=== PATIENT | male | born 1945 | race Caucasian/White ===

== ENCOUNTER → 2018-01-18 12:08 | Outpatient (CLI) | payer MEDICARE, OTHER, SELFPAY ==
--- NOTE | 2018-01-18 12:15 | DI.MRI.S_ITS ---
PROCEDURE: MR LUMBAR SPINE WO CON INDICATIONS: LUMBAR SPINE PAIN TECHNIQUE: Noncontrast sagittal T1 spin echo and T2 fast echo, sagittal STIR, axial T1 and T2 fast spin echo through the lumbar spine. In cases with scoliosis, additional coronal T2 fast spin echo may be performed. COMPARISON: [facility] Outside Film, CR, XR LUMBAR SPINE 2 OR 3 VIEWS, 12/06/2017, 10:16. FINDINGS: Image quality: Excellent. Alignment and Curvature: There is normal bony alignment. Bones: Loss of height noted in the T12 vertebral body or compression fracture. There is increased T2 signal within the marrow space of the T12 vertebral body indicating pressure pressures acute/subacute. T12 compression fracture results in approximately 50% loss of normal intervertebral body height. No kyphosis or retropulsed fragments are associated with the T12 compression fracture. Spinal Cord: Conus medullaris terminates at the T12-L1 disc level. Visualized cord demonstrates normal signal and size. Paraspinous Soft Tissues: No paravertebral masses. L1-L2: Loss of the signal. Mild diffuse disc bulge. Mild central canal narrowing. No neural foraminal narrowing. No neural impingement. L2-L3: Loss of the signal. Mild diffuse disc bulge. Mild central canal narrowing. No neural foraminal narrowing. No neural impingement. L3-L4: Loss of the signal. Mild diffuse disc bulge and mild bilateral facet hypertrophy. Mild ligamentum flavum hypertrophy. Moderate narrowing of the central canal. Moderate bilateral neural foraminal narrowing. No neural impingement. L4-L5: A loss of disc signal. Mild, diffuse associated moderate facet and mild ligamentum flavum hypertrophy. Moderate to severe narrowing of the central canal. Severe right and moderate left neural foraminal narrowing flattening deformity exiting right L5 nerve root. L5-S1: Loss of the signal. Mild diffuse associated mild bilateral facet hypertrophy. Mild narrowing of the central canal. Severe bilateral neural foraminal narrowing with slight flattening deformity exiting L5 nerve roots. IMPRESSION: 1. Acute/subacute T12 compression fracture. 2. Multilevel degenerative disc disease. 3. Multilevel facet arthropathy. 4. Moderate to severe L4-L5 central canal narrowing. Moderate L3-L4 central canal narrowing. Mild L1-L2, L2-L3 and L5-S1 central canal narrowing. 5. Severe bilateral L5-S1 neural foraminal narrowing. Severe right and moderate left L4-L5 neural foraminal narrowing. Moderate bilateral L3-L4 neural foraminal narrowing. Dictated by: Caitlyn Lloyd MD, PhD on 01/18/2018 at 15:58 Approved by: Caitlyn Lloyd MD, PhD on 01/18/2018 at 16:04
== END ==
PROVIDERS: Visit Provider Orthopaedic Surgery Orthopaedic Surgery of the Spine
DX: M48.54XA Collapsed vertebra, not elsewhere classified, thoracic region, initial encounter for fracture (principal); M54.5 Low back pain; M51.36 Other intervertebral disc degeneration, lumbar region; M47.816 Spondylosis without myelopathy or radiculopathy, lumbar region; M48.061 Spinal stenosis, lumbar region without neurogenic claudication; M48.07 Spinal stenosis, lumbosacral region
CPT/HCPCS: 72148

== ENCOUNTER → 2018-02-07 12:17 | Outpatient (CLI) | payer MEDICARE, OTHER, SELFPAY ==
--- NOTE | 2018-02-07 | DI.ECHO.S_ITS ---
[facility] +---------+ : : [address] [place] : : : : [id number] : : : : Phone: [phone]+ Echocardiogram Report + + :Name: MANE REYES Study Date: 02/07/2018 Height: 70 in : :[facility] Weight: 176 lb : : Gender: Male BSA: 2.0 m2 : :: 1945 Age: 72 yrs BP: 104/70 mmHg: :Reason For Study: Aortic, Ascending Aneurysm : :Ordering Physician: Jewel Quinteros : :Moustapha Performed By: Kay Ledezma : :Referring: Dr. Blake Santana : + + Interpretation Summary 1) Normal left ventricular thickness, size, wall motion, and systolic function (EF 55-60%). 2) Normal right ventricular size and function. 3) No significant valvular abnormalities. 4) Mildly enlarged ascending aorta at 4.1cm. 5) There is mild luminal irregularity and echogenicity in the abdominal aorta, suggestive of aortic atherosclerotic disease. 6) Compared to the Echo done 08/13/2012, no significant change. Procedure: A two-dimensional transthoracic echocardiogram with color flow and Doppler was performed. The study quality was technically adequate. Comparison is made with the echocardiogram of 08-13-12. The heart rate ranged between 77-78 bpm during the study. Left Ventricle: The left ventricle is normal in size. There is normal left ventricular wall thickness. The ejection fraction is estimated to be 55-60%. Left ventricular systolic function is normal without focal wall motion abnormalities. Assessment of diastolic parameters indicates normal left ventricular diastolic function and normal filling pressures. Right Ventricle: The right ventricle grossly appears normal in size with probable normal systolic function. Atria: The left atrial size is normal. Right atrial size is normal. The interatrial septum is intact with no evidence for an atrial septal defect. Mitral Valve: The mitral valve leaflets appear mildly thickened, but open well. The mitral valve leaflets are slightly calcified. There is no mitral regurgitation noted. Aortic Valve: The aortic valve is trileaflet. The aortic valve opens well. There is no aortic valve stenosis. There is mild aortic regurgitation. Tricuspid Valve: The tricuspid valve is normal in structure and function. There is a trace or physiologic amount of tricuspid regurgitation. The right ventricular systolic pressure is estimated at 23 mmHg assuming a right atrial pressure of 3 mm Hg. Pulmonic Valve: The pulmonic valve is not well seen, but is grossly normal. There is no pulmonic valvular regurgitation. Great Vessels: The aortic root is mildly dilated. The ascending aorta is at the upper limits of normal in size. This is unchanged compared to the previous study. There is mild luminal irregularity and echogenicity in the abdominal aorta, suggestive of aortic atherosclerotic disease. The IVC is of normal diameter and collapses greater than 50% with a sniff. This suggests a low right atrial pressure of 3 mm Hg. Pericardium/ Pleura There is no pericardial effusion. There is no pleural effusion. MMode/2D Measurements & Calculations LVIDd: 4.7 cm Ao root diam: 4.0 cm LVIDs: 2.9 cm Aortic Jxn: 3.3 cm FS: 37.8 % asc Aorta Diam: 4.1 cm EPSS: 1.2 cm Ao Arch Diam (Prox Trans): 3.4 cm IVSd: 0.85 cm LVPWd: 0.90 cm LV everett. diameter/BSA (cm/m^2): 2.4 LV sys. diameter/BSA (cm/m^2): 1.5 LA dimension: 2.9 cm RA long axis: 4.4 cm LA A2 area: 16.7 cm2 RA area: 12.0 cm2 LA A4 area: 16.3 cm2 RA vol: 28.0 ml LA length (vol): 4.7 cm RA : 14.1 ml/m2 LA vol: 49.3 ml IVC diam: 1.3 cm LA vol index: 25.0 ml/m2 RVDd major: 6.0 cm RVD1 (basal): 3.5 cm RVD2 (mid): 3.1 cm Doppler Measurements & Calculations Ao V2 max: 120.7 cm/sec MV E max marlon: 43.2 cm/sec Ao V2 mean: 84.4 cm/sec MV A max marlon: 67.9 cm/sec Ao max P.8 mmHg MV E/A: 0.64 Ao mean P.1 mmHg Med Peak E' Marlon: 3.5 cm/sec Ao V2 VTI: 22.9 cm E/E' med: 12.4 Lat Peak E' Marlon: 5.5 cm/sec E/E' lat: 7.9 E/e' average: 10.2 MV dec time: 0.27 sec MV P1/2t: 78.6 msec TR max marlon: 222.1 cm/sec MV P1/2t max marlon: 43.0 cm/sec TR max P.7 mmHg MVA(P1/2t): 2.8 cm2 PA V2 max: 67.1 cm/sec PA V2 mean: 44.7 cm/sec PA mean P.90 mmHg PA Accel Time: 0.20 sec Reading Physician:05:00 PM
== END ==
PROVIDERS: Visit Provider Internal Medicine Cardiovascular Disease
DX: I71.4 Abdominal aortic aneurysm, without rupture (principal)
CPT/HCPCS: 93306

== ENCOUNTER → 2018-12-12 09:22 | Outpatient (CLI) | payer MEDICARE, OTHER, SELFPAY ==
--- NOTE | 2018-12-12 | DI.ECHO.S_ITS ---
[facility]---------+ [facility] +---------+ : : [address] [place] : : : : [id number] : : : : Phone: [phone]+ Echocardiogram Report + + :Name: MANE REYES Study Date: 12/12/2018 Height: 70 in : :[facility] Exam Location: [facility] Weight: 176 lb : : Gender: Male BSA: 2.0 m2 : :: 1945 Age: 73 yrs BP: 102/63 mmHg: :Reason For Study: DISORDER OF ARTERIES : : Performed By: Spike Baltazar : :Referring: TAMY GERARD : + + Interpretation Summary 1) Normal left ventricular thickness, size, wall motion, and systolic function (EF 55-60%). 2) Normal right ventricular size and function. 3) No significant valvular abnormalities. 4) Mildly enlarged ascending aorta at 4.1cm. 5) Compared to the Echo done 02/07/2018, no significant change. Procedure: A two-dimensional transthoracic echocardiogram with color flow and Doppler was performed. The study quality was technically adequate. Comparison is made with the echocardiogram of 02/07/18. The patient was in normal sinus rhythm during the exam. Left Ventricle: The left ventricle is normal in size. There is normal left ventricular wall thickness. The ejection fraction is estimated to be 55-60%. Left ventricular systolic function is normal. There are no focal wall motion abnormalities. Right Ventricle: The right ventricle is normal in size and function. Atria: Both atria are normal in size. The interatrial septum is intact with no evidence for an atrial septal defect. Mitral Valve: The mitral valve is normal in structure and function. The mitral valve leaflets are slightly calcified. There is no mitral regurgitation noted. Aortic Valve: The aortic valve is trileaflet. The aortic valve opens well. There is no aortic valve stenosis. There is trace aortic regurgitation. Tricuspid Valve: The tricuspid valve is normal in structure and function. There is trace tricuspid regurgitation. The right ventricular systolic pressure is estimated to be at least 21 mmHg based on an estimated right atrial pressure of 3 mm Hg. Pulmonic Valve: The pulmonic valve is normal in structure and function. There is trace pulmonic regurgitation. Great Vessels: The aortic root is normal size. The ascending aorta is mildly enlarged. The pulmonary artery is normal size. The IVC is of normal diameter and collapses greater than 50% with a sniff. This suggests a low right atrial pressure of 3 mm Hg. Pericardium/ Pleura There is no pericardial effusion. There is no pleural effusion. MMode/2D Measurements & Calculations LVIDd: 4.5 cm LVOT diam: 2.4 cm LVIDs: 2.4 cm Ao root diam: 3.7 cm FS: 46.5 % Aortic Jxn: 3.1 cm EPSS: 1.0 cm asc Aorta Diam: 4.1 cm IVSd: 0.85 cm Ao Arch Diam (Prox Trans): 2.6 cm LVPWd: 0.83 cm LV everett. diameter/BSA (cm/m^2): 2.3 LV sys. diameter/BSA (cm/m^2): 1.2 LA dimension: 3.1 cm RA long axis: 4.3 cm LA A2 area: 24.3 cm2 RA area: 18.7 cm2 LA A4 area: 18.7 cm2 RA vol: 69.2 ml LA length (vol): 5.6 cm RA : 35.0 ml/m2 LA vol: 69.2 ml IVC diam: 1.4 cm LA vol index: 35.0 ml/m2 RVD1 (basal): 3.7 cm RVD2 (mid): 3.6 cm Doppler Measurements & Calculations Ao V2 max: 123.8 cm/sec LVOT Max Marlon: 89.5 cm/sec Ao V2 mean: 90.7 cm/sec LV V1 max P.2 mmHg Ao max P.1 mmHg LV V1 VTI: 19.3 cm Ao mean P.5 mmHg JONATHAN(I,D): 3.5 cm2 Ao V2 VTI: 24.6 cm JONATHAN(V,D): 3.2 cm2 sev ratio: 0.78 JONATHAN indexed to BSA (cm^2/m^2): 1.8 MV E max marlon: 53.7 cm/sec TR max marlon: 209.2 cm/sec MV A max marlon: 68.4 cm/sec TR max P.5 mmHg MV E/A: 0.78 PA V2 max: 69.9 cm/sec Med Peak E' Marlon: 4.5 cm/sec PA V2 mean: 46.3 cm/sec E/E' med: 11.8 PA mean P.98 mmHg Lat Peak E' Marlon: 5.9 cm/sec PA pr(Accel): 21.6 mmHg E/E' lat: 9.1 PA Accel Time: 0.11 sec E/e' average: 10.5 MV dec time: 0.27 sec SV(LVOT): 86.4 ml Reading Physician:12:13 PM
== END ==
PROVIDERS: PCP Family Medicine; Visit Provider Internal Medicine Cardiovascular Disease
DX: I77.89 Other specified disorders of arteries and arterioles (principal)
CPT/HCPCS: 93306

== ENCOUNTER → 2018-12-18 14:03 | Outpatient (CLI) | payer MEDICARE, OTHER, SELFPAY ==
[2018-12-18 15:03] LABS: Add Manual Diff / Slide Review NO; Basophils Absolute Auto 0 /uL (0-100); Basophils Percent Auto 0.5 % (0-2); Eosinophils Absolute Auto 200 /uL (0-450); Eosinophils Percent Auto 3.2 % (2-4); Hematocrit 39.7 % (41-53); Hemoglobin 13.2 g/dL (13.5-17.5); Lymphocytes Absolute Auto 1800 /uL (1100-4500); Lymphocytes Percent Auto 26.4 % (25-40); Mean Corpuscular HGB Conc 33.2 % (30-36); Mean Corpuscular Volume 87.5 fL (80-100); Monocytes Absolute Auto 400 /uL (0-900); Monocytes Percent Auto 6.3 % (3-14); Neutrophils Absolute Auto 4400 /uL (1500-7000); Neutrophils Percent Auto 63.6 % (50-75); Platelet Count 234 X10^3/uL (150-400); Red Blood Cell Count 4.54 X10^6/uL (4.5-5.9); White Blood Cell Count 6.9 X10^3/uL (4.5-11.0)
[2018-12-18 16:29] LABS: BUN Creatinine Ratio 18.7 (6-22); Blood Urea Nitrogen 28 mg/dL (9-20); Calcium 9.2 mg/dL (8.4-10.2); Carbon Dioxide 30 mmol/L (22-32); Chloride 102 mmol/L (98-107); Cholesterol 142 mg/dL (140-199); Estimated Glomerular Filt Rate 45.9 mL/min (>60); Glucose 102 mg/dL (80-110); HDL Cholesterol 27 mg/dL (40-60); HEMOLYSIS < 15 (0-50); LDL Cholesterol Calculated 69 mg/dL (<100); Potassium 4.8 mmol/L (3.4-5.1); Sodium 141 mmol/L (137-145); Triglycerides 228 mg/dL (35-150)
== END ==
PROVIDERS: PCP Family Medicine; Visit Provider Internal Medicine Cardiovascular Disease
DX: I10 Essential (primary) hypertension (principal)
CPT/HCPCS: 36415; 80048; 80053; 80061; 85025

== ENCOUNTER → 2019-01-18 10:02 | Outpatient (CLI) | payer MEDICARE, OTHER, SELFPAY ==
--- NOTE | 2019-01-18 | DI.NM.S_ITS ---
PROCEDURE: NM YANA PERF SPECT R&S PHARM Rest and pharmacological stress myocardial perfusion SPECT with gated imaging and ejection fraction RADIOPHARMACEUTICAL: 9.4 mCi Tc-99m tetrafosmin IV at rest and 25.7 mCi Tc-99m tetrafosmin IV at peak effect of pharmacological stress. [id number] was performed. INDICATIONS: CHEST PAIN TECHNIQUE: Radiopharmaceutical was injected at peak stress test, and also at rest. SPECT images were obtained. SPECT myocardial perfusion images were displayed in short axis, horizontal long axis, and vertical long axis views. Gated images were reviewed using [employer] software. COMPARISON: None. CARDIAC STRESS: A pharmacologic stress test was performed under the supervision of an attending staff, using an infusion of lexiscan 0.4mg IV X1. Hemodynamic data: There is normal blood pressure and heart rate response to pharmacologic stress. Symptoms: The patient denied anginal chest pain. Aminophylline: none EKG: Resting ECG shows sinus rhythm with RBBB. No diagnostic changes of ischemia with lexiscan; no ectopy. FINDINGS: Raw data: There is good myocardial uptake of radiotracer. No significant motion artifacts. Mnmg-dy-fjxtx ratio is 0.39 (normal is less than 0.38 for tetrafosmin tracer). Left ventricle function: Gated images demonstrate normal left ventricular wall thickening. No segmental wall motion abnormalities. No transient ischemic dilation; TID is 1.14 (normal less than 1.3). Left ventricle resting end diastolic volume is 103 mL. Left ventricle stress ejection fraction is 69%; normal range is above 45%. Myocardial perfusion: There is moderately severe defect in the distal anterior wall extending to apex on stress supine images that improves but not resolve on stress prone images, suggesting probable ischemia in the LAD territory. No infarction as resting images show normal perfusion. IMPRESSION: Abnormal nuclear stress with probable ischemia in the LAD territory 1) There is moderately severe defect in the distal anterior wall extending to apex on stress supine images that improves but not resolve on stress prone images, suggesting probable ischemia in the LAD territory. No infarction, as resting images show normal perfusion. SSS 8, SRS 0. 2) Normal left ventricular size, wall motion, and systolic function (EF post stress 69%). 3) No ECG evidence of ischemia. 4) No angina during the study. 5) No prior nuclear stress test available for comparison. Dictated by: Jewel Gerard MD on 01/18/2019 at 15:47 Approved by: Jewel Gerard MD on 01/18/2019 at 15:51
--- NOTE | 2019-01-18 15:04 | PM.TREADMILL ---
Cardiac Stress Test Report Referral & Results Date Patient Seen: 01/18/19 Time Patient Seen: 14:30 Requesting provider: Jewel Gerard Indication: Chest discomfort Procedure Note: After both written and verbal informed consent the patient had an IV started by the diagnostic imaging RN and then was hooked up to the treadmill monitoring system. The patient was placed on the treadmill at 1 mile an hour with no elevation and was then injected with the Kim scan material. The Cardiolite was then immediately administered. The patient spent an additional 2-3 minutes on the treadmill before being returned to the [facility] in the supine position. The patient had a normal response to all infused materials. Impression: Suboptimal Kim protocol. Target heart rate not met. Please note: Actual ECG tracings can be found in the PACS system.
== END ==
PROVIDERS: PCP Family Medicine; Visit Provider Internal Medicine Cardiovascular Disease
DX: R07.9 Chest pain, unspecified (principal); I51.0 Cardiac septal defect, acquired
CPT/HCPCS: 78452; 93016; 93017; 93018; A9502; J2785

== ENCOUNTER 2019-04-14 11:19 | Inpatient (IN) | payer MEDICARE, OTHER, SELFPAY ==
[2019-04-14] VITALS (7 sets, daily range): BP systolic 107–128; BP diastolic 67–86; PULSE 106–120; RESP 17–20; TEMP 35.9–37.4; O2SAT 93–98; BMI 23.2
--- NOTE | 2019-04-14 11:34 | DI.RAD.S_ITS ---
PROCEDURE: XR ACUTE ABDOMEN SERIES INDICATIONS: abd distention, h/o 3 way bypass 8 weeks ago. TECHNIQUE: One view chest and two views of the abdomen were acquired. COMPARISON: Outside Film, CT, CT ABDOMEN PELVIS WITH CONTRAST, 10/22/2018, 17:32. FINDINGS: Surgical changes and devices: The changes of coronary bypass as well as cervical fusion. Chest: Lungs are clear. Heart size is normal. No pleural effusions. No pneumoperitoneum. Abdomen: Air filled dilated loops of bowel throughout the abdomen, possibly including the colon. No suspicious calcifications. Visualized solid organ contours appear normal. Bones: No suspicious bony lesions. IMPRESSION: Dilated air-filled bowel throughout the abdomen which may represent small bowel obstruction or ileus the appropriate clinical setting Dictated by: Hari Perry M.D. on 04/14/2019 at 11:00 Approved by: Hari Perry M.D. on 04/14/2019 at 11:04
[2019-04-14 12:12] LABS: Add Manual Diff / Slide Review NO; Basophils Absolute Auto 0 /uL (0-100); Basophils Percent Auto 0.1 % (0-2); Eosinophils Absolute Auto 0 /uL (0-450); Eosinophils Percent Auto 0.3 % (2-4); Hematocrit 41.4 % (41-53); Hemoglobin 13.4 g/dL (13.5-17.5); Lymphocytes Absolute Auto 1100 /uL (1100-4500); Lymphocytes Percent Auto 11.9 % (25-40); Mean Corpuscular HGB Conc 32.4 % (30-36); Mean Corpuscular Hemoglobin 27.7 PG (26-34); Mean Corpuscular Volume 85.3 fL (80-100); Monocytes Absolute Auto 800 /uL (0-900); Monocytes Percent Auto 8.7 % (3-14); Neutrophils Absolute Auto 7000 /uL (1500-7000); Platelet Count 290 X10^3/uL (150-400); Red Blood Cell Count 4.85 X10^6/uL (4.5-5.9); Red Cell Distribution Width 15.6 % (11.6-14.8); White Blood Cell Count 8.9 X10^3/uL (4.5-11.0)
[2019-04-14 12:21] LABS: INR 1.1 (0.9-1.3); Prothrombin Time 12.5 SECONDS (10.1-12.7)
[2019-04-14 12:24] LABS: PTT Partial Thromboplastin Tim 31 SECONDS (26.4-36.2)
[2019-04-14 12:25] LABS: Alanine Aminotransferase 16 IU/L (21-72); Albumin 4.4 g/dL (3.5-5.0); Albumin Globulin Ratio 1.4 (1.0-2.8); Alkaline Phosphatase 105 U/L (38-126); Aspartate Aminotransferase 29 IU/L (17-59); BUN Creatinine Ratio 21.7 (6-22); Bilirubin Total 0.8 mg/dL (0.2-1.3); Blood Urea Nitrogen 26 mg/dL (9-20); Calcium 9.1 mg/dL (8.4-10.2); Carbon Dioxide 24 mmol/L (22-32); Chloride 96 mmol/L (98-107); Creatine Kinase 86 U/L (55-170); Estimated Glomerular Filt Rate 59.2 mL/min (>60); Globulin 3.1 g/dL (1.7-4.1); Glucose 281 mg/dL (80-110); HEMOLYSIS < 15 (0-50); Lipase 48 U/L (23-300); Potassium 4.9 mmol/L (3.4-5.1); Sodium 136 mmol/L (137-145); Total Protein 7.5 g/dL (6.3-8.2)
--- NOTE | 2019-04-14 12:28 | DI.CT.S_ITS ---
PROCEDURE: CT ABDOMEN PELVIS W CON INDICATIONS: sbo TECHNIQUE: After the administration of intravenous contrast, 5 mm thick sections acquired from the diaphragm to the symphysis. 5 mm coronal and sagittal reformats were acquired. For radiation dose reduction, the following was used: automated exposure control, adjustment of mA and/or kV according to patient size. COMPARISON: Outside Film, CT, CT ABDOMEN PELVIS WITH CONTRAST, 10/22/2018, 17:32. [facility], CR, XR ACUTE ABDOMEN SERIES, 04/14/2019, 11:39. FINDINGS: Image quality: Excellent. ABDOMEN: Lung bases: Lung bases are clear. Heart size is normal. Postsurgical changes of coronary bypass. Solid organs: Liver is normal in size and enhancement. A large partially distended. Unremarkable appearance of the pancreas and adrenal glands. Scattered calcifications present in the spleen, likely sequela of a remote granulomatous process. Normal enhancement of the kidneys. 16mm nonobstructive kidney stone again seen in the right kidney. 3.6 cm simple fluid density cysts of the right kidney is also unchanged. Prostate gland is within normal size limits. Peritoneum and bowel: There are dilated loops of small bowel beginning in the left upper abdomen measuring up to 4.2 cm in diameter, continuing into the distal ileum before gradually tapering back normal caliber without a focal transition point. The bowel demonstrates moderate hyperenhancement but there is no region concurrent dilation and bowel wall thickening demonstrated. Appendix is unremarkable. There is air and stool within the colon which is of normal caliber. There is a moderate volume of free fluid in the pelvis. Nodes and vessels: No retroperitoneal or mesenteric adenopathy by size criteria. Aorta and inferior vena cava are normal in size. Calcific and noncalcific atherosclerosis of the abdominal aorta and its branches. Miscellaneous: No ventral hernias. PELVIS: Genitourinary: Bladder wall thickness is normal. Miscellaneous: No inguinal hernias or adenopathy. Bones: No suspicious bony lesions. Stable compression deformity of T12 with approximately 50% height loss. No new vertebral body compression fractures. Degenerative changes of the spine and hips. IMPRESSION: Partial or early complete small bowel obstruction without distended up to 4.2 cm. No focal transition point is clearly identified and there is air and stool within the colon. Moderate volume of free fluid in the pelvis. Nonobstructing 6 mm stone in the right kidney. Dictated by: Hari Perry M.D. on 04/14/2019 at 11:51 Approved by: Hari Perry M.D. on 04/14/2019 at 12:07
[2019-04-14 12:36] LABS: B Type Natriuretic Peptide < 100 (<100)
[2019-04-14 12:37] LABS: Troponin I < 0.012 ng/mL (0.01-0.034)
--- NOTE | 2019-04-14 14:32 | P.HP_ITS ---
History of Present Illness History of Present Illness Date Patient Seen: 04/14/19 Time Patient Seen: 14:33 Chief complaint: BAD STOMACH PAIN AND SWELLED UP STOMACH R SIDE Narrative: Colby Reinoso is a 74 year old male with a history of T2DM, HTN, dyslipidemia, two MIs, and a triple bypass 8 weeks ago who presents to the ED with a 2 day history of abdominal pain. Two days ago the abdominal pain began after going to for his triple bypass. The pain worsened through the following day, reaching 10/10 pain. The pain is diffuse but is more severe on his right side. The pain is slightly better today after passing gas and having a small bowel movement this morning. On Monday the only thing he had to eat was chicken soup and he was able to tolerate it well without any nausea. He reports feeling crampy and bloated. He took pepto bismol yesterday without relief. Nothing seems to make it better or worse. He denies fever, vomiting, diarrhea, constipation, blood in stool, SOB, and chest pain. He has been experiencing sweating and nausea which he attributes to the pain. When going for a xray at the ER he says he blacked out while standing up and was caught by the technicians. His xray showed dilated loops of small bowel with no clear transition point. His CT shows no definite transition point. On arrival his white blood cell count was 8.9. He has a 1cm kidney stone in his right kidney that has been there since December. It causes him intermittent low level pain in his right side and back. He is waiting until his circuit court judge approves him for surgery before addressing this issue further. Patient History Medical History (Updated 04/14/19 @ 17:36 by Marlen Boggs MD) Anxiety (Acute) BPH (benign prostatic hyperplasia) (Acute) Diabetes mellitus (Acute) Diabetic peripheral neuropathy (Acute) GERD (gastroesophageal reflux disease) (Acute) Hyperlipidemia (Acute) Hypertension (Acute) Myocardial infarction (Acute) Surgical History (Updated 04/14/19 @ 16:07 by Marlen Boggs MD) H/O cervical spine surgery (Acute) H/O right knee surgery (Acute) History of inguinal hernia repair, bilateral (Acute) S/P triple vessel bypass (Acute) Family History (Updated 04/14/19 @ 16:09 by Marlen Boggs MD) Mother Coronary artery disease Father COPD (chronic obstructive pulmonary disease) Social History household members: spouse Smoking Status: Former smoker alcohol intake: current Family & Social History Family History (Updated 04/14/19 @ 16:09 by Marlen Boggs MD) Mother Coronary artery disease Father COPD (chronic obstructive pulmonary disease) Social History: He denies smoking. He denies drinking alcohol or using re creational drugs. He is retired and lives with his , Anjali. Anjali Reinoso is his backup decision maker. Safety & Behavioral: Feels Safe in Current Yes Environment Been Physically Hurt or No Threatened By a Person Tobacco & Substance use: Smoking Status Former smoker alcohol intake frequency 0-2 drinks per day Substance Use Type does not use Meds Home Medications and Allergies Home Medications Medication Instructions Recorded Confirmed Type atenolol 04/14/19 History atorvastatin 04/14/19 History bupropion HCl PO 04/14/19 History clopidogrel 04/14/19 History escitalopram oxalate mg 04/14/19 History furosemide 04/14/19 History hydromorphone [Dilaudid] 04/14/19 History insulin aspart U-100 [Novolog 04/14/19 History U-100 Insulin aspart] insulin glargine [Lantus U-100 SUBCUT 04/14/19 History Insulin] insulin lispro protamin-lispro SUBCUT 04/14/19 History [Humalog Mix 50-50 Insuln U-100] isosorbide mononitrate mg PO 04/14/19 History lidocaine 04/14/19 History losartan 04/14/19 History metformin mg 04/14/19 History metoprolol tartrate 04/14/19 History nitroglycerin mg 04/14/19 History pantoprazole PO 04/14/19 History potassium chloride [Klor-Con 10] meq PO 04/14/19 History pregabalin [Lyrica] 04/14/19 History propranolol 04/14/19 History tamsulosin mg PO 04/14/19 History zinc sulfate 04/14/19 History Allergies Allergy/AdvReac Type Severity Reaction Status Date / Time aspirin Allergy Unknown Verified 04/14/19 11:29 ibuprofen Allergy Unknown Verified 04/14/19 11:29 Review of Systems Review of Systems Narrative: Denies fever, chills, changes in hearing, changes in vision, chest tightness, cough, wheeze, SOB, chest pain, diarrhea, constipation, vomiting, blood in stool, polyuria, dysuria, difficulty urinating, dark colored urine, gait problems, lymphadenopathy, and headaches. Positive for nausea, sweating, abdominal pain, bloating, and cramping, dizziness, and lightheadedness. Exam Vital Signs (past 8 hours): - 04/14/19 11:25 04/14/19 12:36 04/14/19 12:57 Temperature 96.6 F L Pulse Rate 108 H 107 H 106 H Respiratory Rate 18 20 18 Blood Pressure 120/80 Blood Pressure [Left Arm] 109/67 107/69 Pulse Oximetry 93 96 97 Oxygen Delivery Method Room Air Const General: cooperative, healthy appearing and well developed Orientation: alert and oriented x3 HENMT Head: normocephalic Ears: hearing grossly normal bilaterally Eyes General: appearance normal, both eyes and all related structures Conjunctivae: conjunctivae normal Pupils: PERRL EOM: EOM intact bilaterally Neck Neck: normal visual inspection and trachea midline Thyroid: thyroid normal Chest Chest: normal inspection of the chest Other: Large scar on chest from triple bypass 8 weeks ago. Resp Effort & Inspection: normal respiratory effort and able to speak in complete sentences Auscultation: clear to auscultation bilaterally Cardio Rate: regular rate Rhythm: regular rhythm Heart Sounds: S1 normal and S2 normal GI Inspection: distended and scar Palpation: firm, guarding and tender Auscultation: high-pitched sounds Other: Three laparoscopic scars from triple bypass 8 weeks ago. Skin General: no rashes or lesions noted and scars Neuro General: alert, awake, oriented x3 and moves all extremities Cognition: normal cognition Speech: speech normal Psych Appearance: grossly normal Mental Status: mental status grossly normal Speech and Movement: speech and movement normal Objective Labs Result Diagrams: 04/14/19 12:04 04/14/19 12:04 Labs: Laboratory Results - last 24 hr 04/14/19 04/14/19 04/14/19 12:04 12:04 12:04 WBC 8.9 RBC 4.85 Hgb 13.4 L Hct 41.4 MCV 85.3 MCH 27.7 MCHC 32.4 RDW 15.6 H Plt Count 290 Neut % (Auto) 79.0 H Lymph % (Auto) 11.9 L [place] % (Auto) 8.7 Eos % (Auto) 0.3 L Baso % (Auto) 0.1 Neut # (Auto) 7000 Lymph # (Auto) 1100 [place] # (Auto) 800 Eos # (Auto) 0 Baso # (Auto) 0 PT 12.5 INR 1.1 APTT 31 Sodium 136 L Potassium 4.9 Chloride 96 L Carbon Dioxide 24 BUN 26 H Creatinine 1.20 Estimated GFR 59.2 L BUN/Creatinine Ratio 21.7 Glucose 281 H Calcium 9.1 Total Bilirubin 0.8 AST 29 ALT 16 L Alkaline Phosphatase 105 Total Creatine Kinase 86 CK-MB (CK-2) TNP CK-MB (CK-2) Rel Index TNP Troponin I < 0.012 B-Natriuretic Peptide Total Protein 7.5 Albumin 4.4 Globulin 3.1 Albumin/Globulin Ratio 1.4 Lipase 48 04/14/19 12:04 WBC RBC Hgb Hct MCV MCH MCHC RDW Plt Count Neut % (Auto) Lymph % (Auto) [place] % (Auto) Eos % (Auto) Baso % (Auto) Neut # (Auto) Lymph # (Auto) [place] # (Auto) Eos # (Auto) Baso # (Auto) PT INR APTT Sodium Potassium Chloride Carbon Dioxide BUN Creatinine Estimated GFR BUN/Creatinine Ratio Glucose Calcium Total Bilirubin AST ALT Alkaline Phosphatase Total Creatine Kinase CK-MB (CK-2) CK-MB (CK-2) Rel Index Troponin I B-Natriuretic Peptide < 100 Total Protein Albumin Globulin Albumin/Globulin Ratio Lipase Assessment & Plan Assessment & Plan narrative: 1. Small bowel obstruction -NPO, NGT -IV fluids -Repeat xray tomorrow and plan surgical consult if no improvement -Repeat CBC and CMP tomorrow 2. Diabetes - hold while NPO -Continue metformin - when taking PO -Continue regular insulin 3 units TID with meals - when taking PO -Continue glargine 20 units in the morning 10 units at night - when taking PO -Correction scale insulin with accuchecks Q6HR while NPO 3. CAD - take with ice chips and clamp NG for 30 minutes -Continue losartan 25mg -Continue metoprolol -Continue atorvastatin -Continue clopidogrel -Continue furosemide 20mg -Continue potassium 10mg daily -Continue nitroglycerine 0.4mg prn 4. Hyperlipidemia -Continue atorvastatin 80mg daily 5. GERD -Continue pantoprazole 40mg IV while NPO 6. BPH -Continue tamsulosin 0.4mg daily - when taking PO 7. Anxiety -Continue buproprion 150mg in the morning 75mg at night - when taking PO 8. Diabetic peripheral neuropathy -Continue pregabalin 150mg - when taking PO Time Spent With Patient Time with patient: 25 - 35 minutes
[2019-04-14] MEDS: SODIUM CHLORIDE 0.9% 1,000 ML 125 ML IV (15:35)
--- NOTE | 2019-04-14 15:35 | ED_ITS ---
HPI - Abdominal Pain General Chief Complaint: Abdominal Pain Stated Complaint: BAD STOMACH PAIN AND SWELLED UP STOMACH R SIDE Time Seen by Provider: 04/14/19 11:33 Source: patient Mode of arrival: Ambulatory Limitations: no limitations History of Present Illness HPI narrative: Patient comes emergency department complaining of about 5 days of abdominal cramping and bloating. Patient denies fevers or chills. He has not vomited but he does complain of some nausea. He states he has been having very small bowel movements and has not had a normal bowel movement for the past 3 days. He states he has been passing a mild amount of gas. Patient denies any chest pain, shortness of breath, or cough. No dysuria or back pain. No hematuria or blood in stools. No other complaints at this time. Related Data Home Medications Medication Instructions Recorded Confirmed atorvastatin 80 mg PO BEDTIME 04/14/19 04/14/19 furosemide 20 mg PO DAILY 04/14/19 04/14/19 insulin aspart U-100 [Novolog 3 unit SUBCUT TIDWM 04/14/19 04/14/19 U-100 Insulin aspart] insulin glargine [Lantus Solostar 10 unit SUBCUT BEDTIME 04/14/19 04/14/19 U-100 Insulin] insulin glargine [Lantus U-100 20 unit SUBCUT DAILY 04/14/19 04/14/19 Insulin] losartan 12.5 mg PO DAILY 04/14/19 04/14/19 metformin 850 mg PO TIDWM 04/14/19 04/14/19 metoprolol tartrate 12.5 mg PO Q8H 04/14/19 04/14/19 nitroglycerin 0.4 mg SUBLINGUAL PRN PRN 04/14/19 04/14/19 pantoprazole 40 mg PO DAILY 04/14/19 04/14/19 potassium chloride [Klor-Con 10] 10 meq PO DAILY 04/14/19 04/14/19 propranolol 20 mg PO TID 04/14/19 04/14/19 tamsulosin 0.4 mg PO DAILY 04/14/19 04/14/19 zinc sulfate 220 mg PO DAILY 04/14/19 04/14/19 Allergies Allergy/AdvReac Type Severity Reaction Status Date / Time aspirin Allergy Unknown Verified 04/14/19 11:29 ibuprofen Allergy Unknown Verified 04/14/19 11:29 Review of Systems Constitutional Constitutional: Denies chills, Denies fatigue, Denies fever(s), Denies frequent falls, Denies lethargy and Denies weakness Eyes Eyes: Denies change in vision, Denies eye discharge, Denies irritation and Denies loss of vision ENT Ears, Nose, Mouth, and Throat: Denies change in voice, Denies dizziness, Denies neck pain, Denies sore throat and Denies throat swelling Cardiovascular Cardiovascular: Denies chest pain, Denies irregular heart rhythm, Denies lightheadedness, Denies palpitations, Denies dyspnea, Denies dyspnea on exertion and Denies orthopnea Respiratory Respiratory: Denies cough, Denies dyspnea, Denies dyspnea on exertion and Denies wheezing Gastrointestinal Gastrointestinal: Reports abdominal pain, Denies change in bowel habits, Denies diarrhea, Reports nausea and Denies vomiting Comments: Bloating Genitourinary Genitourinary: Denies hematuria, Denies flank pain, Denies urinary incontinence and Denies urinary urgency Musculoskeletal Musculoskeletal: Denies back pain, Denies muscle weakness, Denies neck pain, Denies numbness and Denies tingling Integumentary/Breasts Skin/Breast: Denies pruritus, Denies erythema, Denies rash and Denies wounds Neurologic Neurologic: Denies behavioral changes, Denies confusion, Denies dizziness, Denies frequent falls, Denies loss of vision, Denies numbness, Denies tingling and Denies weakness Psychiatric Psychiatric: Denies anxiety, Denies behavioral changes, Denies confusion, Denies depression, Denies homicidal ideation and Denies suicidal ideation Endocrine Endocrine: Denies fatigue, Denies flushing and Denies palpitations Hematologic/Lymphatic Hematologic/Lymphatic: Denies easy bruising Allergic/Immunologic Allergic/Immunologic: Denies urticaria, Denies throat swelling and Denies wheezing Patient History Medical History Anxiety (Acute) BPH (benign prostatic hyperplasia) (Acute) Diabetes mellitus (Acute) Diabetic peripheral neuropathy (Acute) GERD (gastroesophageal reflux disease) (Acute) Hyperlipidemia (Acute) Hypertension (Acute) Myocardial infarction (Acute) Surgical History H/O cervical spine surgery (Acute) H/O right knee surgery (Acute) History of inguinal hernia repair, bilateral (Acute) S/P triple vessel bypass (Acute) Family History (Updated 04/14/19 @ 16:09 by Marlen Boggs MD) Mother Coronary artery disease Father COPD (chronic obstructive pulmonary disease) Social History household members: spouse Smoking Status: Former smoker alcohol intake: current Family History (Updated 04/14/19 @ 16:09 by Marlen Boggs MD) Mother Coronary artery disease Father COPD (chronic obstructive pulmonary disease) Social History household members: spouse Smoking Status: Former smoker alcohol intake: current alcohol intake frequency: 0-2 drinks per day Substance Use Type: does not use Exam Initial Vital Signs Initial Vital Signs: Vital Signs Temperature 96.6 F L 04/14/19 11:25 Pulse Rate 108 H 04/14/19 11:25 Respiratory Rate 18 04/14/19 11:25 Blood Pressure 120/80 04/14/19 11:25 Pulse Oximetry 93 04/14/19 11:25 Const General: cooperative and well developed Nutritional Appearance: well nourished Orientation: alert, awake, oriented x3 and not confused [facility] Head: normocephalic and atraumatic Ears: external ears normal and TM's normal bilaterally Nose: external nose normal and No nasal discharge Face and sinus: sinuses nontender, face symmetric, no sinus tenderness and No dry mucous membranes Mouth: oral mucosae normal and moist mucous membranes Teeth and gingiva: dentition normal Throat: tonsils normal and uvula midline Eyes General: appearance normal, both eyes and all related structures Eyelids: eyelids normal Conjunctivae: conjunctivae normal Sclera: sclerae normal Pupils: PERRL EOM: EOM intact bilaterally Neck Neck: normal visual inspection, trachea midline, No lymphadenopathy, No midline deformity and No JVD Lymphatic: No lymphedema Chest Chest: normal inspection of the chest Resp Effort & Inspection: normal respiratory effort, able to speak in complete sen tences, no respiratory distress and no use of accessory muscles Auscultation: clear to auscultation bilaterally, no rales, no rhonchi and no wheezes Cardio Rate: regular rate Rhythm: regular rhythm Heart Sounds: no click, no gallops, no murmurs and no rubs Pulses: normal peripheral pulses GI Inspection: non-distended Palpation: soft, no hepatosplenomegaly, No guarding, No pulsatile mass and tender (Moderate, diffuse) Back/Spine/Pelvis Back: No CVA tenderness Cervical Spine: cervical ROM normal and No pain with cervical ROM Thoracic/Lumbar Spine: thoracic and lumbar spine normal to inspection Skin General: no rashes or lesions noted, No jaundice and No petechiae Neuro General: alert, oriented x3, gait normal and no focal motor deficits Speech: speech normal Extrem General: full ROM, no clubbing, cyanosis or edema, no pedal edema and no calf tenderness Psych Appearance: well kempt Mental Status: mental status grossly normal Attitude: cooperative Thought Content: normal and suicidality Judgment: judgment good Course Course Course Narrative: Patient was worked up with labs and acute abdominal x-ray series to evaluate his discomfort. Labs were unremarkable, but the x-ray series did show multiple dilated loops of small bowel. The patient was then sent for a CT scan of the abdomen and pelvis which confirmed either a partial or early complete small bowel obstruction, but did not identify a distinct transition point. Results were communicated with the patient, and an NG-tube was placed. I spoke with Dr. Boggs, who did agree to admit the patient to his service. Orders Ordered: ED Orders 04/14/19 11:34 XR acute abdomen series Stat EKG-12 Lead Stat 04/14/19 12:04 BNP [B Type Natriuretic Peptide] Stat Complete Blood Count AUTO DIFF Stat Comprehensive Metabolic Panel Stat Lipase Stat Partial Thromboplastin Time Stat Prothrombin Time INR Stat Troponin & CK Cardiac Panel Stat 04/14/19 12:28 CT abdomen pelvis w con Stat Dextrose (D50w) 25 gm IV PRN PRN PRN Reason: Hypoglycemia Enoxaparin Sodium (Lovenox) 40 mg SUBCUT DAILY LYNETTE Hydromorphone HCl (Dilaudid) 0.5 mg IV Q6HR PRN PRN Reason: Pain, Moderate (4-6) Sodium Chloride (Normal Saline 0.9%) 1,000 mls @ 125 mls/hr IV CONT LYNETTE Last Admin: 04/14/19 15:35 Dose: 125 mls/hr Documented by: LVAZQUE Insulin Aspart (Novolog Flexpen) 0 unit SUBCUT ACHS LYNETTE; Protocol Vital Signs Vital signs: Vital Signs - 8 hr 04/14/19 11:25 04/14/19 12:36 04/14/19 12:57 Temperature 96.6 F L Pulse Rate 108 H 107 H 106 H Respiratory Rate 18 20 18 Blood Pressure 120/80 Blood Pressure [Left Arm] 109/67 107/69 Pulse Oximetry 93 96 97 MDM - Abdominal Pain Medical Records Attestation: I reviewed the patient's medical records. Lab Data Attestation: I reviewed the patient's lab results. Result diagrams: 04/14/19 12:04 04/14/19 12:04 Labs: Lab Results 04/14/19 04/14/19 04/14/19 Range/Units 12:04 12:04 12:04 WBC 8.9 (4.5-11.0) X10^3/uL RBC 4.85 (4.5-5.9) X10^6/uL Hgb 13.4 L (13.5-17.5) g/dL Hct 41.4 (41-53) % MCV 85.3 (80-100) fL MCH 27.7 (26-34) PG MCHC 32.4 (30-36) % RDW 15.6 H (11.6-14.8) % Plt Count 290 (150-400) X10^3/uL Neut % (Auto) 79.0 H (50-75) % Lymph % (Auto) 11.9 L (25-40) % [place] % (Auto) 8.7 (3-14) % Eos % (Auto) 0.3 L (2-4) % Baso % (Auto) 0.1 (0-2) % Neut # (Auto) 7000 (0596-1780) /uL Lymph # (Auto) 1100 (0592-2677) /uL [place] # (Auto) 800 (0-900) /uL Eos # (Auto) 0 (0-450) /uL Baso # (Auto) 0 (0-100) /uL PT 12.5 (10.1-12.7) SECONDS INR 1.1 (0.9-1.3) APTT 31 (26.4-36.2) SECONDS Sodium 136 L (137-145) mmol/L Potassium 4.9 (3.4-5.1) mmol/L Chloride 96 L (98-107) mmol/L Carbon Dioxide 24 (22-32) mmol/L BUN 26 H (9-20) mg/dL Creatinine 1.20 (0.66-1.25) mg/dL Estimated GFR 59.2 L (>60) mL/min BUN/Creatinine Ratio 21.7 (6-22) Glucose 281 H (80-110) mg/dL Calcium 9.1 (8.4-10.2) mg/dL Total Bilirubin 0.8 (0.2-1.3) mg/dL AST 29 (17-59) IU/L ALT 16 L (21-72) IU/L Alkaline Phosphatase 105 (38-126) U/L Total Creatine Kinase 86 (55-170) U/L CK-MB (CK-2) TNP CK-MB (CK-2) Rel Index TNP Troponin I < 0.012 (0.01-0.034) ng/mL B-Natriuretic Peptide (<100) Total Protein 7.5 (6.3-8.2) g/dL Albumin 4.4 (3.5-5.0) g/dL Globulin 3.1 (1.7-4.1) g/dL Albumin/Globulin Ratio 1.4 (1.0-2.8) Lipase 48 (23-300) U/L 04/14/ Range/Units 12:04 WBC (4.5-11.0) X10^3/uL RBC (4.5-5.9) X10^6/uL Hgb (13.5-17.5) g/dL Hct (41-53) % MCV (80-100) fL MCH (26-34) PG MCHC (30-36) % RDW (11.6-14.8) % Plt Count (150-400) X10^3/uL Neut % (Auto) (50-75) % Lymph % (Auto) (25-40) % [place] % (Auto) (3-14) % Eos % (Auto) (2-4) % Baso % (Auto) (0-2) % Neut # (Auto) (0133-8909) /uL Lymph # (Auto) (4852-7889) /uL [place] # (Auto) (0-900) /uL Eos # (Auto) (0-450) /uL Baso # (Auto) (0-100) /uL PT (10.1-12.7) SECONDS INR (0.9-1.3) APTT (26.4-36.2) SECONDS Sodium (137-145) mmol/L Potassium (3.4-5.1) mmol/L Chloride (98-107) mmol/L Carbon Dioxide (22-32) mmol/L BUN (9-20) mg/dL Creatinine (0.66-1.25) mg/dL Estimated GFR (>60) mL/min BUN/Creatinine Ratio (6-22) Glucose (80-110) mg/dL Calcium (8.4-10.2) mg/dL Total Bilirubin (0.2-1.3) mg/dL AST (17-59) IU/L ALT (21-72) IU/L Alkaline Phosphatase (38-126) U/L Total Creatine Kinase (55-170) U/L CK-MB (CK-2) CK-MB (CK-2) Rel Index Troponin I (0.01-0.034) ng/mL B-Natriuretic Peptide < 100 (<100) Total Protein (6.3-8.2) g/dL Albumin (3.5-5.0) g/dL Globulin (1.7-4.1) g/dL Albumin/Globulin Ratio (1.0-2.8) Lipase (23-300) U/L Imaging Data Abdominal x-ray: Radiologist's impression: PROCEDURE: XR ACUTE ABDOMEN SERIES INDICATIONS: abd distention, h/o 3 way bypass 8 weeks ago. TECHNIQUE: One view chest and two views of the abdomen were acquired. COMPARISON: Outside Film, CT, CT ABDOMEN PELVIS WITH CONTRAST, 10/22/2018, 17:32. FINDINGS: Surgical changes and devices: The changes of coronary bypass as well as cervical fusion. Chest: Lungs are clear. Heart size is normal. No pleural effusions. No pneumoperitoneum. Abdomen: Air filled dilated loops of bowel throughout the abdomen, possibly including the colon. No suspicious calcifications. Visualized solid organ contours appear normal. Bones: No suspicious bony lesions. IMPRESSION: Dilated air-filled bowel throughout the abdomen which may represent small bowel obstruction or ileus the appropriate clinical setting Dictated by: Hari Perry M.D. on 04/14/2019 at 11:00 Approved by: Hari Perry M.D. on 04/14/2019 at 11:04 CT scan - abdomen: Radiologist's impression: PROCEDURE: CT ABDOMEN PELVIS W CON INDICATIONS: sbo TECHNIQUE: After the administration of intravenous contrast, 5 mm thick sections acquired from the diaphragm to the symphysis. 5 mm coronal and sagittal reformats were acquired. For radiation dose reduction, the following was used: automated exposure control, adjustment of mA and/or kV according to patient size. COMPARISON: Outside Film, CT, CT ABDOMEN PELVIS WITH CONTRAST, 10/22/2018, 17:32. [facility], CR, XR ACUTE ABDOMEN SERIES, 04/14/2019, 11:39. FINDINGS: Image quality: Excellent. ABDOMEN: Lung bases: Lung bases are clear. Heart size is normal. Postsurgical changes of coronary bypass. Solid organs: Liver is normal in size and enhancement. A large partially distended. Unremarkable appearance of the pancreas and adrenal glands. Scattered calcifications present in the spleen, likely sequela of a remote granulomatous process. Normal enhancement of the kidneys. 16mm nonobstructive kidney stone again seen in the right kidney. 3.6 cm simple fluid density cysts of the right kidney is also unchanged. Prostate gland is within normal size limits. Peritoneum and bowel: There are dilated loops of small bowel beginning in the le ft upper abdomen measuring up to 4.2 cm in diameter, continuing into the distal ileum before gradually tapering back normal caliber without a focal transition point. The bowel demonstrates moderate hyperenhancement but there is no region concurrent dilation and bowel wall thickening demonstrated. Appendix is unremarkable. There is air and stool within the colon which is of normal caliber. There is a moderate volume of free fluid in the pelvis. Nodes and vessels: No retroperitoneal or mesenteric adenopathy by size criteria. Aorta and inferior vena cava are normal in size. Calcific and noncalcific atherosclerosis of the abdominal aorta and its branches. Miscellaneous: No ventral hernias. PELVIS: Genitourinary: Bladder wall thickness is normal. Miscellaneous: No inguinal hernias or adenopathy. Bones: No suspicious bony lesions. Stable compression deformity of T12 with approximately 50% height loss. No new vertebral body compression fractures. Degenerative changes of the spine and hips. IMPRESSION: Partial or early complete small bowel obstruction without distended up to 4.2 cm. No focal transition point is clearly identified and there is air and stool within the colon. Moderate volume of free fluid in the pelvis. Nonobstructing 6 mm stone in the right kidney. Dictated by: Hari Perry M.D. on 04/14/2019 at 11:51 Approved by: Hari Perry M.D. on 04/14/2019 at 12:07 Discharge Plan Departure Patient Disposition: Admitted As Inpatient Clinical Impression: Small bowel obstruction Discharge Date/Time: 04/14/19 15:17 Admit Date/Time: 04/14/19 13:54 Admit Provider: Marlen Boggs
--- NOTE | 2019-04-14 16:42 | PC.NURSE ---
Addendum entered by Cheyenne Foster R.N. 04/14/19 21:02: Pt resting at intervals. NG w/no output at this time. IVF continue as per orders via pump w/o incidence. Call light w/in reach, bedalarm on for pt safety. Continue w/plan of care. Original Note: Pt arrived from ED approximately 1530. Alert/orieted. NG to LIS IVF infusing into the LAC as per orders w/o incidence Oriented to room and call system. Call light w/in reach, bed alrm on for pt safety.
--- NOTE | 2019-04-14 16:48 | PM.HP.1 ---
History of Present Illness History of Present Illness Chief complaint: BAD STOMACH PAIN AND SWELLED UP STOMACH R SIDE Narrative: Colby Paulino is a 74 year old male with a history of T2DM, HTN, dyslipidemia, two MIs, and a triple bypass 8 weeks ago who presents to the ED with a 2 day history of abdominal pain. Two days ago the abdominal pain began after going to for his triple bypass. The pain worsened through the following day, reaching 10/10 pain. The pain is diffuse but is more severe on his right side. The pain is slightly better today after passing gas and having a small bowel movement this morning. On Monday the only thing he had to eat was chicken soup and he was able to tolerate it well without any nausea. He reports feeling crampy and bloated. He took pepto bismul yesterday without relief. Nothing seems to make it better or worse. He denies fever, vomiting, diarrhea, constipation, blood in stool, SOB, and chest pain. He has been experiencing sweating and nausea which he attributes to the pain. When going for a xray at the ER he blacked out while standing up and was caught by the technicians. His xray showed dilated loops of small bowel with no clear transition point. On arrival his white blood cell count was 8.9. He has a 1cm kidney stone in his right kidney that has been there since December. It causes him intermittent low level pain in his right side and back. He is waiting until his fuel cell builder approves him for surgery before addressing this issue further. Patient History Medical History (Updated 04/14/19 @ 16:06 by Marlen Boggs MD) Diabetes mellitus (Acute) Hyperlipidemia (Acute) Hypertension (Acute) Myocardial infarction (Acute) Surgical History (Updated 04/14/19 @ 16:07 by Marlen Boggs MD) H/O cervical spine surgery (Acute) H/O right knee surgery (Acute) History of inguinal hernia repair, bilateral (Acute) S/P triple vessel bypass (Acute) Family History (Updated 04/14/19 @ 16:09 by Marlen Boggs MD) Mother Coronary artery disease Father COPD (chronic obstructive pulmonary disease) Social History household members: spouse Smoking Status: Former smoker alcohol intake: current Family & Social History Family History (Updated 04/14/19 @ 16:09 by Marlen Boggs MD) Mother Coronary artery disease Father COPD (chronic obstructive pulmonary disease) Social History: household members spouse Prior Living Arrangements House Safety & Behavioral: Feels Safe in Current Yes Environment Been Physically Hurt or No Threatened By a Person Suicidal Ideation Description None Suicide Plan Description No Plan Tobacco & Substance use: Smoking Status Former smoker alcohol intake current alcohol intake frequency 0-2 drinks per day Substance Use Type does not use Meds Home Medications and Allergies Home Medications Medication Instructions Recorded Confirmed Type No Known Home Medications 04/14/19 04/14/19 History atenolol 04/14/19 History Allergies Allergy/AdvReac Type Severity Reaction Status Date / Time aspirin Allergy Unknown Verified 04/14/19 11:29 ibuprofen Allergy Unknown Verified 04/14/19 11:29 Exam Vital Signs (past 8 hours): - 04/14/19 11:25 04/14/19 12:36 04/14/19 12:57 Temperature 96.6 F L Pulse Rate 108 H 107 H 106 H Respiratory Rate 18 20 18 Blood Pressure 120/80 Blood Pressure [Left Arm] 109/67 107/69 Pulse Oximetry 93 96 97 04/14/19 15:15 04/14/19 16:25 Temperature 98.0 F Pulse Rate 107 H Respiratory Rate 17 Blood Pressure 125/86 Blood Pressure [Left Arm] Pulse Oximetry 98 98 Oxygen Delivery Method Room Air Oxygen Flow Rate 0 Objective Labs Result Diagrams: 04/14/19 12:04 04/14/19 12:04 Labs: Laboratory Results - last 24 hr 04/14/19 04/14/19 04/14/19 12:04 12:04 12:04 WBC 8.9 RBC 4.85 Hgb 13.4 L Hct 41.4 MCV 85.3 MCH 27.7 MCHC 32.4 RDW 15.6 H Plt Count 290 Neut % (Auto) 79.0 H Lymph % (Auto) 11.9 L [place] % (Auto) 8.7 Eos % (Auto) 0.3 L Baso % (Auto) 0.1 Neut # (Auto) 7000 Lymph # (Auto) 1100 [place] # (Auto) 800 Eos # (Auto) 0 Baso # (Auto) 0 PT 12.5 INR 1.1 APTT 31 Sodium 136 L Potassium 4.9 Chloride 96 L Carbon Dioxide 24 BUN 26 H Creatinine 1.20 Estimated GFR 59.2 L BUN/Creatinine Ratio 21.7 Glucose 281 H Calcium 9.1 Total Bilirubin 0.8 AST 29 ALT 16 L Alkaline Phosphatase 105 Total Creatine Kinase 86 CK-MB (CK-2) TNP CK-MB (CK-2) Rel Index TNP Troponin I < 0.012 B-Natriuretic Peptide Total Protein 7.5 Albumin 4.4 Globulin 3.1 Albumin/Globulin Ratio 1.4 Lipase 48 04/14/19 12:04 WBC RBC Hgb Hct MCV MCH MCHC RDW Plt Count Neut % (Auto) Lymph % (Auto) [place] % (Auto) Eos % (Auto) Baso % (Auto) Neut # (Auto) Lymph # (Auto) [place] # (Auto) Eos # (Auto) Baso # (Auto) PT INR APTT Sodium Potassium Chloride Carbon Dioxide BUN Creatinine Estimated GFR BUN/Creatinine Ratio Glucose Calcium Total Bilirubin AST ALT Alkaline Phosphatase Total Creatine Kinase CK-MB (CK-2) CK-MB (CK-2) Rel Index Troponin I B-Natriuretic Peptide < 100 Total Protein Albumin Globulin Albumin/Globulin Ratio Lipase
[2019-04-15] VITALS (8 sets, daily range): BP systolic 102–133; BP diastolic 63–77; PULSE 114–119; RESP 18–20; TEMP 36.3–37.4; O2SAT 93–97
--- NOTE | 2019-04-15 | DI.RAD.S_ITS ---
PROCEDURE: XR ABDOMEN MIN 2V INDICATIONS: Small bowel obstruction TECHNIQUE: 2 views of the abdomen were acquired. COMPARISON: [facility], CR, XR ACUTE ABDOMEN SERIES, 04/14/2019, 11:39. FINDINGS: Surgical changes and devices: Nasogastric tube is in place with the distal tip projecting over the left upper abdomen. Partially imaged median sternotomy wires appear intact. Bowel: No pneumoperitoneum. Persistent but decreased prominence of scattered loops of dilated small bowel with differential air-fluid levels. Decreased degree of distention. No evidence for bowel wall thickening. Soft tissues: No masses; visualized solid organ contours appear normal in size. No suspicious abdominal calcifications. Bones: No suspicious bony abnormalities. IMPRESSION: Interval improvement in degree of small bowel distention with a few persistent air fluid levels noted in the left abdomen. Dictated by: Nathan Lopez M.D. on 04/15/2019 at 8:17 Approved by: Nathan Lopez M.D. on 04/15/2019 at 8:19
--- NOTE | 2019-04-15 01:36 | PC.NURSE ---
Patient's heart rate is sustaining between 120-130 at rest. Sinus Tachycardia on the burling and joining supervisor. Notified Alda ELAM. Orders given, see AUG.
--- NOTE | 2019-04-15 01:38 | PM.EVENT ---
Event Note Event Note: Patient's reported heart rate in the 120s to low 130s. Had not taken metoprolol today. Was adminstered IV lopressor 5 mg X 1.
[2019-04-15] MEDS: METOPROLOL TARTRATE 5 MG/5 ML INJ IV (01:40)
[2019-04-15] MEDS: SODIUM CHLORIDE 0.9% 1,000 ML 125 ML IV (06:39)
[2019-04-15] MEDS: INSULIN ASPART 100 UNIT/ML INSULN PEN SUBCUT ×4 (06:40→21:28)
--- NOTE | 2019-04-15 07:31 | PC.NURSE ---
Day shift: Pt back on AC unit after imaging. Connected back to NG suction.
[2019-04-15 07:33] LABS: Add Manual Diff / Slide Review NO; Basophils Absolute Auto 0 /uL (0-100); Basophils Percent Auto 0.1 % (0-2); Eosinophils Absolute Auto 0 /uL (0-450); Eosinophils Percent Auto 0.7 % (2-4); Hemoglobin 13.4 g/dL (13.5-17.5); Lymphocytes Absolute Auto 700 /uL (1100-4500); Lymphocytes Percent Auto 13.9 % (25-40); Mean Corpuscular HGB Conc 32.7 % (30-36); Mean Corpuscular Hemoglobin 27.5 PG (26-34); Monocytes Absolute Auto 700 /uL (0-900); Monocytes Percent Auto 13.7 % (3-14); Neutrophils Absolute Auto 3800 /uL (1500-7000); Neutrophils Percent Auto 71.6 % (50-75); Platelet Count 251 X10^3/uL (150-400); Red Blood Cell Count 4.89 X10^6/uL (4.5-5.9); Red Cell Distribution Width 15.4 % (11.6-14.8); White Blood Cell Count 5.4 X10^3/uL (4.5-11.0)
[2019-04-15 07:43] LABS: Alanine Aminotransferase 17 IU/L (21-72); Albumin 3.7 g/dL (3.5-5.0); Albumin Globulin Ratio 1.3 (1.0-2.8); Alkaline Phosphatase 89 U/L (38-126); Aspartate Aminotransferase 24 IU/L (17-59); BUN Creatinine Ratio 25.6 (6-22); Bilirubin Total 0.8 mg/dL (0.2-1.3); Blood Urea Nitrogen 23 mg/dL (9-20); Calcium 8.1 mg/dL (8.4-10.2); Carbon Dioxide 26 mmol/L (22-32); Chloride 101 mmol/L (98-107); Estimated Glomerular Filt Rate > 60.0 mL/min (>60); Globulin 2.9 g/dL (1.7-4.1); Glucose 234 mg/dL (80-110); HEMOLYSIS < 15 (0-50); Potassium 4.2 mmol/L (3.4-5.1); Sodium 137 mmol/L (137-145); Total Protein 6.6 g/dL (6.3-8.2)
[2019-04-15] MEDS: ENOXAPARIN 40 MG/0.4 ML SYRINGE SUBCUT (08:59)
--- NOTE | 2019-04-15 09:19 | CM.DANOTE ---
DCP: Case received, EMR reviewed and met with patient. Introduced self and role. Was able to meet with patient, , Leonardo, at bedside, and obtain baseline history and activity level. DCP assessment/template completed with information currently available. Patient is a 74 year old male who admitted yesterday afternoon to the care of the hospitalist team. PCP: Dr. Santana. Payer: confirmed: Medicare/99dresses. Patient came to the hospital due to abdominal pain, and distention. Patient holds diagnosis of small bowel obstruction. He currently has an NG tube. Met with patient in is room, alert and oriented, in room as well. Lives in [place] with his spouse. He is independent at home, uses a cane, and has been driving. Patient mentioned, he is already starting to feel better. P: DCP to continue to follow closely. Home is the goal for patient. Will see how he does here in the hospital. Ariela Lopez RN/Search Manager
[2019-04-15] MEDS: BENZOCAINE/MENTHOL 1 LOZ PKT 1 EACH PO ×2 (10:42→14:44)
--- NOTE | 2019-04-15 14:57 | PM.PN.1 ---
Subjective Subjective Date Patient Seen: 04/15/19 Time Patient Seen: 10:05 Interval history: Colby Reinoso is a 74 year old male with a history of T2DM, HTN, dyslipidemia, two MIs, and a triple bypass 8 weeks ago who presents to the ED with a 2 day history of abdominal pain. He was at admitted with small-bowel obstruction. Overnight he had very little output with 150 cc of clear looking material. NG tube was discontinued this morning and he was advanced to clears for lunch which she has been tolerating. Repeat abdominal x-ray today showed improvement. Patient has been passing gas and had bowel movements today. Exam Vital Signs (past 8 hours): - 04/15/19 07:30 04/15/19 07:59 04/15/19 11:00 Temperature 98.7 F 97.3 F L Pulse Rate 119 H 115 H Respiratory Rate 18 18 Blood Pressure 133/77 107/63 Pulse Oximetry 96 96 97 Oxygen Delivery Method Room Air Oxygen Flow Rate 0 Narrative Exam Narrative: GENERAL APPEARANCE: Well developed, well nourished, in no acute distress. SKIN: Inspection of the skin reveals no rashes, ulcerations or petechiae. HEENT: The sclerae were anicteric and conjunctivae were pink and moist. Extraocular movements were intact and pupils were equal, round with normal accommodation. External inspection of the ears and nose showed no scars, lesions, or masses. Lips, teeth, and gums showed normal mucosa. The oral mucosa, hard and soft palate, tongue and posterior pharynx were unremarkable. NECK: Supple and symmetric. There was no thyroid enlargement, and no tenderness, or masses were felt. CHEST: Normal AP diameter and normal contour without any kyphoscoliosis. LUNGS: Auscultation of the lungs revealed no wheezes, rhonchi, or rales. CARDIOVASCULAR: There was a regular rate and rhythm without any murmurs, gallops, rubs. Peripheral pulses were 2+ and symmetric. ABDOMEN: Soft but with mild distension, and nontender with normal bowel sounds. No ascites was noted. MUSCULOSKELETAL: There was no tenderness or effusions noted. Muscle strength and tone were normal. EXTREMITIES: No cyanosis, clubbing or edema. NEUROLOGIC: Alert and oriented x 3. Normal affect. Gait was normal. Strength is +5/5 in the Upper Extremities and Lower Extremities Bilaterally. Sensation to touch was normal. Objective Labs Result Diagrams: 04/15/19 Unknown 04/15/19 Unknown Labs: Laboratory Results - last 24 hr 04/15/19 04/15/19 Unknown Unknown WBC 5.4 RBC 4.89 Hgb 13.4 L Hct 41.0 MCV 84.0 MCH 27.5 MCHC 32.7 RDW 15.4 H Plt Count 251 Neut % (Auto) 71.6 Lymph % (Auto) 13.9 L [place] % (Auto) 13.7 Eos % (Auto) 0.7 L Baso % (Auto) 0.1 Neut # (Auto) 3800 Lymph # (Auto) 700 L [place] # (Auto) 700 Eos # (Auto) 0 Baso # (Auto) 0 Sodium 137 Potassium 4.2 Chloride 101 Carbon Dioxide 26 BUN 23 H Creatinine 0.90 Estimated GFR > 60.0 BUN/Creatinine Ratio 25.6 H Glucose 234 H Calcium 8.1 L Total Bilirubin 0.8 AST 24 ALT 17 L Alkaline Phosphatase 89 Total Protein 6.6 Albumin 3.7 Globulin 2.9 Albumin/Globulin Ratio 1.3 Assessment & Plan Assessment & Plan narrative: Colby Reinoso is a 74 year old male with a history of T2DM, HTN, dyslipidemia, two MIs, and a triple bypass 8 weeks ago who presents to the ED with a 2 day history of abdominal pain. He was admitted with small-bowel obstruction which is now improving and he is currently tolerating clear liquids. 1. Small bowel obstruction -patient reports prior hernia surgery but no intra-abdominal operations. He has improved clinically with decompression and is now passing flatus and having bowel movements. He was advanced to clear liquid diet this morning, with plan to advanced to more substantial diet in the morning. - ADAT -can stop IVF -continue to monitor clinically. -Repeat CBC and CMP tomorrow 2. Diabetes - hold while NPO -hold metformin while inpatient -Continue regular insulin 3 units TID with meals - when taking PO -Continue glargine 20 units in the morning 10 units at night - when taking PO more regularly -Correction scale insulin with accuchecks ACHS for now. 3. CAD - take with ice chips and clamp NG for 30 minutes -hold losartan 25mg -Continue metoprolol -Continue atorvastatin -Continue clopidogrel -hold furosemide 20mg -hold potassium 10mg daily -will hold nitroglycerine 0.4mg prn 4. Hyperlipidemia -Continue atorvastatin 80mg daily 5. GERD -Continue pantoprazole 40mg IV until tolerating increased PO intake 6. BPH -Continue tamsulosin 0.4mg daily - when taking PO 7. Anxiety -Continue buproprion 150mg in the morning 75mg at night - when taking PO 8. Diabetic peripheral neuropathy -Continue pregabalin 150mg - when taking PO Dispo: pending advancement of diet, possible discharge tomorrow if tolerates diet.
--- NOTE | 2019-04-15 16:43 | PC.NURSE ---
Addendum entered by Cheyenne Foster R.N. 04/15/19 22:01: HS CBG = 226, 3u S/S given as per protocal. Addendum entered by Cheyenne Foster R.N. 04/15/19 21:52: Relatively uneventful evening. Denies discomfort. Pt hopeful to D/C in a.m. Call light w/in reach, bed alrm on for pt safety. Continue w/plan of care. Original Note: Pt sitting in chair Denies discomfort. HL LAC intact/patent. SpO2 96% RA. Tele shows ST/BBB per ICU staff. AC CBG = 219, 3u insulin per S/S given. Call light w/in reach, chair in place for pt safety.
[2019-04-15] MEDS: METOPROLOL IR 25 MG TABLET 12.5 MG PO (18:02)
[2019-04-15] MEDS: ATORVASTATIN 20 MG TABLET 80 MG PO (21:32)
[2019-04-16] VITALS: BP 99/64; PULSE 111; RESP 19; TEMP 36.7; O2SAT 93
[2019-04-16] MEDS: METOPROLOL IR 25 MG TABLET 12.5 MG PO ×2 (00:06→09:11)
[2019-04-16 04:30] VITALS: BP 110/80; PULSE 98; RESP 18; TEMP 36.4; O2SAT 90
[2019-04-16 07:02] LABS: Add Manual Diff / Slide Review NO; Basophils Absolute Auto 0 /uL (0-100); Basophils Percent Auto 0.1 % (0-2); Eosinophils Absolute Auto 200 /uL (0-450); Eosinophils Percent Auto 4.5 % (2-4); Hemoglobin 14.2 g/dL (13.5-17.5); Lymphocytes Absolute Auto 900 /uL (1100-4500); Mean Corpuscular HGB Conc 32.2 % (30-36); Mean Corpuscular Hemoglobin 27.4 PG (26-34); Mean Corpuscular Volume 85.1 fL (80-100); Monocytes Absolute Auto 700 /uL (0-900); Monocytes Percent Auto 13.4 % (3-14); Neutrophils Absolute Auto 3200 /uL (1500-7000); Platelet Count 245 X10^3/uL (150-400); Red Blood Cell Count 5.17 X10^6/uL (4.5-5.9); Red Cell Distribution Width 15.6 % (11.6-14.8)
[2019-04-16 07:15] LABS: Blood Urea Nitrogen 21 mg/dL (9-20); Calcium 8.2 mg/dL (8.4-10.2); Carbon Dioxide 28 mmol/L (22-32); Chloride 99 mmol/L (98-107); Estimated Glomerular Filt Rate > 60.0 mL/min (>60); Glucose 248 mg/dL (80-110); HEMOLYSIS < 15 (0-50); Magnesium 1.6 mg/dL (1.6-2.3); Phosphorous 3.2 mg/dL (2.3-3.7); Potassium 4.7 mmol/L (3.4-5.1); Sodium 136 mmol/L (137-145)
[2019-04-16 08:00] VITALS: BP 111/79; PULSE 94; RESP 16; TEMP 36.6; O2SAT 94
[2019-04-16 08:02] VITALS: O2SAT 93
[2019-04-16] MEDS: CLOPIDOGREL 75 MG TABLET PO (09:11)
[2019-04-16] MEDS: TAMSULOSIN 0.4 MG CAPSULE PO (09:11)
[2019-04-16] MEDS: ENOXAPARIN 40 MG/0.4 ML SYRINGE SUBCUT (09:15)
[2019-04-16] MEDS: INSULIN ASPART 100 UNIT/ML INSULN PEN SUBCUT ×4 (09:16→11:29)
[2019-04-16] MEDS: INSULIN GLARGINE 100 UNIT/ML 3ML PEN 20 UNIT SUBCUT (09:17)
--- NOTE | 2019-04-16 10:17 | PC.NURSE ---
Day shift: 'Pt tolerated breakfast this AM with no nausea. Passing flatus as well as having loose stools with some chunks. Pt does report mild pain at lower stomach. Dr Wall aware of this. Will continue to monitor. Call light in reach.
--- NOTE | 2019-04-16 10:19 | PC.NURSE ---
Day shift: Pt agrees to not get OOB or chair w/o help from staff.
--- NOTE | 2019-04-16 10:49 | PC.NURSE ---
Day shift: Pain scale explained and Pt rates pain 1/10 lower ABD. WIll continue to monitor. Denies any nausea or chest pain. BT's present.
[2019-04-16 11:29] VITALS: BP 106/77; PULSE 92; RESP 16; TEMP 36.9; O2SAT 98
--- NOTE | 2019-04-16 13:16 | P.DS_ITS ---
History of Present Illness History of Present Illness Date Patient Seen: 04/16/19 Time Patient Seen: 12:30 Chief complaint: BAD STOMACH PAIN AND SWELLED UP STOMACH R SIDE Narrative: As per Dr. Boggs: Colby Reinoso is a 74 year old male with a history of T2DM, HTN, dyslipidemia, two MIs, and a triple bypass 8 weeks ago who presents to the ED with a 2 day history of abdominal pain. Two days ago the abdominal pain began after going to for his triple bypass. The pain worsened through the following day, reaching 10/10 pain. The pain is diffuse but is more severe on his right side. The pain is slightly better today after passing gas and having a small bowel movement this morning. On Monday the only thing he had to eat was chicken soup and he was able to tolerate it well without any nausea. He reports feeling crampy and bloated. He took pepto bismol yesterday without relief. Nothing seems to make it better or worse. He denies fever, vomiting, diarrhea, constipation, blood in stool, SOB, and chest pain. He has been experiencing sweating and nausea which he attributes to the pain. When going for a xray at the ER he says he blacked out while standing up and was caught by the technicians. His xray showed dilated loops of small bowel with no clear transition point. His CT shows no definite transition point. On arrival his white blood cell count was 8.9. He has a 1cm kidney stone in his right kidney that has been there since December. It causes him intermittent low level pain in his right side and back. He is waiting until his biology professor approves him for surgery before addressing this issue further. Discharge Providers Provider Date of admission: 04/14/19 13:54 Discharge Date: 04/16/19 Primary care physician: Blake Santana MD Discharge provider: Benji Wall DO Summary Hospital Course Discharge Diagnosis: 1. Small bowel obstruction, acute present on admission - 2. Diabetes, type II, on termite exterminator insulin therapy. 3. CAD, chronic 4. Hyperlipidemia, chronic 5. GERD 6. BPH, chronic 7. Anxiety, chronic 8. Diabetic peripheral neuropathy, chronic Hospital Course: Colby Reinoso is a 74 year old male with a history of T2DM, HTN, dyslipidemia, two MIs, and a triple bypass 8 weeks ago who presents to the ED with a 2 day history of abdominal pain. He was admitted with small-bowel obstruction which is now improving and he is currently tolerating clear liquids. 1. Small bowel obstruction, acute present on admission -patient reports prior hernia surgery but no intra-abdominal operations. He has improved clinically with decompression and is now passing flatus and having bowel movements. Differential includes an ileus as well. The cause is unknown at this time. He was advanced to a low residue diet this morning and tolerated both breakfast and lunch without any nausea vomiting or abdominal pain. He will follow up with his primary care provider in the next week for further evaluation which would include age-appropriate cancer screenings. 2. Diabetes, type II, on penitentiary insulin therapy - insulin was held while NPO. Resumed upon initiation of diet. He can resume home regimen upon discharge so long as he is tolerating his diet. 3. CAD - continue home medications of plavix, losartan, metoprolol 4. Hyperlipidemia -Continue atorvastatin 80mg daily 5. GERD -can continue home pantoprazole 6. BPH -Continue tamsulosin 0.4mg daily 7. Anxiety -Continue buproprion 150mg in the morning 75mg at night 8. Diabetic peripheral neuropathy -Continue pregabalin 150mg Status at Discharge Cognitive/behavioral status at discharge: oriented Functional status at discharge: independent ambulation Overall status at discharge: patient is back to baseline Time Spent with Patient Time spent: Greater than 30 minutes Exam Vital Signs (past 8 hours): - 04/16/19 08:00 04/16/19 08:02 04/16/19 11:29 Temperature 98 F 98.4 F Pulse Rate 94 H 92 H Respiratory Rate 16 16 Blood Pressure 111/79 106/77 Pulse Oximetry 94 93 98 Oxygen Delivery Method Room Air Oxygen Flow Rate 0 Narrative Exam Narrative: GENERAL APPEARANCE: Well developed, well nourished, in no acute distress. SKIN: Inspection of the skin reveals no rashes, ulcerations or petechiae. HEENT: The sclerae were anicteric and conjunctivae were pink and moist. Extraocular movements were intact and pupils were equal, round with normal accommodation. External inspection of the ears and nose showed no scars, lesions, or masses. Lips, teeth, and gums showed normal mucosa. The oral mucosa, hard and soft palate, tongue and posterior pharynx were unremarkable. NECK: Supple and symmetric. There was no thyroid enlargement, and no tenderness, or masses were felt. CHEST: Normal AP diameter and normal contour without any kyphoscoliosis. LUNGS: Auscultation of the lungs revealed no wheezes, rhonchi, or rales. CARDIOVASCULAR: There was a regular rate and rhythm without any murmurs, gallops, rubs. Peripheral pulses were 2+ and symmetric. ABDOMEN: Soft, mild and improved distension and nontender with normal bowel sounds. No ascites was noted. MUSCULOSKELETAL: There was no tenderness or effusions noted. Muscle strength and tone were normal. EXTREMITIES: No cyanosis, clubbing or edema. NEUROLOGIC: Alert and oriented x 3. Normal affect. Gait was normal. Strength is +5/5 in the Upper Extremities and Lower Extremities Bilaterally. Sensation to touch was normal. Objective Labs Result Diagrams: 04/16/19 06:48 04/16/19 06:48 Labs: Laboratory Results - last 24 hr 04/16/19 04/16/19 06:48 06:48 WBC 5.0 RBC 5.17 Hgb 14.2 Hct 44.0 MCV 85.1 MCH 27.4 MCHC 32.2 RDW 15.6 H Plt Count 245 Neut % (Auto) 64.0 Lymph % (Auto) 18.0 L [place] % (Auto) 13.4 Eos % (Auto) 4.5 H Baso % (Auto) 0.1 Neut # (Auto) 3200 Lymph # (Auto) 900 L [place] # (Auto) 700 Eos # (Auto) 200 Baso # (Auto) 0 Sodium 136 L Potassium 4.7 Chloride 99 Carbon Dioxide 28 BUN 21 H Creatinine 1.00 Estimated GFR > 60.0 BUN/Creatinine Ratio 21.0 Glucose 248 H Calcium 8.2 L Phosphorus 3.2 Magnesium 1.6 Discharge Plan Discharge Plan Patient Disposition: Home Discharge comment: You were admitted to the hospital with a small bowel obstruction. This improved with decompression from an NG tube and you tolerated clear liquids very quickly and then tolerated a diet the following day. You can resume your normal medications. You should eat a low residue (low fiber) diet for the next week and follow up with you primary care office next week. If you have return of nausea, vomiting, abdominal pain or no bowel movements for a prolonged period of time please come back to the emergency room. Discharge Med Rec/Prescriptions Prescriptions: Continued atorvastatin 80 mg Tablet 80 mg PO BEDTIME RF: 0 Lantus U-100 Insulin 100 unit/mL Solution 20 unit SUBCUT DAILY RF: 0 metformin 850 mg Tablet 850 mg PO TIDWM RF: 0 potassium chloride [Klor-Con 10] 10 mEq Tablet Extended Release 10 meq PO DAILY RF: 0 tamsulosin 0.4 mg Capsule 0.4 mg PO DAILY RF: 0 Novolog U-100 Insulin aspart 100 unit/mL Solution 3 unit subcut TIDWM RF: 0 pantoprazole 40 mg Tablet,Delayed Release (Dr/Ec) 40 mg PO DAILY RF: 0 losartan 25 mg Tablet 12.5 mg PO DAILY RF: 0 nitroglycerin 0.4 mg Tablet, Sublingual 0.4 mg sublingual PRN PRN (Reason: Chest Pain) RF: 0 furosemide 20 mg Tablet 20 mg PO DAILY RF: 0 propranolol 20 mg Tablet 20 mg PO TID RF: 0 metoprolol tartrate 25 mg Tablet 12.5 mg PO Q8H RF: 0 zinc sulfate 220 (50) mg Capsule 220 mg PO DAILY RF: 0 Lantus Solostar U-100 Insulin 100 unit/mL (3 mL) Insulin Pen 10 unit SUBCUT BEDTIME RF: 0 clopidogrel 75 mg tablet 75 mg PO DAILY RF: 0 Follow up/Referrals: Blake Santana MD [Primary Care Provider] - Provider Discharge Instructions Diet comment: Low Residue/Fiber Diet Activity: As tolerated Discharge Data Primary Care Provider: Blake Santana
--- NOTE | 2019-04-16 13:39 | PC.NURSE ---
Day shift: Pt left unit with his spouse via WC with USHA Lara. Paperwork signed and all questions answered. Encouraged Pt to drink plenty of fluids and stay active as tolerated. Low fiber/low residual diet info given. Pt has all personal belongings. NO new MD scrips.
== END 2019-04-16 13:40 | disposition home or self-care (01) | DRG 390 ==
LOC: ED 13:33 → AC 13:55
PROVIDERS: Internal Medicine; Admitting Provider Family Medicine; Emergency Provider Emergency Medicine; PCP Family Medicine; Visit Provider Family Medicine
DX: K56.609 Unspecified intestinal obstruction, unspecified as to partial versus complete obstruction (principal); E11.42 Type 2 diabetes mellitus with diabetic polyneuropathy; Z79.4 Long term (current) use of insulin; I25.10 Atherosclerotic heart disease of native coronary artery without angina pectoris; Z95.1 Presence of aortocoronary bypass graft; E78.5 Hyperlipidemia, unspecified; Z87.891 Personal history of nicotine dependence; K21.9 Gastro-esophageal reflux disease without esophagitis; N40.0 Benign prostatic hyperplasia without lower urinary tract symptoms; F41.9 Anxiety disorder, unspecified
CPT/HCPCS: 36415; 74019; 74022; 74177; 80048; 80053; 82550; 82962; 83690; 83735; 83880; 84100; 84484; 85025; 85610; 85730; 93005; 99283; 99284; J1650; Q9967

== ENCOUNTER → 2019-07-22 08:45 | Outpatient (CLI) | payer MEDICARE, OTHER, SELFPAY ==
[2019-04-14 15:17] VITALS: BMI 23.2
--- NOTE | 2019-07-22 | DI.RAD.S_ITS ---
PROCEDURE: XR KUB INDICATIONS: Calculus of kidney TECHNIQUE: One view of the abdomen acquired. COMPARISON: [facility], CT, CT ABDOMEN PELVIS W CON, 04/14/2019, 12:35. [facility], CR, XR ACUTE ABDOMEN SERIES, 04/14/2019, 11:39. FINDINGS: Surgical changes and devices: None. Bowel: Bowel gas pattern is normal. Soft tissues: No new suspicious abdominal calcifications. A stable appearing 1.1 x 1.4 cm calcification overlies expected position of the collecting system of the right kidney, reviously present on CT scanning 04/14/19 Visualized solid organ contours appear normal in size. Bones: No suspicious bony lesions. IMPRESSION: 1.4 cm maximal dimension right renal collecting system area calcification, previously also seen on CT scanning 04/14/19. Dictated by: Hair Galvan M.D. on 07/22/2019 at 10:24 Approved by: Hair Galvan M.D. on 07/22/2019 at 10:26
== END ==
PROVIDERS: PCP Family Medicine; Visit Provider Specialist
DX: N20.0 Calculus of kidney (principal)
CPT/HCPCS: 74018

== ENCOUNTER 2019-08-15 13:50 | Day surgery (SDC) | payer MEDICARE, OTHER, SELFPAY ==
[2019-04-14 15:17] VITALS: BMI 23.2
[2019-08-15 17:15] VITALS: BMI 24.0
[2019-08-15 17:19] VITALS: BP 142/86; PULSE 77; RESP 12; TEMP 35.8; O2SAT 100
[2019-08-15] MEDS: LACTATED RINGERS 1,000 ML 42 ML IV (17:30)
--- NOTE | 2019-08-15 18:01 | PM.PREOP ---
Pre-operative Note Interval Note History & Physical reviewed/Exam performed by Physician: Yes Changes to H&P: No H&P completed within 30 days and has changed as indicated here:: There are no changes to the scanned history and physical examination.
[2019-08-15] MEDS: CEFAZOLIN 2 GM/100 ML FROZ.PIGGY IV (18:08)
--- NOTE | 2019-08-15 19:13 | P.OP_ITS ---
Operative Date/Time/Diagnoses Date of procedure: 08/15/19 Time of procedure: 19:13 Pre-op diagnosis: 1. Right renal calculus. 2. Right renal colic. Post-op diagnosis: same Procedure & Clinicians Procedure: 1. Right extracorporeal shockwave lithotripsy (maximal power level 7 x 2000 shocks). 2. Same procedure as scheduled: Yes Indications: 1. Right renal calculus. 2. Cystoscopy and placement right ureteral stent (6 [place] x 24 cm). Surgeon: Kevin Waller Click Yes if Unassisted: Yes Anesthesia Type: General Operative Notes Findings: 1.4 cm right renal pelvic calculus. Closure Type: not applicable Specimen(s): none sent Applied: other (Six [place] x 24 cm double-J ureteral stent.) Estimated Blood Loss (mL): 0 Blood products transfused: none Tourniquet time (min): 0 Procedure in detail: The patient was positioned supine and was administered general anesthesia. He was then repositioned in semi lithotomy in the lower abdomen genitalia and groin were then prepped and draped in sterile fashion. A 22 [place] panendoscope was then passed into the lower urinary tract with a fight with findings of a normal urethra coapted external sphincter and the 4-4.5 cm length prostate with moderate obstructing lateral lobes. Bladder had 2+ trabeculation and normal orifices bilaterally no stone or tumor or diverticula were seen. A 0.35 glidewire was then advanced into the right ureteral orifice under direct and fluoroscopic guidance. Over the Glidewire a 6 [place] x 24 cm double-J ureteral stent was advanced, again with both direct and fluoroscopic guidance. A retrieval line was left attached. The bladder was then drained completely and all instrumentation was removed. The patient was then put repositioned in supine and the above-described stone was localized in the X, Y, and Z planes. Lithotripsy was then commenced at minimal power level for 200 shocks. A 2 minutes pause was then conducted. Lithotripsy was then resumed and gradually increased to a maximal power level of 7. The stone and its fragments were really localize numerous times throughout the case. At 2000 shocks there was excellent evidence of stone comminution. The patient was then awakened transferred to [facility] and transported to recovery in stable condition he tolerated the procedure well. Complications: none Post-operative Condition: stable Disposition: PACU Plan for aftercare: KUB and office visit 6 weeks
[2019-08-15 19:15] VITALS: BP 139/82; PULSE 76; RESP 13; TEMP 36.3; O2SAT 93
[2019-08-15 19:20] VITALS: BP 135/81; PULSE 75; RESP 16; TEMP 36.1; O2SAT 93
[2019-08-15 19:25] VITALS: BP 124/77; PULSE 75; RESP 18; O2SAT 95
[2019-08-15 19:35] VITALS: BP 124/80; PULSE 75; RESP 13; O2SAT 95
[2019-08-15 19:37] VITALS: BP 117/87; PULSE 75; RESP 14; O2SAT 95
== END 2019-08-15 19:50 | disposition home or self-care (01) ==
PROVIDERS: PCP Family Medicine; Referring Provider Specialist; Visit Provider Specialist
PROC: (CPT 50590; principal; 2019-08-15 17:30)
PROC: (CPT 50590; 2019-08-15 17:30)
DX: N20.0 Calculus of kidney (principal); N40.0 Benign prostatic hyperplasia without lower urinary tract symptoms
CPT/HCPCS: 50590; 52332; J0690; J2704; J3010

== ENCOUNTER → 2019-12-06 09:36 | Outpatient (CLI) | payer MEDICARE, OTHER, SELFPAY ==
[2019-04-14 15:17] VITALS: BMI 23.2
[2019-12-06 23:15] LABS: COVID19 Sendout Not Detected (Not Detect)
== END ==
PROVIDERS: PCP Family Medicine; Visit Provider Physician Assistant
DX: Z01.812 Encounter for preprocedural laboratory examination (principal)
CPT/HCPCS: 87635

== ENCOUNTER 2019-12-09 12:51 | Day surgery (SDC) | payer MEDICARE, OTHER, SELFPAY ==
[2019-04-14 15:17] VITALS: BMI 23.2
[2019-12-09] VITALS (7 sets, daily range): BP systolic 108–121; BP diastolic 75–82; PULSE 89–93; RESP 10–89; TEMP 36.2–36.7; O2SAT 92–100; BMI 25.1
--- NOTE | 2019-12-09 13:14 | PM.PREOP ---
Pre-operative Note Interval Note History & Physical reviewed/Exam performed by Physician: Yes Changes to H&P: No H&P completed within 30 days and has changed as indicated here:: There are no changes to the history and physical examination scanned on file.
[2019-12-09] MEDS: LACTATED RINGERS 1,000 ML 42 ML IV (14:10)
--- NOTE | 2019-12-09 14:46 | SUR.OPER ---
Supine on padded OR bed, head on pillow, arms secured on padded arm boards at <90 degrees abduction, legs uncrossed, blanket under patient's sacrum per patient's request, safety belt at thigh.
[2019-12-09] MEDS: CEFAZOLIN 2 GM/100 ML FROZ.PIGGY IV (14:50)
[2019-12-09] MEDS: BUPIVACAINE LIPOSOME 266 MG/20 ML VIAL INJ (14:51)
[2019-12-09] MEDS: NEOMYCIN/POLYMYXIN/BACITRA UD OINT 2 EACH TOP (15:14)
--- NOTE | 2019-12-09 15:27 | PM.OP.1 ---
Operative Date/Time/Diagnoses Date of procedure: 12/09/19 Time of procedure: 15:28 Pre-op diagnosis: 1. Phimosis. 2. Recurrent balanitis. Post-op diagnosis: same Procedure & Clinicians Procedure: 1. Adult circumcision. Same procedure as scheduled: Yes Indications: 1. Phimosis. 2. Recurrent balanitis. Surgeon: Kevin Waller Click Yes if Unassisted: Yes Anesthesia Type: General and Peripheral nerve block (Dorsal penile block) Operative Notes Findings: Acute and chronic inflammation. Thickening of the preputial wall. Closure Type: primary Specimen(s): none sent Estimated Blood Loss (mL): 2 Blood products transfused: none Tourniquet time (min): 0 Procedure in detail: The patient was positioned in supine and administered general anesthesia. The lower abdomen genitalia and groin were then prepped and draped in sterile fashion. A dorsal penile and circumferential cutaneous block was performed with Exparel diluted 50:50 with injectable saline. Circumferential incisions were then made at appropriate locations on the inner and external preputial skin surfaces. Blunt dissection was then performed to divide most of the subcutaneous tissue intervening the 2. The remainder was divided with the cautery pen. Hemostasis was excellent. Four quadrant sutures at 12:00 p.m., 3:00 a.m., 6:00 a.m., and 9:00 a.m., were then placed using 4 0 Monocryl. A running vertical mattress of 4 0 Monocryl was then performed to reapproximate the internal external preputial skin edges. A 4 layer dressing was then performed by 1st applying an inner layer of Xeroform gauze around the incision line, followed by 2 in Kerlix and a compressive but non constricting manner, then a layer of 2 in Coban applied in the same non constricting manner. Finally the entire apparatus was secured in place with a bi fold arrangement of 1 in plastic tape. The patient was then awakened transferred to [facility] and transported to rid the recovery room in stable condition. Complications: none Post-operative Condition: stable Disposition: PACU Plan for aftercare: Discharge home
--- NOTE | 2019-12-09 15:42 | SUR.PHASEI ---
c/o split upper lip that he believes occurred during surgery. Lip examined, no open area. Tissue pinkish, not noticeably swollen or varied from from the remainder of the lip. Dr. olvera spoke with the patient, told him that the numbing medicine should help with pain control for a few days. Rx for pain written as well. Pt A&O, no pain/nausea
--- NOTE | 2019-12-09 15:49 | SUR.PHASEI ---
report to Darrell Damon RN
== END 2019-12-09 16:00 | disposition home or self-care (01) ==
PROVIDERS: PCP Family Medicine; Referring Provider Specialist; Visit Provider Specialist
PROC: (CPT 54161; principal; 2019-12-09 14:00)
DX: N47.1 Phimosis (principal); N48.1 Balanitis; I10 Essential (primary) hypertension; I25.10 Atherosclerotic heart disease of native coronary artery without angina pectoris
CPT/HCPCS: 54161; C9290; J0690; J2405; J2704; J3010

== ENCOUNTER → 2021-11-05 11:47 | Outpatient (CLI) | payer MEDICARE, OTHER, SELFPAY ==
[2019-04-14 15:17] VITALS: BMI 23.2
--- NOTE | 2021-11-05 | DI.MRI.S_ITS ---
PROCEDURE: MR LUMBAR SPINE WO CON INDICATIONS: Radiculopathy, lumbar region TECHNIQUE: Noncontrast sagittal T1 spin echo and T2 fast echo, sagittal STIR, and T2 fast spin echo through the lumbar spine. In cases with scoliosis, additional coronal T2 fast spin echo may be performed. COMPARISON: [facility], MR, MR LUMBAR SPINE WO CON, 01/18/2018, 12:43. FINDINGS: Image quality: Excellent. Alignment and Curvature: There is 4 mm retrolisthesis of L2 on L3 and 2 mm of L5 on S1, slightly progressive at L2-3. Bone Marrow: Marrow is of normal overall signal. No acute vertebral body compression fractures. Old compression deformities are noted at T12, L2 and L3. Spinal Cord: Conus medullaris terminates at the T12-L1 level. Visualized cord demonstrates normal signal and size. Paraspinous Soft Tissues: No paravertebral masses. Discs: Moderate desiccation is present throughout the lumbar spine. L1-L2: Mild disc bulge with moderate spinal stenosis, progressive. No foraminal narrowing. Facet and ligamentum flavum hypertrophy are present. L2-L3: Mild disc bulge with moderate spinal stenosis, progressive. [id number] left and minimal right foraminal narrowing with facet and ligamentum flavum hypertrophy, mildly progressive. L3-L4: Mild disc bulge with moderate spinal stenosis. Moderate bilateral foraminal narrowing with facet and ligamentum flavum hypertrophy, minimally progressive. L4-L5: Mild disc bulge with moderate to severe spinal stenosis. Severe right and moderate left foraminal narrowing with flattening of the exiting right L5 nerve root. Facet and ligamentum flavum hypertrophy are present. No interval change. L5-S1: Mild disc bulge with mild spinal stenosis. Moderate to severe bilateral foraminal narrowing with facet and ligamentum flavum hypertrophy. No interval progression. IMPRESSION: Multilevel degenerative changes with areas of interval progression as above. Multilevel spinal stenosis most severe at L4-5 secondary to disc bulge with contributing affective facet/ligamentum flavum arthropathy. Multilevel foraminal narrowing remaining most severe at L4-5 secondary to facet arthropathy with compression of the exiting L4 nerve root. Dictated by: Maren Watson M.D. on 11/05/2021 at 12:44 Approved by: Maren Watson M.D. on 11/05/2021 at 13:23
== END ==
PROVIDERS: PCP Family Medicine; Referring Provider Family Medicine; Visit Provider Family Medicine
DX: M47.26 Other spondylosis with radiculopathy, lumbar region (principal); M47.27 Other spondylosis with radiculopathy, lumbosacral region; M48.061 Spinal stenosis, lumbar region without neurogenic claudication; M48.07 Spinal stenosis, lumbosacral region; M62.830 Muscle spasm of back
CPT/HCPCS: 72148

== ENCOUNTER 2022-03-07 17:09 | Inpatient (IN) | payer MEDICARE, OTHER, SELFPAY ==
[2019-04-14 15:17] VITALS: BMI 23.2
[2022-03-07] VITALS (40 sets, daily range): BP systolic 100–145; BP diastolic 49–88; PULSE 77–87; RESP 11–36; TEMP 36.7–37.2; O2SAT 74–97; BMI 24.5
--- NOTE | 2022-03-07 17:21 | DI.RAD.S_ITS ---
PROCEDURE: XR CHEST 1V INDICATIONS: MODIFIED TRAUMA TECHNIQUE: One view of the chest was acquired. COMPARISON: None. FINDINGS: Surgical changes and devices: Median sternotomy and CABG changes. There is hardware in the lower cervical region. The lower right screw is fractured. Lungs and pleura: Asymmetric left hemidiaphragm elevation with slight opacity at the left lateral lung base without consolidation. No pleural effusion or pneumothorax. Mediastinum: Mediastinal contours appear normal. Heart size is normal. Heart size accentuated by slight patient rotation. Bones and chest wall: No visible fractures. No subcutaneous emphysema. IMPRESSION: 1. No radiographic evidence of acute chest trauma. 2. Slight elevation of the left hemidiaphragm with adjacent opacity may be atelectasis or projectional abnormality. 3. Surgical changes as described. Dictated by: Mandy Hua M.D. on 03/07/2022 at 17:59 Approved by: Mandy Hua M.D. on 03/07/2022 at 18:01
--- NOTE | 2022-03-07 17:21 | DI.CT.S_ITS ---
PROCEDURE: CT HEAD/BRAIN WO CON INDICATIONS: Trauma TECHNIQUE: Noncontrast 4.5 mm thick angled axial sections acquired from the foramen magnum to the vertex, with coronal and sagittal reformats. For radiation dose reduction, the following was used: automated exposure control, adjustment of mA and/or kV according to patient size. COMPARISON: None. FINDINGS: Image quality: Excellent. CSF spaces: Basal cisterns are patent. No extra-axial fluid collections. Ventricles are normal in size and shape. Brain: No midline shift. No intracranial masses or hemorrhage. Augustin-white matter interface is normal. Moderate cerebral and cerebellar volume loss with multifocal white matter chronic ischemic change noted. Atherosclerotic calcification noted associated with cavernous segments of both internal carotid arteries. Incidental note is made of 1 cm rounded density in the interhemispheric fissure associated with the anterior communicating artery, consistent with aneurysm. Skull and face: Calvarium and visualized facial bones are intact, without suspicious lesions. Sinuses: Chronic maxillary sinus disease, left greater than right associated with osseous wall thickening. Ethmoid mucosal thickening and small osteoma present. Intra-ocular lens replacements noted. IMPRESSION: 1. 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 Recommend follow-up CT angiogram brain 2. Atrophy and chronic ischemic change without intracranial hemorrhage or mass effect. 3. Bilateral maxillary and ethmoid mucosal sinus disease, chronic. Approved by: Mahendra Varela M.D. on 03/07/2022 at 17:25
--- NOTE | 2022-03-07 17:21 | DI.CT.S_ITS ---
PROCEDURE: CT CHEST ABD PEL W CON INDICATIONS: Trauma TECHNIQUE: After the administration of intravenous contrast, 5 mm thick sections acquired from the lung apices to the symphysis. 2.5 mm thick coronal and sagittal reformats were acquired. Additional 7 mm thick coronal maximum intensity projection (MIP) reformats acquired through the lungs. For radiation dose reduction, the following was used: automated exposure control, adjustment of mA and/or kV according to patient size. COMPARISON: [facility], CR, XR PELVIS 1-2V, 03/07/2022, 17:14. FINDINGS: Chest: Cardiovascular: Heart size is normal. No evidence of pulmonary embolism, aortic aneurysm or dissection. Dense coronary artery vascular calcification Lungs and pleural spaces: The lung rider are clear without nodule, infiltrate or interstitial prominence. Pleural spaces show no effusion or pneumothorax. Lymph nodes: No mediastinal, hilar or axillary adenopathy. Mediastinum: Unremarkable. No hiatal hernia. Thyroid within normal limits. Chest Wall and Bones: Unremarkable. No acute fracture. Midline sternal wires present. Abdomen and Pelvis: Liver: Normal in size and attenuation. No contour deformity present. Biliary system: Partially calcified stones noted layering dependently lumen the gallbladder. No pericholecystic inflammatory change. Pancreas: Unremarkable without mass or inflammation evident. Spleen: Normal in size and density. Calcified granulomas in noted Adrenals: Normal morphology and density. Reproductive system: Unremarkable as visualized. Urinary system: Normal renal size and attenuation. Right renal simple cyst measures 5.2 cm. No renal calculi, hydronephrosis, or solid mass present. Urinary bladder unremarkable. Gastrointestinal system: The bowel is unremarkable with no evidence of bowel obstruction or inflammation. The stomach appears unremarkable. Appendix: No findings to suggest acute appendicitis. Lymph nodes: No mesenteric or retroperitoneal adenopathy. Peritoneal spaces: No free air. No free fluid. Vasculature: The IVC, aorta and iliac vasculature are unremarkable. Abdominal wall: Abdominal wall intact without evidence of ventral or inguinal hernias. Prior right inguinal hernia repair noted Musculoskeletal: Intertrochanteric right femoral fracture. Pelvis appears intact. T12, L1, L2 and L3 lumbar spine compression fractures IMPRESSION: 1. Comminuted right intertrochanteric femoral fracture. 2. Multilevel wedge shaped thoracolumbar compression fractures at T12, L1, L2 and L3, uncertain age. 3. Chronic findings as above Approved by: Mahendra Varela M.D. on 03/07/2022 at 17:33
--- NOTE | 2022-03-07 17:21 | DI.CT.S_ITS ---
PROCEDURE: CT CERVICAL SPINE WO CON INDICATIONS: Trauma TECHNIQUE: Noncontrast 3 mm thick sections acquired from the skull base to the T4 level. Sagittal and coronal reformats were then constructed. For radiation dose reduction, the following was used: automated exposure control, adjustment of mA and/or kV according to patient size. COMPARISON: None. FINDINGS: Image quality: Excellent. Bones: Anterior cervical discectomy and fusion C4-5, C5-6 with posterior lateral fusion throughout the cervical spine associated with posterior wilner and screw instrumentation. Decompressive laminectomies at C4 and C6. No evidence of fracture or traumatic malalignment. Craniovertebral relationships are normal. No evidence of hardware failure Soft tissues: Prevertebral soft tissues are normal in thickness. No paravertebral hematomas. No apical pneumothoraces. IMPRESSION: Spinal fusion and decompression without evidence of fracture or traumatic malalignment Approved by: Mahendra Varela M.D. on 03/07/2022 at 17:20
--- NOTE | 2022-03-07 17:22 | ED_ITS ---
HPI - Fall General Chief Complaint: Trauma Stated Complaint: fall off ladder Time Seen by Provider: 03/07/22 17:12 Source: patient and EMS Mode of arrival: EMS Limitations: no limitations History of Present Illness HPI Narrative: This is a 76-year-old male with history of CABG who is on Plavix daily who had a fall off a ladder about 5 rungs up or proximally 4-5 feet off the ground landing on his landing on his hip. Patient states he has pain pretty much at his hip he denies pain elsewhere. Does not think he his head he did not think he was sitting hurt his chest. Denies neck or back pain currently. No shortness of breath, no nausea or vomiting, no bowel or bladder incontinence he states pain goes down his leg, no numbness or tingling. He can feel touch. Patient states he is had prior cervical fusion, bypass but no ablation. States he is allergic to aspirin. He is unsure of all of his medications but does know he takes Plavix for his anticoagulant. Does not think that he takes any other thinners. No tobacco, no alcohol, no illicit. Related Data Home Medications Medication Instructions Recorded Confirmed atorvastatin 80 mg tablet 80 mg PO BEDTIME 04/14/19 01/06/20 insulin glargine 100 unit/mL 20 unit SUBCUT BID 04/14/19 01/06/20 subcutaneous solution (Lantus U-100 Insulin) nitroglycerin 0.4 mg sublingual 0.4 mg sublingual PRN PRN Chest 04/14/19 01/06/20 tablet Pain pantoprazole 40 mg tablet,delayed 40 mg PO DAILY 04/14/19 01/06/20 release tamsulosin 0.4 mg capsule 0.4 mg PO DAILY 04/14/19 01/06/20 zinc sulfate 50 mg zinc (220 mg) 220 mg PO DAILY 04/14/19 01/06/20 capsule bupropion HCl 75 mg tablet 75 mg PO SEEINSTR 08/12/19 01/06/20 escitalopram oxalate 20 mg tablet 10 mg PO DAILY 08/12/19 01/06/20 pregabalin 100 mg capsule (Lyrica) 150 mg PO BID 08/12/19 01/06/20 propranolol 20 mg tablet 20 mg PO TID 08/12/19 01/06/20 insulin aspart U-100 100 unit/mL 10 unit SUBCUT TID 08/14/19 01/06/20 subcutaneous solution (Novolog U-100 Insulin aspart) metformin 500 mg tablet 1,000 mg PO DAILY 08/14/19 01/06/20 clopidogrel 75 mg tablet 75 mg PO DAILY 12/03/19 01/06/20 B-complex with vitamin C 1 cap PO DAILY 01/06/20 01/06/20 cholecalciferol (vitamin D3) 10 10 mcg PO DAILY 01/06/20 01/06/20 mcg (400 unit) capsule Allergies Allergy/AdvReac Type Severity Reaction Status Date / Time aspirin Allergy Severe throat Verified 01/06/20 11:56 swelling, hives peanut Allergy Severe body Verified 01/06/20 11:56 swelling ibuprofen Allergy Unknown throat Verified 01/06/20 11:56 swelling, hives Review of Systems Review of Systems ROS Unobtainable: All systems reviewed & are unremarkable except as noted in HPI and below Patient History Medical History (Updated 03/07/22 @ 20:16 by Alondra Pineda MD) Anxiety Arthritis Ascending aorta enlargement BPH (benign prostatic hyperplasia) CAD (coronary artery disease) Calculus of kidney Chest pain Depression Diabetes mellitus Diabetic peripheral neuropathy Former smoker GERD (gastroesophageal reflux disease) Gout Hyperlipidemia Hypertension Myocardial infarction Phimosis Surgical History (Updated 03/07/22 @ 20:16 by Alondra Pineda MD) H/O cervical spine surgery H/O right knee surgery History of inguinal hernia repair, bilateral Hx of cystoscopy (08/15/19) Hx of heart artery stent (~1995) S/P triple vessel bypass (~01/2019) Family History Mother Coronary artery disease Father COPD (chronic obstructive pulmonary disease) Social History household members: spouse Smoking Status: Former smoker alcohol intake: former Smoking Status: Former smoker alcohol intake frequency: 0-2 drinks per day Substance Use Type: does not use Exam Narrative Exam Narrative: GEN: C-collar in ED. Patient appears in moderate distress. HEAD: No evidence of trauma, no raccoon/[place] sign. NECK: Nontender, painless range of motion, trachea midline Positive for Nexus criteria, no midline line tenderness, positive for distracting injury, altered mental status, neuro deficit, recent EtOH. EYES: PERRLA, EOMI ENT: External inspection normal, trachea is midline, TM's are normal no hemotypanum, Nares are clear, no septal hematoma, no dental or oral injury, airway is normal and with normal occlusion, No bony tenderness RESP: Chest is nontender and has symmetric movement, no ecchymosis, breath sounds are normal no crackles, wheezes or rales CVS: Heart sounds are normal, no murmur noted, No JVD. ABG/GI: Nontender, soft, normal bowel sounds, no distention, no organomegaly, pelvic rock is negative NEURO: Oriented AOx3, neuro is grossly intact, sensation and motor is normal all 4 extremities moving, cranial nerves II through XII are intact, GCS is 15 PSYCH: Normal mood and affect SKIN: Intact, warm and dry, no crepitus and without decubitus BACK: No CVA tenderness, no vertebral tenderness, no step-off's, no crepitus EXT: Patient has tenderness over the right, no ecchymosis, nontender on the left, no pedal edema, normal color and temperature, normal range of motion of extremities with normal tendon exam, 2+ pulses in all four extremities Initial Vital Signs Initial Vital Signs: Vital Signs Temperature 99.0 F 03/07/22 17:10 Pulse Rate 77 03/07/22 17:10 Respiratory Rate 24 03/07/22 17:10 Blood Pressure 100/49 L 03/07/22 17:10 Pulse Oximetry 74 L 03/07/22 17:10 Oxygen Delivery Method 03/07/22 17:10 Scores GCS Luis Alfredo coma scale eye opening: Spontaneous Luisa Lfredo coma scale verbal response: Orientated Luis Alfredo coma scale motor response: Obey commands Luis Alfredo coma scale total score: 15 Nexus Score for C-Spine Focal Neurologic deficit present: No Midline spinal tenderness present: No Altered level of conciousness present: No Intoxication present: No Distracting Injury Present: Yes Nexus Criteria for C-spine: 1 Course Orders Ordered: ED Orders 03/07/22 17:20 COVID19 -Nasal RAPID/Pre-Proc Stat Complete Blood Count AUTO DIFF Stat Comprehensive Metabolic Panel Stat Ethanol (ETOH) Stat Lactate (Lactic Acid) Urgent Lipase Stat Partial Thromboplastin Time Stat Prothrombin Time INR Stat Troponin & CK Cardiac Panel Stat Type and Screen Stat EKG-12 Lead Stat 03/07/22 17:21 CT cervical spine wo con Stat CT chest abd pel w con Stat CT head/brain wo con Stat XR chest 1V Stat 03/07/22 17:22 XR pelvis 1-2V Stat 03/07/22 19:27 Ictotest Urine Stat Urine Microscopic Stat 03/07/22 19:28 ABG [Arterial Blood Gas] Stat Blood Culture Stat Discontinued Medications Diphtheria/Tetanus/Acell Pertussis (Tet,Diph,Pertuss(Acell),Vac/Pf 0.5 Ml Sy ringe) 0.5 ml IM .ONCE ONE Stop: 03/07/22 18:25 Last Admin: 03/07/22 18:38 Dose: 0.5 ml Documented By: OW Fentanyl (Fentanyl 100 Mcg/2 Ml Inj) 50 mcg IV NOW ONE Stop: 03/07/22 17:20 Last Admin: 03/07/22 17:25 Dose: 50 mcg Documented By: OW Ondansetron HCl (Ondansetron 4 Mg/2 Ml Inj) 4 mg IV NOW ONE Stop: 03/07/22 17:20 Last Admin: 03/07/22 17:55 Dose: 4 mg Documented By: OW Consultations Consultation #1: Dr. Pineda, orthopedic surgery saw patient in the emergency department plan for OR tomorrow. Consultation #2: FRANCES Sandoval, hospitalist accepts does ask for blood cultures and ABG which were obtained, DNR status discussed with patient and at bedside is full code. Vital Signs Vital signs: Vital Signs - 8 hr 03/07/22 17:10 03/07/22 17:15 03/07/22 17:15 Temperature 99.0 F Pulse Rate 77 83 Respiratory Rate 24 Blood Pressure 100/49 L 103/53 L Pulse Oximetry 74 L 83 L Oxygen Delivery Method Room Air Nasal Cannula Oxygen Flow Rate 4 03/07/22 17:20 03/07/22 17:20 03/07/22 17:25 Temperature Pulse Rate 83 Respiratory Rate Blood Pressure 106/53 L 118/60 Pulse Oximetry 91 Oxygen Delivery Method Oxygen Flow Rate 03/07/22 17:25 03/07/22 17:43 03/07/22 17:45 Temperature Pulse Rate 78 79 78 Respiratory Rate 36 H 12 16 Blood Pressure 118/69 122/70 Pulse Oximetry 93 92 93 Oxygen Delivery Method Nasal Cannula Nasal Cannula Nasal Cannula Oxygen Flow Rate 4 4 4 03/07/22 18:00 03/07/22 18:15 03/07/22 18:30 Temperature Pulse Rate 77 77 79 Respiratory Rate 12 15 16 Blood Pressure 114/65 119/68 121/59 L Pulse Oximetry 91 92 91 Oxygen Delivery Method Nasal Cannula Nasal Cannula Nasal Cannula Oxygen Flow Rate 4 4 4 03/07/22 18:45 Temperature Pulse Rate 78 Respiratory Rate 11 L Blood Pressure 120/58 L Pulse Oximetry 91 Oxygen Delivery Method Nasal Cannula Oxygen Flow Rate 4 fall Lab Data Result diagrams: 03/07/22 17:20 03/07/22 17:20 Labs: Lab Results 03/07/22 03/07/22 03/07/22 Range/Units 17:20 17:20 17:20 WBC (4.5-11.0) X10^3/uL RBC (4.5-5.9) X10^6/uL Hgb (13.5-17.5) g/dL Hct (41-53) % MCV (80-100) fL MCH (26-34) PG MCHC (30-36) % RDW (11.6-14.8) % Plt Count (150-400) X10^3/uL Neut % (Auto) (50-75) % Lymph % (Auto) (25-40) % [place] % (Auto) (3-14) % Eos % (Auto) (2-4) % Baso % (Auto) (0-2) % Neut # (Auto) (8999-5797) /uL Lymph # (Auto) (9872-8937) /uL [place] # (Auto) (0-900) /uL Eos # (Auto) (0-450) /uL Baso # (Auto) (0-100) /uL PT 12.6 (10.1-12.7) SECONDS INR 1.1 (0.9-1.3) APTT 32 (26-36) SECONDS Sodium (137-145) mmol/L Potassium (3.4-5.1) mmol/L Chloride (98-107) mmol/L Carbon Dioxide (22-32) mmol/L BUN (9-20) mg/dL Creatinine (0.66-1.25) mg/dL Estimated GFR (>60) mL/min BUN/Creatinine Ratio (6-22) Glucose (80-110) mg/dL Lactate 2.0 (0.7-2.1) mmol/L Calcium (8.4-10.2) mg/dL Total Bilirubin (0.2-1.3) mg/dL AST (17-59) IU/L ALT (<50) IU/L Alkaline Phosphatase (38-126) U/L Total Creatine Kinase 98 (55-170) U/L CK-MB (CK-2) TNP CK-MB (CK-2) Rel Index TNP Troponin I < 0.012 (0.01-0.034) ng/mL Total Protein (6.3-8.2) g/dL Albumin (3.5-5.0) g/dL Globulin (1.7-4.1) g/dL Albumin/Globulin Ratio (1.0-2.8) Lipase (23-300) U/L Ethyl Alcohol ( - 10) mg/dL SARS-CoV-2 (PCR) (Negative) Blood Type Antibody Screen 03/07/22 03/07/22 03/07/22 Range/Units 17:20 17:20 17:20 WBC 7.6 (4.5-11.0) X10^3/uL RBC 3.98 L (4.5-5.9) X10^6/uL Hgb 10.8 L (13.5-17.5) g/dL Hct 32.4 L (41-53) % MCV 81.3 (80-100) fL MCH 27.0 (26-34) PG MCHC 33.2 (30-36) % RDW 15.9 H (11.6-14.8) % Plt Count 191 (150-400) X10^3/uL Neut % (Auto) 74.3 (50-75) % Lymph % (Auto) 16.4 L (25-40) % [place] % (Auto) 6.2 (3-14) % Eos % (Auto) 2.8 (2-4) % Baso % (Auto) 0.3 (0-2) % Neut # (Auto) 5600 (0510-0949) /uL Lymph # (Auto) 1200 (0907-6437) /uL [place] # (Auto) 500 (0-900) /uL Eos # (Auto) 200 (0-450) /uL Baso # (Auto) 0 (0-100) /uL PT (10.1-12.7) SECONDS INR (0.9-1.3) APTT (26-36) SECONDS Sodium 137 (137-145) mmol/L Potassium 4.1 (3.4-5.1) mmol/L Chloride 100 (98-107) mmol/L Carbon Dioxide 27 (22-32) mmol/L BUN 29 H (9-20) mg/dL Creatinine 1.22 (0.66-1.25) mg/dL Estimated GFR > 60 (>60) mL/min BUN/Creatinine Ratio 23.8 H (6-22) Glucose 101 (80-110) mg/dL Lactate (0.7-2.1) mmol/L Calcium 8.4 (8.4-10.2) mg/dL Total Bilirubin 0.7 (0.2-1.3) mg/dL AST 32 (17-59) IU/L ALT 20 (<50) IU/L Alkaline Phosphatase 103 (38-126) U/L Total Creatine Kinase (55-170) U/L CK-MB (CK-2) CK-MB (CK-2) Rel Index Troponin I (0.01-0.034) ng/mL Total Protein 6.9 (6.3-8.2) g/dL Albumin 3.9 (3.5-5.0) g/dL Globulin 3.0 (1.7-4.1) g/dL Albumin/Globulin Ratio 1.3 (1.0-2.8) Lipase 160 (23-300) U/L Ethyl Alcohol < 10 ( - 10) mg/dL SARS-CoV-2 (PCR) (Negative) Blood Type O Positive Antibody Screen Negative 03/07/22 Range/Units 17:20 WBC (4.5-11.0) X10^3/uL RBC (4.5-5.9) X10^6/uL Hgb (13.5-17.5) g/dL Hct (41-53) % MCV (80-100) fL MCH (26-34) PG MCHC (30-36) % RDW (11.6-14.8) % Plt Count (150-400) X10^3/uL Neut % (Auto) (50-75) % Lymph % (Auto) (25-40) % [place] % (Auto) (3-14) % Eos % (Auto) (2-4) % Baso % (Auto) (0-2) % Neut # (Auto) (5874-9703) /uL Lymph # (Auto) (2354-9245) /uL [place] # (Auto) (0-900) /uL Eos # (Auto) (0-450) /uL Baso # (Auto) (0-100) /uL PT (10.1-12.7) SECONDS INR (0.9-1.3) APTT (26-36) SECONDS Sodium (137-145) mmol/L Potassium (3.4-5.1) mmol/L Chloride (98-107) mmol/L Carbon Dioxide (22-32) mmol/L BUN (9-20) mg/dL Creatinine (0.66-1.25) mg/dL Estimated GFR (>60) mL/min BUN/Creatinine Ratio (6-22) Glucose (80-110) mg/dL Lactate (0.7-2.1) mmol/L Calcium (8.4-10.2) mg/dL Total Bilirubin (0.2-1.3) mg/dL AST (17-59) IU/L ALT (<50) IU/L Alkaline Phosphatase (38-126) U/L Total Creatine Kinase (55-170) U/L CK-MB (CK-2) CK-MB (CK-2) Rel Index Troponin I (0.01-0.034) ng/mL Total Protein (6.3-8.2) g/dL Albumin (3.5-5.0) g/dL Globulin (1.7-4.1) g/dL Albumin/Globulin Ratio (1.0-2.8) Lipase (23-300) U/L Ethyl Alcohol ( - 10) mg/dL SARS-CoV-2 (PCR) Negative (Negative) Blood Type Antibody Screen Point of Care Testing Glucose POC 120 Urine Dip Bedside Urine Glucose Negative Bedside Urine Bilirubin + 1 Urine Specific [place] 1.02 Bedside Urine Occult Blood +/- Bedside Urine pH 6 Bedside Urine Protein +/- 15 Bedside Urine Urobilinogen - Negative Bedside Urine Nitrite - Negative Bedside Urine Leukocytes +/- [address] scan - head: Radiologist's Impression: Close Pelvis X-Ray (Signed) Mandy Hua - 03/07/[address] (Signed) Avery,Mahendra - 03/07/22 Chest/Abdomen/Pelvis CT (Signed) Varela,Mahendra - 03/07/22 Chest X-Ray (Signed) JavidMandy - 03/07/[address] (Signed) Varela,Mahendra - 03/07/22 Lumbar Spine MRI (Signed) Maren Watson - 11/05/21 KUB X-Ray (Signed) Hair Galvan - 07/22/19 Abdomen X-Ray (Signed) Nathan Lopez - 04/15/19 Telemetry Strips 04/14/19 Abdomen/Pelvis CT (Signed) Hari Perry - 04/14/19 Chest/Abdomen X-ray (Signed) Hari Perry - 04/14/19 Myocardial Perfusion Scan Nuc Med (Signed) Bailee Gerardu - 01/18/19 Echocardiogram Ultrasound (Signed) Car Gerardrigu - 12/12/18 Echocardiogram Ultrasound (Signed) Bailee Gerardu - 02/07/18 Lumbar Spine MRI (Signed) Caitlyn Lloyd - 01/18/18 Launch?[place] [address] CT Scan Report Signed Patient: Colby Reinoso MR#: [id number] : 1945 Acct:[id number] Age/Sex: 76 / M Date of Service: 03/07/22 Loc: ED Accession Number: [id number] ?? Procedure: CT head/brain wo con Ordering Provider: Kierra Nava D.O. PROCEDURE:? CT HEAD/BRAIN WO CON ? INDICATIONS:? Trauma ? TECHNIQUE:? Noncontrast 4.5 mm thick angled axial sections acquired from the foramen magnum to the vertex, with coronal and sagittal reformats.? For radiation dose reduction, the following was used:? automated exposure control, adjustment of mA and/or kV according to patient size.? ? COMPARISON:? None. ? FINDINGS:? Image quality:? Excellent.? ? CSF spaces:? Basal cisterns are patent.? No extra-axial fluid collections.? Ventricles are normal in size and shape.? ? Brain:? No midline shift.? No intracranial masses or hemorrhage.? [place]-white matter interface is normal.? Moderate cerebral and cerebellar volume loss with multifocal white matter chronic ischemic change noted.? Atherosclerotic calcification noted associated with cavernous segments of both internal carotid arteries. ? Incidental note is made of 1 cm rounded density in the interhemispheric fissure associated with the anterior communicating artery, consistent with aneurysm. ? Skull and face:? Calvarium and visualized facial bones are intact, without suspicious lesions.? ? Sinuses:? Chronic maxillary sinus disease, left greater than right associated with osseous wall thickening.? Ethmoid mucosal thickening and small osteoma present.? Intra-ocular lens replacements noted. ? IMPRESSION:? ? 1. 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 Recommend follow-up CT angiogram brain ? 2. Atrophy and chronic ischemic change without intracranial hemorrhage or mass effect. ? 3. Bilateral maxillary and ethmoid mucosal sinus disease, chronic.? Approved by: Mahendra Varela M.D. on 03/07/2022 at 17:25? CT - cervical spine: Radiologist's Impression: [place] [address] CT Scan Report Signed Patient: Colby Reinoso MR#: [id number] : 1945 Acct:[id number] Age/Sex: 76 / M Date of Service: 03/07/22 Loc: ED Accession Number: [id number] ?? Procedure: CT cervical spine wo con Ordering Provider: Kierra Nava D.O. PROCEDURE:? CT CERVICAL SPINE WO CON ? INDICATIONS:? Trauma ? TECHNIQUE:? Noncontrast 3 mm thick sections acquired from the skull base to the T4 level.? Sagittal and coronal reformats were then constructed.? For radiation dose reduction, the following was used:? automated exposure control, adjustment of mA and/or kV according to patient size.? ? COMPARISON:? None. ? FINDINGS:? Image quality:? Excellent.? ? Bones:? Anterior cervical discectomy and fusion C4-5, C5-6 with posterior lateral fusion throughout the cervical spine associated with posterior wilner and screw instrumentation.? Decompressive laminectomies at C4 and C6.? No evidence of fracture or traumatic malalignment.? Craniovertebral relationships are normal.? No evidence of hardware failure ? Soft tissues:? Prevertebral soft tissues are normal in thickness.? No paravertebral hematomas.? No apical pneumothoraces.? ? ? IMPRESSION:? ? Spinal fusion and decompression without evidence of fracture or traumatic malalignment ? Approved by: Mahendra Varela M.D. on 03/07/2022 at 17:20? CT chest/abd/pelvis: Radiologist's Impression: [address] [address] [address] Scan Report Signed Patient: Colby Reinoso MR#: [id number] : 1945 Acct:[id number] Age/Sex: 76 / M Date of Service: 03/07/22 Loc: ED Accession Number: [id number] ?? Procedure: CT cervical spine wo con Ordering Provider: Kierra Nava D.O. PROCEDURE:? CT CERVICAL SPINE WO CON ? INDICATIONS:? Trauma ? TECHNIQUE:? Noncontrast 3 mm thick sections acquired from the skull base to the T4 level.? Sagittal and coronal reformats were then constructed.? For radiation dose reduction, the following was used:? automated exposure control, adjustment of mA and/or kV according to p atient size.? ? COMPARISON:? None. ? FINDINGS:? Image quality:? Excellent.? ? Bones:? Anterior cervical discectomy and fusion C4-5, C5-6 with posterior lateral fusion throughout the cervical spine associated with posterior wilner and screw instrumentation.? Decompressive laminectomies at C4 and C6.? No evidence of fracture or traumatic malalignment.? Craniovertebral relationships are normal.? No evidence of hardware failure ? Soft tissues:? Prevertebral soft tissues are normal in thickness.? No par avertebral hematomas.? No apical pneumothoraces.? ? ? IMPRESSION:? ? Spinal fusion and decompression without evidence of fracture or traumatic malalignment ? Approved by: Mahendra Varela M.D. on 03/07/2022 at 17:20? MDM Narrative Medical decision making narrative: This is a 76-year-old male who fell off a ladder when he lost his balance approximately 4 5 ft in the air landing on his hip, patient has intertrochanteri c fracture, denies hitting his head denies headache or discomfort elsewhere. Because of distracting injury head CT C-spine chest abdomen pelvis were obtained. Patient was noted to be hypoxic upon arrival he did receive fentanyl in route with EMS but has been persistently hypoxic although has received multiple doses of pain medication. Hemoglobin is 10 decreased from 2019 but no interval numbers, he is not been tachycardic or hypotensive. Coags, CMP and cardiac enzymes and LFTs do not show major change. Patient's ETOH is negative, COVID negative. No sign of pulmonary contusion or other changes on imaging patient does not have any sensation of tachypnea or shortness of breath. Patient head CT noted possible aneurysm and patient is aware of this states it has been evaluated before and they were monitoring it at [facility] but it has been several years that he is followed up. He does have a cardiac history and is on Plavix which is why head CT was initiated initially. Case discussed with general surgery plans to take to the OR tomorrow for hip repair, also discussed with hospitalist who accepts they asked for blood cultures and ABG which were obtained. ABG shows a respiratory acidosis with metabolic compensation. Patient has a very remote tobacco use. Also reviewed patient's full status he is full code at this time. Patient's was at bedside for this discussion. He was seen by Orthopedic surgery in the emergency department. Discharge Plan Departure Patient Disposition: Admitted As Inpatient Clinical Impression: Closed intertrochanteric fracture of right femur, Hypoxia, Fall Admit Date/Time: 03/07/22 19:47 Admit Provider: Trang Sandoval
--- NOTE | 2022-03-07 17:22 | DI.RAD.S_ITS ---
PROCEDURE: XR PELVIS 1-2V INDICATIONS: MODIFIED TRAUMA TECHNIQUE: Two view(s) of the pelvis acquired. COMPARISON: None. FINDINGS: Bones: Mild is placed, comminuted intertrochanteric right hip fracture. Femoral head remains located in the acetabular fossa. Left hip appears grossly intact. No visible pelvic fractures. Soft tissues: Surgical changes of prior right inguinal hernia repair. No suspicious soft tissue gas. Bowel gas pattern is normal. IMPRESSION: 1. Intertrochanteric right proximal femur fracture. 2. No dislocation. Dictated by: Mandy Hua M.D. on 03/07/2022 at 17:57 Approved by: Mandy Hua M.D. on 03/07/2022 at 17:59
[2022-03-07] MEDS: fentaNYL 100 MCG/2 ML INJ 50 MCG IV (17:25)
[2022-03-07 17:35] LABS: Add Manual Diff / Slide Review NO; Basophils Absolute Auto 0 /uL (0-100); Basophils Percent Auto 0.3 % (0-2); Eosinophils Absolute Auto 200 /uL (0-450); Eosinophils Percent Auto 2.8 % (2-4); Hematocrit 32.4 % (41-53); Hemoglobin 10.8 g/dL (13.5-17.5); Lymphocytes Absolute Auto 1200 /uL (1100-4500); Lymphocytes Percent Auto 16.4 % (25-40); Mean Corpuscular HGB Conc 33.2 % (30-36); Mean Corpuscular Volume 81.3 fL (80-100); Monocytes Absolute Auto 500 /uL (0-900); Monocytes Percent Auto 6.2 % (3-14); Neutrophils Absolute Auto 5600 /uL (1500-7000); Neutrophils Percent Auto 74.3 % (50-75); Platelet Count 191 X10^3/uL (150-400); Red Blood Cell Count 3.98 X10^6/uL (4.5-5.9); Red Cell Distribution Width 15.9 % (11.6-14.8); White Blood Cell Count 7.6 X10^3/uL (4.5-11.0)
[2022-03-07 17:40] LABS: INR 1.1 (0.9-1.3); Prothrombin Time 12.6 SECONDS (10.1-12.7)
[2022-03-07 17:43] LABS: PTT Partial Thromboplastin Tim 32 SECONDS (26-36)
[2022-03-07 17:48] LABS: Alanine Aminotransferase 20 IU/L (<50); Albumin 3.9 g/dL (3.5-5.0); Albumin Globulin Ratio 1.3 (1.0-2.8); Alkaline Phosphatase 103 U/L (38-126); Aspartate Aminotransferase 32 IU/L (17-59); BUN Creatinine Ratio 23.8 (6-22); Bilirubin Total 0.7 mg/dL (0.2-1.3); Blood Urea Nitrogen 29 mg/dL (9-20); Calcium 8.4 mg/dL (8.4-10.2); Carbon Dioxide 27 mmol/L (22-32); Chloride 100 mmol/L (98-107); Creatine Kinase 98 U/L (55-170); Estimated Glomerular Filt Rate > 60 mL/min (>60); Ethanol (ETOH) < 10 mg/dL; Glucose 101 mg/dL (80-110); HEMOLYSIS < 15 (0-50); Lipase 160 U/L (23-300); Potassium 4.1 mmol/L (3.4-5.1); Sodium 137 mmol/L (137-145); Total Protein 6.9 g/dL (6.3-8.2)
[2022-03-07] MEDS: ONDANSETRON 4 MG/2 ML INJ IV (17:55)
[2022-03-07 17:59] LABS: Troponin I < 0.012 ng/mL (0.01-0.034)
[2022-03-07 18:17] LABS: COVID19 -Nasal RAPID Negative (Negative)
[2022-03-07] MEDS: TET,DIPH,PERTUSS(ACELL),VAC/PF 0.5 ML SYRINGE IM (18:38)
[2022-03-07] MEDS: fentaNYL 100 MCG/2 ML INJ (18:44)
--- NOTE | 2022-03-07 20:09 | PM.HP.1 ---
History of Present Illness History of Present Illness Date Patient Seen: 03/07/22 Time Patient Seen: 20:10 Date of Onset of Symptoms: 03/07/22 Chief complaint: fall off ladder Narrative: This is a 76-year-old gentleman who suffered a fall today he was about 5 steps up on a ladder trimming when he landed on his right hip. He noted the acute onset of right hip pain. He denies a history of loss of consciousness. He notes severe pain into his right hip and he was unable to ambulate. He also sustained a minor injury to his right elbow. He does not note significant head or neck pain. Patient History Medical History (Updated 03/07/22 @ 20:16 by Alondra Pineda MD) Anxiety Arthritis Ascending aorta enlargement BPH (benign prostatic hyperplasia) CAD (coronary artery disease) Calculus of kidney Chest pain Depression Diabetes mellitus Diabetic peripheral neuropathy Former smoker GERD (gastroesophageal reflux disease) Gout Hyperlipidemia Hypertension Myocardial infarction Phimosis Surgical History (Updated 03/07/22 @ 20:16 by Alondra Pineda MD) H/O cervical spine surgery H/O right knee surgery History of inguinal hernia repair, bilateral Hx of cystoscopy (08/15/19) Hx of heart artery stent (~1995) S/P triple vessel bypass (~01/2019) Family & Social History Family History Mother Coronary artery disease Father COPD (chronic obstructive pulmonary disease) Social History: household members spouse Safety & Behavioral: Feels Safe in Current Yes Environment Been Physically Hurt or No Threatened By a Person Tobacco & Substance use: Smoking Status Former smoker alcohol intake former alcohol intake frequency 0-2 drinks per day Substance Use Type does not use Meds Home Medications and Allergies Home Medications Medication Instructions Recorded Confirmed Type atorvastatin 80 mg tablet 80 mg PO BEDTIME 04/14/19 01/06/20 History insulin glargine 100 unit/mL 20 unit SUBCUT BID 04/14/19 01/06/20 History subcutaneous solution (Lantus U-100 Insulin) nitroglycerin 0.4 mg sublingual 0.4 mg sublingual PRN PRN Chest 04/14/19 01/06/20 History tablet Pain pantoprazole 40 mg tablet,delayed 40 mg PO DAILY 04/14/19 01/06/20 History release tamsulosin 0.4 mg capsule 0.4 mg PO DAILY 04/14/19 01/06/20 History zinc sulfate 50 mg zinc (220 mg) 220 mg PO DAILY 04/14/19 01/06/20 History capsule bupropion HCl 75 mg tablet 75 mg PO SEEINSTR 08/12/19 01/06/20 History escitalopram oxalate 20 mg tablet 10 mg PO DAILY 08/12/19 01/06/20 History pregabalin 100 mg capsule (Lyrica) 150 mg PO BID 08/12/19 01/06/20 History propranolol 20 mg tablet 20 mg PO TID 08/12/19 01/06/20 History insulin aspart U-100 100 unit/mL 10 unit SUBCUT TID 08/14/19 01/06/20 History subcutaneous solution (Novolog U-100 Insulin aspart) metformin 500 mg tablet 1,000 mg PO DAILY 08/14/19 01/06/20 History clopidogrel 75 mg tablet 75 mg PO DAILY 12/03/19 01/06/20 History B-complex with vitamin C 1 cap PO DAILY 01/06/20 01/06/20 History cholecalciferol (vitamin D3) 10 10 mcg PO DAILY 01/06/20 01/06/20 History mcg (400 unit) capsule Allergies Allergy/AdvReac Type Severity Reaction Status Date / Time aspirin Allergy Severe throat Verified 01/06/20 11:56 swelling, hives peanut Allergy Severe body Verified 01/06/20 11:56 swelling ibuprofen Allergy Unknown throat Verified 01/06/20 11:56 swelling, hives Review of Systems Review of Systems Narrative: Is a very complicated past medical history. He has a remote history of a cervical spine fracture which was treated with a very extensive anterior and posterior cervical fusion. He has substantial decreased range of motion into his neck. He also has a history of some compression fractures in his back. Has some component of chronic right leg weakness and admits to intermittent right footdrop. He also has a known history of diabetes with bilateral lower extremity numbness and tingling. He says his diabetes has been on but under better control. He says his sugars been running about 130 in comparison to very poor control previously. Has a severe allergy to aspirin with throat swelling, has a history of coronary artery disease with a bypass about 3 years ago. That was his most recent operation. He takes Plavix as a blood thinner. Exam Vital Signs (past 8 hours): - 03/07/22 17:10 03/07/22 17:15 03/07/22 17:15 Temperature 99.0 F Pulse Rate 77 83 Respiratory Rate 24 Blood Pressure 100/49 L 103/53 L Pulse Oximetry 74 L 83 L Oxygen Delivery Method Room Air Nasal Cannula Oxygen Flow Rate 4 03/07/22 17:20 03/07/22 17:20 03/07/22 17:25 Temperature Pulse Rate 83 Respiratory Rate Blood Pressure 106/53 L 118/60 Pulse Oximetry 91 Oxygen Delivery Method Oxygen Flow Rate 03/07/22 17:25 03/07/22 17:43 03/07/22 17:45 Temperature Pulse Rate 78 79 78 Respiratory Rate 36 H 12 16 Blood Pressure 118/69 122/70 Pulse Oximetry 93 92 93 Oxygen Delivery Method Nasal Cannula Nasal Cannula Nasal Cannula Oxygen Flow Rate 4 4 4 03/07/22 18:00 03/07/22 18:15 03/07/22 18:30 Temperature Pulse Rate 77 77 79 Respiratory Rate 12 15 16 Blood Pressure 114/65 119/68 121/59 L Pulse Oximetry 91 92 91 Oxygen Delivery Method Nasal Cannula Nasal Cannula Nasal Cannula Oxygen Flow Rate 4 4 4 03/07/22 18:45 Temperature Pulse Rate 78 Respiratory Rate 11 L Blood Pressure 120/58 L Pulse Oximetry 91 Oxygen Delivery Method Nasal Cannula Oxygen Flow Rate 4 Oxygen Delivery Method Nasal Cannula Oxygen Flow Rate 4 Narrative Exam Narrative: Is resting comfortably in bed, he is alert and oriented, has significant restricted range of motion of his neck which he notes is chronic, cores shows slightly irregular rhythm, no significant murmur, slight decreased heart sounds and breath sounds, lungs are clear, abdomen slightly obese but benign, right lower extremity shows obvious foreshortening of the right lower extremity with external rotation deformity, in fire his toe flexors and extensors with trace motion, he has decreased sensation in bilateral lower extremities, his foot is warm and he has a palpable pulse, his right upper extremity shows a mild abrasion over his right ulna, good range of motion in the elbow Objective Labs Result Diagrams: 03/07/22 17:20 03/07/22 17:20 Labs: Laboratory Results - last 24 hr 03/07/22 03/07/22 03/07/22 17:20 17:20 17:20 WBC RBC Hgb Hct MCV MCH MCHC RDW Plt Count Neut % (Auto) Lymph % (Auto) Kendall % (Auto) Eos % (Auto) Baso % (Auto) Neut # (Auto) Lymph # (Auto) Kendall # (Auto) Eos # (Auto) Baso # (Auto) PT 12.6 INR 1.1 APTT 32 Sodium Potassium Chloride Carbon Dioxide BUN Creatinine Estimated GFR BUN/Creatinine Ratio Glucose Lactate 2.0 Calcium Total Bilirubin AST ALT Alkaline Phosphatase Total Creatine Kinase 98 CK-MB (CK-2) TNP CK-MB (CK-2) Rel Index TNP Troponin I < 0.012 Total Protein Albumin Globulin Albumin/Globulin Ratio Lipase Ethyl Alcohol SARS-CoV-2 (PCR) Blood Type Antibody Screen 03/07/22 03/07/22 03/07/22 17:20 17:20 17:20 WBC 7.6 RBC 3.98 L Hgb 10.8 L Hct 32.4 L MCV 81.3 MCH 27.0 MCHC 33.2 RDW 15.9 H Plt Count 191 Neut % (Auto) 74.3 Lymph % (Auto) 16.4 L Kendall % (Auto) 6.2 Eos % (Auto) 2.8 Baso % (Auto) 0.3 Neut # (Auto) 5600 Lymph # (Auto) 1200 Kendall # (Auto) 500 Eos # (Auto) 200 Baso # (Auto) 0 PT INR APTT Sodium 137 Potassium 4.1 Chloride 100 Carbon Dioxide 27 BUN 29 H Creatinine 1.22 Estimated GFR > 60 BUN/Creatinine Ratio 23.8 H Glucose 101 Lactate Calcium 8.4 Total Bilirubin 0.7 AST 32 ALT 20 Alkaline Phosphatase 103 Total Creatine Kinase CK-MB (CK-2) CK-MB (CK-2) Rel Index Troponin I Total Protein 6.9 Albumin 3.9 Globulin 3.0 Albumin/Globulin Ratio 1.3 Lipase 160 Ethyl Alcohol < 10 SARS-CoV-2 (PCR) Blood Type O Positive Antibody Screen Negative 03/07/22 17:20 WBC RBC Hgb Hct MCV MCH MCHC RDW Plt Count Neut % (Auto) Lymph % (Auto) Kendall % (Auto) Eos % (Auto) Baso % (Auto) Neut # (Auto) Lymph # (Auto) Kendall # (Auto) Eos # (Auto) Baso # (Auto) PT INR APTT Sodium Potassium Chloride Carbon Dioxide BUN Creatinine Estimated GFR BUN/Creatinine Ratio Glucose Lactate Calcium Total Bilirubin AST ALT Alkaline Phosphatase Total Creatine Kinase CK-MB (CK-2) CK-MB (CK-2) Rel Index Troponin I Total Protein Albumin Globulin Albumin/Globulin Ratio Lipase Ethyl Alcohol SARS-CoV-2 (PCR) Negative Blood Type Antibody Screen x-rays show a right sub and trochanteric hip fracture with displacement, it is best visible on his CT scan, CT scan shows extensive instrumentation in his cervical spine with no obvious acute disruption Assessment & Plan Assessment and plan (1) Closed intertrochanteric fracture of right femur: Status: Acute (2) Subtrochanteric fracture of femur: Status: Acute (3) Diabetic peripheral neuropathy associated with type 2 diabetes mellitus: Status: Acute (4) H/O cervical spinal arthrodesis: Status: Acute Plan I have recommended a right hip open reduction internal fixation with femoral nail. The procedure options risks benefits and complications were discussed in detail. He has comminuted subtrochanteric fracture with displacement. Options risks benefits and complications were discussed. This fracture pattern is not well suited to arthroplasty. Limits of the procedure anticipated 6 week time frame to healing and limited weight-bearing initially was discussed with the patient and his . Assessment & Plan narrative: Clinically he seems to be doing reasonably well but he clearly has multiple medical problems including anticoagulation with Plavix, coronary artery disease, and essentially fused cervical spine, diabetic peripheral neuropathy, history of a right drop foot and bilateral lower extremity neuropathy. He previously had poorly controlled diabetes but notes that has improved. His O2 sat was noted to be slightly decreased in the emergency room and he is the plan is to admit him to Medicine Service for further stabilization and proceed with surgery likely tomorrow. Time Spent With Patient Time with patient: 30 to 49 minutes with 50% spent counseling/coordinating care Critical Care time: I spent a total of [] minutes of critical care time on this patient's care today; this time is exclusive of procedural time.
[2022-03-07 20:23] LABS: Fractionated Inspired Oxygen 36; HCO3 ABG 29 mmol/L (22-26); Oxygen Saturation ABG 93 % (95-100); PCO2 ABG 54.2 mmHg (35-45); PO2 ABG 73 mmHg (80-100); TCO2 ABG 31 mmol/L (21-31); pH ABG 7.34 (7.35-7.45)
[2022-03-07 20:48] LABS: Ictotest Urine Negative (Negative)
[2022-03-07] MEDS: HYDROMORPHONE 1 MG INJ IV (21:02)
[2022-03-07] MEDS: HYDROCODONE/ACET 10/325 TABLET 1 TAB PO (22:05)
[2022-03-07] MEDS: LACTATED RINGERS 1,000 ML 60 ML IV (22:08)
[2022-03-07 22:41] LABS: Magnesium 1.7 mg/dL (1.6-2.3)
[2022-03-07] MEDS: SENNOSIDES 8.6 MG TABLET 17.2 MG PO (22:45)
[2022-03-07] MEDS: INSULIN GLARGINE 100 UNIT/ML 3ML PEN 15 UNIT SUBCUT (22:45)
[2022-03-07 23:18] LABS: Hemoglobin A1C% w Est Avg Glu 7.6 % (4.0-6.0); NT-proBNP (BNP-Adult 18+) 173 pg/mL (<450)
[2022-03-07 23:22] LABS: Appearance Urine UA CLEAR; Bilirubin Urine UA NEGATIVE (NEGATIVE); Color Urine UA YELLOW; Glucose Urine UA NEGATIVE (Negative); Ketones Urine UA NEGATIVE (NEGATIVE); Leukocyte Esterase Urine UA NEGATIVE (NEGATIVE); Nitrite Urine UA NEGATIVE (Negative); Occult Blood Urine UA 2+ (Negative); Protein Urine UA NEGATIVE (Negative); Urobilinogen Urine UA 0.2 E.U./dL (0.2)
[2022-03-07 23:38] LABS: Adenovirus Not Detected (Not Detect); B. parapertussis Not Detected (Not Detecte); Bordetella pertussis Not Detected (Not Detecte); Coronavirus 229E Not Detected (Not Detect); Coronavirus HKU1 Not Detected (Not Detect); Coronavirus NL 63 Not Detected (Not Detect); Coronavirus OC43 Not Detected (Not Detect); Human Metapneumovirus Not Detected (Not Detect); Human Rhinovirus/Enterovirus Not Detected (Not Detect); Influenza A Not Detected (Not Detect); Influenza B Not Detected (Not Detect); Parainfluenza Virus 1 Not Detected (Not Detect); Parainfluenza Virus 2 Not Detected (Not Detect); Parainfluenza Virus 3 Not Detected (Not Detect); Parainfluenza Virus 4 Not Detected (Not Detect); Respiratory Syncytial Virus Not Detected (Not Detect); SARS- CoV-2 Not Detected (Not Detecte)
[2022-03-07 23:39] LABS: Chlamydophila pneumoniae Not Detected (Not Detect); Mycoplasma pneumoniae Not Detected (Not Detect)
[2022-03-07 23:49] LABS: Bacteria Urine None Seen; Culture Indicated Urine Cult Not Indicated; RBC Urine 1-5/HPF (0-5/HPF); WBC Urine 0-1/HPF (0-5/HPF)
[2022-03-08] VITALS (62 sets, daily range): BP systolic 77–148; BP diastolic 34–67; PULSE 87–102; RESP 10–36; TEMP 36.1–37.7; O2SAT 82–100; BMI 24.5
--- NOTE | 2022-03-08 | DI.RAD.S_ITS ---
PROCEDURE: XR HIP W PEL IF DONE RT 2V INDICATIONS: IM NAILING RIGHT TECHNIQUE: 4 views of the hip were acquired. COMPARISON: None. FINDINGS: Intraoperative fluoroscopic views of trochanteric femoral fixation. IMPRESSION: Intraoperative view of trochanteric femoral fixation. Dictated by: Guzman Price M.D. on 03/08/2022 at 18:56 Approved by: Guzman Price M.D. on 03/08/2022 at 18:57
[2022-03-08] MEDS: buPROPion 75 MG TABLET PO ×2 (00:19→21:38)
[2022-03-08] MEDS: PREGABALIN 50 MG CAPSULE 150 MG PO ×2 (00:19→21:38)
--- NOTE | 2022-03-08 01:36 | PC.ADMIT ---
[email or web address] Admission Note: The patient,Colby Reinoso,76 y/o, was given written information regarding hospital policies, unit procedures and contact persons. Patient's smoking status: Former smoker. Vital Signs - 8 hr 03/07/22 17:43 03/07/22 17:45 03/07/22 18:00 Temperature Pulse Rate 79 78 77 Respiratory Rate 12 16 12 Blood Pressure 118/69 122/70 114/65 Pulse Oximetry 92 93 91 Oxygen Delivery Method Nasal Cannula Nasal Cannula Nasal Cannula Oxygen Flow Rate 4 4 4 03/07/22 18:15 03/07/22 18:30 03/07/22 18:45 Temperature Pulse Rate 77 79 78 Respiratory Rate 15 16 11 L Blood Pressure 119/68 121/59 L 120/58 L Pulse Oximetry 92 91 91 Oxygen Delivery Method Nasal Cannula Nasal Cannula Nasal Cannula Oxygen Flow Rate 4 4 4 03/07/22 18:55 03/07/22 19:00 03/07/22 19:01 Temperature Pulse Rate 79 78 79 Respiratory Rate 16 17 17 Blood Pressure Pulse Oximetry 92 91 92 Oxygen Delivery Method Oxygen Flow Rate 03/07/22 19:01 03/07/22 19:05 03/07/22 19:10 Temperature Pulse Rate 79 79 Respiratory Rate 18 16 Blood Pressure 103/55 L Pulse Oximetry 95 94 Oxygen Delivery Method Oxygen Flow Rate 03/07/22 19:15 03/07/22 19:15 03/07/22 19:20 Temperature Pulse Rate 79 80 Respiratory Rate 15 21 Blood Pressure 119/68 Pulse Oximetry 93 93 Oxygen Delivery Method Oxygen Flow Rate 03/07/22 19:25 03/07/22 19:30 03/07/22 19:30 Temperature Pulse Rate 79 79 Respiratory Rate 20 17 Blood Pressure 145/63 H Pulse Oximetry 95 94 Oxygen Delivery Method Oxygen Flow Rate 03/07/22 19:35 03/07/22 19:40 03/07/22 19:45 Temperature Pulse Rate 79 79 79 Respiratory Rate 18 17 14 Blood Pressure Pulse Oximetry 93 95 94 Oxygen Delivery Method Oxygen Flow Rate 03/07/22 19:46 03/07/22 19:46 03/07/22 19:50 Temperature Pulse Rate 79 79 Respiratory Rate 17 17 Blood Pressure 112/56 L Pulse Oximetry 93 94 Oxygen Delivery Method Oxygen Flow Rate 03/07/22 19:55 03/07/22 20:00 03/07/22 20:00 Temperature Pulse Rate 80 80 Respiratory Rate 16 15 Blood Pressure 110/58 L Pulse Oximetry 95 93 Oxygen Delivery Method Oxygen Flow Rate 03/07/22 20:05 03/07/22 20:10 03/07/22 20:15 Temperature Pulse Rate 79 79 Respiratory Rate 16 13 Blood Pressure 117/63 Pulse Oximetry 95 95 Oxygen Delivery Method Oxygen Flow Rate 03/07/22 20:15 03/07/22 20:20 03/07/22 20:25 Temperature Pulse Rate 79 79 80 Respiratory Rate 14 15 14 Blood Pressure Pulse Oximetry 94 94 93 Oxygen Delivery Method Oxygen Flow Rate 03/07/22 20:30 03/07/22 20:35 03/07/22 20:40 Temperature Pulse Rate 79 79 79 Respiratory Rate 14 11 L Blood Pressure Pulse Oximetry 97 93 96 Oxygen Delivery Method Room Air Oxygen Flow Rate 03/07/22 21:29 03/08/22 00:00 03/07/22 22:45 Temperature 98.1 F 98.4 F Pulse Rate 87 94 H Respiratory Rate 16 14 Blood Pressure 135/88 104/64 Pulse Oximetry 95 96 Oxygen Delivery Method Nasal Cannula Oxygen Flow Rate 3 5 Patient admitted to room 215 from ER per stretcher and transferred into bed using slider board. Is alert and oriented. Breath sounds CTA but is on oxygen at 3L/min with sat of 93%. Oxygen did need to be increased to 5L/min after receiving Vicodin as when dozing off was starting to desat. Currently on 5L/min per NC with sat of 96% and is on continuous oximetry. HRR w/telemetry reading of SR w/BBB. Denies nausea. BT present and abdomen is soft. Complained of 8/10 right hip/testicular pain despite having received Dilaudid in ER prior to transfer so was medicated with Vicodin and has been mostly sleeping since; ice pack was also applied. Indwelling catheter is patent; urine is clear, light biju. Is on bedrest related to femur fx. Right LE is shortened and externally rotated. Has chronic bilateral LE neuropathy. Calf SCD applied to left leg. Fall risk score is high and bed alarm is activated. Oriented to call light and bed controls. Is now NPO since 0000 for likely surgery later today.
--- NOTE | 2022-03-08 04:15 | PM.HP.1 ---
History of Present Illness History of Present Illness Date Patient Seen: 03/07/22 Time Patient Seen: 21:45 Chief complaint: fall off ladder Narrative: Colby Reinoso is a 76-year-old male with a history of T2DM, HTN, dyslipidemia, two MIs, and a triple bypass?CABG who is on Plavix daily who had a fall off a ladder about 5 rungs up or proximally 4-5 feet off the ground landing on his landing on his hip.? Patient has wes pain in his right hip that radiates down his right leg, denies any other pain.? Denies hitting his head or chest.? Denies neck or back pain.?Patient denies LYNNE, changes in vision, CP, shortness of breath, abdominal pain, nausea, vomiting, bowel or bladder incontinence or issues, numbness, tingling.? Patient states he is had prior cervical fusion, bypass but no ablation.? States he is allergic to aspirin.? He is unsure of all of his medications but does know he takes Plavix for his anticoagulant. No tobacco, no alcohol, no illicit. Upon arrival in the ED patient was febrile with a temp of 99?, BP 100/49, HR 77, R 24 and was found to have an O2 saturation of 74% on room air. Patient has no respiratory history, no home O2, and was not complaining of shortness of breath. Dr. Pineda orthopedics was consulted in the ED and requested patient be admitted to the hospitalist service. Vitals upon admit temp afebrile 99, BP 117/63, HR 79, R 11, O2 saturation 96% on 4 L. ABGs: PH 7.34, pCO2 54.2, PO2 73, bicarb 29, T CO2 31, O2 saturation 93%, BE 4, FiO2 36. Patient presents with mild anemia: H&H 10.8/32.4, 04/16/2019 H&H 14.2/44, patient's chemistry and liver panel are predominantly unremarkable with the exception of a BUN of 29, lactate troponin lipase ETOH are all normal. [facility] Xray: ?Intertrochanteric right proximal femur fracture. Chest/abd/Pelvis CT: Comminuted right intertrochanteric femoral fracture, with Multilevel wedge shaped thoracolumbar compression fractures at T12, L1, L2 and L3. Chest Xray:Slight elevation of the left hemidiaphragm with adjacent opacity may be atelectasis or projectional abnormality. 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 Patient admitted for right pertrochanteric femur fracture secondary fall from ladder, in acute hypoxic, hypercapnic respiratory failure, mild anemia. Patient to go to the OR tomorrow with Dr. Pineda for repair. Patient History Medical History Anxiety Arthritis Ascending aorta enlargement BPH (benign prostatic hyperplasia) Brain aneurysm CAD (coronary artery disease) Calculus of kidney Chest pain Depression Diabetes mellitus Diabetic peripheral neuropathy Former smoker GERD (gastroesophageal reflux disease) Gout Hyperlipidemia Hypertension Myocardial infarction Phimosis Surgical History (Updated 03/07/22 @ 20:16 by Alondra Pineda MD) H/O cervical spine surgery H/O right knee surgery History of inguinal hernia repair, bilateral Hx of cystoscopy (08/15/19) Hx of heart artery stent (~1995) S/P triple vessel bypass (~01/2019) Family & Social History Family History Mother Coronary artery disease Father COPD (chronic obstructive pulmonary disease) Social History: household members spouse Prior Living Arrangements House Safety & Behavioral: Feels Safe in Current Yes Environment Been Physically Hurt or No Threatened By a Person Tobacco & Substance use: Tobacco type cigarettes Smoking Status Former smoker alcohol intake former alcohol intake frequency 0-2 drinks per day Substance Use Type does not use Meds Home Medications and Allergies Home Medications Medication Instructions Recorded Confirmed Type atorvastatin 80 mg tablet 80 mg PO DAILY 04/14/19 03/07/22 History insulin glargine 100 unit/mL 15 unit SUBCUT BID 04/14/19 03/07/22 History subcutaneous solution (Lantus U-100 Insulin) nitroglycerin 0.4 mg sublingual 0.4 mg sublingual PRN PRN Chest 04/14/19 03/07/22 History tablet Pain pantoprazole 40 mg tablet,delayed 40 mg PO DAILY 04/14/19 03/07/22 History release zinc sulfate 50 mg zinc (220 mg) 50 mg PO DAILY 04/14/19 03/07/22 History capsule bupropion HCl 75 mg tablet 150 mg PO DAILY 08/12/19 03/07/22 History escitalopram oxalate 20 mg tablet 20 mg PO DAILY 08/12/19 03/07/22 History pregabalin 100 mg capsule (Lyrica) 150 mg PO BID 08/12/19 03/07/22 History propranolol 20 mg tablet 20 mg PO TID PRN Anxiety 08/12/19 03/07/22 History insulin aspart U-100 100 unit/mL 7 unit SUBCUT BID 08/14/19 03/07/22 History subcutaneous solution (Novolog U-100 Insulin aspart) metformin 500 mg tablet 1,000 mg PO BID 08/14/19 03/07/22 History clopidogrel 75 mg tablet 75 mg PO DAILY 12/03/19 03/07/22 History B-complex with vitamin C 1 cap PO DAILY 01/06/20 03/07/22 History cholecalciferol (vitamin D3) 10 10 mcg PO DAILY 01/06/20 03/07/22 History mcg (400 unit) capsule bupropion HCl 75 mg tablet 75 mg PO BEDTIME 03/07/22 03/07/22 History insulin aspart U-100 100 unit/mL 8 unit SUBCUT DAILY 03/07/22 03/07/22 History (3 mL) subcutaneous pen losartan 25 mg tablet 25 mg PO DAILY 03/07/22 03/07/22 History metoprolol tartrate 25 mg tablet 25 mg PO BID 03/07/22 03/07/22 History Allergies Allergy/AdvReac Type Severity Reaction Status Date / Time aspirin Allergy Severe throat Verified 01/06/20 11:56 swelling, hives peanut Allergy Severe body Verified 01/06/20 11:56 swelling ibuprofen Allergy Unknown throat Verified 01/06/20 11:56 swelling, hives Review of Systems Review of Systems Narrative: All 12 point systems reviewed with the patient and are negative except otherwise documented. Exam Vital Signs (past 8 hours): - 03/07/22 20:20 03/07/22 20:25 03/07/22 20:30 Temperature Pulse Rate 79 80 79 Respiratory Rate 15 14 Blood Pressure Pulse Oximetry 94 93 97 Oxygen Delivery Method Oxygen Flow Rate 03/07/22 20:35 03/07/22 20:40 03/07/22 21:29 Temperature 98.1 F Pulse Rate 79 79 87 Respiratory Rate 14 11 L 16 Blood Pressure 135/88 Pulse Oximetry 93 96 95 Oxygen Delivery Method Room Air Oxygen Flow Rate 3 03/08/22 00:00 03/07/22 22:45 Temperature 98.4 F Pulse Rate 94 H Respiratory Rate 14 Blood Pressure 104/64 Pulse Oximetry 96 Oxygen Delivery Method Nasal Cannula Oxygen Flow Rate 5 Oxygen Delivery Method Nasal Cannula Oxygen Flow Rate 5 Narrative Exam Narrative: HEAD: No evidence of trauma, no raccoon/[place] sign. NECK: Nontender, painless range of motion, trachea midline Positive for Nexus criteria, no midline line tenderness, positive for distracting injury, altered mental status, neuro deficit, recent EtOH. EYES: PERRLA, EOMI ENT: External inspection normal, trachea is midline, TM's are normal no hemotypanum, Nares are clear, no septal hematoma, no dental or oral injury, airway is normal and with normal occlusion, No bony tenderness RESP: Chest is nontender and has symmetric movement, no ecchymosis, breath sounds are normal no crackles, wheezes or rales CVS: Heart sounds are normal, no murmur noted, No JVD. ABG/GI: Nontender, soft, normal bowel sounds, no distention, no organomegaly, pelvic rock is negative NEURO: Oriented AOx3, neuro is grossly intact, sensation and motor is normal all 4 extremities moving, cranial nerves II through XII are intact, GCS is 15 PSYCH: Normal mood and affect SKIN: Intact, warm and dry, no crepitus and without decubitus BACK: No CVA tenderness, no vertebral tenderness, no step-off's, no crepitus EXT:? Patient has tenderness over the right, no ecchymosis, nontender on the left, no pedal edema, normal color and temperature, normal range of motion of extremities with normal tendon exam, 2+ pulses in all four extremities Objective Labs Result Diagrams: 03/07/22 17:20 03/07/22 17:20 Labs: Laboratory Results - last 24 hr 03/07/22 03/07/22 03/07/22 17:20 17:20 17:20 WBC RBC Hgb Hct MCV MCH MCHC RDW Plt Count Neut % (Auto) Lymph % (Auto) [place] % (Auto) Eos % (Auto) Baso % (Auto) Neut # (Auto) Lymph # (Auto) [place] # (Auto) Eos # (Auto) Baso # (Auto) PT 12.6 INR 1.1 APTT 32 ABG pH ABG pCO2 ABG pO2 ABG HCO3 ABG Total CO2 ABG O2 Saturation ABG Base Excess FiO2 Sodium Potassium Chloride Carbon Dioxide BUN Creatinine Estimated GFR BUN/Creatinine Ratio Glucose Hemoglobin A1c Lactate 2.0 Calcium Magnesium Total Bilirubin AST ALT Alkaline Phosphatase Total Creatine Kinase 98 CK-MB (CK-2) TNP CK-MB (CK-2) Rel Index TNP Troponin I < 0.012 NT-Pro-B Natriuret Pep Total Protein Albumin Globulin Albumin/Globulin Ratio Lipase Urine Color Urine Appearance Urine pH Ur Specific [place] Urine Protein Urine Glucose (UA) Urine Ketones Urine Occult Blood Urine Nitrate Urine Bilirubin Ur Bilirubin Confirm Urine Urobilinogen Ur Leukocyte Esterase Urine RBC Urine WBC Urine Bacteria Ur Culture Indicated? Ethyl Alcohol Chlamy pneumoniae PCR Adenovirus (PCR) B. pertussis DNA (PCR) B.parapertussis DNA PCR Coronavirus OC43 (PCR) Coronavirus HKU1 (PCR) Coronavirus 229E (PCR) SARS-CoV-2 (PCR) Coronavirus NL63 (PCR) Human Metapneumovir PCR Influenza Type A (PCR) Influenza Type B (PCR) M. pneumoniae (PCR) Parainfluenza 1 (PCR) Parainfluenza 2 (PCR) Parainfluenza 3 (PCR) Parainfluenza 4 (PCR) RSV (PCR) Entero/Rhino (PCR) Blood Type Antibody Screen 03/07/22 03/07/22 03/07/22 17:20 17:20 17:20 WBC 7.6 RBC 3.98 L Hgb 10.8 L Hct 32.4 L MCV 81.3 MCH 27.0 MCHC 33.2 RDW 15.9 H Plt Count 191 Neut % (Auto) 74.3 Lymph % (Auto) 16.4 L [place] % (Auto) 6.2 Eos % (Auto) 2.8 Baso % (Auto) 0.3 Neut # (Auto) 5600 Lymph # (Auto) 1200 [place] # (Auto) 500 Eos # (Auto) 200 Baso # (Auto) 0 PT INR APTT ABG pH ABG pCO2 ABG pO2 ABG HCO3 ABG Total CO2 ABG O2 Saturation ABG Base Excess FiO2 Sodium 137 Potassium 4.1 Chloride 100 Carbon Dioxide 27 BUN 29 H Creatinine 1.22 Estimated GFR > 60 BUN/Creatinine Ratio 23.8 H Glucose 101 Hemoglobin A1c Lactate Calcium 8.4 Magnesium Total Bilirubin 0.7 AST 32 ALT 20 Alkaline Phosphatase 103 Total Creatine Kinase CK-MB (CK-2) CK-MB (CK-2) Rel Index Troponin I NT-Pro-B Natriuret Pep Total Protein 6.9 Albumin 3.9 Globulin 3.0 Albumin/Globulin Ratio 1.3 Lipase 160 Urine Color Urine Appearance Urine pH Ur Specific [place] Urine Protein Urine Glucose (UA) Urine Ketones Urine Occult Blood Urine Nitrate Urine Bilirubin Ur Bilirubin Confirm Urine Urobilinogen Ur Leukocyte Esterase Urine RBC Urine WBC Urine Bacteria Ur Culture Indicated? Ethyl Alcohol < 10 Chlamy pneumoniae PCR Adenovirus (PCR) B. pertussis DNA (PCR) B.parapertussis DNA PCR Coronavirus OC43 (PCR) Coronavirus HKU1 (PCR) Coronavirus 229E (PCR) SARS-CoV-2 (PCR) Coronavirus NL63 (PCR) Human Metapneumovir PCR Influenza Type A (PCR) Influenza Type B (PCR) M. pneumoniae (PCR) Parainfluenza 1 (PCR) Parainfluenza 2 (PCR) Parainfluenza 3 (PCR) Parainfluenza 4 (PCR) RSV (PCR) Entero/Rhino (PCR) Blood Type O Positive Antibody Screen Negative 03/07/22 03/07/22 03/07/22 17:20 19:57 20:48 WBC RBC Hgb Hct MCV MCH MCHC RDW Plt Count Neut % (Auto) Lymph % (Auto) [place] % (Auto) Eos % (Auto) Baso % (Auto) Neut # (Auto) Lymph # (Auto) [place] # (Auto) Eos # (Auto) Baso # (Auto) PT INR APTT ABG pH 7.34 L ABG pCO2 54.2 H ABG pO2 73 L ABG HCO3 29 H ABG Total CO2 31 ABG O2 Saturation 93 L ABG Base Excess 4.0 H FiO2 36 Sodium Potassium Chloride Carbon Dioxide BUN Creatinine Estimated GFR BUN/Creatinine Ratio Glucose Hemoglobin A1c Lactate Calcium Magnesium Total Bilirubin AST ALT Alkaline Phosphatase Total Creatine Kinase CK-MB (CK-2) CK-MB (CK-2) Rel Index Troponin I NT-Pro-B Natriuret Pep Total Protein Albumin Globulin Albumin/Globulin Ratio Lipase Urine Color Urine Appearance Urine pH Ur Specific [place] Urine Protein Urine Glucose (UA) Urine Ketones Urine Occult Blood Urine Nitrate Urine Bilirubin Ur Bilirubin Confirm Negative Urine Urobilinogen Ur Leukocyte Esterase Urine RBC Urine WBC Urine Bacteria Ur Culture Indicated? Ethyl Alcohol Chlamy pneumoniae PCR Adenovirus (PCR) B. pertussis DNA (PCR) B.parapertussis DNA PCR Coronavirus OC43 (PCR) Coronavirus HKU1 (PCR) Coronavirus 229E (PCR) SARS-CoV-2 (PCR) Negative Coronavirus NL63 (PCR) Human Metapneumovir PCR Influenza Type A (PCR) Influenza Type B (PCR) M. pneumoniae (PCR) Parainfluenza 1 (PCR) Parainfluenza 2 (PCR) Parainfluenza 3 (PCR) Parainfluenza 4 (PCR) RSV (PCR) Entero/Rhino (PCR) Blood Type Antibody Screen 03/07/22 03/07/22 03/07/22 22:00 22:16 22:16 WBC RBC Hgb Hct MCV MCH MCHC RDW Plt Count Neut % (Auto) Lymph % (Auto) [place] % (Auto) Eos % (Auto) Baso % (Auto) Neut # (Auto) Lymph # (Auto) [place] # (Auto) Eos # (Auto) Baso # (Auto) PT INR APTT ABG pH ABG pCO2 ABG pO2 ABG HCO3 ABG Total CO2 ABG O2 Saturation ABG Base Excess FiO2 Sodium Potassium Chloride Carbon Dioxide BUN Creatinine Estimated GFR BUN/Creatinine Ratio Glucose Hemoglobin A1c Lactate Calcium Magnesium 1.7 Total Bilirubin AST ALT Alkaline Phosphatase Total Creatine Kinase CK-MB (CK-2) CK-MB (CK-2) Rel Index Troponin I NT-Pro-B Natriuret Pep 173 Total Protein Albumin Globulin Albumin/Globulin Ratio Lipase Urine Color Yellow Urine Appearance Clear Urine pH 5.0 Ur Specific [place] 1.020 Urine Protein Negative Urine Glucose (UA) Negative Urine Ketones Negative Urine Occult Blood 2+ H Urine Nitrate Negative Urine Bilirubin Negative Ur Bilirubin Confirm Urine Urobilinogen 0.2 Ur Leukocyte Esterase Negative Urine RBC 1-5/hpf Urine WBC 0-1/hpf Urine Bacteria None seen Ur Culture Indicated? Cult not indicated Ethyl Alcohol Chlamy pneumoniae PCR Adenovirus (PCR) B. pertussis DNA (PCR) B.parapertussis DNA PCR Coronavirus OC43 (PCR) Coronavirus HKU1 (PCR) Coronavirus 229E (PCR) SARS-CoV-2 (PCR) Coronavirus NL63 (PCR) Human Metapneumovir PCR Influenza Type A (PCR) Influenza Type B (PCR) M. pneumoniae (PCR) Parainfluenza 1 (PCR) Parainfluenza 2 (PCR) Parainfluenza 3 (PCR) Parainfluenza 4 (PCR) RSV (PCR) Entero/Rhino (PCR) Blood Type Antibody Screen 03/07/22 03/07/22 22:16 22:25 WBC RBC Hgb Hct MCV MCH MCHC RDW Plt Count Neut % (Auto) Lymph % (Auto) [place] % (Auto) Eos % (Auto) Baso % (Auto) Neut # (Auto) Lymph # (Auto) [place] # (Auto) Eos # (Auto) Baso # (Auto) PT INR APTT ABG pH ABG pCO2 ABG pO2 ABG HCO3 ABG Total CO2 ABG O2 Saturation ABG Base Excess FiO2 Sodium Potassium Chloride Carbon Dioxide BUN Creatinine Estimated GFR BUN/Creatinine Ratio Glucose Hemoglobin A1c 7.6 H Lactate Calcium Magnesium Total Bilirubin AST ALT Alkaline Phosphatase Total Creatine Kinase CK-MB (CK-2) CK-MB (CK-2) Rel Index Troponin I NT-Pro-B Natriuret Pep Total Protein Albumin Globulin Albumin/Globulin Ratio Lipase Urine Color Urine Appearance Urine pH Ur Specific [place] Urine Protein Urine Glucose (UA) Urine Ketones Urine Occult Blood Urine Nitrate Urine Bilirubin Ur Bilirubin Confirm Urine Urobilinogen Ur Leukocyte Esterase Urine RBC Urine WBC Urine Bacteria Ur Culture Indicated? Ethyl Alcohol Chlamy pneumoniae PCR Not detected Adenovirus (PCR) Not detected B. pertussis DNA (PCR) Not detected B.parapertussis DNA PCR Not detected Coronavirus OC43 (PCR) Not detected Coronavirus HKU1 (PCR) Not detected Coronavirus 229E (PCR) Not detected SARS-CoV-2 (PCR) Not detected Coronavirus NL63 (PCR) Not detected Human Metapneumovir PCR Not detected Influenza Type A (PCR) Not detected Influenza Type B (PCR) Not detected M. pneumoniae (PCR) Not detected Parainfluenza 1 (PCR) Not detected Parainfluenza 2 (PCR) Not detected Parainfluenza 3 (PCR) Not detected Parainfluenza 4 (PCR) Not detected RSV (PCR) Not detected Entero/Rhino (PCR) Not detected Blood Type Antibody Screen Assessment & Plan Assessment & Plan narrative: Colby Reinoso is a 76-year-old male with a history of T2DM, HTN, dyslipidemia, two MIs, and a triple bypass?CABG who is on Plavix daily who had a fall off a ladder 4-5 feet off the ground landing on his landing on his hip, resulting in a closed right interatrochanteric femur fracture. Patient was also found to be in acute respiratory failure with a room air O2 saturation 74% on arrival in the ED. 1. Closed right intratrochanteric femur fracture, acute, secondary to fall from ladder (4-5 feet), present on admission -Managed by Dr. Pineda -OR Tomorrow -NPO at midnight with the exception of p.o. meds -LR@60cc/Hr -Gardner in place -Bedrest -Pain management -hold Plavix and VTE prophylaxis -[facility] Xray: ?Intertrochanteric right proximal femur fracture. -Chest/abd/Pelvis CT: Comminuted right intertrochanteric femoral fracture, with Multilevel wedge shaped thoracolumbar compression fractures at T12, L1, L2 and L3. 2. Acute respiratory failure with hypoxia and hypercapnia, acute, present on admission -febrile 99, BP 117/63, HR 79, R 11, O2 saturation 96% on 4 L. upon admit to the ED patient's respiratory rate was 24 with an O2 saturation of 74% on room air. -ABGs: PH 7.34, pCO2 54.2, PO2 73, bicarb 29, T CO2 31, O2 saturation 93%, BE 4, FiO2 36. -suspect this is likely secondary to over sedation from pain medication, but will rule out secondary infectious process, and support respiratory function. -respiratory consult, Marsha, incentive spirometry, prednisone 40mg daily. -Chest Xray:Slight elevation of the left hemidiaphragm with adjacent opacity may be atelectasis or projectional abnormality. 3. Anemia, mild, acute, present on admission -likely secondary to fall and injury -H&H 10.8/32.4, 04/16/2019 H&H 14.2/44 -monitor patient for bleeding, trend hematology labs -hold Plavix 4. Brain aneurysm, chronic, present on admission -HeadCT :Probable anterior communicating artery aneurysm measures 1 cm- this is known to the patient. -Stable, managed [place] neurologist ?5. Insulin-dependent type 2 diabetic, chronic, with peripheral neuropathy, hyperlipidemia, chronic, present on admission -admitted under diabetic protocol -A1c ordered -hold all oral medications while NPO -low-dose sliding scale postoperatively -Hold metformin -Continue regular insulin 3 units TID with meals - when taking PO -Continue glargine 20 units in the morning 10 units at night - when taking PO -Correction scale insulin with accuchecks Q6HR while NPO -continue Lipitor daily once taking p.o. --Continue pregabalin when taking PO 6. CAD, chronic, present on admission -Continue losartan 25mg with sip in Am -Continue metoprolol-hold until postop -Continue atorvastatin- hold until PO -Continue clopidogrel- Hold -Continue furosemide 20mg- Hold -Continue potassium 10mg daily- Hold -Continue nitroglycerine 0.4mg prn- Hold 7. GERD, chronic, present on admission -Continue pantoprazole - Hold while NPO 8. BPH, chronic, present on admission -Continue tamsulosin 0.4mg daily - when taking PO 9. Anxiety, chronic, present on admission -Continue buproprion 150mg in the morning 75mg at night - take with sips in am preop Code status:Full Surrogate decision maker: Leonardo Reinoso Spouse COVID PCR:Negative DVT/VTE prophylaxis: Holding medication, SCDs on left only Disposition: Patient admitted for surgical intervention repair of right hip by Dr. Pineda orthopedics expected length of stay greater than 2 midnights. I have utilized all available immediate resources to obtain, update, or review the patient's current medications. I confirmed that the patient's advanced care plan is present, Code status is documented and/or surrogate decision maker is listed in the patient's medical record. Time Spent With Patient Critical Care time: I spent a total of [] minutes of critical care time on this patient's care today; this time is exclusive of procedural time.
[2022-03-08] MEDS: HYDROMORPHONE 1 MG INJ IV ×3 (05:18→19:36)
[2022-03-08 06:04] LABS: Add Manual Diff / Slide Review NO; Basophils Absolute Auto 0 /uL (0-100); Basophils Percent Auto 0.2 % (0-2); Eosinophils Absolute Auto 200 /uL (0-450); Eosinophils Percent Auto 1.6 % (2-4); Hematocrit 29.2 % (41-53); Hemoglobin 9.7 g/dL (13.5-17.5); Lymphocytes Absolute Auto 800 /uL (1100-4500); Lymphocytes Percent Auto 6.7 % (25-40); Mean Corpuscular Volume 81.6 fL (80-100); Monocytes Absolute Auto 700 /uL (0-900); Neutrophils Absolute Auto 9700 /uL (1500-7000); Neutrophils Percent Auto 85.5 % (50-75); Platelet Count 158 X10^3/uL (150-400); Red Blood Cell Count 3.58 X10^6/uL (4.5-5.9); Red Cell Distribution Width 15.9 % (11.6-14.8); White Blood Cell Count 11.4 X10^3/uL (4.5-11.0)
[2022-03-08 06:08] LABS: Blood Urea Nitrogen 29 mg/dL (9-20); Carbon Dioxide 30 mmol/L (22-32); Chloride 97 mmol/L (98-107); Potassium 4.4 mmol/L (3.4-5.1); Sodium 137 mmol/L (137-145)
[2022-03-08 06:09] LABS: BUN Creatinine Ratio 27.1 (6-22); Calcium 8.2 mg/dL (8.4-10.2); Estimated Glomerular Filt Rate > 60 mL/min (>60); Glucose 195 mg/dL (80-110); HEMOLYSIS < 15 (0-50); Magnesium 1.5 mg/dL (1.6-2.3)
[2022-03-08] MEDS: INSULIN LISPRO 100 UNIT/ML 3ML VIAL SUBCUT ×2 (06:39→12:40)
[2022-03-08 06:59] LABS: INR 1.2 (0.9-1.3)
[2022-03-08 07:02] LABS: PTT Partial Thromboplastin Tim 31 SECONDS (26-36)
[2022-03-08] MEDS: METOPROLOL IR 25 MG TABLET PO (08:51)
[2022-03-08] MEDS: MAGNESIUM CHLORIDE 64 MG TABLET 128 MG PO (10:15)
--- NOTE | 2022-03-08 10:19 | PC.NURSE ---
Addendum entered by Yisel Argueta R.N. 03/08/22 15:25: Patient down to surgery around 1500. Original Note: Assess- Patient given dilaudid for discomfort to hip, this has been helpful to patient. He is snoozing now, he is npo but he will be getting a one time dose of Magnesium. All other medications will be held and insulin not given yet, as patient is not eating. Blood sugar was in the 190s. Surgery for his hip will be around 1545.
--- NOTE | 2022-03-08 11:50 | P.PN_ITS ---
Subjective Subjective Date Patient Seen: 03/08/22 Interval history: 76-year-old male with insulin-dependent diabetes with peripheral neuropathy resulting in a right inter trochanteric femur fracture. He is going to the OR today. Incidentally he was noted to be hypoxic with O2 sat of 74% on room air when he presented to the ED. This was verified with ABG. He has not had any shortness of breath or chest pains or cough and his chest CT was unremarkable. Patient states he tends to run low on his O2 sats. He did quit smoking way back in the 1950s and has no history of COPD/asthma. He is currently on 4 L O2 cannula. Exam Vital Signs (past 8 hours): - 03/08/22 04:00 03/08/22 07:37 03/08/22 08:00 Temperature 98.8 F 97.7 F Pulse Rate 94 H 98 H Respiratory Rate 16 16 Blood Pressure 109/58 L 101/57 L Pulse Oximetry 96 95 92 Oxygen Delivery Method Nasal Cannula Oxygen Flow Rate 4 4 4 Oxygen Delivery Method Nasal Cannula Oxygen Flow Rate 4 Narrative Exam Narrative: General: Alert male lying in bed awaiting surgery Lungs: Clear anteriorly Heart: Regular rhythm Extremities: Right leg externally rotated, no edema, diminished distal sensation Objective Labs Result Diagrams: 03/08/22 05:14 03/08/22 05:14 Labs: Laboratory Results - last 24 hr 03/07/22 03/07/22 03/07/22 17:20 17:20 17:20 WBC RBC Hgb Hct MCV MCH MCHC RDW Plt Count Neut % (Auto) Lymph % (Auto) [place] % (Auto) Eos % (Auto) Baso % (Auto) Neut # (Auto) Lymph # (Auto) [place] # (Auto) Eos # (Auto) Baso # (Auto) PT 12.6 INR 1.1 APTT 32 ABG pH ABG pCO2 ABG pO2 ABG HCO3 ABG Total CO2 ABG O2 Saturation ABG Base Excess FiO2 Sodium Potassium Chloride Carbon Dioxide BUN Creatinine Estimated GFR BUN/Creatinine Ratio Glucose Hemoglobin A1c Lactate 2.0 Calcium Magnesium Total Bilirubin AST ALT Alkaline Phosphatase Total Creatine Kinase 98 CK-MB (CK-2) TNP CK-MB (CK-2) Rel Index TNP Troponin I < 0.012 NT-Pro-B Natriuret Pep Total Protein Albumin Globulin Albumin/Globulin Ratio Lipase Urine Color Urine Appearance Urine pH Ur Specific [place] Urine Protein Urine Glucose (UA) Urine Ketones Urine Occult Blood Urine Nitrate Urine Bilirubin Ur Bilirubin Confirm Urine Urobilinogen Ur Leukocyte Esterase Urine RBC Urine WBC Urine Bacteria Ur Culture Indicated? Ethyl Alcohol Chlamy pneumoniae PCR Adenovirus (PCR) B. pertussis DNA (PCR) B.parapertussis DNA PCR Coronavirus OC43 (PCR) Coronavirus HKU1 (PCR) Coronavirus 229E (PCR) SARS-CoV-2 (PCR) Coronavirus NL63 (PCR) Human Metapneumovir PCR Influenza Type A (PCR) Influenza Type B (PCR) M. pneumoniae (PCR) Parainfluenza 1 (PCR) Parainfluenza 2 (PCR) Parainfluenza 3 (PCR) Parainfluenza 4 (PCR) RSV (PCR) Entero/Rhino (PCR) Blood Type Antibody Screen 03/07/22 03/07/22 03/07/22 17:20 17:20 17:20 WBC 7.6 RBC 3.98 L Hgb 10.8 L Hct 32.4 L MCV 81.3 MCH 27.0 MCHC 33.2 RDW 15.9 H Plt Count 191 Neut % (Auto) 74.3 Lymph % (Auto) 16.4 L [place] % (Auto) 6.2 Eos % (Auto) 2.8 Baso % (Auto) 0.3 Neut # (Auto) 5600 Lymph # (Auto) 1200 [place] # (Auto) 500 Eos # (Auto) 200 Baso # (Auto) 0 PT INR APTT ABG pH ABG pCO2 ABG pO2 ABG HCO3 ABG Total CO2 ABG O2 Saturation ABG Base Excess FiO2 Sodium 137 Potassium 4.1 Chloride 100 Carbon Dioxide 27 BUN 29 H Creatinine 1.22 Estimated GFR > 60 BUN/Creatinine Ratio 23.8 H Glucose 101 Hemoglobin A1c Lactate Calcium 8.4 Magnesium Total Bilirubin 0.7 AST 32 ALT 20 Alkaline Phosphatase 103 Total Creatine Kinase CK-MB (CK-2) CK-MB (CK-2) Rel Index Troponin I NT-Pro-B Natriuret Pep Total Protein 6.9 Albumin 3.9 Globulin 3.0 Albumin/Globulin Ratio 1.3 Lipase 160 Urine Color Urine Appearance Urine pH Ur Specific [place] Urine Protein Urine Glucose (UA) Urine Ketones Urine Occult Blood Urine Nitrate Urine Bilirubin Ur Bilirubin Confirm Urine Urobilinogen Ur Leukocyte Esterase Urine RBC Urine WBC Urine Bacteria Ur Culture Indicated? Ethyl Alcohol < 10 Chlamy pneumoniae PCR Adenovirus (PCR) B. pertussis DNA (PCR) B.parapertussis DNA PCR Coronavirus OC43 (PCR) Coronavirus HKU1 (PCR) Coronavirus 229E (PCR) SARS-CoV-2 (PCR) Coronavirus NL63 (PCR) Human Metapneumovir PCR Influenza Type A (PCR) Influenza Type B (PCR) M. pneumoniae (PCR) Parainfluenza 1 (PCR) Parainfluenza 2 (PCR) Parainfluenza 3 (PCR) Parainfluenza 4 (PCR) RSV (PCR) Entero/Rhino (PCR) Blood Type O Positive Antibody Screen Negative 03/07/22 03/07/22 03/07/22 17:20 19:57 20:48 WBC RBC Hgb Hct MCV MCH MCHC RDW Plt Count Neut % (Auto) Lymph % (Auto) [place] % (Auto) Eos % (Auto) Baso % (Auto) Neut # (Auto) Lymph # (Auto) [place] # (Auto) Eos # (Auto) Baso # (Auto) PT INR APTT ABG pH 7.34 L ABG pCO2 54.2 H ABG pO2 73 L ABG HCO3 29 H ABG Total CO2 31 ABG O2 Saturation 93 L ABG Base Excess 4.0 H FiO2 36 Sodium Potassium Chloride Carbon Dioxide BUN Creatinine Estimated GFR BUN/Creatinine Ratio Glucose Hemoglobin A1c Lactate Calcium Magnesium Total Bilirubin AST ALT Alkaline Phosphatase Total Creatine Kinase CK-MB (CK-2) CK-MB (CK-2) Rel Index Troponin I NT-Pro-B Natriuret Pep Total Protein Albumin Globulin Albumin/Globulin Ratio Lipase Urine Color Urine Appearance Urine pH Ur Specific [place] Urine Protein Urine Glucose (UA) Urine Ketones Urine Occult Blood Urine Nitrate Urine Bilirubin Ur Bilirubin Confirm Negative Urine Urobilinogen Ur Leukocyte Esterase Urine RBC Urine WBC Urine Bacteria Ur Culture Indicated? Ethyl Alcohol Chlamy pneumoniae PCR Adenovirus (PCR) B. pertussis DNA (PCR) B.parapertussis DNA PCR Coronavirus OC43 (PCR) Coronavirus HKU1 (PCR) Coronavirus 229E (PCR) SARS-CoV-2 (PCR) Negative Coronavirus NL63 (PCR) Human Metapneumovir PCR Influenza Type A (PCR) Influenza Type B (PCR) M. pneumoniae (PCR) Parainfluenza 1 (PCR) Parainfluenza 2 (PCR) Parainfluenza 3 (PCR) Parainfluenza 4 (PCR) RSV (PCR) Entero/Rhino (PCR) Blood Type Antibody Screen 03/07/22 03/07/22 03/07/22 22:00 22:16 22:16 WBC RBC Hgb Hct MCV MCH MCHC RDW Plt Count Neut % (Auto) Lymph % (Auto) [place] % (Auto) Eos % (Auto) Baso % (Auto) Neut # (Auto) Lymph # (Auto) [place] # (Auto) Eos # (Auto) Baso # (Auto) PT INR APTT ABG pH ABG pCO2 ABG pO2 ABG HCO3 ABG Total CO2 ABG O2 Saturation ABG Base Excess FiO2 Sodium Potassium Chloride Carbon Dioxide BUN Creatinine Estimated GFR BUN/Creatinine Ratio Glucose Hemoglobin A1c Lactate Calcium Magnesium 1.7 Total Bilirubin AST ALT Alkaline Phosphatase Total Creatine Kinase CK-MB (CK-2) CK-MB (CK-2) Rel Index Troponin I NT-Pro-B Natriuret Pep 173 Total Protein Albumin Globulin Albumin/Globulin Ratio Lipase Urine Color Yellow Urine Appearance Clear Urine pH 5.0 Ur Specific [place] 1.020 Urine Protein Negative Urine Glucose (UA) Negative Urine Ketones Negative Urine Occult Blood 2+ H Urine Nitrate Negative Urine Bilirubin Negative Ur Bilirubin Confirm Urine Urobilinogen 0.2 Ur Leukocyte Esterase Negative Urine RBC 1-5/hpf Urine WBC 0-1/hpf Urine Bacteria None seen Ur Culture Indicated? Cult not indicated Ethyl Alcohol Chlamy pneumoniae PCR Adenovirus (PCR) B. pertussis DNA (PCR) B.parapertussis DNA PCR Coronavirus OC43 (PCR) Coronavirus HKU1 (PCR) Coronavirus 229E (PCR) SARS-CoV-2 (PCR) Coronavirus NL63 (PCR) Human Metapneumovir PCR Influenza Type A (PCR) Influenza Type B (PCR) M. pneumoniae (PCR) Parainfluenza 1 (PCR) Parainfluenza 2 (PCR) Parainfluenza 3 (PCR) Parainfluenza 4 (PCR) RSV (PCR) Entero/Rhino (PCR) Blood Type Antibody Screen 03/07/22 03/07/22 03/08/22 22:16 22:25 05:14 WBC 11.4 H RBC 3.58 L Hgb 9.7 L Hct 29.2 L MCV 81.6 MCH 27.0 MCHC 33.0 RDW 15.9 H Plt Count 158 Neut % (Auto) 85.5 H Lymph % (Auto) 6.7 L [place] % (Auto) 6.0 Eos % (Auto) 1.6 L Baso % (Auto) 0.2 Neut # (Auto) 9700 H Lymph # (Auto) 800 L [place] # (Auto) 700 Eos # (Auto) 200 Baso # (Auto) 0 PT INR APTT ABG pH ABG pCO2 ABG pO2 ABG HCO3 ABG Total CO2 ABG O2 Saturation ABG Base Excess FiO2 Sodium Potassium Chloride Carbon Dioxide BUN Creatinine Estimated GFR BUN/Creatinine Ratio Glucose Hemoglobin A1c 7.6 H Lactate Calcium Magnesium Total Bilirubin AST ALT Alkaline Phosphatase Total Creatine Kinase CK-MB (CK-2) CK-MB (CK-2) Rel Index Troponin I NT-Pro-B Natriuret Pep Total Protein Albumin Globulin Albumin/Globulin Ratio Lipase Urine Color Urine Appearance Urine pH Ur Specific [place] Urine Protein Urine Glucose (UA) Urine Ketones Urine Occult Blood Urine Nitrate Urine Bilirubin Ur Bilirubin Confirm Urine Urobilinogen Ur Leukocyte Esterase Urine RBC Urine WBC Urine Bacteria Ur Culture Indicated? Ethyl Alcohol Chlamy pneumoniae PCR Not detected Adenovirus (PCR) Not detected B. pertussis DNA (PCR) Not detected B.parapertussis DNA PCR Not detected Coronavirus OC43 (PCR) Not detected Coronavirus HKU1 (PCR) Not detected Coronavirus 229E (PCR) Not detected SARS-CoV-2 (PCR) Not detected Coronavirus NL63 (PCR) Not detected Human Metapneumovir PCR Not detected Influenza Type A (PCR) Not detected Influenza Type B (PCR) Not detected M. pneumoniae (PCR) Not detected Parainfluenza 1 (PCR) Not detected Parainfluenza 2 (PCR) Not detected Parainfluenza 3 (PCR) Not detected Parainfluenza 4 (PCR) Not detected RSV (PCR) Not detected Entero/Rhino (PCR) Not detected Blood Type Antibody Screen 03/08/22 03/08/22 05:14 05:14 WBC RBC Hgb Hct MCV MCH MCHC RDW Plt Count Neut % (Auto) Lymph % (Auto) [place] % (Auto) Eos % (Auto) Baso % (Auto) Neut # (Auto) Lymph # (Auto) [place] # (Auto) Eos # (Auto) Baso # (Auto) PT 14.0 H INR 1.2 APTT 31 ABG pH ABG pCO2 ABG pO2 ABG HCO3 ABG Total CO2 ABG O2 Saturation ABG Base Excess FiO2 Sodium 137 Potassium 4.4 Chloride 97 L Carbon Dioxide 30 BUN 29 H Creatinine 1.07 Estimated GFR > 60 BUN/Creatinine Ratio 27.1 H Glucose 195 H Hemoglobin A1c Lactate Calcium 8.2 L Magnesium 1.5 L Total Bilirubin AST ALT Alkaline Phosphatase Total Creatine Kinase CK-MB (CK-2) CK-MB (CK-2) Rel Index Troponin I NT-Pro-B Natriuret Pep Total Protein Albumin Globulin Albumin/Globulin Ratio Lipase Urine Color Urine Appearance Urine pH Ur Specific [place] Urine Protein Urine Glucose (UA) Urine Ketones Urine Occult Blood Urine Nitrate Urine Bilirubin Ur Bilirubin Confirm Urine Urobilinogen Ur Leukocyte Esterase Urine RBC Urine WBC Urine Bacteria Ur Culture Indicated? Ethyl Alcohol Chlamy pneumoniae PCR Adenovirus (PCR) B. pertussis DNA (PCR) B.parapertussis DNA PCR Coronavirus OC43 (PCR) Coronavirus HKU1 (PCR) Coronavirus 229E (PCR) SARS-CoV-2 (PCR) Coronavirus NL63 (PCR) Human Metapneumovir PCR Influenza Type A (PCR) Influenza Type B (PCR) M. pneumoniae (PCR) Parainfluenza 1 (PCR) Parainfluenza 2 (PCR) Parainfluenza 3 (PCR) Parainfluenza 4 (PCR) RSV (PCR) Entero/Rhino (PCR) Blood Type Antibody Screen [facility] Medical History Anxiety Arthritis Ascending aorta enlargement BPH (benign prostatic hyperplasia) Brain aneurysm CAD (coronary artery disease) Calculus of kidney Chest pain Depression Diabetes mellitus Diabetic peripheral neuropathy Former smoker GERD (gastroesophageal reflux disease) Gout Hyperlipidemia Hypertension Myocardial infarction Phimosis Surgical History (Updated 03/07/22 @ 20:16 by Alondra Pineda MD) H/O cervical spine surgery H/O right knee surgery History of inguinal hernia repair, bilateral Hx of cystoscopy (08/15/19) Hx of heart artery stent (~1995) S/P triple vessel bypass (~01/2019) Family History Mother Coronary artery disease Father COPD (chronic obstructive pulmonary disease) Social History household members: spouse Smoking Status: Former smoker alcohol intake: former Assessment & Plan Assessment & Plan narrative: 1. Closed right intratrochanteric femur fracture, acute, secondary to fall from ladder (4-5 feet), present on admission -awaiting definitive treatment with surgical reduction and fixation -postop pain medication, DVT axis, PT and OT -Chest/abd/Pelvis CT: Comminuted right intertrochanteric femoral fracture, with?multilevel wedge shaped thoracolumbar compression fractures at T12, L1, L2 and L3. 2. Acute versus chronic respiratory failure with hypoxia and hypercapnia, acute, present on admission -febrile 99, BP 117/63, HR 79, R 11, O2 saturation 96% on 4 L. upon admit to the ED patient's respiratory rate was 24 with an O2 saturation of 74% on room air. -ABGs:? PH 7.34, pCO2 54.2, PO2 73, bicarb 29, T CO2 31, O2 saturation 93%, BE 4, FiO2 36. -unknown etiology of hypoxia, patient is completely asymptomatic, chest CT unrevealing -respiratory consult, Marsha, incentive spirometry 3. Anemia, mild, acute, present on admission -likely secondary to fall and injury -H&H 10.8/32.4, 04/16/2019 H&H 14.2/44 -monitor patient for bleeding, trend hematology labs -hold Plavix preop 4. Brain aneurysm, chronic, present on admission -HeadCT :Probable anterior communicating artery aneurysm measures 1 cm- this is known to the patient. -Stable, managed [place] neurologist ? ?5. Insulin-dependent type 2 diabetic, chronic, with peripheral neuropathy, hyperlipidemia, chronic,? present on admission -admitted under diabetic protocol -A1c 7.6% -hold all oral medications while NPO -low-dose sliding scale postoperatively -Hold metformin -Continue regular insulin 3 units TID with meals - when taking PO -Continue glargine 20 units a.m. and 10 units at night -Correction scale insulin with accuchecks Q6HR while NPO -continue atorvastatin -Continue pregabalin 6. CAD, chronic, present on admission -Continue losartan 25mg -Continue metoprolol 25 mg b.i.d. -Continue atorvastatin -Continue clopidogrel- Hold -Continue nitroglycerine 0.4mg prn 7. GERD, chronic, present on admission -Continue pantoprazole 8. BPH, chronic, present on admission -Continue tamsulosin 0.4mg daily 9. Anxiety, chronic, present on admission -Continue buproprion 150mg in the morning 75mg at night Code status:Full Surrogate decision maker: Leonardo Reinoso Spouse COVID PCR:Negative Time Spent With Patient Critical Care time: I spent a total of [] minutes of critical care time on this patient's care today; this time is exclusive of procedural time.
--- NOTE | 2022-03-08 12:18 | DIET.CONS2 ---
Dietary Inpatient Consultation Note Admission Date: 03/07/2022 19:47 Pt referred to nutrition for low Mika score. Pt currently NPO awaiting surgical repair of femur fracture. Pts BGs 231 while NPO, recc tight glycemic management to support post-op healing. Will evaluate pt after surgery for nutrition reccs. Diet: 03/08/22 00:01 NPO Diet Diet Modifications: NPO Type: NPO after Midnight Electronically Signed by: Leticia Oliva 03/08/22 12:18 Clinical Dietitian [address] [id number]
--- NOTE | 2022-03-08 13:08 | CM.DANOTE ---
DCP Assessment: Payor: Medicare & [facility] for life PCP: MD Max Pt is a 76 y.o. M who presented to the ED following a fall off of a ladder. Pt has history of CABG and is on Plavix. Pt admitted to the floor for further management and work up of symptoms. Pt to have surgery today on R femur. DCP attempted to meet with pt, however, pt sleeping and dosing in and out of sleep. Pt at the bedside. Pt able to answer questions for pt. She states that they live in a 2 story house in [place]. She states that they have able 14 or so stairs to get up into their bedroom. They have 1 or 2 steps to get into the house. She states that they both drive and she would be able to take pt home in POV once discharged if pt can tolerate. She states they have a daughter who lives locally. DCP spoke about home health and SNF services. Preparing her for potential discharge plan. She verbalized understanding. DCP to check in with pt tomorrow following surgery. DCP to follow up with PT team in the AM for further discharge planning needs. Pt thankful for discussion. P: Pt to go for surgical procedure today to fix fracture. Pt will then need PT orders to assess for discharge needs. DCP to continue to follow. Unclear needs at this time. Kathy Hutchins RN/VARUN Discharge Planning/Care Management CM Discharge Assessment Start: 03/08/22 09:17 Freq: Status: Active Protocol: Document 03/08/22 13:07 WESLY (Rec: 03/08/22 13:08 WESLY [id number]) Discharge Planning Assessment Assigned Petrologist Kathy Hutchins RN/VARUN Advance Directives? No History Provided By Family Member Prior Living Arrangements House Household Members spouse Type of transporation used prior to Drives own vehicle admit Independent with ADL's Yes Is patient alert and oriented? Yes Discharge Plan Home Transportation Arrangement Spouse Referrals Initiated None needed Additional Comment At this time. R/O SNF vs HH Whiteboard Updated in Patient Room with Yes name and ext. # of Petrologist Comment Instructed to call Review Status In Process Please Provide Date Initial DC 03/08/22 Assessment Was Performed Next Review Type Continued Stay Review
[2022-03-08] MEDS: LACTATED RINGERS 1,000 ML 60 ML IV ×3 (13:37→16:57)
--- NOTE | 2022-03-08 15:21 | PM.PREOP ---
Pre-operative Note COVID-19 COVID-19 status: Negative Interval Note History & Physical reviewed/Exam performed by Physician: Yes Changes to H&P: No
[2022-03-08] MEDS: CEFAZOLIN 2 GM/100 ML PREMIX 100 ML IV (16:00)
--- NOTE | 2022-03-08 16:50 | SUR.OPER ---
Supine on padded [place] table with operative leg secured in padded positioning boot and suspended in positioning spar, non-operative leg in well-leg mixon with gel pad & secured with coban. Head on one pillow. Arm on non-operative side secured on padded armboard <90 degrees abduction. Arm on operative side padded and resting across chest then secured with tape over sheet. Padded perineal post in place per surgeon.
--- NOTE | 2022-03-08 17:55 | PC.NURSE ---
Late Note- Patient is on 3 to 4L of oxygen and sats at 95% this am.
--- NOTE | 2022-03-08 18:24 | DI.RAD.S_ITS ---
PROCEDURE: XR HIP W PEL IF DONE RT 2V INDICATIONS: post op TECHNIQUE: AP pelvis with lateral view(s) of the right hip(s). COMPARISON: [facility], CT, CT CHEST ABD PEL W CON, 03/07/2022, 17:28. [facility], CR, XR HIP W PEL IF DONE RT 2V, 03/08/2022, 16:30. FINDINGS: Bones: Postoperative changes of right trochanteric femoral fixation. Soft tissues: Postoperative soft tissue changes. IMPRESSION: Postoperative changes of right trochanteric femoral fixation. Dictated by: Guzman Price M.D. on 03/08/2022 at 19:32 Approved by: Guzman Price M.D. on 03/08/2022 at 19:34
--- NOTE | 2022-03-08 18:27 | DI.RAD.S_ITS ---
PROCEDURE: XR CHEST 1V INDICATIONS: post op chest xray TECHNIQUE: One view of the chest was acquired. COMPARISON: [facility], , XR CHEST 1V, 03/07/2022, 17:14. FINDINGS: Surgical changes and devices: The patient is status post median sternotomy. Fixation hardware in the lower cervical spine is partially visualized with the lower screw on the right being fractured, unchanged. Lungs and pleura: There is focal consolidation in the right upper lobe and bibasilar atelectasis. No pneumothorax or pleural effusion. Mediastinum: Mediastinal contours appear normal. Heart size is normal. Bones and chest wall: No suspicious bony lesions. Overlying soft tissues appear unremarkable. IMPRESSION: 1. Right upper lobe consolidation consistent with atelectasis and/or pneumonia. 2. Bibasilar atelectasis. Dictated by: Guzman Price M.D. on 03/08/2022 at 19:19 Approved by: Guzman Price M.D. on 03/08/2022 at 19:20
[2022-03-08] MEDS: LACTATED RINGERS 1,000 ML 120 ML IV (18:51)
--- NOTE | 2022-03-08 19:27 | PM.OP.1 ---
Operative Date/Time/Diagnoses Date of procedure: 03/08/22 Time of procedure: 16:00 Pre-op diagnosis: Comminuted right proximal femur fracture inter troch with subtroch extension Post-op diagnosis: same Procedure & Clinicians Procedure: Intramedullary nailing right proximal femur fracture Same procedure as scheduled: Yes Indications: Is a 76-year-old who fell over and sustained a right proximal femur fracture. He was up on a ladder pruning bushes and fell about 5 steps and landed on his right hip. He had multiple preoperative medical problems. Is brought to the operating room for repair of his proximal femur fracture. He was on Plavix preoperatively and so was not a candidate for spinal anesthesia. Surgeon: Alondra Pineda Click Yes if Unassisted: Yes Anesthesia Type: General Operative Notes Findings: Comminuted right proximal femur fracture, subtroch intertroch variant Closure Type: primary Specimen(s): none sent Prosthetic devices, grafts, tissues, transplants, or devices: Pineda and NephIptune Tri Gen in her tamp 10 x 38 mm right 125 degree nail, 100 mm lag screw the 95 mm compression screw Estimated Blood Loss (mL): 250 Blood products transfused: none Procedure in detail: Patient is brought the operating room. He underwent induction of a general anesthesia. Severity complicated problem is he has an extensively fuse neck and was noted to be on Plavix preoperatively due to history of coronary artery disease. He was given IV antibiotics. Time-out was performed. He was carefully positioned on the fracture table. Good alignment of his right proximal femur was achieved. He was prepped and draped standard sterile fashion. Lateral skin incision was made dissection was carried out through skin subcutaneous tissues. Cup to retractor was placed. Fascia was incised with the line in line with the skin incision. A pin was placed in the proximal femur. It was confirmed on AP and lateral image. It was carefully reamed with a proximal entry Reamer. There was subtrochanteric extension of the fracture and it was felt that it was best managed with a long wilner because of the subtrochanteric extension. Guidewire was placed across the fracture. Size 8 Reamer passed easily distally. It was then reamed with a 11.5 mm Reamer in preparation for a 10 mm wilner. 38 x 10 mm wilner was selected. Anesthesia did note some issues related to his oxygen saturation during the surgery. The wilner was placed without difficulty. It was adjusted in order to allow proximal interlocking. Guide pin was placed centrally in the head and it was drilled with a plan for 2 screw proximal fixation. The patient continued to have some ongoing pulmonary issues. The screws were placed without difficulty proximally. Anesthesia felt that it was best if we proceed with surgery as expeditiously as possible. The wound was irrigated and the fascia was closed with interrupted Vicryl and skin freeman. Both the proximal and proximal interlocking wounds were closed. X-ray was used to meticulously checked the overall alignment of the fracture and fixation with fluoroscopy during surgery. There was some reasonable bite on the femur in the diaphysis and it was not felt that a distal interlock was mandated. It was felt that it was more important to get the patient to the recovery room work on extubation and stabilization of his lungs. Marcaine was injected. He tolerated the procedure but was requiring oxygen and support on transfer to the recovery room. We contacted the supporting ICU physician as the plan was to admit him to the ICU after further stabilization in the recovery room. Complications: other (Some pulmonary distress intraoperatively. Noted to have pulmonary abnormalities preoperatively. Concern for possible fat embolism or other pulmonary complication.) Post-operative Condition: critical Disposition: ICU Plan for aftercare: He had hypoxia intraoperatively and was felt to be having some increased pulmonary compromise. He had multiple medical problems preoperatively. He can have an upright chest immediately. He can be transferred out of bed to a chair. He can be partial weight-bearing on the right lower extremity. We will mobilize with therapy as tolerated. He did not have a distal interlocking screw placed.
[2022-03-08] MEDS: LACTATED RINGERS 1,000 ML 125 ML IV ×2 (19:40→23:43)
--- NOTE | 2022-03-08 19:42 | SUR.PHASEI ---
Late entry: 1839: Received pt from previous RN with non-rebreather on at 15L, previous RN placed NEB tx order and was started at handoff. Pt drowsy but mentating well. BP 80/45 MAP 60, 79/38 MAP 51, 88/45 MAP 60. Pt placed on simple mask after NEB at 8L SATs stable. Requested Dr. Amaro for guidance on plans for pt ICU or med/surg and if treating pressures in PACU. Dr. Verma arrived in PACU and agreed that pt needs to be transferred to ICU STAT to manage care. MD to MD handoff completed by Dr. Verma. [id number]: Pt transported by this RN and Dr. Verma to ICU room 226 with monitor on. Pt remained stable during transport. Bedside handoff to receiving RN. Dressing check done, with drainage noted withing outline done in PACU. Pt much more alert at handoff, and transferred care at this time.
--- NOTE | 2022-03-08 19:45 | DI.CT.S_ITS ---
PROCEDURE: CT ANGIO CHEST PE PROTOCOL INDICATIONS: Acute Resp failure TECHNIQUE: After the administration of intravenous contrast, 2 mm thick sections acquired from the pulmonary apices to the posterior costophrenic angles. 3-dimensional maximum intensity projection (MIP) coronal and sagittal reformats were then acquired through the thorax. For radiation dose reduction, the following was used: automated exposure control, adjustment of mA and/or kV according to patient size. COMPARISON: [facility], CT, CT CHEST ABD PEL W CON, 03/07/2022, 17:28. [facility], CR, XR CHEST FOR PICC 1V, 03/08/2022, 23:37. FINDINGS: Image quality: Excellent. Pulmonary arteries: Pulmonary arteries are normal in size, and demonstrate no intraluminal filling defects to suggest central pulmonary embolism. Lungs and pleura: Patchy ground-glass opacities are seen in the upper lobes bilaterally with interlobular septal thickening , which are new when compared to the CT from 03/07/2022. There is posterior dependent atelectasis. No definite pleural effusion. No pneumothorax. Central and peripheral airways are patent. Mediastinum: Heart size is normal, without pericardial effusion. Mediastinal clips are seen related to prior CABG. Calcifications of the augustine coronary arteries are present. Multiple small calcified mediastinal and hilar lymph nodes are seen. No bulky lymphadenopathy. Thoracic aorta is normal in caliber and enhancement. Esophageal wall appears mildly prominent. The piriform sinuses are opacified. Bones and chest wall: Sternotomy wires are present. Probable remote prior partial resection of the anterior left 2nd rib. No suspicious bony lesions. Degenerative changes are seen in the spine. Mild anterior which deformity of T12 appears unchanged. Thyroid contains a small calcified nodule. Kyphotic positioning accentuates retro thyroid soft tissues. No axillary or supraclavicular adenopathy. Abdomen: Multiple coarse calcifications in the spleen most likely the sequela of prior granulomatous disease. Visualized upper abdominal solid organs appear normal in the early arterial phase of enhancement. IMPRESSION: 1. No acute pulmonary embolism. 2. Patchy upper lobe ground-glass opacities and interlobular septal thickening are new when compared to the CT from 03/07/2022. Findings are most likely related to mild pulmonary edema, but a nonspecific infectious or inflammatory process could appear similarly. 3. Possible mild wall thickening throughout the esophagus could indicate esophagitis. There is incomplete aeration of the piriform sinuses, which is new when compared to the prior exam and may be partially related to positioning and thickening of the cervical esophagus versus opacification with mucus or debris. There is no significant discrepancy when compared to the overnight preliminary report. Dictated by: Yeyo Pool M.D. on 03/09/2022 at 7:59 Approved by: Yeyo Pool M.D. on 03/09/2022 at 8:23
[2022-03-08 19:53] LABS: Hematocrit 25.5 % (41-53); Hemoglobin 8.2 g/dL (13.5-17.5)
[2022-03-08] MEDS: NOREPINEPHRINE BITARTRATE/D5W 4 MG/250 ML PLAST..BAG 15 MG IV (20:24)
--- NOTE | 2022-03-08 20:40 | PM.CN.EICU ---
History of Present Illness Consult details IF CAMERA ACTIVATED, patient seen via real-time interactive audiovisual communication: Camera activated Date Patient Seen: 03/08/22 Chief complaint: fall off ladder Reason for consult: Shock Requesting provider: Trang Sandoval Consent obtained for tele-welfare aide care: Yes Patient Location: ICU Provider location (State): [place] Other participants/roles: RN and Trang Sandoval Narrative: Yi is a 76 year old male with history of DM, HTN, and CAD s/p CABG who presents to the ER after falling off a ladder which is 5 feet off the ground. Patient landed on his right hip. CT chest/abdomen/pelvis showed right intertrochanteric proximal femur fracture and thoracolumbar compression fracture. He was found to be hypoxemia requiring 4 liters NC. Today patient underwent OR for intramedullary nailing right proximal femur fracture. Intraoperative patient developed hypotension and worsening hypoxemia. EBL ~250 mL. Transferred to ICU for further management. In ICU, he was started on levophed 8 mcg and placed on 6 liters HFNC. Patient is awake and following commands. Pain is well controlled with dilaudid. [facility] Medical History Anxiety Arthritis Ascending aorta enlargement BPH (benign prostatic hyperplasia) Brain aneurysm CAD (coronary artery disease) Calculus of kidney Chest pain Depression Diabetes mellitus Diabetic peripheral neuropathy Former smoker GERD (gastroesophageal reflux disease) Gout Hyperlipidemia Hypertension Myocardial infarction Phimosis Surgical History H/O cervical spine surgery H/O right knee surgery History of inguinal hernia repair, bilateral Hx of cystoscopy (08/15/19) Hx of heart artery stent (~1995) S/P triple vessel bypass (~01/2019) Family History Mother Coronary artery disease Father COPD (chronic obstructive pulmonary disease) Social History household members: spouse Smoking Status: Former smoker alcohol intake: former Current Medications Current Medications Medications: Home Medications atorvastatin 80 mg tablet 80 mg PO DAILY 04/14/19 [History Confirmed 03/07/22] insulin glargine 100 unit/mL subcutaneous solution (Lantus U-100 Insulin) See Rx Instructions .Route .COMPLEX 04/14/19 [History Confirmed 03/08/22] nitroglycerin 0.4 mg sublingual tablet 0.4 mg sublingual PRN PRN Chest Pain 04/14/19 [History Confirmed 03/07/22] pantoprazole 40 mg tablet,delayed release 40 mg PO DAILY 04/14/19 [History Confirmed 03/07/22] zinc sulfate 50 mg zinc (220 mg) capsule 50 mg PO DAILY 04/14/19 [History Confirmed 03/07/22] bupropion HCl 75 mg tablet 150 mg PO DAILY 08/12/19 [History Confirmed 03/07/22] escitalopram oxalate 20 mg tablet 20 mg PO DAILY 08/12/19 [History Confirmed 03/07/22] pregabalin 100 mg capsule (Lyrica) 150 mg PO BID 08/12/19 [History Confirmed 03/07/22] propranolol 20 mg tablet 20 mg PO TID PRN Anxiety 08/12/19 [History Confirmed 03/07/22] insulin aspart U-100 100 unit/mL subcutaneous solution (Novolog U-100 Insulin aspart) 7 unit SUBCUT BID 08/14/19 [History Confirmed 03/07/22] metformin 500 mg tablet 1,000 mg PO BID 08/14/19 [History Confirmed 03/07/22] clopidogrel 75 mg tablet 75 mg PO DAILY 12/03/19 [History Confirmed 03/07/22] B-complex with vitamin C 1 cap PO DAILY 01/06/20 [History Confirmed 03/07/22] cholecalciferol (vitamin D3) 10 mcg (400 unit) capsule 10 mcg PO DAILY 01/06/20 [History Confirmed 03/07/22] bupropion HCl 75 mg tablet 75 mg PO BEDTIME 03/07/22 [History Confirmed 03/07/22] insulin aspart U-100 100 unit/mL (3 mL) subcutaneous pen 8 unit SUBCUT DAILY 03/07/22 [History Confirmed 03/07/22] losartan 25 mg tablet 25 mg PO DAILY 03/07/22 [History Confirmed 03/07/22] metoprolol tartrate 25 mg tablet 25 mg PO BID 03/07/22 [History Confirmed 03/07/22] Visit Medications (administered) Generic Name Dose Route Start Last Admin Trade Name Freq PRN Reason Stop Dose Admin Bupropion HCl 150 mg 03/08/22 09:00 03/08/22 13:17 Bupropion 75 Mg Tablet PO Not Given DAILY LYNETTE Bupropion HCl 75 mg 03/07/22 23:38 03/08/22 00:19 Bupropion 75 Mg Tablet PO 75 mg BEDTIME LYNETTE Administration Escitalopram Oxalate 20 mg 03/08/22 09:00 03/08/22 13:17 Escitalopram 10 Mg Tablet PO Not Given DAILY LYNETTE Hydromorphone HCl 1 mg 03/08/22 00:35 03/08/22 19:36 Hydromorphone 1 Mg Inj IV 1 mg Q3H PRN Administration Pain, Moderate (4-10 Lactated Ringer's 1,000 mls @ 60 mls/hr 03/08/22 00:45 03/08/22 16:57 Lactated Ringers IV 60 mls/hr CONT LYNETTE Administration Lactated Ringer's 1,000 mls @ 120 mls/hr 03/08/22 16:45 03/08/22 18:51 Lactated Ringers IV 120 mls/hr CONT LYNETTE Administration NOREPINEPHRINE BITARTRATE/D5W 4 mg in 250 mls @ 30 mls/hr 03/08/22 19:15 03/08/22 20:31 Levophed IV 8 mcg/min TITRATE LYNETTE 30 mls/hr Titration Protocol 8 MCG/MIN Lactated Ringer's 1,000 mls @ 125 mls/hr 03/08/22 19:20 03/08/22 19:40 Lactated Ringers IV 125 mls/hr CONT LYNETTE Administration Insulin Glargine 15 unit 03/07/22 23:45 03/08/22 12:55 Insulin Glargine 100 Unit/Ml 3ml Pen SUBCUT Not Given BID [facility] Insulin Human Lispro 7 unit 03/08/22 08:00 03/08/22 12:54 Insulin Lispro 100 Unit/Ml 3ml Vial SUBCUT Not Given 0800,1200 [facility] Insulin Human Lispro 0 unit 03/08/22 06:00 03/08/22 12:40 Insulin Lispro 100 Unit/Ml 3ml Vial SUBCUT 2 unit Q6H LYNETTE Administration Protocol Metoprolol Tartrate 25 mg 03/08/22 09:00 03/08/22 08:51 Metoprolol Ir 25 Mg Tablet PO 25 mg BID LYNETTE Administration Pantoprazole Sodium 40 mg 03/08/22 09:00 03/08/22 13:[address] 40 Mg Tablet PO Not Given DAILY LYNETTE Pregabalin 150 mg 03/07/22 23:38 03/08/22 13:18 Pregabalin 50 Mg Capsule PO Not Given BID LYNETTE Exam Vital Signs (past 8 hours): - 03/08/22 15:22 03/08/22 18:03 03/08/22 18:08 Temperature 99.8 F H 98.2 F Pulse Rate 102 H 92 H 95 H Respiratory Rate 18 14 13 Blood Pressure 99/62 110/60 94/54 L Pulse Oximetry 94 97 97 Oxygen Delivery Method Nasal Cannula Non -Rebreather Non -Rebreather Oxygen Flow Rate 4 15 15 03/08/22 18:50 03/08/22 18:59 03/08/22 18:45 Temperature Pulse Rate 87 88 91 H Respiratory Rate 16 16 15 Blood Pressure 88/45 L 93/34 L 79/38 L Pulse Oximetry 93 94 91 Oxygen Delivery Method Simple Mask Simple Mask Simple Mask Oxygen Flow Rate 8 8 8 03/08/22 19:04 03/08/22 18:55 03/08/22 19:09 Temperature 97.0 F L Pulse Rate 90 89 92 H Respiratory Rate 16 16 14 Blood Pressure 91/52 L 93/34 L 96/53 L Pulse Oximetry 97 93 100 Oxygen Delivery Method Simple Mask Simple Mask Simple Mask Oxygen Flow Rate 15 8 15 Oxygen Delivery Method Simple Mask Oxygen Flow Rate 15 Objective Labs Result Diagrams: 03/08/22 19:45 03/08/22 05:14 Labs: Laboratory Results - last 24 hr 03/07/22 03/07/22 03/07/22 17:20 20:48 22:00 WBC RBC Hgb Hct MCV MCH MCHC RDW Plt Count Neut % (Auto) Lymph % (Auto) [place] % (Auto) Eos % (Auto) Baso % (Auto) Neut # (Auto) Lymph # (Auto) [place] # (Auto) Eos # (Auto) Baso # (Auto) PT INR APTT Sodium Potassium Chloride Carbon Dioxide BUN Creatinine Estimated GFR BUN/Creatinine Ratio Glucose Hemoglobin A1c Calcium Magnesium NT-Pro-B Natriuret Pep Urine Color Yellow Urine Appearance Clear Urine pH 5.0 Ur Specific [place] 1.020 Urine Protein Negative Urine Glucose (UA) Negative Urine Ketones Negative Urine Occult Blood 2+ H Urine Nitrate Negative Urine Bilirubin Negative Ur Bilirubin Confirm Negative Urine Urobilinogen 0.2 Ur Leukocyte Esterase Negative Urine RBC 1-5/hpf Urine WBC 0-1/hpf Urine Bacteria None seen Ur Culture Indicated? Cult not indicated Chlamy pneumoniae PCR Adenovirus (PCR) B. pertussis DNA (PCR) B.parapertussis DNA PCR Coronavirus OC43 (PCR) Coronavirus HKU1 (PCR) Coronavirus 229E (PCR) SARS-CoV-2 (PCR) Coronavirus NL63 (PCR) Human Metapneumovir PCR Influenza Type A (PCR) Influenza Type B (PCR) M. pneumoniae (PCR) Parainfluenza 1 (PCR) Parainfluenza 2 (PCR) Parainfluenza 3 (PCR) Parainfluenza 4 (PCR) RSV (PCR) Entero/Rhino (PCR) Blood Type O Positive Antibody Screen Negative Crossmatch See Detail 03/07/22 03/07/22 03/07/22 22:16 22:16 22:16 WBC RBC Hgb Hct MCV MCH MCHC RDW Plt Count Neut % (Auto) Lymph % (Auto) [place] % (Auto) Eos % (Auto) Baso % (Auto) Neut # (Auto) Lymph # (Auto) [place] # (Auto) Eos # (Auto) Baso # (Auto) PT INR APTT Sodium Potassium Chloride Carbon Dioxide BUN Creatinine Estimated GFR BUN/Creatinine Ratio Glucose Hemoglobin A1c 7.6 H Calcium Magnesium 1.7 NT-Pro-B Natriuret Pep 173 Urine Color Urine Appearance Urine pH Ur Specific [place] Urine Protein Urine Glucose (UA) Urine Ketones Urine Occult Blood Urine Nitrate Urine Bilirubin Ur Bilirubin Confirm Urine Urobilinogen Ur Leukocyte Esterase Urine RBC Urine WBC Urine Bacteria Ur Culture Indicated? Chlamy pneumoniae PCR Adenovirus (PCR) B. pertussis DNA (PCR) B.parapertussis DNA PCR Coronavirus OC43 (PCR) Coronavirus HKU1 (PCR) Coronavirus 229E (PCR) SARS-CoV-2 (PCR) Coronavirus NL63 (PCR) Human Metapneumovir PCR Influenza Type A (PCR) Influenza Type B (PCR) M. pneumoniae (PCR) Parainfluenza 1 (PCR) Parainfluenza 2 (PCR) Parainfluenza 3 (PCR) Parainfluenza 4 (PCR) RSV (PCR) Entero/Rhino (PCR) Blood Type Antibody Screen Crossmatch 03/07/22 03/08/22 03/08/22 22:25 05:14 05:14 WBC 11.4 H RBC 3.58 L Hgb 9.7 L Hct 29.2 L MCV 81.6 MCH 27.0 MCHC 33.0 RDW 15.9 H Plt Count 158 Neut % (Auto) 85.5 H Lymph % (Auto) 6.7 L [place] % (Auto) 6.0 Eos % (Auto) 1.6 L Baso % (Auto) 0.2 Neut # (Auto) 9700 H Lymph # (Auto) 800 L [place] # (Auto) 700 Eos # (Auto) 200 Baso # (Auto) 0 PT 14.0 H INR 1.2 APTT 31 Sodium Potassium Chloride Carbon Dioxide BUN Creatinine Estimated GFR BUN/Creatinine Ratio Glucose Hemoglobin A1c Calcium Magnesium NT-Pro-B Natriuret Pep Urine Color Urine Appearance Urine pH Ur Specific [place] Urine Protein Urine Glucose (UA) Urine Ketones Urine Occult Blood Urine Nitrate Urine Bilirubin Ur Bilirubin Confirm Urine Urobilinogen Ur Leukocyte Esterase Urine RBC Urine WBC Urine Bacteria Ur Culture Indicated? Chlamy pneumoniae PCR Not detected Adenovirus (PCR) Not detected B. pertussis DNA (PCR) Not detected B.parapertussis DNA PCR Not detected Coronavirus OC43 (PCR) Not detected Coronavirus HKU1 (PCR) Not detected Coronavirus 229E (PCR) Not detected SARS-CoV-2 (PCR) Not detected Coronavirus NL63 (PCR) Not detected Human Metapneumovir PCR Not detected Influenza Type A (PCR) Not detected Influenza Type B (PCR) Not detected M. pneumoniae (PCR) Not detected Parainfluenza 1 (PCR) Not detected Parainfluenza 2 (PCR) Not detected Parainfluenza 3 (PCR) Not detected Parainfluenza 4 (PCR) Not detected RSV (PCR) Not detected Entero/Rhino (PCR) Not detected Blood Type Antibody Screen Crossmatch 03/08/22 03/08/22 05:14 19:45 WBC RBC Hgb 8.2 L Hct 25.5 L MCV MCH MCHC RDW Plt Count Neut % (Auto) Lymph % (Auto) [place] % (Auto) Eos % (Auto) Baso % (Auto) Neut # (Auto) Lymph # (Auto) [place] # (Auto) Eos # (Auto) Baso # (Auto) PT INR APTT Sodium 137 Potassium 4.4 Chloride 97 L Carbon Dioxide 30 BUN 29 H Creatinine 1.07 Estimated GFR > 60 BUN/Creatinine Ratio 27.1 H Glucose 195 H Hemoglobin A1c Calcium 8.2 L Magnesium 1.5 L NT-Pro-B Natriuret Pep Urine Color Urine Appearance Urine pH Ur Specific [place] Urine Protein Urine Glucose (UA) Urine Ketones Urine Occult Blood Urine Nitrate Urine Bilirubin Ur Bilirubin Confirm Urine Urobilinogen Ur Leukocyte Esterase Urine RBC Urine WBC Urine Bacteria Ur Culture Indicated? Chlamy pneumoniae PCR Adenovirus (PCR) B. pertussis DNA (PCR) B.parapertussis DNA PCR Coronavirus OC43 (PCR) Coronavirus HKU1 (PCR) Coronavirus 229E (PCR) SARS-CoV-2 (PCR) Coronavirus NL63 (PCR) Human Metapneumovir PCR Influenza Type A (PCR) Influenza Type B (PCR) M. pneumoniae (PCR) Parainfluenza 1 (PCR) Parainfluenza 2 (PCR) Parainfluenza 3 (PCR) Parainfluenza 4 (PCR) RSV (PCR) Entero/Rhino (PCR) Blood Type Antibody Screen Crossmatch Assessment & Plan Assessment and plan (1) Shock: Status: Acute (2) Acute respiratory failure with hypoxemia: Status: Acute Assessment & Plan narrative: NEURO: -- Seek PT/OT when cleared by ortho -- Pain control w/ dilaudid as needed RESP: # Acute hypoxemia respiratory failure -- Secondary to atelectasis vs PNA vs aspiration vs PE -- CTA PE study pending -- Encourage IS and OOB as tolerated -- HOB elevation -- Aspiration precaution -- Goal SpO2 > 88% CVS: # Shock -- Secondary to hemorrhagic vs sepsis -- On levophed 8 mcg -- Start sepsis workup -- MAP goal > 65 -- Pending PICC line placement ID: # Concern for PNA -- Recommend starting linezolid/cefepime -- Check resp cx and blood cx -- Follow up cx data HEME: # Acute blood loss anemia -- Transfused 1 U PRBC -- Trend H/H -- Goal Hb > 7 ENDO: -- Goal BS < 180 D/w RN and patietn Time Spent With Patient Critical Care time: I spent a total of 34 minutes of critical care time on this patient's care today; this time is exclusive of procedural time.
[2022-03-08] MEDS: SENNOSIDES 8.6 MG TABLET 17.2 MG PO (21:38)
[2022-03-08] MEDS: INSULIN GLARGINE 100 UNIT/ML 3ML PEN 15 UNIT SUBCUT (21:39)
--- NOTE | 2022-03-08 23:35 | DI.RAD.S_ITS ---
PROCEDURE: XR CHEST FOR PICC 1V INDICATIONS: Picc placement TECHNIQUE: One view of the chest was acquired. COMPARISON: [facility], CR, XR CHEST 1V, 03/08/2022, 18:10. FINDINGS: Surgical changes and devices: There is a new right upper extremity PICC line with the tip extending into the superior right atrium. Postsurgical changes are redemonstrated within the mediastinum. Lungs and pleura: The medial lung apices are partially obscured by the patient's neck soft tissues. No pleural effusions or definite pneumothorax. There is pulmonary vascular prominence compatible with pulmonary edema. Bilateral linear areas of atelectasis are redemonstrated. Mediastinum: Mediastinal contours appear unchanged. Heart size is normal. Bones and chest wall: No suspicious bony lesions. Overlying soft tissues appear unremarkable. IMPRESSION: 1. PICC line extends into the superior right atrium. Dictated by: Son Gunter M.D. on 03/09/2022 at 0:51 Approved by: Son Gunter M.D. on 03/09/2022 at 0:52
[2022-03-09] VITALS (92 sets, daily range): BP systolic 81–142; BP diastolic 49–73; PULSE 92–108; RESP 12–29; TEMP 37.4–38.3; O2SAT 84–100
[2022-03-09] MEDS: CEFEPIME 2 GM in SODIUM CHLORIDE 0.9% 100 ML IV ×2 (00:31→08:12)
[2022-03-09] MEDS: LINEZOLID 600 MG/300 ML IV.SOLN IV (01:12)
[2022-03-09] MEDS: INSULIN LISPRO 100 UNIT/ML 3ML VIAL SUBCUT ×5 (01:18→21:52)
[2022-03-09] MEDS: VANCOMYCIN 2,000 MG/400 ML PIGGYBACK 200 MG IV (01:28)
[2022-03-09] MEDS: diphenhydrAMINE 50 MG/ML VIAL IV (03:33)
[2022-03-09 05:52] LABS: Add Manual Diff / Slide Review NO; Basophils Absolute Auto 0 /uL (0-100); Basophils Percent Auto 0.1 % (0-2); Eosinophils Absolute Auto 0 /uL (0-450); Eosinophils Percent Auto 0.5 % (2-4); Hematocrit 24.1 % (41-53); Hemoglobin 8.1 g/dL (13.5-17.5); Lymphocytes Absolute Auto 700 /uL (1100-4500); Lymphocytes Percent Auto 6.5 % (25-40); Mean Corpuscular HGB Conc 33.5 % (30-36); Mean Corpuscular Hemoglobin 27.7 PG (26-34); Mean Corpuscular Volume 82.8 fL (80-100); Monocytes Absolute Auto 800 /uL (0-900); Monocytes Percent Auto 7.5 % (3-14); Neutrophils Absolute Auto 8700 /uL (1500-7000); Neutrophils Percent Auto 85.4 % (50-75); Platelet Count 118 X10^3/uL (150-400); Red Blood Cell Count 2.91 X10^6/uL (4.5-5.9); Red Cell Distribution Width 15.8 % (11.6-14.8); White Blood Cell Count 10.2 X10^3/uL (4.5-11.0)
[2022-03-09 06:02] LABS: BUN Creatinine Ratio 26.9 (6-22); Blood Urea Nitrogen 29 mg/dL (9-20); Calcium 7.2 mg/dL (8.4-10.2); Carbon Dioxide 30 mmol/L (22-32); Chloride 97 mmol/L (98-107); Estimated Glomerular Filt Rate > 60 mL/min (>60); Glucose 293 mg/dL (80-110); HEMOLYSIS < 15 (0-50); Magnesium 1.5 mg/dL (1.6-2.3); Potassium 4.4 mmol/L (3.4-5.1); Sodium 133 mmol/L (137-145)
--- NOTE | 2022-03-09 07:49 | PC.NURSE ---
Instrument Assembly Supervisor Note-Patient brought to ICU room 226 1915, oriented x3, drowsy, follows directions. Initially simple mask on, then placed on 5L HFNC, SpO2 90-94%, RR 16, denies dyspnea. Levophed gtt started at 8mcg/min for pressure support, titrated off by 2300, see vital trends. 1 unit PRBC given, Cefepime, linezolid, and Vancomycin started. Tolerated going for CTA. IV Dilaudid for pain, IV Benadryl for puritis.
[2022-03-09] MEDS: INSULIN LISPRO 100 UNIT/ML 3ML VIAL 7 UNIT SUBCUT ×2 (08:49→12:00)
[2022-03-09] MEDS: PREGABALIN 50 MG CAPSULE 150 MG PO ×2 (09:57→21:42)
[2022-03-09] MEDS: MAGNESIUM SULFATE 4 GM/100 ML PIGGYBACK IV (09:57)
[2022-03-09] MEDS: LOSARTAN 25 MG TABLET PO (09:57)
[2022-03-09] MEDS: METOPROLOL IR 25 MG TABLET PO ×2 (09:57→21:43)
[2022-03-09] MEDS: CLOPIDOGREL 75 MG TABLET PO (09:57)
[2022-03-09] MEDS: ATORVASTATIN 20 MG TABLET 80 MG PO (09:57)
[2022-03-09] MEDS: PANTOPRAZOLE DR 40 MG TABLET PO (09:57)
[2022-03-09] MEDS: ZINC SULFATE 220 MG CAPSULE PO (09:57)
[2022-03-09] MEDS: CHOLECALCIFEROL (VITAMIN D3) 400 UNIT TABLET PO (09:57)
[2022-03-09] MEDS: polyethylene glycoL 3350 17 GM POWD.PACK PO (09:57)
[2022-03-09] MEDS: INSULIN GLARGINE 100 UNIT/ML 3ML PEN 15 UNIT SUBCUT ×2 (09:58→21:50)
[2022-03-09] MEDS: PIPERACILLIN/TAZO 4.5 GM in SODIUM CHLORIDE 0.9% 100 ML IV (10:36)
--- NOTE | 2022-03-09 10:50 | PT.IIE ---
Current Diagnoses Type 2 diabetes mellitus with diabetic polyneuropathy (03/07/22) Other acute postprocedural pain (03/07/22) Acute respiratory failure with hypoxia (03/07/22) Shock, unspecified (03/07/22) Displaced intertrochanteric fracture of right femur, initial encounter for closed fracture (03/07/22) Displaced subtrochanteric fracture of unspecified femur, initial encounter for closed fracture (03/07/22) Presence of coronary angioplasty implant and graft (03/07/22) Arthrodesis status (03/07/22) Surgery Performed Operation Date: 03/08/22 15:45 Actual Procedures p Intramedullary Nailing Femur(Right) - Alondra Pineda MD Surgical History (Last Reviewed 03/09/22 @ 11:12 by Jacoby Beck PA-C) H/O cervical spine surgery H/O right knee surgery History of inguinal hernia repair, bilateral Hx of cystoscopy (08/15/19) Hx of heart artery stent (~1995) S/P triple vessel bypass (~01/2019) Medical History (Last Reviewed 03/09/22 @ 11:12 by Jacoby Beck PA-C) Anxiety Arthritis Ascending aorta enlargement BPH (benign prostatic hyperplasia) Brain aneurysm CAD (coronary artery disease) Calculus of kidney Chest pain Depression Diabetes mellitus Diabetic peripheral neuropathy Former smoker GERD (gastroesophageal reflux disease) Gout Hyperlipidemia Hypertension Myocardial infarction Phimosis Physical Therapy Inpatient Evaluation/Re-Eval M1 PT/OT-IP Prior Functional Status Start: 03/09/22 12:26 Freq: NEEDED Status: Active Protocol: Document 03/09/22 10:50 AB (Rec: 03/09/22 12:39 AB [id number]) Medical Review Prior Functional Status Medical History Reviewed Yes Communication able to make needs known Mobility and Gait pt stated that he is modified independent with all mobilities and ambulation using a quad cane but occasionally uses a SPC Social History Household Members spouse Living Arrangements House Number of Floors (Floors) Two Floors Number of Stairs To Enter/Railing? 2 platform steps to enter the house 13 steps L rail to get to bedroom level Home Environment High Toilet,Tub/Shower Home Equipment Quad Cane,Straight Cane,Shower Seat with Backrest,Hand Held Shower M2 PT-IP Current Condition Start: 03/09/22 12:26 Freq: NEEDED Status: Active Protocol: Document 03/09/22 10:50 AB (Rec: 03/09/22 12:39 AB [id number]) Physical Therapy Current Condition Current Condition Evaluation Date 03/09/22 Treatment Diagnosis s/p fall; R subtroch hip fx s/ p ORIF; difficulty in walking Onset Date 03/07/22 M3 PT-IP Subjective Start: 03/09/22 12:26 Freq: NEEDED Status: Active Protocol: Document 03/09/22 10:50 AB (Rec: 03/09/22 12:39 AB [id number]) Subjective Physical Therapy Visit Type Type Initial Evaluation Visit Start Time 10:50 Visit Stop Time 11:50 Total Visit Minutes 60 Number of MANUFACTURING PLANNER Visits 0 Physical Therapy Visit Comments Patient Comments c/o hip pain Therapy Pain Assessment Pain When Pain Assessed At Rest Pain Present Pain Present Pain Reported Location right hip Intensity 7 Scale Used Numeric (0 - 10) Pain Behaviors Guarding,[place] Pain Management Techniques Distraction,Modification of Treatment,Re-positioning, Timing of Activity with Medications M4 PT-IP Mobility and Gait Start: 03/09/22 12:26 Freq: NEEDED Status: Active Protocol: Document 03/09/22 10:50 AB (Rec: 03/09/22 12:39 AB [email or web address]) PT-Bed Mobility Assessment Supine to Sit Supine to Sit Maximum Assistance,2 Person Assistance,Head of Bed Elevated,Bedrails Sit to Supine Sit to Supine Maximum Assistance,Total Assistance,2 Person Assistance ,Head of Bed Elevated,Bedrails Scooting Scooting to Edge of Bed Dependent PT-Transfer Assessment Sit to and From Stand Sit to and from Stand Maximum Assistance,2 Person Assistance,Use of Upper Extremities Equipment Transfer Assistive Device Gait Belt,Front Wheeled Walker Orthotic/Prosthetic Devices or Brace: No Comments Mobility Comments BP supine: 132/60. completed supine to sit max A x 2 and max cues with HOB elevated and use of bed rail. max A for sitting balance on EOB with increase posterior trunk lean and lateral leaning to the L. positioned and cued pt for midline posture but continue to require mod to max A for sitting balance. educated pt on weight bearing restriction on RLE. pt completed sit to stand max A x 2 and max cues. max A x 2 for standing balance using FWW and pt unable to maintain PWB on RLE despite max A provided. pt c/o dizziness. pt sat back on EOB . BP checked: 81/49. BP checked again to confirm: 92/ 54. completed sit to supine max A x 2 to total A x 2 and max cues. total A for positioning on the bed. Nurse in room during PT session and is aware of pt's BP and mobility. call light and table placed within reach. Gait Assessment Comments Gait Comments unable at this time PT-Balance Assessment Sitting Balance and Reactions Static Sitting Balance Ability Poor Dynamic Sitting Balance Ability Poor Standing Balance and Reactions Static Standing Balance Ability Poor Dynamic Standing Balance Ability Poor Device Used FWW M5 PT-IP Objective Assessments Start: 03/09/22 12:26 Freq: NEEDED Status: Active Protocol: Document 03/09/22 10:50 AB (Rec: 03/09/22 12:39 AB [id number]) Orientation Orientation/Cognition Level of Alertness Alert Orientation Name,Place,Situation Safety Awareness Decreased Safety Awareness Memory Description Short Term Impaired Gross Range of Motion Lower Extremity ROM Assessment Right Impaired Impairments RLE increase guarding affecting PROM test Strength Lower Extremity Strength Assessment Bilaterally Impaired Comments Strength Comments LLE: 4-/5 RLE: 2+/5 Muscle Tone Muscle Tone WNL Yes M6 PT-IP Treatment Start: 03/09/22 12:26 Freq: NEEDED Status: Active Protocol: Document 03/09/22 10:50 AB (Rec: 03/09/22 12:39 AB [id number]) Physical Therapy Treatment Education Education Provided Precautions,Weight Bearing Status,Post-Op Packet,Safety M7 PT-IP Assessment and Plan Start: 03/09/22 12:26 Freq: NEEDED Status: Active Protocol: Document 03/09/22 10:50 AB (Rec: 03/09/22 12:39 AB [email or web address]) PT Summary Assessment and Plan Potential Rehabilitation Potential Fair Status of Condition at Evaluation Evolving Summary Impairments Pain,ROM,Strength,Balance, Coordination,Sensation,Tone, Cognition,Bed Mobility, Transfers,Gait,Activity Tolerance Assessment Summary pt requiring max A x 2 to total A x 2 with mobility and with decrease BP with upright activity. pt unable to tolerate much activity and unable to maintain PWB on RLE despite max A x 1-2 provided. pt will require SNF rehab to improve strength and functional mobility. Goals Bed Mobility Goal Minimal Assistance Transfer Goal Minimal Assistance,Front Wheeled Walker Gait Goal Minimal Assistance,Front Wheel Walker Gait Distance 25 Other Goals improve bed mobility, transfers and ambulation using FWW 50 ft SBA Days to Meet Goals 10 Frequency of Treatment Frequency Of Treatment Twice a Day Treatment Plan Physical Therapy Treatment Plan Bed Mobility Training,Transfer Training,Gait Training, Therapeutic Exercise,Balance Retraining,Post Op Education, Discharge Planning,Hot or Cold Pack,Neuromuscular Re-ed, Coordination Retraining,Manual Therapy Weight Bearing Status Weight Bearing Status Partial Weight Bearing Allowed Weight Bearing Amount (enter % Clarified with ROBERTO Beck: or #) (%) 50% PWB on RLE Recommendations To Nursing Amount of Assist Needed Mechanical Lift Discharge Recommendations PT Discharge Recommendations SNF Rehab Transportation Needs at Discharge Wheelchair/Cabulance,Stretcher /Ambulance
--- NOTE | 2022-03-09 11:10 | P.PN_ITS ---
Subjective Subjective Date Patient Seen: 03/09/22 Time Patient Seen: 11:10 Interval history: Patient states his pain is mild at rest but is having severe pain with any movement of the right lower extremity. No shortness of breath or chest pain. No nausea or vomiting. Exam Vital Signs (past 8 hours): - 03/09/22 03:15 03/09/22 03:20 03/09/22 03:25 Temperature Pulse Rate 99 H 100 H 99 H Respiratory Rate 16 17 17 Blood Pressure Pulse Oximetry 90 L 92 90 L Oxygen Delivery Method Oxygen Flow Rate 03/09/22 03:30 03/09/22 03:35 03/09/22 03:40 Temperature Pulse Rate 99 H 100 H 103 H Respiratory Rate 14 16 24 Blood Pressure Pulse Oximetry 92 93 88 L Oxygen Delivery Method Oxygen Flow Rate 03/09/22 03:45 03/09/22 03:47 03/09/22 03:47 Temperature Pulse Rate 103 H 102 H Respiratory Rate 23 22 Blood Pressure 119/55 L Pulse Oximetry 89 L 95 Oxygen Delivery Method Oxygen Flow Rate 03/09/22 03:50 03/09/22 03:55 03/09/22 04:00 Temperature Pulse Rate 101 H 101 H 100 H Respiratory Rate 20 21 19 Blood Pressure Pulse Oximetry 97 99 100 Oxygen Delivery Method Oxygen Flow Rate 03/09/22 04:05 03/09/22 04:06 03/09/22 04:06 Temperature Pulse Rate 101 H 100 H Respiratory Rate 20 19 Blood Pressure 121/57 L Pulse Oximetry 100 100 Oxygen Delivery Method Oxygen Flow Rate 03/09/22 04:10 03/09/22 04:15 03/09/22 04:20 Temperature 99.4 F Pulse Rate 100 H 100 H 100 H Respiratory Rate 19 16 18 Blood Pressure Pulse Oximetry 100 100 100 Oxygen Delivery Method Oxygen Flow Rate 03/09/22 04:25 03/09/22 04:30 03/09/22 04:35 Temperature Pulse Rate 101 H 101 H 100 H Respiratory Rate 18 19 18 Blood Pressure Pulse Oximetry 98 93 92 Oxygen Delivery Method Oxygen Flow Rate 03/09/22 04:40 03/09/22 04:45 03/09/22 04:50 Temperature Pulse Rate 100 H 98 H 98 H Respiratory Rate 18 18 17 Blood Pressure Pulse Oximetry 97 100 100 Oxygen Delivery Method Oxygen Flow Rate 03/09/22 04:55 03/09/22 05:00 03/09/22 05:01 Temperature Pulse Rate 98 H 99 H Respiratory Rate 21 19 Blood Pressure 135/61 Pulse Oximetry 100 99 Oxygen Delivery Method Oxygen Flow Rate 03/09/22 05:01 03/09/22 05:05 03/09/22 05:10 Temperature Pulse Rate 99 H 100 H 99 H Respiratory Rate 19 19 18 Blood Pressure Pulse Oximetry 99 100 99 Oxygen Delivery Method Oxygen Flow Rate 03/09/22 05:15 03/09/22 05:20 03/09/22 05:25 Temperature Pulse Rate 99 H 99 H 99 H Respiratory Rate 19 17 19 Blood Pressure Pulse Oximetry 99 100 99 Oxygen Delivery Method Oxygen Flow Rate 03/09/22 04:30 03/09/22 06:00 03/09/22 06:00 Temperature Pulse Rate 96 H Respiratory Rate 19 Blood Pressure 128/60 Pulse Oximetry 97 Oxygen Delivery Method High Flow Nasal Cannula Simple Mask Oxygen Flow Rate 03/09/22 07:00 03/09/22 07:00 03/09/22 08:00 Temperature Pulse Rate 97 H Respiratory Rate 16 Blood Pressure 131/68 126/73 Pulse Oximetry 91 Oxygen Delivery Method Oxygen Flow Rate 03/09/22 08:00 03/09/22 09:00 03/09/22 09:00 Temperature Pulse Rate 98 H 99 H Respiratory Rate 21 24 Blood Pressure 142/66 H Pulse Oximetry 94 89 L Oxygen Delivery Method Oxygen Flow Rate 03/09/22 09:00 Temperature Pulse Rate Respiratory Rate Blood Pressure Pulse Oximetry Oxygen Delivery Method High Flow Nasal Cannula Oxygen Flow Rate Oxygen Delivery Method High Flow Nasal Cannula Oxygen Flow Rate 13 Narrative Exam Narrative: 76-year-old male resting comfortably in bed in no apparent distress. Mild drainage noted on the dressing. Motor functions intact distal right lower extremity. Sensation grossly intact to light touch right lower extremity. Const General: cooperative and comfortable Orientation: alert Objective Labs Result Diagrams: 03/09/22 05:25 03/09/22 05:25 Labs: Laboratory Results - last 24 hr 03/07/22 03/08/22 03/08/22 17:20 19:45 20:10 WBC RBC Hgb 8.2 L Hct 25.5 L MCV MCH MCHC RDW Plt Count Neut % (Auto) Lymph % (Auto) [place] % (Auto) Eos % (Auto) Baso % (Auto) Neut # (Auto) Lymph # (Auto) [place] # (Auto) Eos # (Auto) Baso # (Auto) Sodium Potassium Chloride Carbon Dioxide BUN Creatinine Estimated GFR BUN/Creatinine Ratio Glucose Calcium Magnesium Nasal Screen MRSA (PCR) Negative for mrsa Blood Type O Positive Antibody Screen Negative Crossmatch See Detail 03/09/22 03/09/22 05:25 05:25 WBC 10.2 RBC 2.91 L Hgb 8.1 L Hct 24.1 L MCV 82.8 MCH 27.7 MCHC 33.5 RDW 15.8 H Plt Count 118 L Neut % (Auto) 85.4 H Lymph % (Auto) 6.5 L [place] % (Auto) 7.5 Eos % (Auto) 0.5 L Baso % (Auto) 0.1 Neut # (Auto) 8700 H Lymph # (Auto) 700 L [place] # (Auto) 800 Eos # (Auto) 0 Baso # (Auto) 0 Sodium 133 L Potassium 4.4 Chloride 97 L Carbon Dioxide 30 BUN 29 H Creatinine 1.08 Estimated GFR > 60 BUN/Creatinine Ratio 26.9 H Glucose 293 H Calcium 7.2 L Magnesium 1.5 L Nasal Screen MRSA (PCR) Blood Type Antibody Screen [facility]match [facility] Medical History Anxiety Arthritis Ascending aorta enlargement BPH (benign prostatic hyperplasia) Brain aneurysm CAD (coronary artery disease) Calculus of kidney Chest pain Depression Diabetes mellitus Diabetic peripheral neuropathy Former smoker GERD (gastroesophageal reflux disease) Gout Hyperlipidemia Hypertension Myocardial infarction Phimosis Surgical History H/O cervical spine surgery H/O right knee surgery History of inguinal hernia repair, bilateral Hx of cystoscopy (08/15/19) Hx of heart artery stent (~1995) S/P triple vessel bypass (~01/2019) Family History Mother Coronary artery disease Father COPD (chronic obstructive pulmonary disease) Social History household members: spouse Smoking Status: Former smoker alcohol intake: former Assessment & Plan Post-op Postoperative Procedures: Procedures Operation Date: 03/08/22 15:45 Actual Procedure Side Surgeon p Intramedullary Nailing Femur Right Alondra A Pineda, MD Postoperative day: 1 Postoperative status narrative: Status post intramedullary nailing right proximal femur fracture Acute respiratory failure with hypoxemia, Shock PNA, Acute blood loss anemai managed by internal medicine Postoperative plan narrative: Work with PT/OT, mobilize with therapy as tolerated, partial weight-bearing right lower extremity Multimodal pain management Disposition, to be determined
[2022-03-09] MEDS: HYDROMORPHONE 1 MG INJ IV (11:20)
[2022-03-09 11:38] LABS: Albumin 2.8 g/dL (3.5-5.0)
--- NOTE | 2022-03-09 11:50 | P.TELICUPN_ITS ---
Subjective Subjective IF CAMERA ACTIVATED, patient seen via real-time interactive audiovisual communication: Camera activated Consent obtained for tele-speaker mounter care: Yes Patient Location: ICU Provider location (State): [place] Other participants/roles: rn Interval history: Pt off pressors, still with pain but tolerating diet, still gets hypoxemic on RA Current Medications Current Medications Medications: Home Medications atorvastatin 80 mg tablet 80 mg PO DAILY 04/14/19 [History Confirmed 03/07/22] insulin glargine 100 unit/mL subcutaneous solution (Lantus U-100 Insulin) See Rx Instructions .Route .COMPLEX 04/14/19 [History Confirmed 03/08/22] nitroglycerin 0.4 mg sublingual tablet 0.4 mg sublingual PRN PRN Chest Pain 04/14/19 [History Confirmed 03/07/22] pantoprazole 40 mg tablet,delayed release 40 mg PO DAILY 04/14/19 [History Confirmed 03/07/22] zinc sulfate 50 mg zinc (220 mg) capsule 50 mg PO DAILY 04/14/19 [History Confirmed 03/07/22] bupropion HCl 75 mg tablet 150 mg PO DAILY 08/12/19 [History Confirmed 03/07/22] escitalopram oxalate 20 mg tablet 20 mg PO DAILY 08/12/19 [History Confirmed 03/07/22] pregabalin 100 mg capsule (Lyrica) 150 mg PO BID 08/12/19 [History Confirmed 03/07/22] propranolol 20 mg tablet 20 mg PO TID PRN Anxiety 08/12/19 [History Confirmed 03/07/22] insulin aspart U-100 100 unit/mL subcutaneous solution (Novolog U-100 Insulin a spart) 7 unit SUBCUT BID 08/14/19 [History Confirmed 03/07/22] metformin 500 mg tablet 1,000 mg PO BID 08/14/19 [History Confirmed 03/07/22] clopidogrel 75 mg tablet 75 mg PO DAILY 12/03/19 [History Confirmed 03/07/22] B-complex with vitamin C 1 cap PO DAILY 01/06/20 [History Confirmed 03/07/22] cholecalciferol (vitamin D3) 10 mcg (400 unit) capsule 10 mcg PO DAILY 01/06/20 [History Confirmed 03/07/22] bupropion HCl 75 mg tablet 75 mg PO BEDTIME 03/07/22 [History Confirmed 03/07/22] insulin aspart U-100 100 unit/mL (3 mL) subcutaneous pen 8 unit SUBCUT DAILY 03/07/22 [History Confirmed 03/07/22] losartan 25 mg tablet 25 mg PO DAILY 03/07/22 [History Confirmed 03/07/22] metoprolol tartrate 25 mg tablet 25 mg PO BID 03/07/22 [History Confirmed 03/07/22] Visit Medications (administered) Generic Name Dose Route Start Last Admin Trade Name Cari PRN Reason Stop Dose Admin Atorvastatin Calcium 80 mg 03/09/22 09:00 03/09/22 09:57 Atorvastatin 20 Mg Tablet PO 80 mg DAILY LYNETTE Administration Clopidogrel Bisulfate 75 mg 03/09/22 09:00 03/09/22 09:57 Clopidogrel 75 Mg Tablet PO 75 mg DAILY LYNETTE Administration Hydromorphone HCl 1 mg 03/08/22 00:35 03/09/22 11:20 Hydromorphone 1 Mg Inj IV 1 mg Q3H PRN Administration Pain, Moderate (4-10 NOREPINEPHRINE BITARTRATE/D5W 4 mg in 250 mls @ 30 mls/hr 03/08/22 19:15 03/09/22 00:19 Levophed IV 0 mcg/min TITRATE LYNETTE 0 mls/hr Titration Protocol 8 MCG/MIN Magnesium Sulfate 4 gm in 100 mls @ 25 mls/hr 03/09/22 09:01 03/09/22 09:57 Magnesium Sulfate IV 03/09/22 13:00 25 mls/hr NOW ONE Administration Insulin Glargine 15 unit 03/07/22 23:45 03/09/22 09:58 Insulin Glargine 100 Unit/Ml 3ml Pen SUBCUT 15 unit BID LYNETTE Administration Insulin Human Lispro 7 unit 03/08/22 08:00 03/09/22 08:49 Insulin Lispro 100 Unit/Ml 3ml Vial SUBCUT 7 unit 0800,1200 LYNETTE Administration Insulin Human Lispro 8 unit 03/08/22 17:00 03/08/22 21:23 Insulin Lispro 100 Unit/Ml 3ml Vial SUBCUT Not Given 1700 [facility] Losartan Potassium 25 mg 03/09/22 09:00 03/09/22 09:57 Losartan 25 Mg Tablet PO 25 mg DAILY LYNETTE Administration Metoprolol Tartrate 25 mg 03/08/22 09:00 03/09/22 09:57 Metoprolol Ir 25 Mg Tablet PO 25 mg BID LYNETTE Administration Pantoprazole Sodium 40 mg 03/08/22 09:00 03/09/22 09:[address] 40 Mg Tablet PO 40 mg DAILY LYNETTE Administration Polyethylene Glycol 17 gm 03/09/22 09:00 03/09/22 09:57 Polyethylene Glycol 3350 17 Gm Powd.Pack PO 17 gm DAILY LYNETTE Administration Pregabalin 150 mg 03/07/22 23:38 03/09/22 09:57 Pregabalin 50 Mg Capsule PO 150 mg BID LYNETTE Administration Sennosides 17.2 mg 03/08/22 21:00 03/08/22 21:38 Sennosides 8.6 Mg Tablet PO 17.2 mg BEDTIME LYNETTE Administration Vitamin D 400 unit 03/09/22 09:00 03/09/22 09:57 Cholecalciferol (Vitamin D3) 400 Unit Tablet PO 400 unit DAILY LYNETTE Administration Zinc Sulfate 220 mg 03/09/22 09:00 03/09/22 09:57 Zinc Sulfate 220 Mg Capsule PO 220 mg DAILY LYNETTE Administration Objective Labs Result Diagrams: 03/09/22 05:25 03/09/22 05:25 Labs: Laboratory Results - last 24 hr 03/07/22 03/08/22 03/08/22 17:20 19:45 20:10 WBC RBC Hgb 8.2 L Hct 25.5 L MCV MCH MCHC RDW Plt Count Neut % (Auto) Lymph % (Auto) [place] % (Auto) Eos % (Auto) Baso % (Auto) Neut # (Auto) Lymph # (Auto) [place] # (Auto) Eos # (Auto) Baso # (Auto) Sodium Potassium Chloride Carbon Dioxide BUN Creatinine Estimated GFR BUN/Creatinine Ratio Glucose Calcium Magnesium Albumin Nasal Screen MRSA (PCR) Negative for mrsa Blood Type O Positive Antibody Screen Negative Crossmatch See Detail 03/09/22 03/09/22 03/09/22 05:25 05:25 05:25 WBC 10.2 RBC 2.91 L Hgb 8.1 L Hct 24.1 L MCV 82.8 MCH 27.7 MCHC 33.5 RDW 15.8 H Plt Count 118 L Neut % (Auto) 85.4 H Lymph % (Auto) 6.5 L [place] % (Auto) 7.5 Eos % (Auto) 0.5 L Baso % (Auto) 0.1 Neut # (Auto) 8700 H Lymph # (Auto) 700 L [place] # (Auto) 800 Eos # (Auto) 0 Baso # (Auto) 0 Sodium 133 L Potassium 4.4 Chloride 97 L Carbon Dioxide 30 BUN 29 H Creatinine 1.08 Estimated GFR > 60 BUN/Creatinine Ratio 26.9 H Glucose 293 H Calcium 7.2 L Magnesium 1.5 L Albumin 2.8 L Nasal Screen MRSA (PCR) Blood Type Antibody Screen Crossmatch Exam Vital Signs (past 8 hours): - 03/09/22 03:55 03/09/22 04:00 03/09/22 04:05 Temperature Pulse Rate 101 H 100 H 101 H Respiratory Rate 21 19 20 Blood Pressure Pulse Oximetry 99 100 100 Oxygen Delivery Method Oxygen Flow Rate 03/09/22 04:06 03/09/22 04:06 03/09/22 04:10 Temperature 99.4 F Pulse Rate 100 H 100 H Respiratory Rate 19 19 Blood Pressure 121/57 L Pulse Oximetry 100 100 Oxygen Delivery Method Oxygen Flow Rate 03/09/22 04:15 03/09/22 04:20 03/09/22 04:25 Temperature Pulse Rate 100 H 100 H 101 H Respiratory Rate 16 18 18 Blood Pressure Pulse Oximetry 100 100 98 Oxygen Delivery Method Oxygen Flow Rate 03/09/22 04:30 03/09/22 04:35 03/09/22 04:40 Temperature Pulse Rate 101 H 100 H 100 H Respiratory Rate 19 18 18 Blood Pressure Pulse Oximetry 93 92 97 Oxygen Delivery Method Oxygen Flow Rate 03/09/22 04:45 03/09/22 04:50 03/09/22 04:55 Temperature Pulse Rate 98 H 98 H 98 H Respiratory Rate 18 17 21 Blood Pressure Pulse Oximetry 100 100 100 Oxygen Delivery Method Oxygen Flow Rate 03/09/22 05:00 03/09/22 05:01 03/09/22 05:01 Temperature Pulse Rate 99 H 99 H Respiratory Rate 19 19 Blood Pressure 135/61 Pulse Oximetry 99 99 Oxygen Delivery Method Oxygen Flow Rate 03/09/22 05:05 03/09/22 05:10 03/09/22 05:15 Temperature Pulse Rate 100 H 99 H 99 H Respiratory Rate 19 18 19 Blood Pressure Pulse Oximetry 100 99 99 Oxygen Delivery Method Oxygen Flow Rate 03/09/22 05:20 03/09/22 05:25 03/09/22 04:30 Temperature Pulse Rate 99 H 99 H Respiratory Rate 17 19 Blood Pressure Pulse Oximetry 100 99 Oxygen Delivery Method High Flow Nasal Cannula Simple Mask Oxygen Flow Rate 03/09/22 06:00 03/09/22 06:00 03/09/22 07:00 Temperature Pulse Rate 96 H Respiratory Rate 19 Blood Pressure 128/60 131/68 Pulse Oximetry 97 Oxygen Delivery Method Oxygen Flow Rate 03/09/22 07:00 03/09/22 08:00 03/09/22 08:00 Temperature Pulse Rate 97 H 98 H Respiratory Rate 16 21 Blood Pressure 126/73 Pulse Oximetry 91 94 Oxygen Delivery Method Oxygen Flow Rate 03/09/22 09:00 03/09/22 09:00 03/09/22 09:00 Temperature Pulse Rate 99 H Respiratory Rate 24 Blood Pressure 142/66 H Pulse Oximetry 89 L Oxygen Delivery Method High Flow Nasal Cannula Oxygen Flow Rate Oxygen Delivery Method High Flow Nasal Cannula Oxygen Flow Rate 13 Narrative Exam Narrative: surrogate for physicna exam is primary team Assessment & Plan Assessment and plan (1) Acute respiratory failure with hypoxemia: Status: Acute (2) Shock: Status: Acute Assessment & Plan narrative: NEURO: -- Seek PT/OT when cleared by ortho -- Pain control w/ po mirphine RESP: # Acute hypoxemia respiratory failure -- Secondary to atelectasis vs PNA vs aspiration vs PE -- CTA reviewed, likely pulm edema given new intralobular septal thickening -- Encourage IS and OOB as tolerated -- HOB elevation -- Aspiration precaution -- Goal SpO2 > 88% CVS: # Shock -- Secondary to hemorrhagic vs sepsis off levophed -- MAP goal > 65 -- start midodrine if bp is borderline ID: # Concern for PNA -- Recommend starting linezolid/cefepime -- Check resp cx and blood cx -- Follow up cx data HEME: # Acute blood loss anemia -- Transfused 1 U PRBC -- Trend H/H -- Goal Hb > 7 ENDO: -- Goal BS < 180 if patietn remains HD stable can be tx to steopdown D/w RN and patietn CCT 35 min Time Spent With Patient Critical Care time: I spent a total of [] minutes of critical care time on this patient's care today; this time is exclusive of procedural time.
[2022-03-09] MEDS: FUROSEMIDE 20 MG/2 ML VIAL IV (13:02)
--- NOTE | 2022-03-09 13:02 | PM.PN.1 ---
Subjective Subjective Interval history: Patient reports continued right leg pain, especially when he coughs, and he's asking for a cough suppressant this morning for this reason. He otherwise denies acute complaints. Exam Vital Signs (past 8 hours): - 03/09/22 05:05 03/09/22 05:10 03/09/22 05:15 Pulse Rate 100 H 99 H 99 H Respiratory Rate 19 18 19 Blood Pressure Pulse Oximetry 100 99 99 Oxygen Delivery Method Oxygen Flow Rate 03/09/22 05:20 03/09/22 05:25 03/09/22 06:00 Pulse Rate 99 H 99 H Respiratory Rate 17 19 Blood Pressure 128/60 Pulse Oximetry 100 99 Oxygen Delivery Method Oxygen Flow Rate 03/09/22 06:00 03/09/22 07:00 03/09/22 07:00 Pulse Rate 96 H 97 H Respiratory Rate 19 16 Blood Pressure 131/68 Pulse Oximetry 97 91 Oxygen Delivery Method Oxygen Flow Rate 03/09/22 08:00 03/09/22 08:00 03/09/22 09:00 Pulse Rate 98 H Respiratory Rate 21 Blood Pressure 126/73 142/66 H Pulse Oximetry 94 Oxygen Delivery Method Oxygen Flow Rate 03/09/22 09:00 03/09/22 09:00 03/09/22 10:00 Pulse Rate 99 H Respiratory Rate 24 Blood Pressure 141/65 H Pulse Oximetry 89 L Oxygen Delivery Method High Flow Nasal Cannula Oxygen Flow Rate 03/09/22 10:00 03/09/22 11:00 03/09/22 11:00 Pulse Rate 97 H 96 H Respiratory Rate 19 17 Blood Pressure 132/60 Pulse Oximetry 95 95 Oxygen Delivery Method Oxygen Flow Rate 03/09/22 11:34 03/09/22 11:34 03/09/22 11:36 Pulse Rate 99 H 101 H Respiratory Rate Blood Pressure 81/49 L Pulse Oximetry 90 L 92 Oxygen Delivery Method Oxygen Flow Rate 03/09/22 11:36 03/09/22 12:00 03/09/22 12:00 Pulse Rate 95 H Respiratory Rate 18 Blood Pressure 92/54 L 95/56 L Pulse Oximetry 93 Oxygen Delivery Method Oxygen Flow Rate 03/09/22 12:44 Pulse Rate 93 H Respiratory Rate 17 Blood Pressure 109/55 L Pulse Oximetry 92 Oxygen Delivery Method Oxygen Flow Rate 9 Oxygen Delivery Method High Flow Nasal Cannula Oxygen Flow Rate 9 Const Other: Patient sitting up in bed comfortably upon my entering the room, watching TV, in no apparent acute distress Eyes Other: No scleral icterus appreciated Resp Other: Faint rhonchi appreciated bilaterally Cardio Other: RRR, with normal S1 and S2 heart sounds, and no extra heart sounds or murmurs appreciated GI Other: Soft, non-tender, non-distended, bowel sounds present Skin Other: No grossly abnormal skin lesions noted Extrem Other: Palpable dorsalis pedis pulses bilaterally Objective Labs Result Diagrams: 03/09/22 05:25 03/09/22 05:25 Labs: Laboratory Results - last 24 hr 03/07/22 03/08/22 03/08/22 17:20 19:45 20:10 WBC RBC Hgb 8.2 L Hct 25.5 L MCV MCH MCHC RDW Plt Count Neut % (Auto) Lymph % (Auto) D[place]y % (Auto) Eos % (Auto) Baso % (Auto) Neut # (Auto) Lymph # (Auto) D[place]y # (Auto) Eos # (Auto) Baso # (Auto) Sodium Potassium Chloride Carbon Dioxide BUN Creatinine Estimated GFR BUN/Creatinine Ratio Glucose Calcium Magnesium Albumin Nasal Screen MRSA (PCR) Negative for mrsa Blood Type O Positive Antibody Screen Negative Crossmatch See Detail 03/09/22 03/09/22 03/09/22 05:25 05:25 05:25 WBC 10.2 RBC 2.91 L Hgb 8.1 L Hct 24.1 L MCV 82.8 MCH 27.7 MCHC 33.5 RDW 15.8 H Plt Count 118 L Neut % (Auto) 85.4 H Lymph % (Auto) 6.5 L Dooly % (Auto) 7.5 Eos % (Auto) 0.5 L Baso % (Auto) 0.1 Neut # (Auto) 8700 H Lymph # (Auto) 700 L D[place]y # (Auto) 800 Eos # (Auto) 0 Baso # (Auto) 0 Sodium 133 L Potassium 4.4 Chloride 97 L Carbon Dioxide 30 BUN 29 H Creatinine 1.08 Estimated GFR > 60 BUN/Creatinine Ratio 26.9 H Glucose 293 H Calcium 7.2 L Magnesium 1.5 L Albumin 2.8 L Nasal Screen MRSA (PCR) Blood Type Antibody Screen Crossmatch [facility] Medical History Anxiety Arthritis Ascending aorta enlargement BPH (benign prostatic hyperplasia) Brain aneurysm CAD (coronary artery disease) Calculus of kidney Chest pain Depression Diabetes mellitus Diabetic peripheral neuropathy Former smoker GERD (gastroesophageal reflux disease) Gout Hyperlipidemia Hypertension Myocardial infarction Phimosis Surgical History H/O cervical spine surgery H/O right knee surgery History of inguinal hernia repair, bilateral Hx of cystoscopy (08/15/19) Hx of heart artery stent (~1995) S/P triple vessel bypass (~01/2019) Family History Mother Coronary artery disease Father COPD (chronic obstructive pulmonary disease) Social History household members: spouse Smoking Status: Former smoker alcohol intake: former Assessment & Plan Assessment & Plan narrative: 1. Closed right intratrochanteric femur fracture, acute, secondary to fall from ladder (4-5 feet), present on admission -awaiting definitive treatment with surgical reduction and fixation -postop pain medication, DVT axis, PT and OT -Chest/abd/Pelvis CT: Comminuted right intertrochanteric femoral fracture, with?multilevel wedge shaped thoracolumbar compression fractures at T12, L1, L2 and L3. 2. Acute versus chronic respiratory failure with hypoxia and hypercapnia, acute, present on admission, possible due to aspiration pneumonia or chemical pneumonitis status post fall -febrile 99, BP 117/63, HR 79, R 11, O2 saturation 96% on 4 L. upon admit to the ED patient's respiratory rate was 24 with an O2 saturation of 74% on room air. -ABGs:? PH 7.34, pCO2 54.2, PO2 73, bicarb 29, T CO2 31, O2 saturation 93%, BE 4, FiO2 36. 3. Anemia, mild, acute, present on admission -likely secondary to fall and injury -H&H 10.8/32.4, 04/16/2019 H&H 14.2/44 -monitor patient for bleeding, trend hematology labs -hold Plavix preop 4. Brain aneurysm, chronic, present on admission -HeadCT :Probable anterior communicating artery aneurysm measures 1 cm- this is known to the patient. -Stable, managed [place] neurologist ? ?5. Insulin-dependent type 2 diabetic, chronic, with peripheral neuropathy, hyperlipidemia, chronic,? present on admission -admitted under diabetic protocol -A1c 7.6% -hold all oral medications while NPO -low-dose sliding scale postoperatively -Hold metformin -Continue regular insulin 3 units TID with meals - when taking PO -Continue glargine 20 units a.m. and 10 units at night -Correction scale insulin with accuchecks Q6HR while NPO -continue atorvastatin -Continue pregabalin 6. CAD, chronic, present on admission -Continue losartan 25mg -Continue metoprolol 25 mg b.i.d. -Continue atorvastatin -Continue clopidogrel- Hold -Continue nitroglycerine 0.4mg prn 7. GERD, chronic, present on admission -Continue pantoprazole 8. BPH, chronic, present on admission -Continue tamsulosin 0.4mg daily 9. Anxiety, chronic, present on admission -Continue buproprion 150mg in the morning 75mg at night Code status:Full Surrogate decision maker: Ousmanedaphne Kemar Spouse COVID PCR:Negative I confirm that the patient's advance care plan is present, code status is documented and listed in the patient's medical record. I have utilized all available immediate resources to obtain, update, or review the patient's current medications. Time Spent With Patient Critical Care time: I spent a total of [] minutes of critical care time on this patient's care today; this time is exclusive of procedural time. Quality MIPS - Admit I confirm the patient?s Advance Care Plan is present, Code status is documented, Surrogate decision maker is in patient?s record [If Yes, STOP here]: Yes
[2022-03-09] MEDS: MORPHINE 10 MG/0.5 ML ORAL SYRINGE PO (13:38)
--- NOTE | 2022-03-09 13:47 | CM.DPC ---
Addendum entered by Kathy Hutchins R.N. 03/09/22 14:35: Per Patricia @ [facility], pt can be accepted at their facility on Monday if pt medically stable. ADJ Original Note: DCP Cont: Spoke with PT and they are recommending SNF. DCP spoke with pt and pt spouse. Medicare choice list given. Ipad shown. Pt spouse wants referrals sent to [facility] and [facility]. Patricia @ [facility] aware and looking into case. Message was left for Jane @ [facility] to call back. OT eval ordered as well. DCP to continue following pt case. Kathy Hutchins RN/MOIP
--- NOTE | 2022-03-09 14:08 | PT.IPTN ---
Current Diagnoses Type 2 diabetes mellitus with diabetic polyneuropathy (03/07/22) Other acute postprocedural pain (03/07/22) Acute respiratory failure with hypoxia (03/07/22) Shock, unspecified (03/07/22) Displaced intertrochanteric fracture of right femur, initial encounter for closed fracture (03/07/22) Displaced subtrochanteric fracture of unspecified femur, initial encounter for closed fracture (03/07/22) Presence of coronary angioplasty implant and graft (03/07/22) Arthrodesis status (03/07/22) Surgery Performed Operation Date: 03/08/22 15:45 Actual Procedures p Intramedullary Nailing Femur(Right) - Alondra Pineda MD Physical Therapy Treatment Note M2 PT-IP Current Condition Start: 03/09/22 12:26 Freq: NEEDED Status: Active Protocol: Document 03/09/22 10:50 AB (Rec: 03/09/22 12:39 AB [id number]) Physical Therapy Current Condition Current Condition Evaluation Date 03/09/22 Treatment Diagnosis s/p fall; R subtroch hip fx s/ p ORIF; difficulty in walking Onset Date 03/07/22 M3 PT-IP Subjective Start: 03/09/22 12:26 Freq: NEEDED Status: Active Protocol: Document 03/09/22 13:45 KS (Rec: 03/09/22 14:35 KS [id number]) Subjective Physical Therapy Visit Type Type Treatment Note Visit Start Time 13:45 Visit Stop Time 14:08 Total Visit Minutes 23 Notes co-treat w/ OT, PHARMACEUTICAL SALES present for additional assistance Number of MILITARY SCIENCE INSTRUCTOR Visits 1 Physical Therapy Visit Comments Patient Comments c/o hip pain Therapy Pain Assessment Pain When Pain Assessed During Mobility Pain Present Pain Present Pain Reported Location right hip Scale Used not quantified Description With Movement Pain Behaviors Calling Out,Guarding,Holding Area,Wincing Pain Management Techniques Distraction,Elevation, Modification of Treatment,Re- positioning M4 PT-IP Mobility and Gait Start: 03/09/22 12:26 Freq: NEEDED Status: Active Protocol: Document 03/09/22 13:45 KS (Rec: 03/09/22 14:35 KS [id number]) PT-Bed Mobility Assessment Supine to Sit Supine to Sit Maximum Assistance,Total Assistance,2 Person Assistance ,Head of Bed Elevated Sit to Supine Sit to Supine Maximum Assistance,Total Assistance,2 Person Assistance ,Bedrails Scooting Scooting to Edge of Bed Dependent Scooting Up and Down in Bed Dependent PT-Transfer Assessment Comments Mobility Comments Pt in bed upon arrival and BP 97/53 supine w/ HOB slightly elevated. Pt able to move LLE w/ difficulty bu unable to move RLE. Required Max/Total A x2-3 for sup<>sit and scooting EOB. Once EOB, pt required SBA to Mod A for seated balance w/ frequent cues to keep eyes forward and lean forward. O2 dropped to mid 80s on 7L while pt EOB and pt became less alert w/ difficulty keeping eyes open. Pts B104/59 sitting EOB. He became tired requirign more assist for seated balance and requested to lay back down which required Max A x2. Pt dependent for scooting in bed. Left in bed w/ OT in room. Gait Assessment Comments Gait Comments unable at this time PT-Balance Assessment Sitting Balance and Reactions Static Sitting Balance Ability Poor Dynamic Sitting Balance Ability Poor M5 PT-IP Objective Assessments Start: 03/09/22 12:26 Freq: NEEDED Status: Active Protocol: Document 03/09/22 10:50 AB (Rec: 03/09/22 12:39 AB [id number]) Orientation Orientation/Cognition Level of Alertness Alert Orientation Name,Place,Situation Safety Awareness Decreased Safety Awareness Memory Description Short Term Impaired Gross Range of Motion Lower Extremity ROM Assessment Right Impaired Impairments RLE increase guarding affecting PROM test Strength Lower Extremity Strength Assessment Bilaterally Impaired Comments Strength Comments LLE: 4-/5 RLE: 2+/5 Muscle Tone Muscle Tone WNL Yes M6 PT-IP Treatment Start: 03/09/22 12:26 Freq: NEEDED Status: Active Protocol: Document 03/09/22 13:45 KS (Rec: 03/09/22 14:35 KS [id number]) Physical Therapy Treatment Education Education Provided Weight Bearing Status,Safety M7 PT-IP Assessment and Plan Start: 03/09/22 12:26 Freq: NEEDED Status: Active Protocol: Document 03/09/22 13:45 KS (Rec: 03/09/22 14:35 KS [id number]) PT Summary Assessment and Plan Potential Rehabilitation Potential Fair Summary Impairments Pain,ROM,Strength,Balance, Coordination,Sensation,Tone, Cognition,Bed Mobility, Transfers,Gait,Activity Tolerance Progress Towards Goals Slow Progress due to Pain,Slow Progress due to Medical Issues,Slow Progress due to Activity Tolerance Assessment Summary Pt unable to progress much w/ PT this afternoon and still required Max-Total Ax2-3 for bed mobility. He did sit EOB and for brief periods of time needed only SBA for seated balance, but mostly Mod A. Pt w/ decreased alertness, quick approach to fatigue, O2 desat to mid 80s on 7L during treatment. Not able to tolerate standing this treatment. Will continue to assess progress, but pt will require SNF to improve strength and functional mobility. Goals Bed Mobility Goal Minimal Assistance Transfer Goal Minimal Assistance,Front Wheeled Walker Gait Goal Minimal Assistance,Front Wheel Walker Gait Distance 25 Other Goals improve bed mobility, transfers and ambulation using FWW 50 ft SBA Days to Meet Goals 10 Frequency of Treatment Frequency Of Treatment Twice a Day Treatment Plan Physical Therapy Treatment Plan Bed Mobility Training,Transfer Training,Gait Training, Therapeutic Exercise,Balance Retraining,Post Op Education, Discharge Planning,Hot or Cold Pack,Neuromuscular Re-ed, Coordination Retraining,Manual Therapy Other Recommendations and Next Treatment Seated balance, sit<>Stand if Focus able. Weight Bearing Status Weight Bearing Status Partial Weight Bearing Allowed Weight Bearing Amount (enter % Clarified with ROBERTO Beck: or #) (%) 50% PWB on RLE Recommendations To Nursing Amount of Assist Needed Mechanical Lift Discharge Recommendations PT Discharge Recommendations SNF Rehab Transportation Needs at Discharge Wheelchair/Cabulance,Stretcher /Ambulance
--- NOTE | 2022-03-09 14:16 | OT.IP.EVAL ---
Current Diagnoses Type 2 diabetes mellitus with diabetic polyneuropathy (03/07/22) Other acute postprocedural pain (03/07/22) Acute respiratory failure with hypoxia (03/07/22) Shock, unspecified (03/07/22) Displaced intertrochanteric fracture of right femur, initial encounter for closed fracture (03/07/22) Displaced subtrochanteric fracture of unspecified femur, initial encounter for closed fracture (03/07/22) Presence of coronary angioplasty implant and graft (03/07/22) Arthrodesis status (03/07/22) Surgery Performed Operation Date: 03/08/22 15:45 Actual Procedures p Intramedullary Nailing Femur(Right) - Alondra Pineda MD Past Medical History (Last Reviewed 03/09/22 @ 11:12 by Jacoby Beck PA-C) Anxiety Arthritis Ascending aorta enlargement BPH (benign prostatic hyperplasia) Brain aneurysm CAD (coronary artery disease) Calculus of kidney Chest pain Depression Diabetes mellitus Diabetic peripheral neuropathy Former smoker GERD (gastroesophageal reflux disease) Gout Hyperlipidemia Hypertension Myocardial infarction Phimosis Surgical History (Last Reviewed 03/09/22 @ 11:12 by Jacoby Beck PA-C) H/O cervical spine surgery H/O right knee surgery History of inguinal hernia repair, bilateral Hx of cystoscopy (08/15/19) Hx of heart artery stent (~1995) S/P triple vessel bypass (~01/2019) Occupational Therapy Inpatient Evaluation/Re-Eval M1 PT/OT-IP Prior Functional Status Start: 03/09/22 12:26 Freq: NEEDED Status: Active Protocol: Document 03/09/22 14:18 [facility] (Rec: 03/09/22 14:37 [facility] [id number]) Medical Review Prior Functional Status Medical History Reviewed Yes Communication able to make needs known Mobility and Gait pt stated that he is modified independent with all mobilities and ambulation using a quad cane but occasionally uses a SPC Activities of Daily Living and IADL's Prior pt able to do all ADl, IADl and able to care for his chickens. Social History Household Members spouse Living Arrangements House Number of Floors (Floors) Two Floors Number of Stairs To Enter/Railing? 2 platform steps to enter the house 13 steps L rail to get to bedroom level Home Environment High Toilet,Tub/Shower Home Equipment Quad Cane,Straight Cane,Shower Seat with Backrest,Hand Held Shower M2 OT-IP Current Condition Start: 03/09/22 14:18 Freq: Status: Active Protocol: Document 03/09/22 14:18 [facility] (Rec: 03/09/22 14:37 [facility] [id number]) Occupational Therapy Current Condition Current Condition Evaluation Date 03/09/22 Treatment Diagnosis S/p fall R hips fx, S/P ORIF Diagnosis Onset Date 03/07/22 Weight Bearing Status Weight Bearing Status Partial Weight Bearing Allowed Weight Bearing Amount (enter % RLE partial WB 50% or #) (%) M3 OT- IP Subjective and Pain Start: 03/09/22 14:18 Freq: Status: Active Protocol: Document 03/09/22 14:18 [facility] (Rec: 03/09/22 14:37 [facility] [id number]) OT- Subjective Occupational Therapy Visit Type Type Initial Evaluation Visit Start Time 13:50 Visit Stop Time 14:16 Total Visit Minutes 26 Occupational Therapy Visit Comments Patient Comments Pt agreed to get up but very sleepy and having trouble to keep his eyes open. Pt's in the room. Patient/Caregiver Goals To get better. OT Pain Assessment Pain When Pain Assessed During Mobility Pain Present Pain Present Pain Reported Location right hip Pain Behaviors Facial Grimacing,Holding Area, Moaning M4 OT- IP ADL's Start: 03/09/22 14:18 Freq: Status: Active Protocol: Document 03/09/22 14:18 [facility] (Rec: 03/09/22 14:37 [facility] [id number]) OT [id number] Comments OT Self-Feeding Comments Not at meal time. OT ADL-Grooming Comments OT Grooming Comments NOt performed. OT ADL-Oral Care Comments Oral Care Comments Not performed. OT ADL-Dressing General Eval Lower Body Dressing Ability Total Assistance OT ADL-Toileting General Evaluation Toileting Ability Total Assistance Comments OT Toileting Comments Gardner in place. OT ADL-Bathing Comments OT Bathing Comments Sponge bath more appropriate at this time. M5 OT- IP IADL's Start: 03/09/22 14:18 Freq: Status: Active Protocol: Document 03/09/22 14:18 [facility] (Rec: 03/09/22 14:37 [facility] [id number]) OT-Instrumental Activities of Daily Living Home Safety Awareness Home Safety Comments Pt very drowsy at this time and having trouble to stay awake and answer questions. Medication Management Medication Management Comments Pt at home takes his own medications. Money Management Money Management Comments Prior pt's assist with all finances. Meal Preparation Meal Preparation Caregiver Provides Assist Ultrasound Coordinator Ultrasound Coordinator Caregiver Provides Assist M6 OT- IP Functional Cognition Start: 03/09/22 14:18 Freq: Status: Active Protocol: Document 03/09/22 14:18 [facility] (Rec: 03/09/22 14:37 [facility] [id number]) Cognitive Factors Limiting Selfcare Function Cognitive Ability Level of Alertness Drowsy Patient Orientation Name Attention Span Ability Unable to Focus,Unable to Sustain Attention Ability to Follow Commands Able to Follow One Step Commands with Increased Time, Able to Follow One Step Commands with Repetition Cognitive Comments Cognitive Assessment Comments Pt having trouble to stay awake and follow commands during OT eval session . OT- Vision and Hearing OT- Hearing Assessment OT- Hearing Assessment WFL OT- Vision Assessment Visual Acuity Glasses For Reading Visual Attentiveness WFL Occular Pursuits WFL Vision Assessment Comments Pt does not have his glasses here in the hospital. M7 OT- IP Mobility and Balance Start: 03/09/22 14:18 Freq: Status: Active Protocol: Document 03/09/22 14:18 [facility] (Rec: 03/09/22 14:37 [facility] [id number]) OT- Bed Mobility Assessment Supine to Sit Supine to Sit Assist Maximum Assistance,Total Assistance,2 Person Assistance ,Head of Bed Elevated Sit to Supine Sit to Supine Assist Maximum Assistance,Total Assistance,2 Person Assistance OT-Transfer Assessment Comments Mobility Comments Pt needing assist to move his right leg to the edge of the bed and able to move his left leg. Pt needing assist to move his trunk and legs together and sit upright to the edge of the bed. Pt needing MODA for sitting balance most of the time and at times able to sit with close SBA/CGA. Pt BP in bed 97/53 and sitting on the edge of the bed 104/59. Pt getting tired and wanting to lie back down Total A x3 from sit to supine. Pt on 7L on O2 and numbers dropped to 82% and needing cues for deep breathing. OT- Gait Assessment Comments Gait Ability Comments Bed mobility only able to be completed at this time. OT- Balance Assessment Sitting Balance and Reactions Static Sitting Balance Ability Poor Dynamic Sitting Balance Ability Poor M8 OT- IP Objective Assessments Start: 03/09/22 14:18 Freq: Status: Active Protocol: Document 03/09/22 14:18 [facility] (Rec: 03/09/22 14:37 [facility] [id number]) OT Gross Range of Motion Upper Extremity Range of Motion Assessment Bilaterally Impaired OT Strength Upper Extremity Strength Assessment Within Functional Limits OT- Coordination Assessment Comments Coordination Comments Pt too drowsy and not able to follow commands at this time. M9 OT- IP Assessment and Plan Start: 03/09/22 14:18 Freq: Status: Active Protocol: Document 03/09/22 14:18 [facility] (Rec: 03/09/22 14:37 [facility] [id number]) OT Summary Assessment and Plan Potential Rehabilitation Potential Good Analytic Complexity at Evaluation Moderate Summary OT Impairments Pain,Strength,Balance, Functional Cognition, Functional Mobility,Self- Feeding,Grooming,Dressing, Toileting,Bathing,Toilet Transfers,Shower Transfers, Activity Tolerance Progress Towards Goals Slow Progress due to Medical Issues,Slow Progress due to Activity Tolerance,Slow Progress due to Cognition Assessment Summary Pt main barriers are drowsy from pain medications and having difficulty to stay awake and follow commands, and now needing 2-3 person assist for mobility needs. Pt will benefit from skilled rehab prior to going home. Goals Self-Feeding Goal Independent Grooming Goal Independent Dressing Goal Independent Toileting Goal Independent Bathing Goal Independent Toilet Transfer Goal Independent Shower Transfer Goal Independent Days to Meet Goals 50 Frequency of Treatment Frequency Of Treatment Once a Day Treatment Plan OT Treatment Plan ADL Training,Functional Cognition Training,Functional Mobility,Patient/Family Education,Discharge Planning Other Treatment Recommendations and Next Pt to sit at edge of the bed Treatment Focus with CGA and able to do oral care/grooming needs. Discharge Recommendations OT Discharge Recommendations SNF Rehab Transportation Needs at Discharge Wheelchair/Cabulance
[2022-03-09] MEDS: PIPERACILLIN/TAZO 3.375 GM in SODIUM CHLORIDE 0.9% 100 ML IV ×2 (14:21→21:37)
--- NOTE | 2022-03-09 15:45 | PC.NURSE ---
Shift Note Patient alert and oriented with pleasant affect this shift. Complains of pain to right hip with any movement. Patient stated he gets hives from hydrocodone and oxycodone (added these to allergy list). Received order for codeine, but patient then stated he also gets hives from codeine (updated allergy list). Received order for morphine which patient states he can take. Aquacel dressings in place to right hip. Some drainage noted to dressing, but within absorbant border of aquacel and not getting larger throughout this shift. ROBERTO Beck up to see patient this AM and states patient is 50% or less weight bearing as tolerated to right leg. Patient worked with PT and OT this shift.
[2022-03-09] MEDS: INSULIN LISPRO 100 UNIT/ML 3ML VIAL 8 UNIT SUBCUT (17:29)
--- NOTE | 2022-03-09 20:14 | PM.ICURNDS ---
- Date Patient Seen: 03/09/22 Time Patient Seen: 20:14 :: This patient was seen via real time interactive two-way audiovisual telecommunication. Note: Patient is on 8 liters HFNC. Diuresed and put out ~800 mL. Off pressor. Current temp 100.7. Will continue gentle diuresis to seek net negative fluid balance. Continue vanc/zosyn and follow up cx data. D/w RN and patient.
[2022-03-09] MEDS: VANCOMYCIN 1,500 MG/300 ML PIGGYBACK 200 MG IV (21:37)
[2022-03-09] MEDS: buPROPion 75 MG TABLET PO (21:42)
[2022-03-09] MEDS: SENNOSIDES 8.6 MG TABLET 17.2 MG PO (21:42)
[2022-03-09] MEDS: ACETAMINOPHEN 325 MG TABLET 650 MG PO (23:37)
[2022-03-10] VITALS (16 sets, daily range): BP systolic 84–119; BP diastolic 51–62; PULSE 84–100; RESP 16–25; TEMP 36.6–37.9; O2SAT 93–98
[2022-03-10] MEDS: PIPERACILLIN/TAZO 3.375 GM in SODIUM CHLORIDE 0.9% 100 ML IV ×3 (05:14→21:08)
[2022-03-10 05:53] LABS: BUN Creatinine Ratio 18.5 (6-22); Blood Urea Nitrogen 27 mg/dL (9-20); Calcium 7.4 mg/dL (8.4-10.2); Carbon Dioxide 28 mmol/L (22-32); Chloride 99 mmol/L (98-107); Estimated Glomerular Filt Rate 50 mL/min (>60); Glucose 212 mg/dL (80-110); HEMOLYSIS < 15 (0-50); Magnesium 2.3 mg/dL (1.6-2.3); Sodium 134 mmol/L (137-145)
[2022-03-10 06:37] LABS: Add Manual Diff / Slide Review NO; Basophils Absolute Auto 0 /uL (0-100); Basophils Percent Auto 0.3 % (0-2); Eosinophils Absolute Auto 500 /uL (0-450); Eosinophils Percent Auto 5.9 % (2-4); Lymphocytes Absolute Auto 1000 /uL (1100-4500); Lymphocytes Percent Auto 11.6 % (25-40); Mean Corpuscular HGB Conc 33.5 % (30-36); Mean Corpuscular Hemoglobin 27.6 PG (26-34); Mean Corpuscular Volume 82.3 fL (80-100); Monocytes Absolute Auto 800 /uL (0-900); Monocytes Percent Auto 9.9 % (3-14); Neutrophils Absolute Auto 6200 /uL (1500-7000); Neutrophils Percent Auto 72.3 % (50-75); Platelet Count 104 X10^3/uL (150-400); Red Blood Cell Count 2.48 X10^6/uL (4.5-5.9); Red Cell Distribution Width 15.4 % (11.6-14.8); White Blood Cell Count 8.6 X10^3/uL (4.5-11.0)
[2022-03-10 06:47] LABS: Hematocrit 20.8 % (41-53); Hemoglobin 6.9 g/dL (13.5-17.5)
--- NOTE | 2022-03-10 07:03 | PC.NURSE ---
Received call from lab about critical values for H&H: 6.9 and 20.8. Notified provider. 2 units of RBCs ordered.
[2022-03-10] MEDS: INSULIN GLARGINE 100 UNIT/ML 3ML PEN 15 UNIT SUBCUT ×2 (08:56→21:27)
[2022-03-10] MEDS: INSULIN LISPRO 100 UNIT/ML 3ML VIAL 7 UNIT SUBCUT ×2 (08:56→12:33)
[2022-03-10] MEDS: INSULIN LISPRO 100 UNIT/ML 3ML VIAL SUBCUT ×4 (08:57→21:26)
[2022-03-10] MEDS: ESCITALOPRAM 10 MG TABLET 20 MG PO (09:43)
[2022-03-10] MEDS: CLOPIDOGREL 75 MG TABLET PO (09:43)
[2022-03-10] MEDS: LOSARTAN 25 MG TABLET PO (09:43)
[2022-03-10] MEDS: PANTOPRAZOLE DR 40 MG TABLET PO (09:43)
[2022-03-10] MEDS: METOPROLOL IR 25 MG TABLET PO (09:43)
[2022-03-10] MEDS: ZINC SULFATE 220 MG CAPSULE PO (09:43)
[2022-03-10] MEDS: ATORVASTATIN 20 MG TABLET 80 MG PO (09:43)
[2022-03-10] MEDS: CHOLECALCIFEROL (VITAMIN D3) 400 UNIT TABLET PO (09:43)
[2022-03-10] MEDS: PREGABALIN 50 MG CAPSULE 150 MG PO ×2 (09:43→21:07)
[2022-03-10] MEDS: buPROPion 75 MG TABLET 150 MG PO (09:43)
[2022-03-10] MEDS: polyethylene glycoL 3350 17 GM POWD.PACK PO (09:44)
--- NOTE | 2022-03-10 10:19 | OT.IPNOTE ---
Pt low H and H numbers and to be getting blood today, hold for therapy.
[2022-03-10] MEDS: FUROSEMIDE 20 MG/2 ML VIAL IV (12:21)
--- NOTE | 2022-03-10 13:28 | CM.DPC ---
DCP Cont: Discussed patient during team rounds. He is currently on 8 liters of oxygen. Confirmed with Patricia at [facility] that they can accept patients under 10 liters. Patient was eligible for [facility] today, since it was his third Medicare midnight, but he is currently medically unstable at this time. Confirmed with Patricia at [facility] that they can accept patient tomorrow if he is medically stable. P: DCP to continue to follow. Plan is [facility] when deemed medically stable. Ariela Lopez RN/Box Loader
--- NOTE | 2022-03-10 13:36 | PT-IP ANOTE ---
Per rounds, hold therapy due to pt low H&H, needs transfusion and new labs.
[2022-03-10 14:05] LABS: Hematocrit 27.9 % (41-53); Hemoglobin 9.7 g/dL (13.5-17.5)
--- NOTE | 2022-03-10 14:20 | PM.PN.1 ---
Subjective Subjective Interval history: Patient endorses markedly improved right leg pain, along with improvement of his cough, after initiation of tylenol with codeine syrup yesterday. Hemoglobin slightly low today, and quality systems technician ordered 2 units RBC transfusion. Exam Vital Signs (past 8 hours): - 03/10/22 07:52 03/10/22 08:04 03/10/22 08:00 Temperature 98.2 F 98.9 F 98.6 F Pulse Rate 88 84 84 Respiratory Rate 21 24 22 Blood Pressure 84/54 L 90/54 L 97/51 L Pulse Oximetry 96 Oxygen Delivery Method Oxygen Flow Rate 7 03/10/22 08:49 03/10/22 09:34 03/10/22 09:48 Temperature 98.0 F 98.9 F Pulse Rate 90 89 Respiratory Rate 22 20 Blood Pressure 108/57 L 114/61 Pulse Oximetry Oxygen Delivery Method High Flow Nasal Cannula Oxygen Flow Rate 03/10/22 10:07 03/10/22 11:32 03/10/22 11:30 Temperature 98.8 F 98.5 F 98.5 F Pulse Rate 92 H 92 H 92 H Respiratory Rate 21 23 23 Blood Pressure 112/59 L 109/59 L 109/59 L Pulse Oximetry 95 Oxygen Delivery Method Oxygen Flow Rate 6 Oxygen Delivery Method High Flow Nasal Cannula Oxygen Flow Rate 6 Const Other: Patient laying in bed comfortably upon my entering the room, watching TV, in no apparent acute distress Eyes Other: No scleral icterus appreciated Resp Other: Faint rhonchi appreciated bilaterally Cardio Other: RRR, with normal S1 and S2 heart sounds, and no extra heart sounds or murmurs appreciated GI Other: Soft, non-tender, non-distended, bowel sounds present Skin Other: No grossly abnormal skin lesions noted Extrem Other: Palpable dorsalis pedis pulses bilaterally Objective Labs Result Diagrams: 03/10/22 14:00 03/10/22 05:34 Labs: Laboratory Results - last 24 hr 03/07/22 03/10/22 03/10/22 17:20 05:34 05:34 WBC 8.6 RBC 2.48 L Hgb 6.9 L* Hct 20.8 L* MCV 82.3 MCH 27.6 MCHC 33.5 RDW 15.4 H Plt Count 104 L Neut % (Auto) 72.3 Lymph % (Auto) 11.6 L Amador % (Auto) 9.9 Eos % (Auto) 5.9 H Baso % (Auto) 0.3 Neut # (Auto) 6200 Lymph # (Auto) 1000 L Amador # (Auto) 800 Eos # (Auto) 500 H Baso # (Auto) 0 Sodium 134 L Potassium 4.0 Chloride 99 Carbon Dioxide 28 BUN 27 H Creatinine 1.46 H Estimated GFR 50 L BUN/Creatinine Ratio 18.5 Glucose 212 H Calcium 7.4 L Magnesium 2.3 Blood Type O Positive Antibody Screen Negative Crossmatch See Detail 03/10/22 14:00 WBC RBC Hgb 9.7 L Hct 27.9 L MCV MCH MCHC RDW Plt Count Neut % (Auto) Lymph % (Auto) Amador % (Auto) Eos % (Auto) Baso % (Auto) Neut # (Auto) Lymph # (Auto) Am[place] # (Auto) Eos # (Auto) Baso # (Auto) Sodium Potassium Chloride Carbon Dioxide BUN Creatinine Estimated GFR BUN/Creatinine Ratio Glucose Calcium Magnesium Blood Type Antibody Screen Crossmatch [facility] Medical History Anxiety Arthritis Ascending aorta enlargement BPH (benign prostatic hyperplasia) Brain aneurysm CAD (coronary artery disease) Calculus of kidney Chest pain Depression Diabetes mellitus Diabetic peripheral neuropathy Former smoker GERD (gastroesophageal reflux disease) Gout Hyperlipidemia Hypertension Myocardial infarction Phimosis Surgical History H/O cervical spine surgery H/O right knee surgery History of inguinal hernia repair, bilateral Hx of cystoscopy (08/15/19) Hx of heart artery stent (~1995) S/P triple vessel bypass (~01/2019) Family History Mother Coronary artery disease Father COPD (chronic obstructive pulmonary disease) Social History household members: spouse Smoking Status: Former smoker alcohol intake: former Assessment & Plan Assessment & Plan narrative: 1. Closed right intratrochanteric femur fracture, acute, secondary to fall from ladder (4-5 feet), present on admission -awaiting definitive treatment with surgical reduction and fixation -postop pain medication, DVT axis, PT and OT -Chest/abd/Pelvis CT: Comminuted right intertrochanteric femoral fracture, with?multilevel wedge shaped thoracolumbar compression fractures at T12, L1, L2 and L3. 2. Acute versus chronic respiratory failure with hypoxia and hypercapnia, acute, present on admission, possible due to aspiration pneumonia or chemical pneumonitis status post fall -febrile 99, BP 117/63, HR 79, R 11, O2 saturation 96% on 4 L. upon admit to the ED patient's respiratory rate was 24 with an O2 saturation of 74% on room air. -ABGs:? PH 7.34, pCO2 54.2, PO2 73, bicarb 29, T CO2 31, O2 saturation 93%, BE 4, FiO2 36. 3. Anemia, mild, likely due to acute post-op blood loss anemia -likely secondary to fall and injury, and acute post-op blood loss -pt has required 4 units RBC so far -monitor patient for bleeding, trend hematology labs -hold Plavix preop 4. 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 -Stable, managed by neurologist ? ?5. Insulin-dependent type 2 diabetic, chronic, with peripheral neuropathy, hyperlipidemia, chronic,? present on admission -admitted under diabetic protocol -A1c 7.6% -low-dose sliding scale postoperatively -Hold metformin -Continue regular insulin 3 units TID with meals - when taking PO -Continue glargine 20 units a.m. and 10 units at night -Correction scale insulin with accuchecks Q6HR while NPO -continue atorvastatin -Continue pregabalin 6. CAD, chronic, present on admission -Continue losartan 25mg -Continue metoprolol 25 mg b.i.d. -Continue atorvastatin -Continue clopidogrel- Hold -Continue nitroglycerine 0.4mg prn 7. GERD, chronic, present on admission -Continue pantoprazole 8. BPH, chronic, present on admission -Continue tamsulosin 0.4mg daily 9. Anxiety, chronic, present on admission -Continue buproprion 150mg in the morning 75mg at night Code status: Full Surrogate decision maker: Ousmanedaphne Kemar Spouse COVID PCR: Negative Time Spent With Patient Critical Care time: I spent a total of [] minutes of critical care time on this patient's care today; this time is exclusive of procedural time.
--- NOTE | 2022-03-10 14:37 | P.PN_ITS ---
Subjective Subjective Date Patient Seen: 03/10/22 Time Patient Seen: 14:37 Interval history: Patient is complaining of moderate right leg pain. He is improving as compared to yesterday. Working with physical therapy. He is evaluated today by both myself and Dr. Pineda. Exam Vital Signs (past 8 hours): - 03/10/22 07:52 03/10/22 08:04 03/10/22 08:00 Temperature 98.2 F 98.9 F 98.6 F Pulse Rate 88 84 84 Respiratory Rate 21 24 22 Blood Pressure 84/54 L 90/54 L 97/51 L Pulse Oximetry 96 Oxygen Delivery Method Oxygen Flow Rate 7 03/10/22 08:49 03/10/22 09:34 03/10/22 09:48 Temperature 98.0 F 98.9 F Pulse Rate 90 89 Respiratory Rate 22 20 Blood Pressure 108/57 L 114/61 Pulse Oximetry Oxygen Delivery Method High Flow Nasal Cannula Oxygen Flow Rate 03/10/22 10:07 03/10/22 11:32 03/10/22 11:30 Temperature 98.8 F 98.5 F 98.5 F Pulse Rate 92 H 92 H 92 H Respiratory Rate 21 23 23 Blood Pressure 112/59 L 109/59 L 109/59 L Pulse Oximetry 95 Oxygen Delivery Method Oxygen Flow Rate 6 Oxygen Delivery Method High Flow Nasal Cannula Oxygen Flow Rate 6 Narrative Exam Narrative: Pleasant 76-year-old male, resting comfortably in bed, no acute distress. Dressing demonstrates bloody discharge in approximately 1/3 to 1/2 of each Aquacel. No surrounding erythema or induration. Bilateral lower extremity: Motor functions are grossly intact, his sensation is decreased bilaterally (history of peripheral neuropathy), bilateral calves are soft and nontender to palpation. Objective Labs Result Diagrams: 03/11/22 04:47 03/11/22 04:47 Labs: Laboratory Results - last 24 hr 03/07/22 03/10/22 03/10/22 17:20 05:34 05:34 WBC 8.6 RBC 2.48 L Hgb 6.9 L* Hct 20.8 L* MCV 82.3 MCH 27.6 MCHC 33.5 RDW 15.4 H Plt Count 104 L Neut % (Auto) 72.3 Lymph % (Auto) 11.6 L [place] % (Auto) 9.9 Eos % (Auto) 5.9 H Baso % (Auto) 0.3 Neut # (Auto) 6200 Lymph # (Auto) 1000 L [place] # (Auto) 800 Eos # (Auto) 500 H Baso # (Auto) 0 Sodium 134 L Potassium 4.0 Chloride 99 Carbon Dioxide 28 BUN 27 H Creatinine 1.46 H Estimated GFR 50 L BUN/Creatinine Ratio 18.5 Glucose 212 H Calcium 7.4 L Magnesium 2.3 Blood Type O Positive Antibody Screen Negative Crossmatch See Detail 03/10/22 14:00 WBC RBC Hgb 9.7 L Hct 27.9 L MCV MCH MCHC RDW Plt Count Neut % (Auto) Lymph % (Auto) Glades % (Auto) Eos % (Auto) Baso % (Auto) Neut # (Auto) Lymph # (Auto) Gl[place] # (Auto) Eos # (Auto) Baso # (Auto) Sodium Potassium Chloride Carbon Dioxide BUN Creatinine Estimated GFR BUN/Creatinine Ratio Glucose Calcium Magnesium Blood Type Antibody Screen Crossmatch [facility] Medical History Anxiety Arthritis Ascending aorta enlargement BPH (benign prostatic hyperplasia) Brain aneurysm CAD (coronary artery disease) Calculus of kidney Chest pain Depression Diabetes mellitus Diabetic peripheral neuropathy Former smoker GERD (gastroesophageal reflux disease) Gout Hyperlipidemia Hypertension Myocardial infarction Phimosis Surgical History H/O cervical spine surgery H/O right knee surgery History of inguinal hernia repair, bilateral Hx of cystoscopy (08/15/19) Hx of heart artery stent (~1995) S/P triple vessel bypass (~01/2019) Family History Mother Coronary artery disease Father COPD (chronic obstructive pulmonary disease) Social History household members: spouse Smoking Status: Former smoker alcohol intake: former Assessment & Plan Post-op Postoperative Procedures: Procedures Operation Date: 03/08/22 15:45 Actual Procedure Side Surgeon p Intramedullary Nailing Femur Right Alondra Pineda MD Postoperative status narrative: Status post intramedullary nailing right proximal femur fracture Acute respiratory failure with hypoxemia, Shock PNA, Acute blood loss anemia managed by internal medicine Postoperative plan narrative: Work with PT/OT, mobilize with therapy as tolerated, partial weight-bearing right lower extremity Multimodal pain management -he is normally on Plavix for chronic anticoagulation, this should be sufficient for DVT prophylaxis. Disposition, to be determined
--- NOTE | 2022-03-10 15:05 | OT.IP.TRT ---
Current Diagnoses Type 2 diabetes mellitus with diabetic polyneuropathy (03/07/22) Other acute postprocedural pain (03/07/22) Acute respiratory failure with hypoxia (03/07/22) Shock, unspecified (03/07/22) Displaced intertrochanteric fracture of right femur, initial encounter for closed fracture (03/07/22) Displaced subtrochanteric fracture of unspecified femur, initial encounter for closed fracture (03/07/22) Presence of coronary angioplasty implant and graft (03/07/22) Arthrodesis status (03/07/22) Surgery Performed Operation Date: 03/08/22 15:45 Actual Procedures p Intramedullary Nailing Femur(Right) - Alondra Pineda MD Occupational Therapy Treatment Note M2 OT-IP Current Condition Start: 03/09/22 14:18 Freq: Status: Active Protocol: Document 03/09/22 14:18 [facility] (Rec: 03/09/22 14:37 [facility] [id number]) Occupational Therapy Current Condition Current Condition Evaluation Date 03/09/22 Treatment Diagnosis S/p fall R hips fx, S/P ORIF Diagnosis Onset Date 03/07/22 Weight Bearing Status Weight Bearing Status Partial Weight Bearing Allowed Weight Bearing Amount (enter % RLE partial WB 50% or #) (%) M3 OT- IP Subjective and Pain Start: 03/09/22 14:18 Freq: Status: Active Protocol: Document 03/10/22 15:09 [facility] (Rec: 03/10/22 15:19 [facility] [id number]) OT- Subjective Occupational Therapy Visit Type Type Treatment Note Visit Start Time 14:40 Visit Stop Time 15:05 Total Visit Minutes 25 Occupational Therapy Visit Comments Patient Comments Pt's HH improved 9.7 and 27.9 and agreed to try to get up. Patient/Caregiver Goals To get better. OT Pain Assessment Pain When Pain Assessed During Mobility Pain Present Pain Present Pain Reported M4 OT- IP ADL's Start: 03/09/22 14:18 Freq: Status: Active Protocol: Document 03/09/22 14:18 [facility] (Rec: 03/09/22 14:37 [facility] [id number]) OT [id number] Comments OT Self-Feeding Comments Not at meal time. OT ADL-Grooming Comments OT Grooming Comments NOt performed. OT ADL-Oral Care Comments Oral Care Comments Not performed. OT ADL-Dressing General Eval Lower Body Dressing Ability Total Assistance OT ADL-Toileting General Evaluation Toileting Ability Total Assistance Comments OT Toileting Comments Gardner in place. OT ADL-Bathing Comments OT Bathing Comments Sponge bath more appropriate at this time. M7 OT- IP Mobility and Balance Start: 03/09/22 14:18 Freq: Status: Active Protocol: Document 03/10/22 15:09 [facility] (Rec: 03/10/22 15:19 [facility] [id number]) OT- Bed Mobility Assessment Supine to Sit Supine to Sit Assist Maximum Assistance,2 Person Assistance,Head of Bed Elevated Sit to Supine Sit to Supine Assist Maximum Assistance,Total Assistance,2 Person Assistance OT-Transfer Assessment Comments Mobility Comments Pt able to move his LLE better to the edge of the bed and still needing assist to help move his RLE. Heavy assist with green pad to help get his trunk upright-. BP HOB up 113 /59, sitting 97/57 and 123/64, standing 102/59, and sitting 114/59. MAX XA3 to help get to standing and able to stand with MODA x 2 with FWW for one minute before having to sit back down. OT- Balance Assessment Sitting Balance and Reactions Static Sitting Balance Ability Fair Dynamic Sitting Balance Ability Poor Standing Balance and Reactions Static Standing Balance Ability Poor Comments Other Balance Tests/Deviations/Treatment Pt initially needing MODA to : for sitting balance and at the end was able to sit with SBA. M9 OT- IP Assessment and Plan Start: 03/09/22 14:18 Freq: Status: Active Protocol: Document 03/10/22 15:09 [facility] (Rec: 03/10/22 15:19 [facility] [id number]) OT Summary Assessment and Plan Potential Rehabilitation Potential Good Analytic Complexity at Evaluation Moderate Summary OT Impairments Pain,Strength,Balance, Functional Cognition, Functional Mobility,Self- Feeding,Grooming,Dressing, Toileting,Bathing,Toilet Transfers,Shower Transfers, Activity Tolerance Progress Towards Goals Slow Progress due to Pain,Slow Progress due to Activity Tolerance,Slow Progress due to Cognition Assessment Summary Pt HH improved after receiving blood and able to tolerate standing for one minute with initial 2-3 person assist for bed mobility and help to stand to FWW and maintain the PWB. Pt will greatly benefit from skilled rehab when medically appropriate. Goals Self-Feeding Goal Independent Grooming Goal Independent Dressing Goal Independent Toileting Goal Independent Bathing Goal Independent Toilet Transfer Goal Independent Shower Transfer Goal Independent Days to Meet Goals 49 Frequency of Treatment Frequency Of Treatment Once a Day Treatment Plan OT Treatment Plan ADL Training,Functional Cognition Training,Functional Mobility,Patient/Family Education,Discharge Planning Other Treatment Recommendations and Next Pt to sit at edge of the bed Treatment Focus with CGA and able to do oral care/grooming needs. Discharge Recommendations OT Discharge Recommendations SNF Rehab Transportation Needs at Discharge Wheelchair/Cabulance
--- NOTE | 2022-03-10 15:05 | PT.IPTN ---
Current Diagnoses Type 2 diabetes mellitus with diabetic polyneuropathy (03/07/22) Other acute postprocedural pain (03/07/22) Acute respiratory failure with hypoxia (03/07/22) Shock, unspecified (03/07/22) Displaced intertrochanteric fracture of right femur, initial encounter for closed fracture (03/07/22) Displaced subtrochanteric fracture of unspecified femur, initial encounter for closed fracture (03/07/22) Presence of coronary angioplasty implant and graft (03/07/22) Arthrodesis status (03/07/22) Surgery Performed Operation Date: 03/08/22 15:45 Actual Procedures p Intramedullary Nailing Femur(Right) - Alondra Pineda MD Physical Therapy Treatment Note M2 PT-IP Current Condition Start: 03/09/22 12:26 Freq: NEEDED Status: Active Protocol: Document 03/09/22 10:50 [facility] (Rec: 03/09/22 12:39 [facility] [id number]) Physical Therapy Current Condition Current Condition Evaluation Date 03/09/22 Treatment Diagnosis s/p fall; R subtroch hip fx s/ p ORIF; difficulty in walking Onset Date 03/07/22 M3 PT-IP Subjective Start: 03/09/22 12:26 Freq: NEEDED Status: Active Protocol: Document 03/10/22 14:40 [facility] (Rec: 03/10/22 15:26 [facility] [id number]) Subjective Physical Therapy Visit Type Type Treatment Note Visit Start Time 14:40 Visit Stop Time 15:05 Total Visit Minutes 25 Notes co-treat w/ OT, DIRECTOR OF CONTENT MARKETING present for additional assistance Number of FLIGHT ATTENDANT/INFLIGHT SUPERVISOR Visits 2 Physical Therapy Visit Comments Patient Comments c/o hip pain, agreeable to mobilize Therapy Pain Assessment Pain When Pain Assessed During Mobility Pain Present Pain Present Pain Reported Location right hip Intensity 7 Scale Used Numeric (0 - 10) Pain Behaviors Facial Grimacing,Guarding, Moaning,Wincing Pain Management Techniques Distraction,Modification of Treatment,Re-positioning, Timing of Activity with Medications M4 PT-IP Mobility and Gait Start: 03/09/22 12:26 Freq: NEEDED Status: Active Protocol: Document 03/10/22 14:40 [facility] (Rec: 03/10/22 15:26 [facility] [id number]) PT-Bed Mobility Assessment Supine to Sit Supine to Sit Maximum Assistance,Total Assistance,2 Person Assistance ,Head of Bed Elevated Sit to Supine Sit to Supine Maximum Assistance,Total Assistance,2 Person Assistance ,Bedrails Scooting Scooting to Edge of Bed Maximum Assistance Scooting Up and Down in Bed Dependent PT-Transfer Assessment Sit to and From Stand Sit to and from Stand Maximum Assistance,2 Person Assistance,Use of Upper Extremities Equipment Transfer Assistive Device Gait Belt,Front Wheeled Walker Orthotic/Prosthetic Devices or Brace: No Transfers Transfer Destination Bed Transfer Technique sit<>stand Comments Mobility Comments Pt in bed upon arrival, required Max Ax2 for sup<>sit and scooting EOB. BP 97/55 sitting and pt slightly dizzy but dizziness subsided and BP stable. Pt at first requiring Mod A for seated balance but then able to sit upright CGA w / cues for leaning forward and bed rail. Pt attempted to stand and first attempt unsuccessful due to pain but second attempt successful w/ Max A x3. Pt able to maintain RLE PWB w/ knee flexed and this therapists toes under pt to prevent full weight bearing . He required Mod a X2 w/ FWW and cues for weight shifting and upright posture to maintain standing balance ~1 min. Pt Mod A x2 for slow descent and Max x2-3 for sit<> sup and scooting up in bed. Gait Assessment Comments Gait Comments unable at this time PT-Balance Assessment Sitting Balance and Reactions Static Sitting Balance Ability Fair Dynamic Sitting Balance Ability Poor Standing Balance and Reactions Static Standing Balance Ability Poor Dynamic Standing Balance Ability Poor Device Used FWW M5 PT-IP Objective Assessments Start: 03/09/22 12:26 Freq: NEEDED Status: Active Protocol: Document 03/09/22 10:50 [facility] (Rec: 03/09/22 12:39 [facility] [id number]) Orientation Orientation/Cognition Level of Alertness Alert Orientation Name,Place,Situation Safety Awareness Decreased Safety Awareness Memory Description Short Term Impaired Gross Range of Motion Lower Extremity ROM Assessment Right Impaired Impairments RLE increase guarding affecting PROM test Strength Lower Extremity Strength Assessment Bilaterally Impaired Comments Strength Comments LLE: 4-/5 RLE: 2+/5 Muscle Tone Muscle Tone WNL Yes M6 PT-IP Treatment Start: 03/09/22 12:26 Freq: NEEDED Status: Active Protocol: Document 03/10/22 14:40 [facility] (Rec: 03/10/22 15:26 [facility] [id number]) Physical Therapy Treatment Education Education Provided Weight Bearing Status,Safety M7 PT-IP Assessment and Plan Start: 03/09/22 12:26 Freq: NEEDED Status: Active Protocol: Document 03/10/22 14:40 [facility] (Rec: 03/10/22 15:26 [facility] [id number]) PT Summary Assessment and Plan Potential Rehabilitation Potential Fair Summary Impairments Pain,ROM,Strength,Balance, Coordination,Sensation,Tone, Cognition,Bed Mobility, Transfers,Gait,Activity Tolerance Progress Towards Goals Slow Progress due to Pain,Slow Progress due to Medical Issues,Slow Progress due to Activity Tolerance Assessment Summary Pt w/ slow progress, still requring Max A x2-3 for bed mobility but able to perform sit<>stand on second attempt w / FWW Max Ax2-3 and maintained standing balance PWB w/ Mod A x2 and cues. Will continue to assess progress, but pt will require SNF to improve strength and functional mobility. Goals Bed Mobility Goal Minimal Assistance Transfer Goal Minimal Assistance,Front Wheeled Walker Gait Goal Minimal Assistance,Front Wheel Walker Gait Distance 25 Other Goals improve bed mobility, transfers and ambulation using FWW 50 ft SBA Days to Meet Goals 10 Frequency of Treatment Frequency Of Treatment Twice a Day Treatment Plan Physical Therapy Treatment Plan Bed Mobility Training,Transfer Training,Gait Training, Therapeutic Exercise,Balance Retraining,Post Op Education, Discharge Planning,Hot or Cold Pack,Neuromuscular Re-ed, Coordination Retraining,Manual Therapy Other Recommendations and Next Treatment Seated balance, sit<>Stand, Focus transfer when appropriate. Weight Bearing Status Weight Bearing Status Partial Weight Bearing Allowed Weight Bearing Amount (enter % Clarified with ROBERTO Beck: or #) (%) 50% PWB on RLE Recommendations To Nursing Amount of Assist Needed Mechanical Lift Discharge Recommendations PT Discharge Recommendations SNF Rehab Transportation Needs at Discharge Wheelchair/Cabulance,Stretcher /Ambulance
[2022-03-10] MEDS: ACETAMINOPHEN 325 MG TABLET 650 MG PO (15:08)
[2022-03-10] MEDS: INSULIN LISPRO 100 UNIT/ML 3ML VIAL 8 UNIT SUBCUT (17:24)
[2022-03-10] MEDS: buPROPion 75 MG TABLET PO (21:08)
[2022-03-10] MEDS: SENNOSIDES 8.6 MG TABLET 17.2 MG PO (21:08)
[2022-03-10] MEDS: VANCOMYCIN 1,000 MG/200 ML PIGGYBACK 200 MG IV (21:09)
[2022-03-10] MEDS: SODIUM CHLORIDE 0.9% FLUSH 10 ML IV (21:19)
[2022-03-11] VITALS (11 sets, daily range): BP systolic 102–148; BP diastolic 58–76; PULSE 81–99; RESP 18–24; TEMP 36.5–37.3; O2SAT 88–97
[2022-03-11] MEDS: METOPROLOL IR 25 MG TABLET PO ×3 (00:11→20:44)
[2022-03-11] MEDS: ACETAMINOPHEN 325 MG TABLET 650 MG PO (00:11)
[2022-03-11 04:57] LABS: Add Manual Diff / Slide Review NO; Basophils Absolute Auto 0 /uL (0-100); Basophils Percent Auto 0.3 % (0-2); Eosinophils Absolute Auto 700 /uL (0-450); Eosinophils Percent Auto 7.3 % (2-4); Hematocrit 26.1 % (41-53); Lymphocytes Absolute Auto 900 /uL (1100-4500); Lymphocytes Percent Auto 9.6 % (25-40); Mean Corpuscular HGB Conc 34.5 % (30-36); Mean Corpuscular Hemoglobin 28.7 PG (26-34); Mean Corpuscular Volume 83.4 fL (80-100); Monocytes Absolute Auto 800 /uL (0-900); Monocytes Percent Auto 8.3 % (3-14); Neutrophils Absolute Auto 6900 /uL (1500-7000); Neutrophils Percent Auto 74.5 % (50-75); Platelet Count 123 X10^3/uL (150-400); Red Blood Cell Count 3.13 X10^6/uL (4.5-5.9); Red Cell Distribution Width 15.8 % (11.6-14.8); White Blood Cell Count 9.3 X10^3/uL (4.5-11.0)
[2022-03-11 05:06] LABS: BUN Creatinine Ratio 21.7 (6-22); Blood Urea Nitrogen 25 mg/dL (9-20); Calcium 7.6 mg/dL (8.4-10.2); Carbon Dioxide 29 mmol/L (22-32); Chloride 99 mmol/L (98-107); Estimated Glomerular Filt Rate > 60 mL/min (>60); Glucose 235 mg/dL (80-110); HEMOLYSIS < 15 (0-50); Magnesium 1.9 mg/dL (1.6-2.3); Sodium 136 mmol/L (137-145)
[2022-03-11] MEDS: PIPERACILLIN/TAZO 3.375 GM in SODIUM CHLORIDE 0.9% 100 ML IV ×3 (05:44→22:01)
[2022-03-11] MEDS: INSULIN LISPRO 100 UNIT/ML 3ML VIAL 7 UNIT SUBCUT ×2 (07:57→12:15)
[2022-03-11] MEDS: INSULIN LISPRO 100 UNIT/ML 3ML VIAL SUBCUT ×3 (07:58→16:56)
[2022-03-11] MEDS: INSULIN GLARGINE 100 UNIT/ML 3ML PEN 15 UNIT SUBCUT (09:22)
[2022-03-11] MEDS: polyethylene glycoL 3350 17 GM POWD.PACK PO (09:23)
[2022-03-11] MEDS: LOSARTAN 25 MG TABLET PO (09:23)
[2022-03-11] MEDS: ZINC SULFATE 220 MG CAPSULE PO (09:23)
[2022-03-11] MEDS: CLOPIDOGREL 75 MG TABLET PO (09:23)
[2022-03-11] MEDS: ATORVASTATIN 20 MG TABLET 80 MG PO (09:24)
[2022-03-11] MEDS: ESCITALOPRAM 10 MG TABLET 20 MG PO (09:24)
[2022-03-11] MEDS: PREGABALIN 50 MG CAPSULE 150 MG PO ×2 (09:24→20:44)
[2022-03-11] MEDS: buPROPion 75 MG TABLET 150 MG PO (09:25)
[2022-03-11] MEDS: PANTOPRAZOLE DR 40 MG TABLET PO (09:25)
[2022-03-11] MEDS: CHOLECALCIFEROL (VITAMIN D3) 400 UNIT TABLET PO (09:25)
[2022-03-11] MEDS: SODIUM CHLORIDE 0.9% FLUSH 10 ML IV ×2 (09:36→20:41)
[2022-03-11] MEDS: HYDROMORPHONE 1 MG INJ IV ×2 (09:42→20:44)
--- NOTE | 2022-03-11 10:41 | PT-IP ANOTE ---
Per RN, hold PT this morning, pt not currently A&O enough and sleeping. Also unsure if pt is heading back to OR.
--- NOTE | 2022-03-11 10:42 | OT.IPNOTE ---
Per nursing pt not orientated, confused and just given pain medication. Nursing wanting pt to sleep. Per nurse pt is possibly to have another surgery for his hip in the near future.
--- NOTE | 2022-03-11 12:51 | P.PN_ITS ---
Subjective Subjective Date Patient Seen: 03/11/22 Time Patient Seen: 12:51 Interval history: Patient is very sleepy and confused. He has difficulty staying awake to answer my questions. His is at bedside, and she notes he has had mental decline for the last 2 days. Exam Vital Signs (past 8 hours): - 03/11/22 07:39 03/11/22 09:23 03/11/22 09:44 Temperature 98 F Pulse Rate 93 H 99 H Respiratory Rate 18 Blood Pressure 141/69 H 141/69 H Pulse Oximetry 93 91 Oxygen Delivery Method High Flow Nasal Cannula Oxygen Flow Rate 5 4 03/11/22 08:00 Temperature Pulse Rate Respiratory Rate Blood Pressure Pulse Oximetry Oxygen Delivery Method Nasal Cannula Oxygen Flow Rate Oxygen Delivery Method High Flow Nasal Cannula Oxygen Flow Rate 4 Narrative Exam Narrative: 76-year-old male, resting comfortably in bed, difficulty arousing and caring a c onversation. His is at bedside. Dressings are saturated and need to be changed. Calves are soft and nontender to palpation. Objective Labs Result Diagrams: 03/11/22 04:47 03/11/22 04:47 Labs: Laboratory Results - last 24 hr 03/10/22 03/11/22 03/11/22 14:00 04:47 04:47 WBC 9.3 RBC 3.13 L Hgb 9.7 L 9.0 L Hct 27.9 L 26.1 L MCV 83.4 MCH 28.7 MCHC 34.5 RDW 15.8 H Plt Count 123 L Neut % (Auto) 74.5 Lymph % (Auto) 9.6 L [place] % (Auto) 8.3 Eos % (Auto) 7.3 H Baso % (Auto) 0.3 Neut # (Auto) 6900 Lymph # (Auto) 900 L [place] # (Auto) 800 Eos # (Auto) 700 H Baso # (Auto) 0 Sodium 136 L Potassium 4.0 Chloride 99 Carbon Dioxide 29 BUN 25 H Creatinine 1.15 Estimated GFR > 60 BUN/Creatinine Ratio 21.7 Glucose 235 H Calcium 7.6 L Magnesium 1.9 PFSH Medical History Anxiety Arthritis Ascending aorta enlargement BPH (benign prostatic hyperplasia) Brain aneurysm CAD (coronary artery disease) Calculus of kidney Chest pain Depression Diabetes mellitus Diabetic peripheral neuropathy Former smoker GERD (gastroesophageal reflux disease) Gout Hyperlipidemia Hypertension Myocardial infarction Phimosis Surgical History H/O cervical spine surgery H/O right knee surgery History of inguinal hernia repair, bilateral Hx of cystoscopy (08/15/19) Hx of heart artery stent (~1995) S/P triple vessel bypass (~01/2019) Family History Mother Coronary artery disease Father COPD (chronic obstructive pulmonary disease) Social History household members: spouse Smoking Status: Former smoker alcohol intake: former Assessment & Plan Post-op Postoperative Procedures: Procedures Operation Date: 03/08/22 15:45 Actual Procedure Side Surgeon p Intramedullary Nailing Femur Right Alondra Pineda MD Postoperative day: 3 Postoperative status: doing well Postoperative status narrative: Status post intramedullary nailing right proximal femur fracture Acute respiratory failure with hypoxemia, Shock PNA, Acute blood loss anemia managed by internal medicine Postoperative plan narrative: Work with PT/OT, mobilize with therapy as tolerated, partial weight-bearing right lower extremity Multimodal pain management -he is normally on Plavix for chronic anticoagulation, this should be sufficient for DVT prophylaxis. -there are no plans to take him back to the operating room -Aquacel dressing changes x2 today, please call us if there active signs of bleeding Disposition, to be determined
--- NOTE | 2022-03-11 13:51 | PT.IPTN ---
Current Diagnoses Type 2 diabetes mellitus with diabetic polyneuropathy (03/07/22) Other acute postprocedural pain (03/07/22) Acute respiratory failure with hypoxia (03/07/22) Shock, unspecified (03/07/22) Displaced intertrochanteric fracture of right femur, initial encounter for closed fracture (03/07/22) Displaced subtrochanteric fracture of unspecified femur, initial encounter for closed fracture (03/07/22) Presence of coronary angioplasty implant and graft (03/07/22) Arthrodesis status (03/07/22) Surgery Performed Operation Date: 03/08/22 15:45 Actual Procedures p Intramedullary Nailing Femur(Right) - Alondra Pineda MD Physical Therapy Treatment Note M2 PT-IP Current Condition Start: 03/09/22 12:26 Freq: NEEDED Status: Active Protocol: Document 03/09/22 10:50 AB (Rec: 03/09/22 12:39 AB [email or web address]) Physical Therapy Current Condition Current Condition Evaluation Date 03/09/22 Treatment Diagnosis s/p fall; R subtroch hip fx s/ p ORIF; difficulty in walking Onset Date 03/07/22 M3 PT-IP Subjective Start: 03/09/22 12:26 Freq: NEEDED Status: Active Protocol: Document 03/11/22 13:51 AB (Rec: 03/11/22 14:45 AB [email or web address]) Subjective Physical Therapy Visit Type Type Treatment Note Visit Start Time 13:51 Visit Stop Time 14:25 Total Visit Minutes 34 Number of AIR DEFENCE OFFICER Visits 0 Physical Therapy Visit Comments Patient Comments agreeable to do PT Therapy Pain Assessment Pain When Pain Assessed During Mobility Location right hip Scale Used pain scale not stated Pain Behaviors Guarding,Holding Area,Moaning, Wincing Pain Management Techniques Distraction,Modification of Treatment,Re-positioning, Timing of Activity with Medications M4 PT-IP Mobility and Gait Start: 03/09/22 12:26 Freq: NEEDED Status: Active Protocol: Document 03/11/22 13:51 AB (Rec: 03/11/22 14:45 AB [email or web address]) PT-Bed Mobility Assessment Supine to Sit Supine to Sit Maximum Assistance,Total Assistance,2 Person Assistance ,Head of Bed Elevated Sit to Supine Sit to Supine Total Assistance,2 Person Assistance PT-Transfer Assessment Comments Mobility Comments pt lethargic and inconsistent with answering and following directions. completed PROM on RLE. completed supine to sit max A x 2 to total Ax 2 and max cues. required max A x 1- 2 for sitting balance on EOB. positioned pt and conducted trunk stabilization techniques and pt able to sit on EOB CGA to min A with max cues. pt tolerated sitting on EOB ~10 min. pt continues to be inconsistent with following directions and not safe to attempt standing with PWB on RLE. assisted pt back to bed. completed sit to supine total A x 2 and max cues and total A x 2 for positioning in bed. call light and table placed within reach. M5 PT-IP Objective Assessments Start: 03/09/22 12:26 Freq: NEEDED Status: Active Protocol: Document 03/09/22 10:50 AB (Rec: 03/09/22 12:39 AB [id number]) Orientation Orientation/Cognition Level of Alertness Alert Orientation Name,Place,Situation Safety Awareness Decreased Safety Awareness Memory Description Short Term Impaired Gross Range of Motion Lower Extremity ROM Assessment Right Impaired Impairments RLE increase guarding affecting PROM test Strength Lower Extremity Strength Assessment Bilaterally Impaired Comments Strength Comments LLE: 4-/5 RLE: 2+/5 Muscle Tone Muscle Tone WNL Yes M6 PT-IP Treatment Start: 03/09/22 12:26 Freq: NEEDED Status: Active Protocol: Document 03/11/22 13:51 AB (Rec: 03/11/22 14:45 AB [email or web address]) Physical Therapy Treatment Exercises Exercises Heel Slides Education Education Provided Safety M7 PT-IP Assessment and Plan Start: 03/09/22 12:26 Freq: NEEDED Status: Active Protocol: Document 03/11/22 13:51 AB (Rec: 03/11/22 14:45 AB [email or web address]) PT Summary Assessment and Plan Potential Rehabilitation Potential Fair Summary Impairments Pain,ROM,Strength,Balance, Coordination,Sensation,Tone, Cognition,Bed Mobility, Transfers,Gait,Activity Tolerance Progress Towards Goals Slow Progress due to Pain,Slow Progress due to Medical Issues,Slow Progress due to Activity Tolerance,Slow Progress - Other Assessment Summary pt continues to require max A x 2 to total A x 2 and max cues with all tasks and unable to ambulate at this time. pt will require SNF rehab to improve strength and mobility. Goals Bed Mobility Goal Minimal Assistance Transfer Goal Minimal Assistance,Front Wheeled Walker Gait Goal Minimal Assistance,Front Wheel Walker Gait Distance 25 Other Goals improve bed mobility, transfers and ambulation using FWW 50 ft SBA Days to Meet Goals 10 Frequency of Treatment Frequency Of Treatment Twice a Day Treatment Plan Physical Therapy Treatment Plan Bed Mobility Training,Transfer Training,Gait Training, Therapeutic Exercise,Balance Retraining,Post Op Education, Discharge Planning,Hot or Cold Pack,Neuromuscular Re-ed, Coordination Retraining,Manual Therapy Weight Bearing Status Weight Bearing Status Partial Weight Bearing Allowed Weight Bearing Amount (enter % Clarified with ROBERTO Beck: or #) (%) 50% PWB on RLE Recommendations To Nursing Amount of Assist Needed Mechanical Lift Discharge Recommendations PT Discharge Recommendations SNF Rehab Transportation Needs at Discharge Wheelchair/Cabulance,Stretcher /Ambulance
--- NOTE | 2022-03-11 13:53 | P.PN_ITS ---
Subjective Subjective Date Patient Seen: 03/11/22 Time Patient Seen: 08:00 Interval history: Today he has no complaints. However he is quite confused and removing oxygen and drops his sats to the 80s. Exam Vital Signs (past 8 hours): - 03/11/22 07:39 03/11/22 09:23 03/11/22 09:44 Temperature 98 F Pulse Rate 93 H 99 H Respiratory Rate 18 Blood Pressure 141/69 H 141/69 H Pulse Oximetry 93 91 Oxygen Delivery Method High Flow Nasal Cannula Oxygen Flow Rate 5 4 03/11/22 08:00 03/11/22 13:10 Temperature 97.7 F Pulse Rate 85 Respiratory Rate 20 Blood Pressure 148/72 H Pulse Oximetry 93 Oxygen Delivery Method Nasal Cannula Oxygen Flow Rate 4 Oxygen Delivery Method High Flow Nasal Cannula Oxygen Flow Rate 4 Const Other: no acute distress Resp Other: clear bilaterally Cardio Other: regular rate and rhythm, no murmurs GI Other: Soft, non-tender Objective Labs Result Diagrams: 03/11/22 04:47 03/11/22 04:47 Labs: Laboratory Results - last 24 hr 03/10/22 03/11/22 03/11/22 14:00 04:47 04:47 WBC 9.3 RBC 3.13 L Hgb 9.7 L 9.0 L Hct 27.9 L 26.1 L MCV 83.4 MCH 28.7 MCHC 34.5 RDW 15.8 H Plt Count 123 L Neut % (Auto) 74.5 Lymph % (Auto) 9.6 L [place] % (Auto) 8.3 Eos % (Auto) 7.3 H Baso % (Auto) 0.3 Neut # (Auto) 6900 Lymph # (Auto) 900 L [place] # (Auto) 800 Eos # (Auto) 700 H Baso # (Auto) 0 Sodium 136 L Potassium 4.0 Chloride 99 Carbon Dioxide 29 BUN 25 H Creatinine 1.15 Estimated GFR > 60 BUN/Creatinine Ratio 21.7 Glucose 235 H Calcium 7.6 L Magnesium 1.9 PFSH Medical History Anxiety Arthritis Ascending aorta enlargement BPH (benign prostatic hyperplasia) Brain aneurysm CAD (coronary artery disease) Calculus of kidney Chest pain Depression Diabetes mellitus Diabetic peripheral neuropathy Former smoker GERD (gastroesophageal reflux disease) Gout Hyperlipidemia Hypertension Myocardial infarction Phimosis Surgical History H/O cervical spine surgery H/O right knee surgery History of inguinal hernia repair, bilateral Hx of cystoscopy (08/15/19) Hx of heart artery stent (~1995) S/P triple vessel bypass (~01/2019) Family History Mother Coronary artery disease Father COPD (chronic obstructive pulmonary disease) Social History household members: spouse Smoking Status: Former smoker alcohol intake: former Assessment & Plan Assessment & Plan narrative: 1. Closed right intratrochanteric femur fracture, secondary to fall -s/p surgery -postop pain medication, DVT ppx, PT and OT 2. Acute respiratory failure with hypoxia and hypercapnia, secondary to aspiration pneumonia -initially o2 sats in the 70s -still requiring oxygen, wean as able -continue IV antibiotics, Day 1 03/09 -blood cultures negative 3. Delirium -secondary to acute illness and possibly sundowning -reorientation as able, 3. Anemia, mild, likely due to acute post-op blood loss anemia -likely secondary to fall and injury, and acute post-op blood loss -pt has required 4 units RBC so far, last transfusion 03/10 -monitor patient for bleeding, trend hematology labs -plavix continued 4. 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 -Stable, managed by neurologist ? ?5. Insulin-dependent type 2 diabetic, chronic, with peripheral neuropathy, hyperlipidemia, chronic,? present on admission -admitted under diabetic protocol -A1c 7.6% -low-dose sliding scale postoperatively -Hold metformin -Continue regular insulin 3 units TID with meals - when taking PO -Continue glargine 20 units a.m. and 10 units at night -Correction scale insulin with accuchecks Q6HR while NPO -continue atorvastatin -Continue pregabalin 6. CAD, chronic, present on admission -Continue losartan 25mg -Continue metoprolol 25 mg b.i.d. -Continue atorvastatin -Continue clopidogrel- Hold -Continue nitroglycerine 0.4mg prn 7. GERD, chronic, present on admission -Continue pantoprazole 8. BPH, chronic, present on admission -Continue tamsulosin 0.4mg daily 9. Anxiety, chronic, present on admission -Continue buproprion 150mg in the morning 75mg at night Code status: Full Surrogate decision maker: Leonardo Reinoso Spouse COVID PCR: Negative Time Spent With Patient Critical Care time: I spent a total of [] minutes of critical care time on this patient's care today; this time is exclusive of procedural time.
--- NOTE | 2022-03-11 14:23 | DIET.CONS ---
Dietary Consultation Note Admission Date: 03/07/2022 19:47 Assessment: 76 y/o M cx for mna score of 10. No wt hx on file since 2019. In comparison to weight then, wt seems stable but unclear. Poor PO per nursing today. Seems to be just taking bites of food and sips of ensure. Pt confused per staff report. PT is working with him currently. Will try again to complete assessment. BG have been running in the 200s since 03/08. Discussed with hospitalist in rounds. will send ONS BID for poor PO. Ht: 177.8 cm Wt: 77.5 kg BMI: 24.5 Last BM: 03/11/22 (03/11/22 08:45) MNA: 10 Mika Score: 21 Diet: 03/08/22 Dinner Carbohydrate Consistent Diet Diet Modifications: Ensure 2x per day Carbohydrate level: Large (4 CHO) Nutrition Percent Meal Consumed 100% 03/10/22 18:18 Percent Meal Consumed 75% 03/10/22 13:50 Percent Meal Consumed 15 03/10/22 10:05 Percent Meal Consumed . 03/09/22 19:00 Percent Meal Consumed 75% 03/09/22 18:48 Electronically Signed by: Emily Melchor 03/11/22 14:23 Clinical Dietitian [address] [id number]
--- NOTE | 2022-03-11 14:40 | CM.DPC ---
DCP Cont: It is noted by ortho that patient will not be having another surgery. Spoke to Patricia at [facility] this am, letting her know that patient is not yet ready for discharge. It is unclear if he will be ready by tomorrow, patient was noting some increased confusion today and decreased oxygen sats. P: DCP to continue to follow closely. At this time, patient should be going to [facility] once deemed medically stable. Ariela Lopez RN/Anesthesiology Physician Assistant
[2022-03-11] MEDS: INSULIN LISPRO 100 UNIT/ML 3ML VIAL 8 UNIT SUBCUT (16:56)
--- NOTE | 2022-03-11 18:55 | DI.RAD.S_ITS ---
PROCEDURE: XR FEMUR RT 1V INDICATIONS: follow up TECHNIQUE: 2 views of the femur were acquired. COMPARISON: None. FINDINGS: Bones: ORIF of the right hip and femur No fractures or dislocations. No suspicious bony lesions. Soft tissues: No suspicious soft tissue calcifications or masses. IMPRESSION: Postsurgical sequelae. Dictated by: Lise Mclaughlin M.D. on 03/11/2022 at 19:32 Approved by: Lise Mclaughlin M.D. on 03/11/2022 at 19:32
[2022-03-11] MEDS: INSULIN GLARGINE 100 UNIT/ML 3ML PEN 20 UNIT SUBCUT (20:39)
[2022-03-11] MEDS: VANCOMYCIN TROUGH 1 REQUEST MISC (20:41)
[2022-03-11] MEDS: buPROPion 75 MG TABLET PO (20:43)
[2022-03-11] MEDS: SENNOSIDES 8.6 MG TABLET 17.2 MG PO (20:44)
[2022-03-11] MEDS: VANCOMYCIN 1,000 MG/200 ML PIGGYBACK 200 MG IV (20:49)
--- NOTE | 2022-03-11 21:00 | PC.NURSE ---
Patient visibly mouth breathing and desaturating to mid 80's on 4L humidifed NC. RN increased patient to 5L and was still desaturating, so placed patient on humidified high flow nasal cannula at 6L and patient's saturations increased to 94%.
[2022-03-11 21:15] LABS: Vancomycin Trough 7.4 ug/mL (10-20)
[2022-03-11] MEDS: VANCOMYCIN PEAK 1 REQUEST MISC (23:20)
[2022-03-11 23:48] LABS: Vancomycin Peak 21.5 ug/mL (20-40)
[2022-03-12] VITALS (8 sets, daily range): BP systolic 110–131; BP diastolic 61–74; PULSE 78–85; RESP 18–31; TEMP 36–36.9; O2SAT 91–98
[2022-03-12 05:21] LABS: Add Manual Diff / Slide Review NO; Basophils Absolute Auto 0 /uL (0-100); Basophils Percent Auto 0.5 % (0-2); Eosinophils Absolute Auto 700 /uL (0-450); Eosinophils Percent Auto 9.3 % (2-4); Hematocrit 25.2 % (41-53); Hemoglobin 8.5 g/dL (13.5-17.5); Lymphocytes Absolute Auto 900 /uL (1100-4500); Lymphocytes Percent Auto 11.4 % (25-40); Mean Corpuscular HGB Conc 33.7 % (30-36); Mean Corpuscular Hemoglobin 28.5 PG (26-34); Mean Corpuscular Volume 84.5 fL (80-100); Monocytes Absolute Auto 600 /uL (0-900); Monocytes Percent Auto 8.4 % (3-14); Neutrophils Absolute Auto 5400 /uL (1500-7000); Neutrophils Percent Auto 70.4 % (50-75); Platelet Count 113 X10^3/uL (150-400); Red Blood Cell Count 2.98 X10^6/uL (4.5-5.9); Red Cell Distribution Width 16.2 % (11.6-14.8); White Blood Cell Count 7.6 X10^3/uL (4.5-11.0)
[2022-03-12 05:33] LABS: BUN Creatinine Ratio 21.5 (6-22); Blood Urea Nitrogen 23 mg/dL (9-20); Calcium 7.5 mg/dL (8.4-10.2); Carbon Dioxide 30 mmol/L (22-32); Chloride 102 mmol/L (98-107); Estimated Glomerular Filt Rate > 60 mL/min (>60); Glucose 188 mg/dL (80-110); HEMOLYSIS < 15 (0-50); Potassium 3.8 mmol/L (3.4-5.1); Sodium 137 mmol/L (137-145)
[2022-03-12] MEDS: PIPERACILLIN/TAZO 3.375 GM in SODIUM CHLORIDE 0.9% 100 ML IV ×3 (05:44→21:06)
--- NOTE | 2022-03-12 07:36 | P.PN_ITS ---
Subjective Subjective Date Patient Seen: 03/12/22 Time Patient Seen: 07:36 Interval history: Patient is complaining of mild right thigh aching. He is much more alert and oriented this morning. Answering my questions appropriately. He has baseline peripheral neuropathy and therefore decreased sensation bilaterally. He appears to be much better today than yesterday. Exam Vital Signs (past 8 hours): - 03/12/22 03:00 03/12/22 05:47 Temperature 98.5 F Pulse Rate 80 Respiratory Rate 18 Blood Pressure 112/63 Pulse Oximetry 95 95 Oxygen Flow Rate 4 4 Oxygen Delivery Method High Flow Nasal Cannula,Humidification Oxygen Flow Rate 4 Narrative Exam Narrative: Pleasant 76-year-old male, resting comfortably in bed, no acute distress. He is alert and oriented times 3-4. New dressing is clean, dry, intact. There is no surrounding erythema or induration, however the right thigh is definitely larger than the left when compared side by side. Bilateral lower extremity: Motor functions are grossly intact, sensation is decreased but baseline bilaterally, calves are soft and nontender to palpation. Objective Labs Result Diagrams: 03/12/22 05:10 03/12/22 05:10 Labs: Laboratory Results - last 24 hr 03/11/22 03/11/22 03/12/22 20:30 23:15 05:10 WBC 7.6 RBC 2.98 L Hgb 8.5 L Hct 25.2 L MCV 84.5 MCH 28.5 MCHC 33.7 RDW 16.2 H Plt Count 113 L Neut % (Auto) 70.4 Lymph % (Auto) 11.4 L [place] % (Auto) 8.4 Eos % (Auto) 9.3 H Baso % (Auto) 0.5 Neut # (Auto) 5400 Lymph # (Auto) 900 L [place] # (Auto) 600 Eos # (Auto) 700 H Baso # (Auto) 0 Sodium Potassium Chloride Carbon Dioxide BUN Creatinine Estimated GFR BUN/Creatinine Ratio Glucose Calcium Magnesium Vancomycin Peak 21.5 Vancomycin Trough 7.4 L 03/12/22 05:10 WBC RBC Hgb Hct MCV MCH MCHC RDW Plt Count Neut % (Auto) Lymph % (Auto) [place] % (Auto) Eos % (Auto) Baso % (Auto) Neut # (Auto) Lymph # (Auto) [place] # (Auto) Eos # (Auto) Baso # (Auto) Sodium 137 Potassium 3.8 Chloride 102 Carbon Dioxide 30 BUN 23 H Creatinine 1.07 Estimated GFR > 60 BUN/Creatinine Ratio 21.5 Glucose 188 H Calcium 7.5 L Magnesium 2.0 Vancomycin Peak Vancomycin Trough PFSH Medical History Anxiety Arthritis Ascending aorta enlargement BPH (benign prostatic hyperplasia) Brain aneurysm CAD (coronary artery disease) Calculus of kidney Chest pain Depression Diabetes mellitus Diabetic peripheral neuropathy Former smoker GERD (gastroesophageal reflux disease) Gout Hyperlipidemia Hypertension Myocardial infarction Phimosis Surgical History H/O cervical spine surgery H/O right knee surgery History of inguinal hernia repair, bilateral Hx of cystoscopy (08/15/19) Hx of heart artery stent (~1995) S/P triple vessel bypass (~01/2019) Family History Mother Coronary artery disease Father COPD (chronic obstructive pulmonary disease) Social History household members: spouse Smoking Status: Former smoker alcohol intake: former Assessment & Plan Post-op Postoperative Procedures: Procedures Operation Date: 03/08/22 15:45 Actual Procedure Side Surgeon p Intramedullary Nailing Femur Right Alondra Pineda MD Postoperative day: 4 Postoperative status narrative: Status post intramedullary nailing right proximal femur fracture -postop right thigh hematoma, chronic anticoagulation Acute respiratory failure with hypoxemia, Shock PNA, Acute blood loss anemia managed by internal medicine, DM2 Postoperative plan narrative: - Work with PT/OT, mobilize with therapy as tolerated, 50% weight-bearing right lower extremity -continue Multimodal pain management -he is normally on Plavix for chronic anticoagulation, this should be sufficient for DVT prophylaxis. -he likely has a postoperative right thigh hematoma, there are no plans to take him back to the operating room. Continue to monitor. -depending on disposition, patient will need wound check and staple removal at 10-14 days postoperatively. If he goes to a care home facility and has difficulty with transportation, okay for wound check at SNF in 10-14 days in stable removal with Steri-Strips application. He must come into Dr. Pineda's office at his 6 week postop visit for x-rays and wound check at that time. Orthopedics to sign off at this point, please not hesitate to re-consult with any questions or concerns. Thank you
--- NOTE | 2022-03-12 07:47 | PM.PN.1 ---
Subjective Subjective Date Patient Seen: 03/12/22 Interval history: He is seen today to follow-up his femur fracture and blood loss anemia. The hemoglobin has continued to drop from 9.7 down to 9.0 and then to 8.5 today. He discusses his fall/accident on a ladder when he was his head. He is quite pleasant and oriented today. He is also under treatment for aspiration pneumonia. The vancomycin will be stopped today. His glucose is 188 and the white blood count is 7.6. The BMP is otherwise normal. Exam Vital Signs (past 8 hours): - 03/12/22 03:00 03/12/22 05:47 Temperature 98.5 F Pulse Rate 80 Respiratory Rate 18 Blood Pressure 112/63 Pulse Oximetry 95 95 Oxygen Flow Rate 4 4 Oxygen Delivery Method High Flow Nasal Cannula,Humidification Oxygen Flow Rate 4 Narrative Exam Narrative: Oriented x3 No apparent distress Heart is regular rate and rhythm without murmurs lungs are clear to auscultation bilaterally There is no ankle edema Dressing in place on left femur. Objective Labs Result Diagrams: 03/12/22 05:10 03/12/22 05:10 Labs: Laboratory Results - last 24 hr 03/11/22 03/11/22 03/12/22 20:30 23:15 05:10 WBC 7.6 RBC 2.98 L Hgb 8.5 L Hct 25.2 L MCV 84.5 MCH 28.5 MCHC 33.7 RDW 16.2 H Plt Count 113 L Neut % (Auto) 70.4 Lymph % (Auto) 11.4 L [place] % (Auto) 8.4 Eos % (Auto) 9.3 H Baso % (Auto) 0.5 Neut # (Auto) 5400 Lymph # (Auto) 900 L [place] # (Auto) 600 Eos # (Auto) 700 H Baso # (Auto) 0 Sodium Potassium Chloride Carbon Dioxide BUN Creatinine Estimated GFR BUN/Creatinine Ratio Glucose Calcium Magnesium Vancomycin Peak 21.5 Vancomycin Trough 7.4 L 03/12/22 05:10 WBC RBC Hgb Hct MCV MCH MCHC RDW Plt Count Neut % (Auto) Lymph % (Auto) [place] % (Auto) Eos % (Auto) Baso % (Auto) Neut # (Auto) Lymph # (Auto) [place] # (Auto) Eos # (Auto) Baso # (Auto) Sodium 137 Potassium 3.8 Chloride 102 Carbon Dioxide 30 BUN 23 H Creatinine 1.07 Estimated GFR > 60 BUN/Creatinine Ratio 21.5 Glucose 188 H Calcium 7.5 L Magnesium 2.0 Vancomycin Peak Vancomycin Trough PFSH Medical History Anxiety Arthritis Ascending aorta enlargement BPH (benign prostatic hyperplasia) Brain aneurysm CAD (coronary artery disease) Calculus of kidney Chest pain Depression Diabetes mellitus Diabetic peripheral neuropathy Former smoker GERD (gastroesophageal reflux disease) Gout Hyperlipidemia Hypertension Myocardial infarction Phimosis Surgical History H/O cervical spine surgery H/O right knee surgery History of inguinal hernia repair, bilateral Hx of cystoscopy (08/15/19) Hx of heart artery stent (~1995) S/P triple vessel bypass (~01/2019) Family History Mother Coronary artery disease Father COPD (chronic obstructive pulmonary disease) Social History household members: spouse Smoking Status: Former smoker alcohol intake: former Assessment & Plan Assessment & Plan narrative: 1. Closed right intratrochanteric femur fracture, secondary to fall -s/p surgery -postop pain medication, DVT ppx, PT and OT 2. Acute respiratory failure with hypoxia and hypercapnia, secondary to aspiration pneumonia -initially o2 sats in the 70s -now weaned off oxygen -continue IV Zosyn for possible aspiration pneumonia -blood cultures negative 3. Delirium -secondary to acute illness and possibly sundowning -reorientation as able, resolving 3. Anemia, mild, likely due to acute post-op blood loss anemia -likely secondary to fall and injury, and acute post-op blood loss -pt has required 4 units RBC so far, last transfusion 03/10 -monitor patient for bleeding, trend hematology labs -plavix continued Hemorrhagic Shock, present on admission -resolved 4. 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 -Stable, managed by neurologist ? ?5. Insulin-dependent type 2 diabetic, chronic, with peripheral neuropathy, hyperlipidemia, chronic,? present on admission -admitted under diabetic protocol -A1c 7.6% -low-dose sliding scale postoperatively -Hold metformin -Continue regular insulin 3 units TID with meals - when taking PO -Continue glargine 20 units a.m. and 10 units at night -Correction scale insulin with accuchecks Q6HR while NPO -continue atorvastatin -Continue pregabalin 6. CAD, chronic, present on admission -Continue losartan 25mg -Continue metoprolol 25 mg b.i.d. -Continue atorvastatin -Continue clopidogrel- Hold -Continue nitroglycerine 0.4mg prn 7. GERD, chronic, present on admission -Continue pantoprazole 8. BPH, chronic, present on admission -Continue tamsulosin 0.4mg daily 9. Anxiety, chronic, present on admission -Continue buproprion 150mg in the morning 75mg at night Code status: Full Surrogate decision maker: Leonardo Reinoso Spouse Time Spent With Patient Critical Care time: I spent a total of [] minutes of critical care time on this patient's care today; this time is exclusive of procedural time.
[2022-03-12] MEDS: CLOPIDOGREL 75 MG TABLET PO (09:22)
[2022-03-12] MEDS: ZINC SULFATE 220 MG CAPSULE PO (09:22)
[2022-03-12] MEDS: buPROPion 75 MG TABLET 150 MG PO (09:22)
[2022-03-12] MEDS: ATORVASTATIN 20 MG TABLET 80 MG PO (09:22)
[2022-03-12] MEDS: LOSARTAN 25 MG TABLET PO (09:23)
[2022-03-12] MEDS: PREGABALIN 50 MG CAPSULE 150 MG PO ×2 (09:23→21:05)
[2022-03-12] MEDS: PANTOPRAZOLE DR 40 MG TABLET PO (09:23)
[2022-03-12] MEDS: METOPROLOL IR 25 MG TABLET PO ×2 (09:23→21:05)
[2022-03-12] MEDS: CHOLECALCIFEROL (VITAMIN D3) 400 UNIT TABLET PO (09:24)
[2022-03-12] MEDS: INSULIN LISPRO 100 UNIT/ML 3ML VIAL SUBCUT ×4 (09:25→21:06)
[2022-03-12] MEDS: INSULIN LISPRO 100 UNIT/ML 3ML VIAL 7 UNIT SUBCUT ×2 (09:25→12:20)
[2022-03-12] MEDS: ESCITALOPRAM 10 MG TABLET 20 MG PO (09:30)
[2022-03-12] MEDS: ACETAMINOPHEN 325 MG TABLET 650 MG PO ×3 (09:31→23:51)
[2022-03-12] MEDS: INSULIN GLARGINE 100 UNIT/ML 3ML PEN 20 UNIT SUBCUT ×2 (09:44→21:06)
[2022-03-12] MEDS: SODIUM CHLORIDE 0.9% FLUSH 10 ML IV ×2 (09:46→21:07)
--- NOTE | 2022-03-12 10:19 | OT.IP.TRT ---
Current Diagnoses Type 2 diabetes mellitus with diabetic polyneuropathy (03/07/22) Other acute postprocedural pain (03/07/22) Acute respiratory failure with hypoxia (03/07/22) Shock, unspecified (03/07/22) Displaced intertrochanteric fracture of right femur, initial encounter for closed fracture (03/07/22) Displaced subtrochanteric fracture of unspecified femur, initial encounter for closed fracture (03/07/22) Presence of coronary angioplasty implant and graft (03/07/22) Arthrodesis status (03/07/22) Surgery Performed Operation Date: 03/08/22 15:45 Actual Procedures p Intramedullary Nailing Femur(Right) - Alondra Pineda MD Occupational Therapy Treatment Note M2 OT-IP Current Condition Start: 03/09/22 14:18 Freq: Status: Active Protocol: Document 03/09/22 14:18 [facility] (Rec: 03/09/22 14:37 [facility] [id number]) Occupational Therapy Current Condition Current Condition Evaluation Date 03/09/22 Treatment Diagnosis S/p fall R hips fx, S/P ORIF Diagnosis Onset Date 03/07/22 Weight Bearing Status Weight Bearing Status Partial Weight Bearing Allowed Weight Bearing Amount (enter % RLE partial WB 50% or #) (%) M3 OT- IP Subjective and Pain Start: 03/09/22 14:18 Freq: Status: Active Protocol: Document 03/12/22 10:00 [facility] (Rec: 03/12/22 11:21 [facility] [id number]) OT- Subjective Occupational Therapy Visit Type Type Treatment Note Visit Start Time 10:00 Visit Stop Time 10:19 Total Visit Minutes 19 Occupational Therapy Visit Comments Patient Comments Pt states in too much pain to get up but agreed to do cognitive assessment. Patient/Caregiver Goals TO get better. OT Pain Assessment Pain When Pain Assessed At Rest Pain Present Pain Present Pain Reported Location right hip Intensity 6 Scale Used Numeric (0 - 10) M4 OT- IP ADL's Start: 03/09/22 14:18 Freq: Status: Active Protocol: Document 03/12/22 10:00 [facility] (Rec: 03/12/22 11:21 [facility] [id number]) OT [id number] Comments OT Self-Feeding Comments Not at meal time. OT ADL-Grooming Comments OT Grooming Comments Pt refusing. OT ADL-Oral Care Comments Oral Care Comments Pt refusing. OT ADL-Toileting General Evaluation Toileting Ability Total Assistance Areas Needing Assistance Perform Perineal Hygiene Comments OT Toileting Comments Total assist for bed mobility. OT ADL-Bathing Comments OT Bathing Comments sponge bath more appropriate at this time M5 OT- IP IADL's Start: 03/09/22 14:18 Freq: Status: Active Protocol: Document 03/09/22 14:18 [facility] (Rec: 03/09/22 14:37 [facility] [id number]) OT-Instrumental Activities of Daily Living Home Safety Awareness Home Safety Comments Pt very droozy at this time and having trouble to stay awake and answer questions. Medication Management Medication Management Comments Pt at home takes his own medications. Money Management Money Management Comments Prior pt's assist with all finances. Meal Preparation Meal Preparation Caregiver Provides Assist Copy Editor Copy Editor Caregiver Provides Assist M6 OT- IP Functional Cognition Start: 03/09/22 14:18 Freq: Status: Active Protocol: Document 03/12/22 10:00 [facility] (Rec: 03/12/22 11:21 [facility] [id number]) Cognitive Factors Limiting Selfcare Function Cognitive Ability Level of Alertness Alert Patient Orientation Name,Place,Situation Attention Span Ability Capable of Focused Attention, Capable of Sustained Attention Ability to Follow Commands Able to Follow One Step Commands with Increased Time, Able to Follow One Step Commands with Repetition Memory Description Short Term Impaired,Working Impaired Problem Solving Ability Needs Assist to Identify Solutions Cognitive Tests SLUMS Pt scored 17/30 on the SLUMS and able to recall 2/5 objects after time passed, not able to draw the number adequately spaced, unable to draw the hour hands correctly after time given, and able to answer 1/4 questions right after time passed. Pt score implies dementia, however pt states feels that he is not thinking well and also on pain medications and O2. To reassess again at a later date to compare if pt still here. Cognitive Comments Cognitive Assessment Comments Pt able to joke around but insistent on not getting up at this time due to pain. Pt able to follow commands for ADl and bed mobility needs. M7 OT- IP Mobility and Balance Start: 03/09/22 14:18 Freq: Status: Active Protocol: Document 03/12/22 10:00 [facility] (Rec: 03/12/22 11:21 [facility] [id number]) OT- Bed Mobility Assessment Rolling Type of Rolling Bilateral Level of Assistance Maximum Assistance,1 Person Assistance,Bedrails OT-Transfer Assessment Comments Mobility Comments MAXA x1 to help roll pt side to side for bed elkins management with nursing aid. M8 OT- IP Objective Assessments Start: 03/09/22 14:18 Freq: Status: Active Protocol: Document 03/09/22 14:18 [facility] (Rec: 03/09/22 14:37 [facility] [id number]) OT Gross Range of Motion Upper Extremity Range of Motion Assessment Bilaterally Impaired OT Strength Upper Extremity Strength Assessment Within Functional Limits OT- Coordination Assessment Comments Coordination Comments Pt too drowsy and not able to follow commands at this time. M9 OT- IP Assessment and Plan Start: 03/09/22 14:18 Freq: Status: Active Protocol: Document 03/12/22 10:00 [facility] (Rec: 03/12/22 11:21 [facility] [id number]) OT Summary Assessment and Plan Potential Rehabilitation Potential Good Analytic Complexity at Evaluation Moderate Summary OT Impairments Pain,Strength,Balance, Functional Cognition, Functional Mobility,Self- Feeding,Grooming,Dressing, Toileting,Bathing,Toilet Transfers,Shower Transfers, Activity Tolerance Progress Towards Goals Slow Progress due to Pain,Slow Progress due to Activity Tolerance,Slow Progress due to Cognition Assessment Summary Pt scored 17/30 on the SLUMS today and feels that he is not thinking as well now- which maybe due to pt's pain medications. Pt will continue to benefit from skilled rehab when medically stable. Per PA pt will not being going back to have another surgery. Goals Self-Feeding Goal Independent Grooming Goal Independent Dressing Goal Independent Toileting Goal Independent Bathing Goal Independent Toilet Transfer Goal Independent Shower Transfer Goal Independent Days to Meet Goals 49 Frequency of Treatment Frequency Of Treatment Once a Day Treatment Plan OT Treatment Plan ADL Training,Functional Cognition Training,Functional Mobility,Patient/Family Education,Discharge Planning Other Treatment Recommendations and Next Pt to sit at edge of the bed Treatment Focus with CGA and able to do oral care/grooming needs. Discharge Recommendations OT Discharge Recommendations SNF Rehab Transportation Needs at Discharge Wheelchair/Cabulance
--- NOTE | 2022-03-12 10:45 | PT.IPTN ---
Current Diagnoses Type 2 diabetes mellitus with diabetic polyneuropathy (03/07/22) Other acute postprocedural pain (03/07/22) Acute respiratory failure with hypoxia (03/07/22) Shock, unspecified (03/07/22) Displaced intertrochanteric fracture of right femur, initial encounter for closed fracture (03/07/22) Displaced subtrochanteric fracture of unspecified femur, initial encounter for closed fracture (03/07/22) Presence of coronary angioplasty implant and graft (03/07/22) Arthrodesis status (03/07/22) Surgery Performed Operation Date: 03/08/22 15:45 Actual Procedures p Intramedullary Nailing Femur(Right) - Alondra Pineda MD Physical Therapy Treatment Note M2 PT-IP Current Condition Start: 03/09/22 12:26 Freq: NEEDED Status: Active Protocol: Document 03/09/22 10:50 [facility] (Rec: 03/09/22 12:39 AB [id number]) Physical Therapy Current Condition Current Condition Evaluation Date 03/09/22 Treatment Diagnosis s/p fall; R subtroch hip fx s/ p ORIF; difficulty in walking Onset Date 03/07/22 M3 PT-IP Subjective Start: 03/09/22 12:26 Freq: NEEDED Status: Active Protocol: Document 03/12/22 10:45 [facility] (Rec: 03/12/22 12:29 AB [email or web address]) Subjective Physical Therapy Visit Type Type Treatment Note Visit Start Time 10:45 Visit Stop Time 11:16 Total Visit Minutes 31 Number of VISUAL COORDINATOR Visits 0 Physical Therapy Visit Comments Patient Comments agreed to do PT; initially hesitant but agreed after education and encouragement Therapy Pain Assessment Pain When Pain Assessed During Mobility Pain Present Pain Present Pain Reported Location right hip Scale Used pain scale not stated Pain Management Techniques Distraction,Modification of Treatment,Re-positioning, Timing of Activity with Medications M4 PT-IP Mobility and Gait Start: 03/09/22 12:26 Freq: NEEDED Status: Active Protocol: Document 03/12/22 10:45 [facility] (Rec: 03/12/22 12:29 AB [id number]) PT-Bed Mobility Assessment Rolling Level of Assist 1 Person Assistance,2 Person Assistance Supine to Sit Supine to Sit Maximum Assistance,2 Person Assistance,Head of Bed Elevated,Bedrails Sit to Supine Sit to Supine Maximum Assistance,Total Assistance,2 Person Assistance PT-Transfer Assessment Sit to and From Stand Sit to and from Stand Maximum Assistance,2 Person Assistance,Use of Upper Extremities Equipment Transfer Assistive Device Gait Belt,Front Wheeled Walker Orthotic/Prosthetic Devices or Brace: No Comments Mobility Comments completed supine to sit max A x 2 and max cues with HOB elevated. able to sit on EOB with minitial min to mod but after repositioning requiring CGA. max A 2 for scooting to EOB. completed sit to stand max A x 2 and max cues with bed elevated. required max A to maintain 50% PWB on RLE. tolerated ~ 1-2 min of standing using FWW for support max A x 1-2 and max cues. pt sat back on EOB requiring max A x 1-2 for controlled descent and to maintain weight bearing restriction. pt refused to transfer to chair. required max A x 2 to total A x 2 for lateral scooting to HOB. completed sit to supine max A x 2 to total A x 2 for sit to supine. Pt requested to use the bed elkins. assisted NAC for positioning and pt required max A x 1-2 for rolling to the L. call light and table within reach. M5 PT-IP Objective Assessments Start: 03/09/22 12:26 Freq: NEEDED Status: Active Protocol: Document 03/09/22 10:50 [facility] (Rec: 03/09/22 12:39 AB [id number]) Orientation Orientation/Cognition Level of Alertness Alert Orientation Name,Place,Situation Safety Awareness Decreased Safety Awareness Memory Description Short Term Impaired Gross Range of Motion Lower Extremity ROM Assessment Right Impaired Impairments RLE increase guarding affecting PROM test Strength Lower Extremity Strength Assessment Bilaterally Impaired Comments Strength Comments LLE: 4-/5 RLE: 2+/5 Muscle Tone Muscle Tone WNL Yes M6 PT-IP Treatment Start: 03/09/22 12:26 Freq: NEEDED Status: Active Protocol: Document 03/12/22 10:45 [facility] (Rec: 03/12/22 12:29 AB [id number]) Physical Therapy Treatment Education Education Provided Weight Bearing Status,Safety M7 PT-IP Assessment and Plan Start: 03/09/22 12:26 Freq: NEEDED Status: Active Protocol: Document 03/12/22 10:45 [facility] (Rec: 03/12/22 12:29 AB [id number]) PT Summary Assessment and Plan Potential Rehabilitation Potential Fair Summary Impairments Pain,ROM,Strength,Balance, Coordination,Sensation,Tone, Cognition,Bed Mobility, Transfers,Gait,Activity Tolerance Progress Towards Goals Slow Progress due to Pain,Slow Progress due to Medical Issues,Slow Progress due to Activity Tolerance,Slow Progress - Other Assessment Summary pt more alert and able to follow directions today. pt requires max A x 2 to total A x 2 with mobility and unable to maintain weight bearing restriction on RLE. pt will need SNF rehab to improve mobility. Goals Bed Mobility Goal Minimal Assistance Transfer Goal Minimal Assistance,Front Wheeled Walker Gait Goal Minimal Assistance,Front Wheel Walker Gait Distance 25 Other Goals improve bed mobility, transfers and ambulation using FWW 50 ft SBA Days to Meet Goals 10 Frequency of Treatment Frequency Of Treatment Twice a Day Treatment Plan Physical Therapy Treatment Plan Bed Mobility Training,Transfer Training,Gait Training, Therapeutic Exercise,Balance Retraining,Post Op Education, Discharge Planning,Hot or Cold Pack,Neuromuscular Re-ed, Coordination Retraining,Manual Therapy Weight Bearing Status Weight Bearing Status Partial Weight Bearing Allowed Weight Bearing Amount (enter % Clarified with ROBERTO Beck: or #) (%) 50% PWB on RLE Recommendations To Nursing Amount of Assist Needed Mechanical Lift Discharge Recommendations PT Discharge Recommendations SNF Rehab Transportation Needs at Discharge Wheelchair/Cabulance,Stretcher /Ambulance
--- NOTE | 2022-03-12 13:07 | CM.DPNOTE ---
Discharge Planning Note: Patient remains weak, on oxygen. OT saw this morning, [facility] [place]. Not ready for discharge. Plan: DCP to continue to follow closely. At this time, patient should be going to [facility] once medically stable. Call [facility] for update. Genet Rodriguez RN/DCP
--- NOTE | 2022-03-12 13:47 | PT.IPTN ---
Current Diagnoses Type 2 diabetes mellitus with diabetic polyneuropathy (03/07/22) Other acute postprocedural pain (03/07/22) Acute respiratory failure with hypoxia (03/07/22) Shock, unspecified (03/07/22) Displaced intertrochanteric fracture of right femur, initial encounter for closed fracture (03/07/22) Displaced subtrochanteric fracture of unspecified femur, initial encounter for closed fracture (03/07/22) Presence of coronary angioplasty implant and graft (03/07/22) Arthrodesis status (03/07/22) Surgery Performed Operation Date: 03/08/22 15:45 Actual Procedures p Intramedullary Nailing Femur(Right) - Alondra Pindea MD Physical Therapy Treatment Note M2 PT-IP Current Condition Start: 03/09/22 12:26 Freq: NEEDED Status: Active Protocol: Document 03/09/22 10:50 AB (Rec: 03/09/22 12:39 AB [id number]) Physical Therapy Current Condition Current Condition Evaluation Date 03/09/22 Treatment Diagnosis s/p fall; R subtroch hip fx s/ p ORIF; difficulty in walking Onset Date 03/07/22 M3 PT-IP Subjective Start: 03/09/22 12:26 Freq: NEEDED Status: Active Protocol: Document 03/12/22 13:47 AB (Rec: 03/12/22 14:25 AB [email or web address]) Subjective Physical Therapy Visit Type Type Treatment Note Visit Start Time 13:47 Visit Stop Time 14:15 Total Visit Minutes 28 Number of DERRICK WORKER WELL SERVICE Visits 0 Physical Therapy Visit Comments Patient Comments family in room; initially refusing but agreed after encouragement; family also encouraging pt Therapy Pain Assessment Pain When Pain Assessed During Mobility Pain Present Pain Present Pain Reported Location right hip Scale Used pain scale not stated Pain Management Techniques Distraction,Modification of Treatment,Re-positioning, Timing of Activity with Medications M4 PT-IP Mobility and Gait Start: 03/09/22 12:26 Freq: NEEDED Status: Active Protocol: Document 03/12/22 13:47 AB (Rec: 03/12/22 14:25 AB [email or web address]) PT-Bed Mobility Assessment Supine to Sit Supine to Sit Maximum Assistance,2 Person Assistance,Head of Bed Elevated Sit to Supine Sit to Supine Maximum Assistance,Total Assistance,2 Person Assistance Scooting Scooting to Edge of Bed Maximum Assistance Scooting Up and Down in Bed Maximum Assistance PT-Transfer Assessment Sit to and From Stand Sit to and from Stand 2 Person Assistance,Use of Upper Extremities Equipment Transfer Assistive Device Gait Belt,Front Wheeled Walker Orthotic/Prosthetic Devices or Brace: No Comments Mobility Comments completed supine to sit max A x 2 and max cues. pt assisting more with the mobility this session compared to this morning. able to sit on EOB CGA. completed scooting to EOB max A and max cues. completed sit to stand max A 2 and max cues and tolerated standing using FWW ~ 3 min requiring max A for standing balance and to maintain weight bearing restriction on RLE. instructed pt to take steps but stated that he will do it tomorrow and wants to sit down . max A for controlled descent to EOB. max A x 2 for scooting to HOB. max A x 2 to total A x 2 for sit to supine. positioned pt in bed. requested for the bed elkins and max A for positioning with NAC assisting with bed elkins. call light within reach. left pt with NAC and family in room . M5 PT-IP Objective Assessments Start: 03/09/22 12:26 Freq: NEEDED Status: Active Protocol: Document 03/09/22 10:50 AB (Rec: 03/09/22 12:39 AB [id number]) Orientation Orientation/Cognition Level of Alertness Alert Orientation Name,Place,Situation Safety Awareness Decreased Safety Awareness Memory Description Short Term Impaired Gross Range of Motion Lower Extremity ROM Assessment Right Impaired Impairments RLE increase guarding affecting PROM test Strength Lower Extremity Strength Assessment Bilaterally Impaired Comments Strength Comments LLE: 4-/5 RLE: 2+/5 Muscle Tone Muscle Tone WNL Yes M6 PT-IP Treatment Start: 03/09/22 12:26 Freq: NEEDED Status: Active Protocol: Document 03/12/22 13:47 AB (Rec: 03/12/22 14:25 AB [id number]) Physical Therapy Treatment Education Education Provided Weight Bearing Status,Safety M7 PT-IP Assessment and Plan Start: 03/09/22 12:26 Freq: NEEDED Status: Active Protocol: Document 03/12/22 13:47 AB (Rec: 03/12/22 14:25 AB [id number]) PT Summary Assessment and Plan Potential Rehabilitation Potential Fair Summary Impairments Pain,ROM,Strength,Balance, Coordination,Sensation,Tone, Cognition,Bed Mobility, Transfers,Gait,Activity Tolerance Progress Towards Goals Slow Progress due to Pain,Slow Progress due to Medical Issues,Slow Progress due to Activity Tolerance,Slow Progress - Other Assessment Summary pt progressing slowly with greater participation with mobility this afternoon although level of assistance remain the same max A x 2 to total A x 2. pt will require SNF rehab to improve strength and mobility. Goals Bed Mobility Goal Minimal Assistance Transfer Goal Minimal Assistance,Front Wheeled Walker Gait Goal Minimal Assistance,Front Wheel Walker Gait Distance 25 Other Goals improve bed mobility, transfers and ambulation using FWW 50 ft SBA Days to Meet Goals 10 Frequency of Treatment Frequency Of Treatment Twice a Day Treatment Plan Physical Therapy Treatment Plan Bed Mobility Training,Transfer Training,Gait Training, Therapeutic Exercise,Balance Retraining,Post Op Education, Discharge Planning,Hot or Cold Pack,Neuromuscular Re-ed, Coordination Retraining,Manual Therapy Weight Bearing Status Weight Bearing Status Partial Weight Bearing Allowed Weight Bearing Amount (enter % Clarified with ROBERTO Beck: or #) (%) 50% PWB on RLE Recommendations To Nursing Amount of Assist Needed Mechanical Lift Discharge Recommendations PT Discharge Recommendations SNF Rehab Transportation Needs at Discharge Wheelchair/Cabulance,Stretcher /Ambulance
[2022-03-12] MEDS: INSULIN LISPRO 100 UNIT/ML 3ML VIAL 8 UNIT SUBCUT (17:39)
[2022-03-12] MEDS: SENNOSIDES 8.6 MG TABLET 17.2 MG PO (21:05)
[2022-03-12] MEDS: buPROPion 75 MG TABLET PO (21:05)
[2022-03-13] VITALS (8 sets, daily range): BP systolic 120–131; BP diastolic 62–73; PULSE 83–94; RESP 16–20; TEMP 36.1–37.3; O2SAT 92–98
[2022-03-13] MEDS: PIPERACILLIN/TAZO 3.375 GM in SODIUM CHLORIDE 0.9% 100 ML IV (04:57)
[2022-03-13] MEDS: SODIUM CHLORIDE 0.9% FLUSH 10 ML IV ×3 (04:57→20:07)
[2022-03-13 05:25] LABS: Add Manual Diff / Slide Review NO; Basophils Absolute Auto 0 /uL (0-100); Basophils Percent Auto 0.5 % (0-2); Eosinophils Absolute Auto 700 /uL (0-450); Eosinophils Percent Auto 9.3 % (2-4); Hematocrit 25.4 % (41-53); Hemoglobin 8.7 g/dL (13.5-17.5); Lymphocytes Absolute Auto 800 /uL (1100-4500); Lymphocytes Percent Auto 10.1 % (25-40); Mean Corpuscular HGB Conc 34.1 % (30-36); Mean Corpuscular Hemoglobin 28.5 PG (26-34); Mean Corpuscular Volume 83.5 fL (80-100); Monocytes Absolute Auto 600 /uL (0-900); Neutrophils Absolute Auto 5800 /uL (1500-7000); Neutrophils Percent Auto 72.1 % (50-75); Platelet Count 152 X10^3/uL (150-400); Red Blood Cell Count 3.04 X10^6/uL (4.5-5.9); Red Cell Distribution Width 15.8 % (11.6-14.8)
[2022-03-13 05:32] LABS: BUN Creatinine Ratio 20.2 (6-22); Blood Urea Nitrogen 20 mg/dL (9-20); Calcium 7.5 mg/dL (8.4-10.2); Carbon Dioxide 32 mmol/L (22-32); Chloride 100 mmol/L (98-107); Estimated Glomerular Filt Rate > 60 mL/min (>60); Glucose 192 mg/dL (80-110); HEMOLYSIS < 15 (0-50); Potassium 3.4 mmol/L (3.4-5.1); Sodium 137 mmol/L (137-145)
--- NOTE | 2022-03-13 07:26 | P.DS_ITS ---
History of Present Illness History of Present Illness Date Patient Seen: 03/13/22 Chief complaint: fall off ladder Discharge Providers Provider Date of admission: 03/07/22 19:47 Primary care physician: Blake Santana MD Consults: 03/07/22 21:33 Consult to Dietitian, Adult Routine Comment: Reason For Exam: mna score = 10 Consult to Pastoral Services Routine Comment: patient request 03/07/22 21:39 Consult to Respiratory Therapy Evaluate & Treat Comment: ARF Physician Instructions: Evaluate and treat 03/08/22 10:41 Consult to Physician Routine Comment: Consulting Provider: Alondra Pineda Reason for consultation: rt femur fx Has provider been notified: Yes 03/08/22 18:59 Consult to Tele-watch and clock repair clerk Routine Comment: pt S/P hip moved to ICU Map<60, ARF unknown etiolo Consulting Provider: Jacob Tele-intensivists Reason for consultation: Heading Machine Operator services Has provider been notified: No 03/08/22 19:20 Consult to Discharge Planning Routine Comment: Consult to Physical Therapy Evaluate & Treat Comment: Physician Instructions: Evaluate and Treat Consult to Respiratory Therapy Evaluate & Treat Comment: Physician Instructions: Evaluate and treat 03/09/22 13:37 Consult to Occupational Therapy Evaluate & Treat Comment: Physician Instructions: Evaluate and treat Discharge provider: Marlen Boggs MD Summary Hospital Course Hospital Course: 1. Closed right intratrochanteric femur fracture, secondary to fall -s/p surgery -postop pain medication, DVT ppx, PT and OT 2. Acute respiratory failure with hypoxia and hypercapnia, secondary to aspiration pneumonia -initially o2 sats in the 70s -now weaned off oxygen -continue IV Zosyn for possible aspiration pneumonia -blood cultures negative 3. Delirium -secondary to acute illness and possibly sundowning -reorientation as able, resolving 3. Anemia, mild, likely due to acute post-op blood loss anemia -likely secondary to fall and injury, and acute post-op blood loss -pt has required 4 units RBC so far, last transfusion 03/10 -monitor patient for bleeding, trend hematology labs -plavix continued Hemorrhagic Shock, present on admission -resolved 4. 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 -Stable, managed by neurologist ? ?5. Insulin-dependent type 2 diabetic, chronic, with peripheral neuropathy, hyperlipidemia, chronic,? present on admission -admitted under diabetic protocol -A1c 7.6% -low-dose sliding scale postoperatively -Hold metformin -Continue regular insulin 3 units TID with meals - when taking PO -Continue glargine 20 units a.m. and 10 units at night -Correction scale insulin with accuchecks Q6HR while NPO -continue atorvastatin -Continue pregabalin 6. CAD, chronic, present on admission -Continue losartan 25mg -Continue metoprolol 25 mg b.i.d. -Continue atorvastatin -Continue clopidogrel- Hold -Continue nitroglycerine 0.4mg prn 7. GERD, chronic, present on admission -Continue pantoprazole 8. BPH, chronic, present on admission -Continue tamsulosin 0.4mg daily 9. Anxiety, chronic, present on admission -Continue buproprion 150mg in the morning 75mg at night Code status: Full Surrogate decision maker: Leonardo Reinoso Spouse Exam Vital Signs (past 8 hours): - 03/13/22 00:00 03/13/22 04:00 Temperature 98.2 F 98.1 F Pulse Rate 89 83 Respiratory Rate 18 16 Blood Pressure 121/64 131/73 Pulse Oximetry 98 93 Oxygen Flow Rate 2 2 Oxygen Delivery Method High Flow Nasal Cannula Oxygen Flow Rate 2 Objective Labs Result Diagrams: 03/13/22 05:10 03/13/22 05:10 Labs: Laboratory Results - last 24 hr 03/13/22 03/13/22 05:10 05:10 WBC 8.0 RBC 3.04 L Hgb 8.7 L Hct 25.4 L MCV 83.5 MCH 28.5 MCHC 34.1 RDW 15.8 H Plt Count 152 Neut % (Auto) 72.1 Lymph % (Auto) 10.1 L [place] % (Auto) 8.0 Eos % (Auto) 9.3 H Baso % (Auto) 0.5 Neut # (Auto) 5800 Lymph # (Auto) 800 L [place] # (Auto) 600 Eos # (Auto) 700 H Baso # (Auto) 0 Sodium 137 Potassium 3.4 Chloride 100 Carbon Dioxide 32 BUN 20 Creatinine 0.99 Estimated GFR > 60 BUN/Creatinine Ratio 20.2 Glucose 192 H Calcium 7.5 L Magnesium 2.0 PFSH Medical History Anxiety Arthritis Ascending aorta enlargement BPH (benign prostatic hyperplasia) Brain aneurysm CAD (coronary artery disease) Calculus of kidney Chest pain Depression Diabetes mellitus Diabetic peripheral neuropathy Former smoker GERD (gastroesophageal reflux disease) Gout Hyperlipidemia Hypertension Myocardial infarction Phimosis Surgical History H/O cervical spine surgery H/O right knee surgery History of inguinal hernia repair, bilateral Hx of cystoscopy (08/15/19) Hx of heart artery stent (~1995) S/P triple vessel bypass (~01/2019) Family History Mother Coronary artery disease Father COPD (chronic obstructive pulmonary disease) Social History household members: spouse Smoking Status: Former smoker alcohol intake: former Discharge Plan Discharge orders & Medications Prescriptions: No Action atorvastatin 80 mg Tablet 80 mg PO DAILY insulin glargine [Lantus U-100 Insulin] 100 unit/mL Solution See Rx Instructions .ROUTE .COMPLEX Rx Instructions: 20 units AM, 10 units HS pantoprazole 40 mg Tablet,Delayed Release (Dr/Ec) 40 mg PO DAILY nitroglycerin 0.4 mg Tablet, Sublingual 0.4 mg sublingual PRN PRN (Reason: Chest Pain) zinc sulfate 220 (50) mg Capsule 50 mg PO DAILY bupropion HCl 75 mg Tablet 150 mg PO DAILY Rx Instructions: in a.m. pregabalin [Lyrica] 100 mg Capsule 150 mg PO BID propranolol 20 mg Tablet 20 mg PO TID PRN (Reason: Anxiety) escitalopram oxalate 20 mg Tablet 20 mg PO DAILY metformin 500 mg Tablet 1,000 mg PO BID insulin aspart U-100 [Novolog U-100 Insulin aspart] 100 unit/mL Solution 7 unit SUBCUT BID Rx Instructions: morning & noon clopidogrel 75 mg Tablet 75 mg PO DAILY losartan 25 mg Tablet 25 mg PO DAILY bupropion HCl 75 mg Tablet 75 mg PO BEDTIME insulin aspart U-100 100 unit/mL (3 mL) Insulin Pen 8 unit SUBCUT DAILY Rx Instructions: at dinner metoprolol tartrate 25 mg Tablet 25 mg PO BID cholecalciferol (vitamin D3) 10 mcg (400 unit) capsule 10 mcg PO DAILY B-complex with vitamin C Capsule 1 cap PO DAILY Follow up/Referrals: Blake Santana MD [Primary Care Provider] - Alondra Pineda MD [Physician] - (10-14 days for postoperative visit. If discharged to a long-term facility and severe difficulty coming to office visit, okay for wound check and staple removal at 10-14 days. Patient must come into the office at 6 weeks for postoperative x-rays and wound check with Dr. Pineda.) Diet/Activity/Treatments Other treatments: -Work with PT/OT, mobilize with therapy as tolerated, partial weight-bearing right lower extremity Skin/Wound/Dressing Care Report to your healthcare provider any signs of infection, such as:: chills, fever, night sweats, unusual drainage and unusual redness Visit Report/Discharge Packet Instructions: Aspiration Pneumonia, Open Reduction and Internal Fixation Surgery Stand Alone Forms: Surgery Discharge Discharge Data Primary Care Provider: Blake Santana
--- NOTE | 2022-03-13 07:26 | P.PN_ITS ---
Subjective Subjective Date Patient Seen: 03/13/22 Interval history: He is doing quite well today but asks about a potential repeat surgery on his hip because he thinks he overheard someone planning that. We discussed that all the documentation is that he will have no further surgeries. Perhaps he has been intermittently confused again. He agrees that it is probably ?just scuttlebut. ? The hemoglobin has remained stable at 8.7 up from 8.5 yesterday. The white blood count is 8.0. The BMP is normal with a glucose of 192. He continues to have right-sided lung crackles. He is tender over the right hip. He is likely to be discharging to the [facility] t omorrow. Exam Vital Signs (past 8 hours): - 03/13/22 00:00 03/13/22 04:00 Temperature 98.2 F 98.1 F Pulse Rate 89 83 Respiratory Rate 18 16 Blood Pressure 121/64 131/73 Pulse Oximetry 98 93 Oxygen Flow Rate 2 2 Oxygen Delivery Method High Flow Nasal Cannula Oxygen Flow Rate 2 Narrative Exam Narrative: Alert and oriented x3. No apparent distress. No signs of confusion other than the questions described above. Heart is regular rate and rhythm without murmur Lungs have crackles on the right side There is no ankle edema There is moderate tenderness over the right hip without signs of significant hematoma, infection or swelling. Objective Labs Result Diagrams: 03/13/22 05:10 03/13/22 05:10 Labs: Laboratory Results - last 24 hr 03/13/22 03/13/22 05:10 05:10 WBC 8.0 RBC 3.04 L Hgb 8.7 L Hct 25.4 L MCV 83.5 MCH 28.5 MCHC 34.1 RDW 15.8 H Plt Count 152 Neut % (Auto) 72.1 Lymph % (Auto) 10.1 L [place] % (Auto) 8.0 Eos % (Auto) 9.3 H Baso % (Auto) 0.5 Neut # (Auto) 5800 Lymph # (Auto) 800 L [place] # (Auto) 600 Eos # (Auto) 700 H Baso # (Auto) 0 Sodium 137 Potassium 3.4 Chloride 100 Carbon Dioxide 32 BUN 20 Creatinine 0.99 Estimated GFR > 60 BUN/Creatinine Ratio 20.2 Glucose 192 H Calcium 7.5 L Magnesium 2.0 PENDING SALE TO [facility] Medical History Anxiety Arthritis Ascending aorta enlargement BPH (benign prostatic hyperplasia) Brain aneurysm CAD (coronary artery disease) Calculus of kidney Chest pain Depression Diabetes mellitus Diabetic peripheral neuropathy Former smoker GERD (gastroesophageal reflux disease) Gout Hyperlipidemia Hypertension Myocardial infarction Phimosis Surgical History H/O cervical spine surgery H/O right knee surgery History of inguinal hernia repair, bilateral Hx of cystoscopy (08/15/19) Hx of heart artery stent (~1995) S/P triple vessel bypass (~01/2019) Family History Mother Coronary artery disease Father COPD (chronic obstructive pulmonary disease) Social History household members: spouse Smoking Status: Former smoker alcohol intake: former Assessment & Plan Assessment & Plan narrative: 1. Closed right intratrochanteric femur fracture, secondary to fall -s/p surgery -postop pain medication, DVT ppx, PT and OT -postoperative hematoma apparently stable with stable hemoglobin of 8.7 on 03/13. 2. Acute respiratory failure with hypoxia and hypercapnia, secondary to aspiration pneumonia -initially o2 sats in the 70s -now weaned off oxygen -continue IV Zosyn for possible aspiration pneumonia -03/13 changed to oral Augmentin -blood cultures negative 3. Delirium -secondary to acute illness and possibly sundowning -reorientation as able, resolving -03/13 resolved 3. Anemia, mild, likely due to acute post-op blood loss anemia -likely secondary to fall and injury, and acute post-op blood loss -pt has required 4 units RBC, last transfusion 03/10 -monitor patient for bleeding, trend hematology labs -plavix continued Hemorrhagic Shock, present on admission -resolved 4. 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 -Stable, managed by neurologist ? ?5. Insulin-dependent type 2 diabetic, chronic, with peripheral neuropathy, hyperlipidemia, chronic,? present on admission -admitted under diabetic protocol -A1c 7.6% -low-dose sliding scale postoperatively -Hold metformin -Continue regular insulin 3 units TID with meals - when taking PO -Continue glargine 20 units a.m. and 10 units at night -Correction scale insulin with accuchecks Q6HR while NPO -continue atorvastatin -Continue pregabalin 6. CAD, chronic, present on admission -Continue losartan 25mg -Continue metoprolol 25 mg b.i.d. -Continue atorvastatin -Continue clopidogrel- Hold -Continue nitroglycerine 0.4mg prn 7. GERD, chronic, present on admission -Continue pantoprazole 8. BPH, chronic, present on admission -Continue tamsulosin 0.4mg daily 9. Anxiety, chronic, present on admission -Continue buproprion 150mg in the morning 75mg at night Plan discharge to [facility] on 03/14. Code status: Full Surrogate decision maker: Leonardo Reinoso Spouse Time Spent With Patient Critical Care time: I spent a total of [] minutes of critical care time on this patient's care today; this time is exclusive of procedural time.
[2022-03-13] MEDS: ESCITALOPRAM 10 MG TABLET 20 MG PO (08:20)
[2022-03-13] MEDS: CHOLECALCIFEROL (VITAMIN D3) 400 UNIT TABLET PO (08:20)
[2022-03-13] MEDS: CLOPIDOGREL 75 MG TABLET PO (08:20)
[2022-03-13] MEDS: buPROPion 75 MG TABLET 150 MG PO (08:20)
[2022-03-13] MEDS: ATORVASTATIN 20 MG TABLET 80 MG PO (08:20)
[2022-03-13] MEDS: PREGABALIN 50 MG CAPSULE 150 MG PO ×2 (08:21→20:05)
[2022-03-13] MEDS: LOSARTAN 25 MG TABLET PO (08:21)
[2022-03-13] MEDS: PANTOPRAZOLE DR 40 MG TABLET PO (08:21)
[2022-03-13] MEDS: METOPROLOL IR 25 MG TABLET PO ×2 (08:21→20:05)
[2022-03-13] MEDS: ZINC SULFATE 220 MG CAPSULE PO (08:22)
[2022-03-13] MEDS: INSULIN LISPRO 100 UNIT/ML 3ML VIAL 7 UNIT SUBCUT ×2 (08:23→12:35)
[2022-03-13] MEDS: INSULIN GLARGINE 100 UNIT/ML 3ML PEN 20 UNIT SUBCUT ×2 (08:23→20:20)
[2022-03-13] MEDS: INSULIN LISPRO 100 UNIT/ML 3ML VIAL SUBCUT ×4 (08:24→20:18)
--- NOTE | 2022-03-13 11:07 | CM.DPC ---
DCP Cont: DCP spoke with November @ [facility] this AM. Per November, they can accept the patient tomorrow between [id number]. Would need updated COVID swab ordered. DCP to input that order in the AM for AM RN. DCP to discuss discharge with MD and fax over all required paperwork. Kathy Hutchins, GEORGI/DCP
--- NOTE | 2022-03-13 12:01 | PT.IPTN ---
Current Diagnoses Type 2 diabetes mellitus with diabetic polyneuropathy (03/07/22) Other acute postprocedural pain (03/07/22) Acute respiratory failure with hypoxia (03/07/22) Shock, unspecified (03/07/22) Displaced intertrochanteric fracture of right femur, initial encounter for closed fracture (03/07/22) Displaced subtrochanteric fracture of unspecified femur, initial encounter for closed fracture (03/07/22) Presence of coronary angioplasty implant and graft (03/07/22) Arthrodesis status (03/07/22) Surgery Performed Operation Date: 03/08/22 15:45 Actual Procedures p Intramedullary Nailing Femur(Right) - Alondra Pineda MD Physical Therapy Treatment Note M2 PT-IP Current Condition Start: 03/09/22 12:26 Freq: NEEDED Status: Active Protocol: Document 03/09/22 10:50 AB (Rec: 03/09/22 12:39 AB [id number]) Physical Therapy Current Condition Current Condition Evaluation Date 03/09/22 Treatment Diagnosis s/p fall; R subtroch hip fx s/ p ORIF; difficulty in walking Onset Date 03/07/22 M3 PT-IP Subjective Start: 03/09/22 12:26 Freq: NEEDED Status: Active Protocol: Document 03/13/22 12:01 AW (Rec: 03/13/22 12:16 AW [id number]) Subjective Physical Therapy Visit Type Type Treatment Note Visit Start Time 11:43 Visit Stop Time 12:01 Total Visit Minutes 18 Number of HEADER OPERATOR Visits 0 Physical Therapy Visit Comments Patient Comments Pt is willing to participate with PT Therapy Pain Assessment Pain When Pain Assessed During Mobility Pain Present Pain Present Pain Reported Location right hip Scale Used Numeric (0 - 10) Pain Management Techniques Distraction,Modification of Treatment,Re-positioning, Timing of Activity with Medications M4 PT-IP Mobility and Gait Start: 03/09/22 12:26 Freq: NEEDED Status: Active Protocol: Document 03/13/22 12:01 AW (Rec: 03/13/22 12:16 AW [id number]) PT-Bed Mobility Assessment Supine to Sit Supine to Sit Maximum Assistance,1 Person Assistance,Head of Bed Elevated Scooting Scooting to Edge of Bed Maximum Assistance PT-Transfer Assessment Sit to and From Stand Sit to and from Stand Maximum Assistance,1 Person Assistance,Use of Upper Extremities Equipment Transfer Assistive Device Gait Belt,Front Wheeled Walker Orthotic/Prosthetic Devices or Brace: No Transfers Transfer Destination Chair Transfer Technique Stand Step Pivot Transfer Ability Level of Assist Maximum Assistance,1 Person Assistance,2 Person Assistance ,Use of Upper Extremities Comments Mobility Comments Pt was lying in bed as PT arrived. Family were present initially but left for pt to work with PT. Pt needed cues, head of bed elevated, and max A to sit up on the left side of the bed. With feet on the ground, he was able to sit SBA but with leftward lean. That 's on purpose. PT reinforced education on PWB RLE and pt verbalized understanding. Pt stood max A and used FWW to stabilize. He shifted weight laterally to practice offloading RLE with UE's on FWW, mainitaining TTWB RLE. Pt agreed to transfer to the chair set up on his left side. He was able to pivot on his left foot frog walking with RLE held in TTWB. Max A for safe descent to the chair. Pt agreed to sit up for lunch and to call for assist. Gait Assessment Comments Gait Comments Steps taken during transfer only. See mobility comments for details. PT-Balance Assessment Sitting Balance and Reactions Static Sitting Balance Ability Fair Dynamic Sitting Balance Ability Poor Standing Balance and Reactions Static Standing Balance Ability Poor Dynamic Standing Balance Ability Poor Device Used FWW M5 PT-IP Objective Assessments Start: 03/09/22 12:26 Freq: NEEDED Status: Active Protocol: Document 03/09/22 10:50 AB (Rec: 03/09/22 12:39 AB [id number]) Orientation Orientation/Cognition Level of Alertness Alert Orientation Name,Place,Situation Safety Awareness Decreased Safety Awareness Memory Description Short Term Impaired Gross Range of Motion Lower Extremity ROM Assessment Right Impaired Impairments RLE increase guarding affecting PROM test Strength Lower Extremity Strength Assessment Bilaterally Impaired Comments Strength Comments LLE: 4-/5 RLE: 2+/5 Muscle Tone Muscle Tone WNL Yes M6 PT-IP Treatment Start: 03/09/22 12:26 Freq: NEEDED Status: Active Protocol: Document 03/13/22 12:01 AW (Rec: 03/13/22 12:16 AW [id number]) Physical Therapy Treatment Exercises Exercises Gluteal Sets,Quad Sets,Heel Slides Education Education Provided Weight Bearing Status,Safety Other Treatments Other Treatment Performed Exercises done pre-mobility with PT assist for heel slides . M7 PT-IP Assessment and Plan Start: 03/09/22 12:26 Freq: NEEDED Status: Active Protocol: Document 03/13/22 12:01 AW (Rec: 03/13/22 12:16 AW [id number]) PT Summary Assessment and Plan Potential Rehabilitation Potential Fair Summary Impairments Pain,ROM,Strength,Balance, Coordination,Sensation,Tone, Cognition,Bed Mobility, Transfers,Gait,Activity Tolerance Progress Towards Goals Slow Progress due to Pain,Slow Progress due to Medical Issues,Slow Progress due to Activity Tolerance,Slow Progress - Other Assessment Summary Good progress this AM with pt able to transfer with FWW max A x 1-2. Pt will require SNF rehab to improve strength and mobility independence. Goals Bed Mobility Goal Minimal Assistance Transfer Goal Minimal Assistance,Front Wheeled Walker Gait Goal Minimal Assistance,Front Wheel Walker Gait Distance 25 Other Goals improve bed mobility, transfers and ambulation using FWW 50 ft SBA Days to Meet Goals 10 Frequency of Treatment Frequency Of Treatment Twice a Day Treatment Plan Physical Therapy Treatment Plan Bed Mobility Training,Transfer Training,Gait Training, Therapeutic Exercise,Balance Retraining,Post Op Education, Discharge Planning,Hot or Cold Pack,Neuromuscular Re-ed, Coordination Retraining,Manual Therapy Other Recommendations and Next Treatment pre-mobility ther ex, Focus transfers Weight Bearing Status Weight Bearing Status Partial Weight Bearing Allowed Weight Bearing Amount (enter % Clarified with ROBERTO Beck: or #) (%) 50% PWB on RLE Recommendations To Nursing Amount of Assist Needed 2 Person Assist,Mechanical Lift Discharge Recommendations PT Discharge Recommendations SNF Rehab Transportation Needs at Discharge Wheelchair/Cabulance,Stretcher /Ambulance
[2022-03-13] MEDS: POTASSIUM CHLORIDE 20 MEQ TAB 40 MEQ PO (12:36)
--- NOTE | 2022-03-13 15:20 | PT.IPTN ---
Current Diagnoses Type 2 diabetes mellitus with diabetic polyneuropathy (03/07/22) Other acute postprocedural pain (03/07/22) Acute respiratory failure with hypoxia (03/07/22) Shock, unspecified (03/07/22) Displaced intertrochanteric fracture of right femur, initial encounter for closed fracture (03/07/22) Displaced subtrochanteric fracture of unspecified femur, initial encounter for closed fracture (03/07/22) Presence of coronary angioplasty implant and graft (03/07/22) Arthrodesis status (03/07/22) Surgery Performed Operation Date: 03/08/22 15:45 Actual Procedures p Intramedullary Nailing Femur(Right) - Alondra Pineda MD Physical Therapy Treatment Note M2 PT-IP Current Condition Start: 03/09/22 12:26 Freq: NEEDED Status: Active Protocol: Document 03/09/22 10:50 AB (Rec: 03/09/22 12:39 AB [id number]) Physical Therapy Current Condition Current Condition Evaluation Date 03/09/22 Treatment Diagnosis s/p fall; R subtroch hip fx s/ p ORIF; difficulty in walking Onset Date 03/07/22 M3 PT-IP Subjective Start: 03/09/22 12:26 Freq: NEEDED Status: Active Protocol: Document 03/13/22 15:20 AW (Rec: 03/13/22 16:14 AW [id number]) Subjective Physical Therapy Visit Type Type Treatment Note Visit Start Time 15:02 Visit Stop Time 15:20 Total Visit Minutes 18 Number of BETA TESTER Visits 0 Physical Therapy Visit Comments Patient Comments Pt was up to the chair with PT earlier. In the interim, he transferred to the commode and back to bed with nursing. He states he is too tired to do much this afternoon but will try. Therapy Pain Assessment Pain When Pain Assessed During Mobility Pain Present Pain Present Pain Reported Location right hip Scale Used not quantified Pain Management Techniques Distraction,Modification of Treatment,Re-positioning, Timing of Activity with Medications M4 PT-IP Mobility and Gait Start: 03/09/22 12:26 Freq: NEEDED Status: Active Protocol: Document 03/13/22 15:20 AW (Rec: 03/13/22 16:14 AW [id number]) PT-Bed Mobility Assessment Supine to Sit Supine to Sit Maximum Assistance,1 Person Assistance,Head of Bed Elevated Sit to Supine Sit to Supine Maximum Assistance,1 Person Assistance Scooting Scooting Up and Down in Bed Maximum Assistance PT-Transfer Assessment Comments Mobility Comments Colby was lying in bed as PT arrived. He completed supine exercises as below prior to initiating mobility. He needed max A to sit upright on the left EOB. He stated fatigue was too great and he needed to lie down. Pt was assisted max A back to supine. He was able to participate in repositioning efforts including boosting up in bed by using his LLE to push. PT-Balance Assessment Sitting Balance and Reactions Static Sitting Balance Ability Fair Dynamic Sitting Balance Ability Fair M5 PT-IP Objective Assessments Start: 03/09/22 12:26 Freq: NEEDED Status: Active Protocol: Document 03/09/22 10:50 AB (Rec: 03/09/22 12:39 AB [id number]) Orientation Orientation/Cognition Level of Alertness Alert Orientation Name,Place,Situation Safety Awareness Decreased Safety Awareness Memory Description Short Term Impaired Gross Range of Motion Lower Extremity ROM Assessment Right Impaired Impairments RLE increase guarding affecting PROM test Strength Lower Extremity Strength Assessment Bilaterally Impaired Comments Strength Comments LLE: 4-/5 RLE: 2+/5 Muscle Tone Muscle Tone WNL Yes M6 PT-IP Treatment Start: 03/09/22 12:26 Freq: NEEDED Status: Active Protocol: Document 03/13/22 15:20 AW (Rec: 03/13/22 16:14 AW [id number]) Physical Therapy Treatment Exercises Exercises Gluteal Sets,Quad Sets,Heel Slides,Supine Hip Abduction Other Treatments Other Treatment Performed PT provided AAROM assist for heel slides and hip abduction but pt tolerated well. Educated pt on importance of weightbearing for bone healing . M7 PT-IP Assessment and Plan Start: 03/09/22 12:26 Freq: NEEDED Status: Active Protocol: Document 03/13/22 15:20 AW (Rec: 03/13/22 16:14 AW [id number]) PT Summary Assessment and Plan Potential Rehabilitation Potential Good Summary Impairments Pain,ROM,Strength,Balance, Coordination,Sensation,Tone, Cognition,Bed Mobility, Transfers,Gait,Activity Tolerance Assessment Summary Pt more fatigued and with more pain this PM. He did tolerate supine ther ex well and was able to sit up at the edge of the bed mod/max A. He was also able to participate in repositioning on the bed using LLE. Pt will require SNF rehab. Anticipate d/c to SNF Monday. Goals Bed Mobility Goal Minimal Assistance Transfer Goal Minimal Assistance,Front Wheeled Walker Gait Goal Minimal Assistance,Front Wheel Walker Gait Distance 25 Other Goals improve bed mobility, transfers and ambulation using FWW 50 ft SBA Days to Meet Goals 10 Frequency of Treatment Frequency Of Treatment Twice a Day Treatment Plan Physical Therapy Treatment Plan Bed Mobility Training,Transfer Training,Gait Training, Therapeutic Exercise,Balance Retraining,Post Op Education, Discharge Planning,Hot or Cold Pack,Neuromuscular Re-ed, Coordination Retraining,Manual Therapy Other Recommendations and Next Treatment pre-mobility ther ex, Focus transfers Weight Bearing Status Weight Bearing Status Partial Weight Bearing Allowed Weight Bearing Amount (enter % Clarified with ROBERTO Beck: or #) (%) 50% PWB on RLE Recommendations To Nursing Amount of Assist Needed 2 Person Assist,Mechanical Lift Discharge Recommendations PT Discharge Recommendations SNF Rehab Transportation Needs at Discharge Wheelchair/Cabulance,Stretcher /Ambulance
[2022-03-13] MEDS: ACETAMINOPHEN 325 MG TABLET 650 MG PO (19:50)
[2022-03-13] MEDS: AMOXICILLIN/CLAV 875/125 MG 1 TAB PO (20:04)
[2022-03-13] MEDS: buPROPion 75 MG TABLET PO (20:05)
[2022-03-14] VITALS: BP 119/69; PULSE 82; RESP 17; TEMP 36.7; O2SAT 92
[2022-03-14 04:00] VITALS: BP 135/68; PULSE 83; RESP 17; TEMP 36.6; O2SAT 93
--- NOTE | 2022-03-14 05:02 | PC.NURSE ---
Addendum entered by Jodi Benoit R.N. 03/14/22 07:03: Patient had a loose BM at change of shift and voided 200ml urine out using the urinal. Original Note: End of shift note. Patient AAOX3, O2 Sats 96% on 2L NC, decreased to 1L NC. O2 Sats 93% on 1L NC. Good pain control with Tylenol PRN and scheduled Lyrica. Slept well during the night. Discussed with patient about transferring to [facility], patient acknowledged, and will call his to bring in some clothes from home. Bladder Urinary catheter d/c'd per protocol at 0420. Patient is due to void at 1020.
[2022-03-14 08:00] VITALS: BP 138/70; PULSE 86; RESP 16; TEMP 37; O2SAT 92
[2022-03-14 08:25] VITALS: PULSE 90; RESP 18; O2SAT 92
[2022-03-14] MEDS: INSULIN LISPRO 100 UNIT/ML 3ML VIAL 7 UNIT SUBCUT ×2 (08:37→12:10)
[2022-03-14] MEDS: INSULIN LISPRO 100 UNIT/ML 3ML VIAL SUBCUT ×2 (08:37→12:10)
[2022-03-14] MEDS: LOSARTAN 25 MG TABLET PO (08:47)
[2022-03-14] MEDS: METOPROLOL IR 25 MG TABLET PO (08:47)
[2022-03-14] MEDS: PREGABALIN 50 MG CAPSULE 150 MG PO (08:47)
[2022-03-14] MEDS: AMOXICILLIN/CLAV 875/125 MG 1 TAB PO (08:47)
[2022-03-14] MEDS: ATORVASTATIN 20 MG TABLET 80 MG PO (08:47)
[2022-03-14] MEDS: buPROPion 75 MG TABLET 150 MG PO (08:47)
[2022-03-14] MEDS: ESCITALOPRAM 10 MG TABLET 20 MG PO (08:47)
[2022-03-14] MEDS: PANTOPRAZOLE DR 40 MG TABLET PO (08:47)
[2022-03-14] MEDS: CLOPIDOGREL 75 MG TABLET PO (08:47)
[2022-03-14] MEDS: ZINC SULFATE 220 MG CAPSULE PO (08:48)
[2022-03-14] MEDS: CHOLECALCIFEROL (VITAMIN D3) 400 UNIT TABLET PO (08:48)
[2022-03-14] MEDS: INSULIN GLARGINE 100 UNIT/ML 3ML PEN 20 UNIT SUBCUT (08:49)
[2022-03-14 08:57] LABS: COVID19 -Nasal RAPID Negative (Negative)
--- NOTE | 2022-03-14 09:37 | PM.DS.1 ---
History of Present Illness History of Present Illness Date Patient Seen: 03/07/22 Time Patient Seen: 21:45 Chief complaint: fall off ladder Narrative: Per admitting provider: Colby Reinoso is a 76-year-old male with a history of T2DM, HTN, dyslipidemia, two MIs, and a triple bypass?CABG who is on Plavix daily who had a fall off a ladder about 5 rungs up or proximally 4-5 feet off the ground landing on his landing on his hip.? Patient has wes pain in his right hip that radiates down his right leg, denies any other pain.? Denies hitting his head or chest.? Denies neck or back pain.?Patient denies LYNNE, changes in vision, CP, shortness of breath, abdominal pain, nausea, vomiting, bowel or bladder incontinence or issues, numbness, tingling.? Patient states he is had prior cervical fusion, bypass but no ablation.? States he is allergic to aspirin.? He is unsure of all of his medications but does know he takes Plavix for his anticoagulant. No tobacco, no alcohol, no illicit. Upon arrival in the ED patient was febrile with a temp of 99?, BP 100/49, HR 77, R 24 and was found to have an O2 saturation of 74% on room air. Patient has no respiratory history, no home O2, and was not complaining of shortness of breath. Dr. Pineda orthopedics was consulted in the ED and requested patient be admitted to the hospitalist service. Vitals upon admit temp afebrile 99, BP 117/63, HR 79, R 11, O2 saturation 96% on 4 L. ABGs: PH 7.34, pCO2 54.2, PO2 73, bicarb 29, T CO2 31, O2 saturation 93%, BE 4, FiO2 36. Patient presents with mild anemia: H&H 10.8/32.4, 04/16/2019 H&H 14.2/44, patient's chemistry and liver panel are predominantly unremarkable with the exception of a BUN of 29, lactate troponin lipase ETOH are all normal. [facility] Xray: ?Intertrochanteric right proximal femur fracture. Chest/abd/Pelvis CT: Comminuted right intertrochanteric femoral fracture, with Multilevel wedge shaped thoracolumbar compression fractures at T12, L1, L2 and L3. Chest Xray:Slight elevation of the left hemidiaphragm with adjacent opacity may be atelectasis or projectional abnormality. 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 Patient admitted for right pertrochanteric femur fracture secondary fall from ladder, in acute hypoxic, hypercapnic respiratory failure, mild anemia. Patient to go to the OR tomorrow with Dr. Pineda for repair. Discharge Providers Provider Date of admission: 03/07/22 19:47 Discharge Date: 03/14/22 Primary care physician: Blake Santana MD Consults: 03/07/22 21:33 Consult to Dietitian, Adult Routine Comment: Reason For Exam: mna score = 10 Consult to Pastoral Services Routine Comment: patient request 03/07/22 21:39 Consult to Respiratory Therapy Evaluate & Treat Comment: ARF Physician Instructions: Evaluate and treat 03/08/22 10:41 Consult to Physician Routine Comment: Consulting Provider: Alondra Pineda Reason for consultation: rt femur fx Has provider been notified: Yes 03/08/22 18:59 Consult to Tele-tin roller [employer] mill Routine Comment: pt S/P hip moved to ICU Map<60, ARF unknown etiolo Consulting Provider: Jacob [employer] Reason for consultation: [employer] Preparer services Has provider been notified: No 03/08/22 19:20 Consult to Discharge Planning Routine Comment: Consult to Physical Therapy Evaluate & Treat Comment: Physician Instructions: Evaluate and Treat Consult to Respiratory Therapy Evaluate & Treat Comment: Physician Instructions: Evaluate and treat 03/09/22 13:37 Consult to Occupational Therapy Evaluate & Treat Comment: Physician Instructions: Evaluate and treat Discharge provider: Arsh Epperson MD Summary Hospital Course Discharge Diagnosis: 1. Close right intratrochanteric femur fracture 2. Acute respiratory failure with hypoxia and hypercapnia, secondary to aspiration pneumonia 3. Delirium 4. Anemia, post-op blood loss 5. Hemorrhagic shock 6. Brain aneursym 7. Type 2 Diabetes, on insulin, with peripheral neuropathy 8. CAD 9. GERD 10. BPH 11. Anxiety Hospital Course: Mr. Reinoso was admitted after a fall with a right intratrochanteric hip fracture and underwent nail repair. He did have blood loss requiring transfusion of 4U PRBC, last transfusion on 03/10. In the perioperative setting he developed shock and was briefly on levophed. He also developed respiratory failure and placed on nasal cannula. Etiology likely aspiration pneumonia. He was started on IV antibiotics and he improved. On day of discharge he was requiring only 1L of oxygen. His antibiotics should be taken through 03/15 for a total one week course. He will be discharged to SNF for PT. He should have wound check within two weeks. He should follow up with Dr. Pineda, orthopedic surgeon within 6 weeks and will need an xray at that time. He is already on plavix which orthopedic surgery noted was appropriate for DVT prophylaxis. Discharge time 35 minutes Exam Vital Signs (past 8 hours): - 03/14/22 04:00 03/14/22 08:00 03/14/22 08:25 Temperature 97.8 F 98.6 F Pulse Rate 83 86 90 Respiratory Rate 17 16 18 Blood Pressure 135/68 138/70 Pulse Oximetry 93 92 92 Oxygen Delivery Method Nasal Cannula Oxygen Flow Rate 2 2 Fraction of Inspired Oxygen 28 Fraction of Inspired Oxygen 28 SaO2/FiO2 Ratio 328 Oxygen Delivery Method Nasal Cannula Oxygen Flow Rate 2 Narrative Exam Narrative: GEN: Alert and oriented x3. No apparent distress. Confusion much improved CV: regular rate and rhythm without murmur PULM: Lungs have crackles on the right side EXT: moderate tenderness over the right hip with bandage in place Objective Labs Result Diagrams: 03/13/22 05:10 03/13/22 05:10 Labs: Laboratory Results - last 24 hr 03/14/22 07:41 SARS-CoV-2 (PCR) Negative [facility] Medical History Anxiety Arthritis Ascending aorta enlargement BPH (benign prostatic hyperplasia) Brain aneurysm CAD (coronary artery disease) Calculus of kidney Chest pain Depression Diabetes mellitus Diabetic peripheral neuropathy Former smoker GERD (gastroesophageal reflux disease) Gout Hyperlipidemia Hypertension Myocardial infarction Phimosis Surgical History H/O cervical spine surgery H/O right knee surgery History of inguinal hernia repair, bilateral Hx of cystoscopy (08/15/19) Hx of heart artery stent (~1995) S/P triple vessel bypass (~01/2019) Family History Mother Coronary artery disease Father COPD (chronic obstructive pulmonary disease) Social History household members: spouse Smoking Status: Former smoker alcohol intake: former Discharge Plan Discharge Plan Patient Disposition: SNF Transfer to: [facility] Provider Discharge Comment: Complete antibiotics with augmentin through 03/15 Per orthopedics: patient will need wound check and staple removal at 10-14 days postoperatively. If he goes to a fdc facility and has difficulty with transportation, okay for wound check at [facility] in 10-14 days in stable removal with Steri-Strips application. He must come into Dr. Pineda's office at his 6 week postop visit for x-rays and wound check at that time. Discharge orders & Medications Prescriptions: New sennosides [senna] 8.6 mg Tablet 17.2 mg PO BEDTIME Qty: 20 0RF polyethylene glycol 3350 17 gram Powder In Packet 17 gm PO DAILY PRN (Reason: Constipation) Qty: 20 0RF amoxicillin-pot clavulanate 875-125 mg Tablet 1 tab PO BID Qty: 4 0RF oxycodone 5 mg Tablet 5 mg PO Q3HR PRN (Reason: Pain, Mild (1-3)) Qty: 10 0RF Continued atorvastatin 80 mg Tablet 80 mg PO DAILY insulin glargine [Lantus U-100 Insulin] 100 unit/mL Solution See Rx Instructions .ROUTE .COMPLEX Rx Instructions: 20 units AM, 10 units HS pantoprazole 40 mg Tablet,Delayed Release (Dr/Ec) 40 mg PO DAILY nitroglycerin 0.4 mg Tablet, Sublingual 0.4 mg sublingual PRN PRN (Reason: Chest Pain) zinc sulfate 220 (50) mg Capsule 50 mg PO DAILY bupropion HCl 75 mg Tablet 150 mg PO DAILY Rx Instructions: in a.m. propranolol 20 mg Tablet 20 mg PO TID PRN (Reason: Anxiety) escitalopram oxalate 20 mg Tablet 20 mg PO DAILY metformin 500 mg Tablet 1,000 mg PO BID insulin aspart U-100 [Novolog U-100 Insulin aspart] 100 unit/mL Solution 7 unit SUBCUT BID Rx Instructions: morning & noon clopidogrel 75 mg Tablet 75 mg PO DAILY losartan 25 mg Tablet 25 mg PO DAILY bupropion HCl 75 mg Tablet 75 mg PO BEDTIME insulin aspart U-100 100 unit/mL (3 mL) Insulin Pen 8 unit SUBCUT DAILY Rx Instructions: at dinner metoprolol tartrate 25 mg Tablet 25 mg PO BID pregabalin [Lyrica] 100 mg Capsule 150 mg PO BID Qty: 10 0RF cholecalciferol (vitamin D3) 10 mcg (400 unit) capsule 10 mcg PO DAILY B-complex with vitamin C Capsule 1 cap PO DAILY Follow up/Referrals: Blake Santana MD [Primary Care Provider] - Alonrda Pineda MD [Physician] - (10-14 days for postoperative visit. If discharged to a fdc facility and severe difficulty coming to office visit, okay for wound check and staple removal at 10-14 days. Patient must come into the office at 6 weeks for postoperative x-rays and wound check with Dr. Pineda.) Diet/Activity/Treatments Diet: Regular Liquid consistency: Normal/Thin Food texture: Regular Other treatments: -Work with PT/OT, mobilize with therapy as tolerated, partial weight-bearing right lower extremity Skin/Wound/Dressing Care Report to your healthcare provider any signs of infection, such as:: chills, fever, night sweats, unusual drainage and unusual redness [facility] Reason for rehabilitation: Post-operative therapy Rehab type: Physical therapy and Occupational therapy Visit Report/Discharge Packet Instructions: Aspiration Pneumonia, Open Reduction and Internal Fixation Surgery Stand Alone Forms: Surgery Discharge Discharge Data Primary Care Provider: Blake Santana
--- NOTE | 2022-03-14 09:41 | PT.IPTN ---
Addendum entered and electronically signed by Duyen Alberts PTA 03/14/22 12:22: Vitals pre mobility: BP 132/73, HR 89 SaO2 92% on 1L NC. Ed to pt for keeping NC in nose for sufficient saturation. I know, it keeps falling out of my nose. Original Note: Current Diagnoses Type 2 diabetes mellitus with diabetic polyneuropathy (03/07/22) Other acute postprocedural pain (03/07/22) Acute respiratory failure with hypoxia (03/07/22) Shock, unspecified (03/07/22) Displaced intertrochanteric fracture of right femur, initial encounter for closed fracture (03/07/22) Displaced subtrochanteric fracture of unspecified femur, initial encounter for closed fracture (03/07/22) Presence of coronary angioplasty implant and graft (03/07/22) Arthrodesis status (03/07/22) Surgery Performed Operation Date: 03/08/22 15:45 Actual Procedures p Intramedullary Nailing Femur(Right) - Alondra Pineda MD Physical Therapy Treatment Note M2 PT-IP Current Condition Start: 03/09/22 12:26 Freq: NEEDED Status: Active Protocol: Document 03/14/22 09:18 SP (Rec: 03/14/22 12:20 SP [id number]) Physical Therapy Current Condition Current Condition Evaluation Date 03/09/22 Treatment Diagnosis s/p fall; R subtroch hip fx s/ p ORIF; difficulty in walking Onset Date 03/07/22 M3 PT-IP Subjective Start: 03/09/22 12:26 Freq: NEEDED Status: Active Protocol: Document 03/14/22 09:18 SP (Rec: 03/14/22 12:20 SP [id number]) Subjective Physical Therapy Visit Type Type Treatment Note Visit Start Time 09:18 Visit Stop Time 09:41 Total Visit Minutes 23 Number of SPLINE ROLLING MACHINE JOB SETTER Visits 1 Physical Therapy Visit Comments Patient Comments Pt was agreeable to working with therapy and get up to chair, stated waiting on going to rehab facility. Patient Goals Go to rehab facility to get strong to get home. Therapy Pain Assessment Pain When Pain Assessed During Mobility Pain Present Pain Present Pain Reported Location right hip Scale Used Numeric (0 - 10) Description Aching Pain Management Techniques Distraction,Modification of Treatment,Re-positioning, Timing of Activity with Medications M4 PT-IP Mobility and Gait Start: 03/09/22 12:26 Freq: NEEDED Status: Active Protocol: Document 03/14/22 09:18 SP (Rec: 03/14/22 12:20 SP [id number]) PT-Bed Mobility Assessment Rolling Type of Rolling Bilateral Level of Assist Maximal Assistance,1 Person Assistance Supine to Sit Supine to Sit Maximum Assistance,1 Person Assistance,Head of Bed Elevated Scooting Scooting to Edge of Bed Maximum Assistance PT-Transfer Assessment Sit to and From Stand Sit to and from Stand Maximum Assistance,2 Person Assistance,Use of Upper Extremities Equipment Transfer Assistive Device Gait Belt,Front Wheeled Walker Orthotic/Prosthetic Devices or Brace: No Transfers Transfer Destination Chair Transfer Technique Stand Step Pivot w/ FWW Transfer Ability Level of Assist Moderate Assistance,Maximum Assistance,2 Person Assistance ,Use of Upper Extremities Comments Mobility Comments Colby elevated in bed when arrived. Instructed BLE ex: AP , quad/glut sets, HS 50% RLE approx 60 deg R knee flexion andrade. MOdified LR R and L Max A x1 to assist reposition brief pre mob. Sup>sit Mod A RLE to EOB, self scoot Max A trunk righting to sit L bed rail and pull from SPLINE ROLLING MACHINE JOB SETTER hand. Scoot Max A x1 for trunk support and forward pelvis. Seated EOB Mod >SBA. Sit>stand Max A x2 Cues for UE positioning bed>FWW, cued BLE wt shift/ movement assess RLE demonstrates 25%WB with heavy BUE wB on FWW for support during transfer, SPT w / FWW Mod-Max A x2 good maintaining 50 % WB on RLE throughout. Stand>sit Mod A x2 and cues reach back. Scoot back in chair Mod A x1 with pt BUE/ BE support. Pt had call light and all needs in reach, LEs elevated in recliner. Nursing aware not chair alarm but stated pt safe to call. Gait Assessment Comments Gait Comments Steps taken during transfer only. See mobility comments for details. Stair Climbing Assessment Comments Stair Climbing Comments Unable to assess at this time. Pt will need complete 2 platform steps enter home, 13 stairs L HR to get up to bedroom but stated can stay on first floor if needed. Assess for safe DC home when able. PT-Balance Assessment Sitting Balance and Reactions Static Sitting Balance Ability Good Dynamic Sitting Balance Ability Fair Standing Balance and Reactions Static Standing Balance Ability Poor Dynamic Standing Balance Ability Poor Device Used FWW M5 PT-IP Objective Assessments Start: 03/09/22 12:26 Freq: NEEDED Status: Active Protocol: Document 03/09/22 10:50 AB (Rec: 03/09/22 12:39 AB [id number]) Orientation Orientation/Cognition Level of Alertness Alert Orientation Name,Place,Situation Safety Awareness Decreased Safety Awareness Memory Description Short Term Impaired Gross Range of Motion Lower Extremity ROM Assessment Right Impaired Impairments RLE increase guarding affecting PROM test Strength Lower Extremity Strength Assessment Bilaterally Impaired Comments Strength Comments LLE: 4-/5 RLE: 2+/5 Muscle Tone Muscle Tone WNL Yes M6 PT-IP Treatment Start: 03/09/22 12:26 Freq: NEEDED Status: Active Protocol: Document 03/14/22 09:18 SP (Rec: 03/14/22 12:20 SP [id number]) Physical Therapy Treatment Exercises Exercises Ankle Pumps,Gluteal Sets,Quad Sets,Heel Slides Knee ROM Measurement R knee approx 60 deg flexion AAROM Education Education Provided Weight Bearing Status,Safety Other Treatments Other Treatment Performed see mobility details Ed for BLE standing, see details. M7 PT-IP Assessment and Plan Start: 03/09/22 12:26 Freq: NEEDED Status: Active Protocol: Document 03/14/22 09:18 SP (Rec: 03/14/22 12:20 SP [id number]) PT Summary Assessment and Plan Potential Rehabilitation Potential Good Status of Condition at Evaluation Evolving Summary Impairments Pain,ROM,Strength,Balance, Coordination,Sensation,Tone, Cognition,Bed Mobility, Transfers,Gait,Activity Tolerance Progress Towards Goals Slow Progress due to Pain,Slow Progress due to Activity Tolerance,Slow Progress - Other Assessment Summary Pt improved decrease support Max A x1 bed mob, Mod- Max x2 standing mobility w/ FWW with good demonstration maintaining 50% WB on RLE throughout. Goals Bed Mobility Goal Minimal Assistance Transfer Goal Minimal Assistance,Front Wheeled Walker Gait Goal Minimal Assistance,Front Wheel Walker Gait Distance 25 Other Goals improve bed mobility, transfers and ambulation using FWW 50 ft SBA Days to Meet Goals 10 Frequency of Treatment Frequency Of Treatment Twice a Day Treatment Plan Physical Therapy Treatment Plan Bed Mobility Training,Transfer Training,Gait Training, Therapeutic Exercise,Balance Retraining,Post Op Education, Discharge Planning,Hot or Cold Pack,Neuromuscular Re-ed, Coordination Retraining,Manual Therapy Other Recommendations and Next Treatment Pre mob ex, transfers, Focus standing endurance. gait if tolerate and maintain 50% WB RLE follow with chair. Weight Bearing Status Weight Bearing Status Partial Weight Bearing Allowed Weight Bearing Amount (enter % Clarified with ROBERTO Beck: or #) (%) 50% PWB on RLE Recommendations To Nursing Amount of Assist Needed 2 Person Assist Discharge Recommendations PT Discharge Recommendations SNF Rehab Transportation Needs at Discharge Wheelchair/Cabulance,Stretcher /Ambulance
--- NOTE | 2022-03-14 10:43 | OT.IP.TRT ---
Current Diagnoses Type 2 diabetes mellitus with diabetic polyneuropathy (03/07/22) Other acute postprocedural pain (03/07/22) Acute respiratory failure with hypoxia (03/07/22) Shock, unspecified (03/07/22) Displaced intertrochanteric fracture of right femur, initial encounter for closed fracture (03/07/22) Displaced subtrochanteric fracture of unspecified femur, initial encounter for closed fracture (03/07/22) Presence of coronary angioplasty implant and graft (03/07/22) Arthrodesis status (03/07/22) Surgery Performed Operation Date: 03/08/22 15:45 Actual Procedures p Intramedullary Nailing Femur(Right) - Alondra Pineda MD Occupational Therapy Treatment Note M2 OT-IP Current Condition Start: 03/09/22 14:18 Freq: Status: Active Protocol: Document 03/09/22 14:18 [facility] (Rec: 03/09/22 14:37 [facility] [id number]) Occupational Therapy Current Condition Current Condition Evaluation Date 03/09/22 Treatment Diagnosis S/p fall R hips fx, S/P ORIF Diagnosis Onset Date 03/07/22 Weight Bearing Status Weight Bearing Status Partial Weight Bearing Allowed Weight Bearing Amount (enter % RLE partial WB 50% or #) (%) M3 OT- IP Subjective and Pain Start: 03/09/22 14:18 Freq: Status: Active Protocol: Document 03/14/22 10:42 [facility] (Rec: 03/14/22 10:43 [facility] [id number]) OT- Subjective Occupational Therapy Visit Type Type Patient Refusal Notes Attempted to see pt for OT services. Pt states that he has already had a sponge bath and is ready to go to SNF. Pt declined any activities at this time.
--- NOTE | 2022-03-14 11:31 | CM.DPC ---
DCP Cont: Pt is medically stable for discharge today. Pt to discharge to [facility] facility today @ 1230. RN aware and was provided with RN-RN report number. COVID swab was ordered. Pt negative. Med list, rx's, and PASRR sent to [facility]. [facility] will transport him in facility van. O2 tank to be provided by . Pt aware. Kathy Hutchins RN/DCP
[2022-03-14] MEDS: ACETAMINOPHEN 325 MG TABLET 650 MG PO (11:32)
--- NOTE | 2022-03-14 11:40 | PC.NURSE ---
Report given to Patricia at [facility].
--- NOTE | 2022-03-14 12:50 | PC.NURSE ---
Patient was picked up by [facility] with all his belongings. Patient has no further questions or concerns at this time.
== END 2022-03-14 12:45 | DRG 480 ==
LOC: ED 19:47 → AC 19:48 → ICU 03-12 07:10
PROVIDERS: Anesthesiology; Internal Medicine; Orthopaedic Surgery; Student in an Organized Health Care Education/Training Program; Admitting Provider Nurse Practitioner Family; Emergency Provider Emergency Medicine; PCP Family Medicine; Referring Provider Emergency Medicine; Visit Provider Nurse Practitioner Family
PROC: 0QS606Z Reposition Right Upper Femur with Intramedullary Internal Fixation Device, Open Approach (ICD-10-PCS; CPT 27245; principal; 2022-03-08 15:45)
DX: S72.144A Nondisplaced intertrochanteric fracture of right femur, initial encounter for closed fracture (principal); J69.0 Pneumonitis due to inhalation of food and vomit; J96.01 Acute respiratory failure with hypoxia; J96.02 Acute respiratory failure with hypercapnia; T79.4XXA Traumatic shock, initial encounter; S22.080A Wedge compression fracture of T11-T12 vertebra, initial encounter for closed fracture; S32.010A Wedge compression fracture of first lumbar vertebra, initial encounter for closed fracture; S32.020A Wedge compression fracture of second lumbar vertebra, initial encounter for closed fracture; S32.030A Wedge compression fracture of third lumbar vertebra, initial encounter for closed fracture; D62 Acute posthemorrhagic anemia; F05 Delirium due to known physiological condition; S72.24XA Nondisplaced subtrochanteric fracture of right femur, initial encounter for closed fracture; E11.42 Type 2 diabetes mellitus with diabetic polyneuropathy; E78.5 Hyperlipidemia, unspecified; I25.10 Atherosclerotic heart disease of native coronary artery without angina pectoris; K21.9 Gastro-esophageal reflux disease without esophagitis; N40.0 Benign prostatic hyperplasia without lower urinary tract symptoms; F41.9 Anxiety disorder, unspecified; F32.A Depression, unspecified; I10 Essential (primary) hypertension; I67.1 Cerebral aneurysm, nonruptured; W11.XXXA Fall on and from ladder, initial encounter; Z79.01 Long term (current) use of anticoagulants; Z79.4 Long term (current) use of insulin; Z95.1 Presence of aortocoronary bypass graft; Z87.891 Personal history of nicotine dependence; Z20.822 Contact with and (suspected) exposure to COVID-19; Z79.84 Long term (current) use of oral hypoglycemic drugs; Z23 Encounter for immunization
CPT/HCPCS: 01230; 36415; 36430; 36592; 36600; 70450; 71045; 71260; 71275; 72125; 72170; 73502; 73551; 74177; 76000; 80048; 80053; 80202; 80320; 81001; 81003; 82040; 82550; 82805; 82962; 83036; 83605; 83690; 83735; 83880; 84484; 85014; 85018; 85025; 85610; 85730; 86850; 86900; 86901; 87040; 87633; 87635; 87797; 90471; 94762; 96374; 96375; 97129; 97163; 97166; 97530; 99285; 99291; C9803; P9016; 90715; J0690; J0692; J1170; J1200; J1815; J1940; J2020; J2250; J2405; J2543; J3010; J3475; Q9967

== ENCOUNTER → 2022-03-23 14:27 | Outpatient (CLI) | payer SELFPAY ==
[2022-03-07 21:20] VITALS: BMI 24.5
--- NOTE | 2022-03-23 | DI.RAD.S_ITS ---
PROCEDURE: XR FEMUR RT MIN 2V INDICATIONS: Pathological fracture, hip, unspecified, initial encounter f TECHNIQUE: 2 views of the femur were acquired. COMPARISON: [facility], , XR FEMUR RT 1V, 03/11/2022, 19:04. FINDINGS: Bones: Right intertrochanteric healing fracture is transfixed by femoral nail and 2 screws in the neck. Fracture line shows remodeling with bridging callus. Femoral head unremarkable. Soft tissues: Atherosclerotic vascular calcification IMPRESSION: Healing instrumented intertrochanteric proximal femoral fracture Approved by: Mahendra Varela M.D. on 03/23/2022 at 15:50
== END ==
PROVIDERS: PCP Family Medicine; Referring Provider Physician Assistant Medical; Visit Provider Physician Assistant Medical
DX: M84.451D Pathological fracture, right femur, subsequent encounter for fracture with routine healing (principal)
CPT/HCPCS: 73552

== ENCOUNTER → 2024-01-17 08:49 | Outpatient (CLI) | payer MEDICARE, OTHER, SELFPAY ==
[2024-01-17 08:49] VITALS: BMI 24.5
[2024-01-17 10:10] LABS: Hematocrit 38.1 % (41-53); Hemoglobin 12.6 g/dL (13.5-17.5); Mean Corpuscular HGB Conc 32.9 % (30-36); Mean Corpuscular Hemoglobin 28.5 PG (26-34); Mean Corpuscular Volume 86.4 fL (80-100); Platelet Count 221 X10^3/uL (150-400); Red Blood Cell Count 4.41 X10^6/uL (4.5-5.9); Red Cell Distribution Width 14.7 % (11.6-14.8); White Blood Cell Count 7.5 X10^3/uL (4.5-11.0)
[2024-01-17 10:34] LABS: BUN Creatinine Ratio 15.9 (6-22); Blood Urea Nitrogen 20 mg/dL (9-20); Calcium 8.6 mg/dL (8.4-10.2); Carbon Dioxide 31 mmol/L (22-32); Chloride 102 mmol/L (98-107); Cholesterol 94 mg/dL (140-199); Estimated Glomerular Filt Rate 58 mL/min (>60); Glucose 59 mg/dL (80-110); HDL Cholesterol 28 mg/dL (40-60); HEMOLYSIS < 15 (0-50); LDL Cholesterol Calculated 37 mg/dL (<100); Potassium 4.1 mmol/L (3.4-5.1); Sodium 141 mmol/L (137-145); Triglycerides 143 mg/dL (35-150)
== END ==
PROVIDERS: PCP Family Medicine; Referring Provider Internal Medicine Cardiovascular Disease; Visit Provider Internal Medicine Cardiovascular Disease
DX: I25.10 Atherosclerotic heart disease of native coronary artery without angina pectoris (principal)
CPT/HCPCS: 36415; 80048; 80061; 85027

== ENCOUNTER → 2024-07-10 09:04 | Outpatient (CLI) | payer MEDICARE, OTHER, SELFPAY ==
[2024-01-17 08:49] VITALS: BMI 24.5
--- NOTE | 2024-07-10 | DI.MRI.S_ITS ---
PROCEDURE: MR LUMBAR SPINE WO CON INDICATIONS: RIGHT LEG RADICULOPATHY TECHNIQUE: Noncontrast sagittal T1 spin echo and T2 fast echo, sagittal STIR, and T2 fast spin echo through the lumbar spine. In cases with scoliosis, additional coronal T2 fast spin echo may be performed. COMPARISON: [facility], MR, MR LUMBAR SPINE WO CON, 11/05/2021, 11:59. FINDINGS: Image quality: Excellent. Alignment and Curvature: Near anatomic alignment despite multilevel degeneration. Bone Marrow: Stable 50% anterior wedge compression deformity of T12 and 25% compression deformity of L2. Marrow is of normal overall signal. No acute vertebral body compression fractures. Spinal Cord: Conus medullaris terminates at the L1 level. Visualized cord demonstrates normal signal and size. Paraspinous Soft Tissues: No paravertebral masses. T12-L1: Mild disc bulge indenting the ventral thecal sac without central canal or neural foraminal stenosis. L1-L2: Ygvb-di-iramtyju disc bulge indenting the ventral thecal sac without significant central canal stenosis but resulting in mild bilateral neural foraminal stenosis. L2-L3: Mild to moderate disc bulge effacing the ventral thecal sac, with facet hypertrophy resulting in mild central canal stenosis and moderate bilateral neural foraminal stenosis. L3-L4: Mild disc bulge and facet hypertrophy indenting the thecal sac without central canal stenosis, but resulting in mild bilateral neural foraminal stenosis. L4-L5: Mild disc bulge, facet hypertrophy and ligamentum flavum thickening resulting in mild central canal stenosis and moderate bilateral neural foraminal stenosis. L5-S1: Mild to moderate disc bulge, facet arthropathy and ligamentum flavum thickening without central canal stenosis, but resulting in severe bilateral neural foraminal stenosis. IMPRESSION: 1. Severe bilateral neural foraminal stenosis at L4-L5. 2. Moderate bilateral neural foraminal stenosis at L2-L3 and L4-L5. Dictated by: Son Wallis M.D. on 07/10/2024 at 10:49 Approved by: Son Wallis M.D. on 07/10/2024 at 10:59
== END ==
PROVIDERS: PCP Family Medicine; Referring Provider Orthopaedic Surgery; Visit Provider Orthopaedic Surgery
DX: M47.26 Other spondylosis with radiculopathy, lumbar region (principal); M47.27 Other spondylosis with radiculopathy, lumbosacral region; M51.16 Intervertebral disc disorders with radiculopathy, lumbar region; M51.17 Intervertebral disc disorders with radiculopathy, lumbosacral region; M48.061 Spinal stenosis, lumbar region without neurogenic claudication; M48.07 Spinal stenosis, lumbosacral region
CPT/HCPCS: 72148

== ENCOUNTER → 2024-07-24 09:53 | Outpatient (CLI) | payer MEDICARE, OTHER, SELFPAY ==
[2024-01-17 08:49] VITALS: BMI 24.5
--- NOTE | 2024-07-24 10:43 | EKG_ITS ---
[address] [address] Test Date: 2024-07-24 Pat Name: Colby Reinoso Department: [facility] Room: Gender: Male [employer]: DEEPIKA : 1945 Requested By: Order Number: [id number] Reading MD: Benji Wall Measurements Intervals [place] Rate: 77 P: 23 WY: 184 QRS: -83 QRSD: 166 T: 30 QT: 424 QTc: 479 Interpretive Statements Normal sinus rhythm Left axis deviation Right bundle branch block Electronically Signed On 07-25-2024 20:04:25 PST by Benji Wall
[2024-07-24 10:50] LABS: Appearance Urine UA CLEAR; Bilirubin Urine UA NEGATIVE (NEGATIVE); Color Urine UA YELLOW; Glucose Urine UA 1+ g/dL (Negative); Ketones Urine UA NEGATIVE (NEGATIVE); Leukocyte Esterase Urine UA NEGATIVE (NEGATIVE); Nitrite Urine UA NEGATIVE (Negative); Occult Blood Urine UA TRACE-INTACT (Negative); Protein Urine UA TRACE (Negative); Specific Gravity Urine UA 1.025 (1.000-1.035); Urobilinogen Urine UA 0.2 E.U./dL (0.2); pH Urine UA 5.5 (4.5-8.0)
[2024-07-24 10:53] LABS: Urine Volume 10mL (spun)
[2024-07-24 10:56] LABS: RBC Urine None Seen (0-5/HPF); WBC Urine 5-10/HPF (0-5/HPF)
[2024-07-24 10:57] LABS: Add Manual Diff / Slide Review NO; Bacteria Urine None Seen; Basophils Absolute Auto 0 /uL (0-100); Basophils Percent Auto 0.5 % (0-2); Culture Indicated Urine Specimen Cultured; Eosinophils Absolute Auto 400 /uL (0-450); Hematocrit 40.6 % (41-53); Hemoglobin 13.3 g/dL (13.5-17.5); Lymphocytes Absolute Auto 1300 /uL (1100-4500); Lymphocytes Percent Auto 15.8 % (25-40); Mean Corpuscular HGB Conc 32.7 % (30-36); Mean Corpuscular Hemoglobin 28.3 PG (26-34); Mean Corpuscular Volume 86.8 fL (80-100); Monocytes Absolute Auto 500 /uL (0-900); Monocytes Percent Auto 5.8 % (3-14); Neutrophils Absolute Auto 6200 /uL (1500-7000); Neutrophils Percent Auto 72.9 % (50-75); Platelet Count 203 X10^3/uL (150-400); Red Blood Cell Count 4.68 X10^6/uL (4.5-5.9); Red Cell Distribution Width 14.9 % (11.6-14.8); Squamous Epithelial Cell Urine None Seen (0-5/HPF); White Blood Cell Count 8.4 X10^3/uL (4.5-11.0)
[2024-07-24 11:01] LABS: Hemoglobin A1C% w Est Avg Glu 8.1 % (4.0-6.0)
[2024-07-24 11:07] LABS: BUN Creatinine Ratio 21.9 (6-22); Blood Urea Nitrogen 28 mg/dL (9-20); Calcium 9.1 mg/dL (8.4-10.2); Carbon Dioxide 30 mmol/L (22-32); Chloride 99 mmol/L (98-107); Estimated Glomerular Filt Rate 57 mL/min (>60); Glucose 201 mg/dL (80-110); HEMOLYSIS < 15 (0-50); Potassium 4.5 mmol/L (3.4-5.1); Sodium 138 mmol/L (137-145)
== END ==
PROVIDERS: PCP Family Medicine; Referring Provider Orthopaedic Surgery; Visit Provider Orthopaedic Surgery
DX: Z01.818 Encounter for other preprocedural examination (principal); R73.9 Hyperglycemia, unspecified; Z01.812 Encounter for preprocedural laboratory examination; N39.0 Urinary tract infection, site not specified
CPT/HCPCS: 36415; 80048; 81001; 83036; 85025; 87086; 93005